=== PATIENT | female | born 1945 | race Caucasian/White ===

== ENCOUNTER → 2016-12-10 | Outpatient (CLI) | payer OTHER ==
[~2016-12-10] MED LIST: ALLO100T PO; ASPI-428 PO; ATOR-24 PO; CHOL1TAB76 PO; CHOLCAP10 PO; CLOP1TAB15 PO; FENO134C2 PO; FRRS300 PO; HYG25 PO; INSDGIPEN SC; INSU70IN2 SC; LEVO112T4 PO; LOSA50TA6 PO; LSN25 PO; MAGN1TAB19 PO; MAGN250T3 PO; MELO7.5T5 PO; METO-551 PO; METO1TAB31 PO; METO25TA3 PO; MULTCHW PO; MULTTAB58 PO; NVLGI/PEN SC; OMEP40CA41 PO; PLV75 PO; RRNITROTAB SL; ULT50X PO
[2016-12-10 17:29] LABS: HEMATOCRIT 36.3 % (37-47); MEAN CELL VOLUME 92.4 fL (80-100); MEAN CORPUSCULAR HGB CONC 32.5 g/dl (32-36); MEAN PLATELET VOLUME 12.8 fL (7.4-10.4); PLATELET COUNT 232 K/uL (130-400); RED BLOOD COUNT 3.93 M/uL (4.2-5.4); WHITE BLOOD COUNT 7.84 K/uL (4.8-10.8)
[2016-12-10 17:32] LABS: URINE APPEARANCE CLEAR (CLEAR); URINE BILIRUBIN NEG (NEG); URINE COLOR YELLOW; URINE EPITHELIAL CELL AUTO 20-30 /lpf (0-5); URINE NITRITE NEG (NEG); URINE SPECIFIC GRAVITY 1.011 (1.000-1.030); UROBILINOGEN NEG (NEG)
[2016-12-10 17:33] LABS: MANUAL MICROSCOPIC REQUIRED? NO; REVIEW REQ? NO
[2016-12-10 18:07] LABS: ALKALINE PHOSPHATASE 59 U/L (45-117); ALT/SGPT 42 U/L (12-78); AST/SGOT 47 U/L (15-37); BLOOD UREA NITROGEN 40 mg/dl (7-18); BUN/CREATININE RATIO 25.1 (10-20); CALCIUM 8.7 mg/dl (8.5-10.1); CARBON DIOXIDE 22 mmol/L (21-32); CHLORIDE 105 mmol/L (98-107); GLUCOSE 263 mg/dl (70-99); MAGNESIUM 1.8 mg/dl (1.8-2.4); PHOSPHORUS 3.8 mg/dl (2.5-4.9); POTASSIUM 4.7 mmol/L (3.5-5.1); SODIUM 138 mmol/L (136-145)
[2016-12-10 18:18] LABS: RATIO 25.6 mcg/mg (0-30.0)
[2016-12-10 18:20] LABS: CHOLESTEROL/HDL RATIO 4.8; THYROID STIMULATING HORMONE 1.52 uIu/ml (0.300-4.500)
[2016-12-11 06:17] LABS: ESTIMATED AVERAGE GLUCOSE 229 mg/dl; HA1C FLAG Normal (Normal)
== END | disposition home or self-care (01) ==
LOC: C.LABPBG 12:51
PROVIDERS: ATTEND Internal Medicine
DX: I12.9 Hypertensive chronic kidney disease with stage 1 through stage 4 chronic kidney disease, or unspecified chronic kidney disease (principal); N18.3 Chronic kidney disease, stage 3 (moderate); Z79.899 Other long term (current) drug therapy; E78.5 Hyperlipidemia, unspecified; E55.9 Vitamin D deficiency, unspecified

== ENCOUNTER 2017-04-07 10:12 | Inpatient (IN) | payer OTHER ==
[~2017-04-07] VITALS: Ht 149.9 cm; Wt 72.1 kg
[2017-04-07] MEDS ORDERED: SODIUM CHLORIDE 0.9% 1000ML 1,000 ML IV STA (10:18)
--- NOTE | 2017-04-07 10:23 | EMERGENCY ROOM VISIT NOTE ---
History Report prepared by Sindy: Daniel Sam Under the Supervision of: Dr. Heath White M.D. First contact with patient: 10:13 Chief Complaint: CHEST PAIN Stated Complaint: CHEST PAIN History of Present Illness The patient is a 71 year old female who presents to the Emergency Room with complaints of improved chest pain that started earlier this morning. The pain radiates to her back. She also complains of nausea. The patient was given 3 doses of Nitroglycerin, 4 mg Zofran, and 324 mg Aspirin in the ambulance. Her pain has improved but she still feels it in the center of her chest. The patient has otherwise been fine over the past couple of days. She denies shortness of breath, syncope, vomiting, groin or feet pain. She has a history of diabetes. Source of History: patient Onset: earlier this morning Position: chest Timing: other (improved) Modifying Factors (Relieving): other (Nitroglycerin, Aspirin, Zofran) Associated Symptoms: + nausea, No SOB Review of Systems See HPI for pertinent positives & negatives. A total of 10 systems reviewed and were otherwise negative. Past Medical & Surgical Medical Problems: (1) Diabetes (2) NSTEMI (non-ST elevated myocardial infarction) Family History Patient reports no known family medical history. Social History Marital Status: Allergies Coded Allergies: No Known Allergies (Unverified , 04/07/17) Physical Exam Vital Signs Date Time Temp Pulse Resp B/P Pulse Ox O2 Delivery O2 Flow Rate FiO2 04/07/17 12:59 72 20 145/76 94 Room Air 04/07/17 12:30 96 Room Air 04/07/17 11:56 73 20 153/81 96 Room Air 04/07/17 10:35 69 04/07/17 10:12 36.7 70 16 162/94 96 Room Air 04/07/17 10:12 96 Room Air 04/07/17 10:12 96 Room Air Physical Exam GENERAL: Patient is well appearing and in no acute distress. HEENT: No acute trauma, normocephalic atraumatic, mucous membranes moist, no nasal congestion, no scleral icterus. NECK: No stridor, no adenopathy, no meningismus, trachea is midline. LUNGS: No dyspnea. Clear to auscultation and equal bilaterally. No wheeze, no rhonchi. HEART: Regular rate and rhythm. No murmurs, rubs, gallops appreciated. ABDOMEN: Soft, nontender, bowel sounds positive, no masses appreciated, no peritonitis. BACK: No midline tenderness, no CVA tenderness EXTREMITIES: Normal motion all extremities, no cyanosis, no edema. NEUROLOGIC: Alert and oriented, no acute motor or sensory deficits, no focal weakness, cranial nerves grossly intact. SKIN: No rash, no jaundice, no diaphoresis. Medical Decision & Procedures ER Provider Diagnostic Interpretation: X ray results are stated below per my interpretation and the radiologist's interpretation. CHEST ONE VIEW PORTABLE CLINICAL HISTORY: Chest pain. COMPARISON STUDY: No previous studies for comparison. FINDINGS: There is no pneumothorax or pleural effusion. Pulmonary vascularity is normal. Cardiac size is at upper limits of normal. The patient is rotated. There is no consolidation to suggest pneumonia. Mild bibasilar opacities favor atelectasis. IMPRESSION: 1. No acute cardiopulmonary findings. 2. Mild bibasilar opacities which favor atelectasis. Electronically signed by: Murtaza Dubois M.D. 04/07/2017 11:00 AM Dictated Date/Time: 04/07/2017 10:58 AM Laboratory Results 04/07/17 10:15 Red Blood Count 4.02, Mean Corpuscular Volume 93.3, Mean Corpuscular Hemoglobin 29.9, Mean Corpuscular Hemoglobin Concent 32.0, Mean Platelet Volume 12.0, Neutrophils (%) (Auto) 56.0, Lymphocytes (%) (Auto) 30.4, Monocytes (%) (Auto) 6.8, Eosinophils (%) (Auto) 5.9, Basophils (%) (Auto) 0.5, Neutrophils # (Auto) 4.44, Lymphocytes # (Auto) 2.41, Monocytes # (Auto) 0.54, Eosinophils # (Auto) 0.47, Basophils # (Auto) 0.04 04/07/17 10:15 Test 04/07/17 10:15 White Blood Count 7.93 K/uL (4.8-10.8) Red Blood Count 4.02 M/uL (4.2-5.4) Hemoglobin 12.0 g/dL (12.0-16.0) Hematocrit 37.5 % (37-47) Mean Corpuscular Volume 93.3 fL (80-100) Mean Corpuscular Hemoglobin 29.9 pg (25-34) Mean Corpuscular Hemoglobin Concent 32.0 g/dl (32-36) Platelet Count 197 K/uL (130-400) Mean Platelet Volume 12.0 fL (7.4-10.4) Neutrophils (%) (Auto) 56.0 % Lymphocytes (%) (Auto) 30.4 % Monocytes (%) (Auto) 6.8 % Eosinophils (%) (Auto) 5.9 % Basophils (%) (Auto) 0.5 % Neutrophils # (Auto) 4.44 K/uL (1.4-6.5) Lymphocytes # (Auto) 2.41 K/uL (1.2-3.4) Monocytes # (Auto) 0.54 K/uL (0.11-0.59) Eosinophils # (Auto) 0.47 K/uL (0-0.5) Basophils # (Auto) 0.04 K/uL (0-0.2) RDW Standard Deviation 45.8 fL (36.4-46.3) RDW Coefficient of Variation 13.4 % (11.5-14.5) Immature Granulocyte % (Auto) 0.4 % Immature Granulocyte # (Auto) 0.03 K/uL (0.00-0.02) Prothrombin Time 10.0 SECONDS (9.0-12.0) Prothromb Time International Ratio 0.9 (0.9-1.1) Activated Partial Thromboplast Time 24.3 SECONDS (21.0-31.0) Partial Thromboplastin Ratio 0.9 D-Dimer 410 ug/L FEU (0-500) Anion Gap 11.0 mmol/L (3-11) Est Creatinine Clear Calc Drug Dose 33.8 ml/min Estimated GFR () 47.1 Estimated GFR (Non- 40.7 BUN/Creatinine Ratio 20.1 (10-20) Calcium Level 9.1 mg/dl (8.5-10.1) Total Creatine Kinase 153 U/L (26-192) Creatine Kinase MB 6.6 ng/ml (0.5-3.6) Creatine Kinase MB Ratio 4.3 (0-3.0) Troponin I 0.115 ng/ml (0-0.045) Laboratory results as reviewed by me. Medications Administered Medications (Trade) Dose Ordered Sig/Bay Route Start Time Stop Time Status Last Admin Dose Admin Sodium Chloride (Nss 1000ml) 1,000 ml @ 75 mls/hr [id number] STAT IV 04/07/17 10:18 04/07/17 23:37 04/07/17 10:36 75 MLS/HR Nitroglycerin (Nitroglycerin 2% Oint) 1 inch NOW ONCE EXT 04/07/17 11:30 04/07/17 11:31 DC 04/07/17 11:53 1 INCH Heparin Sodium/ Dextrose (Heparin 25,000 Unit/500ml D5W) 25,000 unit STK-MED ONCE .ROUTE 04/07/17 11:45 04/07/17 11:46 DC 04/07/17 11:56 25,000 UNIT Heparin Sodium (Porcine) (Heparin Sq 5000 Unit/0.5ml) 5,000 unit STK-MED ONCE .ROUTE 04/07/17 11:51 04/07/17 11:52 DC 04/07/17 11:54 3,000 UNIT ECG Indication: chest pain Rate (beats per minute): 70 Rhythm: normal sinus Findings: nonspecific-ST abn (throughout anterolateral leads), ST elevation ( mild, lead V1 only), other (no recipricol changes, no definite STEMI) Change: Repeat EKG one hour later: Normal sinus at 69, developing T wave inversions anterolaterally, improvement of ST abnormality in lead V1. ED Course 1014: The patient was evaluated in room B4b. A complete history and physical exam was performed. 1018: NSS 1000 ml @ 75 mls/hr. 1123: Heparin Sodium / Dextrose 1 ea IV. 1130: Discussed at length the risks and benefits of heparin use. I also listed all contraindications. She agrees to treatment with Heparin. Hospitalist Service being paged. 1130: Nitroglycerin 1 inch EXT. 1147: Discussed the case with Dr. Fernandes, [facility] Hospitalist. The patient will be evaluated. Medical Decision Differential: Cardiac Ischemia (STEMI, NSTEMI, Unstable Angina, etc), Aortic Dissection, Arrhythmia, Pulmonary Embolism, Pneumonia, Pneumothorax, MSK, Infectious, Pericarditis/Myocarditis, Esophageal Rupture, Gastrointestinal, amongst other pathologies entertained. Medication Reconciliation: I attest that I have personally reviewed the patient 's current medication list. 71 yr old diabetic, HTN female arrives with substernal chest pressure radiating to back. ASA/SLNTGx3 [employer] with resolution of symptoms and only mild discomfort on arrival which resolved while I was evaluating here. Feels well without further complaints. She has concerning initial EKG but without current symptoms I do not feel that heart alert reasonable. Repeat EKG does show developing changes. As this with Trop elevation feel that patient has NSTEMI and will need heparin. Without persistent pain will avoid nitro gtt at current but start with nitro paste as BP can handle it. She does not have CXR abnormality, she has excellent equal pulses all 4 extremities and does not have any further pain. I do not feel this is aortic dissection. I furthermore do not feel this is PE, pneumothorax nor infectious etiology. She is stable, feels well and in no distress. She has no contraindications to heparin use and understands the risks of bleeding, sometimes severe. Stable at time of evaluation by hospitalist. Consults Time Called: 1130 Consulting Physician: Dr. Fernandes [facility] Hospitalist Returned Call: [phone] The patient will be evaluated. Impression Primary Impression: NSTEMI (non-ST elevated myocardial infarction) Critical Care I have personally spent greater than 40 minutes of critical care time in the direct management of this patient. This was a life/limb threatening event. This includes time spent evaluating patient, direct bedside care, chart review, placing orders, interpretation of diagnostic studies, discussion with consultants, patient, and family members, as well as other required patient management activities. This 40 minutes is in excess of all separately billable procedures. Scribe Attestation The scribe's documentation has been prepared under my direction and personally reviewed by me in its entirety. I confirm that the note above accurately reflects all work, treatment, procedures, and medical decision making performed by me. Departure Information Dispostion Being Evaluated By Hospitalist Referrals Venkatesh Ludny M.D. (PCP) Patient Instructions My [facility]
[2017-04-07 10:30] LABS: BASO % 0.5 %; BASO ABS # 0.04 K/uL (0-0.2); COMPLETE YES; EOS % 5.9 %; HEMATOCRIT 37.5 % (37-47); IG% 0.4 %; LYMPH % 30.4 %; LYMPH ABS # 2.41 K/uL (1.2-3.4); MEAN CELL VOLUME 93.3 fL (80-100); MEAN CORPUSCULAR HEMOGLOBIN 29.9 pg (25-34); MONO % 6.8 %; PLATELET COUNT 197 K/uL (130-400); RED BLOOD COUNT 4.02 M/uL (4.2-5.4); WHITE BLOOD COUNT 7.93 K/uL (4.8-10.8)
[2017-04-07 10:42] LABS: BUN/CREATININE RATIO 20.1 (10-20); CALCIUM 9.1 mg/dl (8.5-10.1); CREATININE 1.3 mg/dl (0.60-1.20); POTASSIUM 4.2 mmol/L (3.5-5.1)
[2017-04-07 10:43] LABS: INR 0.9 (0.9-1.1); PARTIAL THROMBOPLASTIN RATIO 0.9
[2017-04-07 10:53] LABS: CKMB/CK RATIO 4.3 (0-3.0)
--- NOTE | 2017-04-07 11:01 | DIAGNOSTIC IMAGING REPORT ---
CHEST ONE VIEW PORTABLE CLINICAL HISTORY: Chest pain. COMPARISON STUDY: No previous studies for comparison. FINDINGS: There is no pneumothorax or pleural effusion. Pulmonary vascularity is normal. Cardiac size is at upper limits of normal. The patient is rotated. There is no consolidation to suggest pneumonia. Mild bibasilar opacities favor atelectasis. IMPRESSION: 1. No acute cardiopulmonary findings. 2. Mild bibasilar opacities which favor atelectasis. Electronically signed by: Murtaza Dubois M.D. 04/07/2017 11:00 AM Dictated Date/Time: 04/07/2017 10:58 AM
[2017-04-07] MEDS ORDERED: NITROGLYCERIN OINT 2% 1GM PACKET EXT ONE (11:30)
[2017-04-07] MEDS ORDERED: HEPARIN 25000 UNIT/500 ML D5W ONE (11:45)
[2017-04-07] MEDS ORDERED: HEPARIN SOD (PORCINE) 1000 UNIT/ML 10 ML VIAL ONE (11:48)
[2017-04-07] MEDS ORDERED: HEPARIN SOD 5000 UNIT/0.5 ML CARP ONE (11:51)
[2017-04-07] MEDS ORDERED: ALUMINUM/MAGNESIUM/SIMETH (MAALOX MAX) 30 ML UDC PO PRN (12:15)
[2017-04-07] MEDS ORDERED: ONDANSETRON INJ 2 MG/ML 2 ML VIAL IV PRN (12:15)
[2017-04-07] MEDS ORDERED: ACETAMINOPHEN 325 MG TAB PO PRN (12:15)
[2017-04-07] MEDS ORDERED: NITROGLYCERIN OINT 2% 1GM PACKET EXT SCH (12:15)
[2017-04-07] MEDS ORDERED: MAGNESIUM HYDROXIDE SUSP 30 ML UDC PO PRN (12:15)
[2017-04-07] MEDS ORDERED: NITROGLYCERIN 0.4 MG SL PER TAB CHARGE SL PRN (12:15)
[2017-04-07 12:30] VITALS: O2SAT 96; BMI 33.0
[2017-04-07] MEDS ORDERED: GLUCOSE 10 TABS/TUBE PO PRN (12:30)
[2017-04-07] MEDS ORDERED: GLUCAGON FOR INJ 1 MG VIAL SQ PRN (12:30)
[2017-04-07] MEDS ORDERED: GLUCOSE 40% GEL 15 GM TUBE PO PRN (12:30)
[2017-04-07] MEDS ORDERED: DEXTROSE 50% 50 ML SYR IV PRN (12:30)
[2017-04-07 13:50] VITALS: BP 148/81; PULSE 77; TEMP 36.6; O2SAT 95
[2017-04-07] MEDS ORDERED: METOPROLOL TARTRATE 25 MG TAB PO ONE (14:00)
--- NOTE | 2017-04-07 14:06 | HISTORY & PHYSICAL EXAMINATION ---
DATE OF ADMISSION: 04/07/2017 CHIEF COMPLAINT: Chest pain. HISTORY OF PRESENT ILLNESS: This is a 71-year-old female with past medical history significant for poorly controlled diabetes on insulin, hypertension, hyperlipidemia, gastroparesis, hypothyroidism, history of glaucoma, chronic kidney disease stage III, history of depression, osteoarthritis, who presents with chest pain. The patient says yesterday afternoon, she noticed chest pain, middle of the chest going to back, 10/10 in severity while she was at rest and not associated with any shortness of breath or sweating or nausea or dizziness. Patient says she took a nitro and the pain subsided a little bit and she took another nitro and the pain was almost gone and she went to sleep but today morning again she woke up with severe pain and she came to ER. aIn the ambulance, she got 3 nitros and the pain is almost resolved. Currently resting comfortably, hemodynamically stable. Chest pain is about 1/10 in severity at this time. Denies any recent fever or chills, no headaches. No blurred visions. Appetite is okay. Normal bowel and bladder movements. Otherwise the patient says she is active and she walks and she climbs steps without any problems. ALLERGIES: TO LISINOPRIL, SALICYLATES. PAST MEDICAL HISTORY: As mentioned above. PAST SURGICAL HISTORY: Left heart catheterization in 2003, colonoscopy, removal of nose polyps, removal of thyroid gland, cataract surgery. MEDICATIONS: The patient is on allopurinol 100 mg two tablets daily, chlorthalidone 12.5 mg p.o. daily, fenofibrate 134 mg p.o. daily, Novolin 70/30, 8 units with breakfast and 50 units with supper, triamcinolone apply topically b.i.d., omeprazole 40 mg p.o. daily, levothyroxine 112 mcg p.o. daily, atorvastatin 40 mg p.o. daily, metoprolol tartrate 25 mg p.o. b.i.d., vitamin D 2000 unit p.o. daily, meloxicam 75 mg p.o. daily p.r.n., magnesium 250 mg p.o. b.i.d., aspirin 81 mg p.o. daily, multivitamin one tablet p.o. daily. FAMILY HISTORY: Significant for, mother had breast cancer and diabetes. Father had heart disorder. Sister has breast cancer. Brother has diabetes. SOCIAL HISTORY: . Never smoked. No alcohol use. No drug use. REVIEW OF SYSTEMS: As per HPI. Rest of the review of symptoms negative. PHYSICAL EXAMINATION: GENERAL: The patient is of moderate build, not in distress. VITAL SIGNS: Temperature 36.7, pulse 70, respiratory rate 16, blood pressure 162/94, oxygen 96% on room air. HEENT: No pallor, no icterus. Pupils equal, round, and reactive to light. NECK: No JVD, no neck masses, no carotid bruits. CARDIOVASCULAR: S1, S2 heard, regular rate and rhythm, no murmur, no gallop. RESPIRATORY SYSTEM: Clear to auscultation bilaterally. No wheezing, no crackles. ABDOMEN: Soft, bowel sounds present. Nontender. No distention. CENTRAL NERVOUS SYSTEM: Cranial nerves II-XII grossly intact. Nonfocal. EXTREMITIES: No edema, no erythema. LABORATORIES: Sodium 140, potassium 4.2, chloride 105, bicarb 24, BUN 26, creatinine 1.3, serum glucose 245, calcium 9.1, total creatinine kinase 153, CK-MB 6.6, troponin 0.115. WBC 7.9, hemoglobin 12, hematocrit 37.5, platelets 197. PT 10, INR 0.9, PTT 24.3. Chest x-ray: No acute findings, mild bibasilar opacities favors atelectasis. Initial EKG showed normal sinus rhythm with rate of 70, nonspecific T-wave abnormality. A repeat EKG showed normal sinus rhythm with rate of 69, some T-wave inversions in leads V4, V5 and V6. ASSESSMENT AND PLAN: This is a 71-year-old female who presents with chest pain. 1. Chest pain, \ non-ST myocardial infarction with EKG changes with T-wave inversions in V4 through V6 leads and mild elevation in troponin 0.1. We will continue IV heparin and nitropaste. Continue home aspirin and Lopressor and Lipitor, serial cardiac enzymes, echocardiogram and consult cardiology. Further recommendations as per cardiology. Close monitor in tele floor. 2. History of diabetes, poorly controlled. HBA1C 8.9level. Will place o Lantus and insulin sliding scale. We will closely monitor blood sugars.Follow hba1c levels 3. History of hypertension. Continue Lopressor, chlorthalidone. The patient currently on nitropaste and will monitor the blood pressure. 4. History of hypothyroidism. Continue Synthroid. 5. History of hyperlipidemia. Continue statin. Follow the fasting lipid profile. 6. History of chronic kidney disease stage III, baseline creatinine around 1.3. We will follow the labs. 7. History of gout, continue allopurinol. 8. Deep venous thrombosis prophylaxis, on IV heparin. 9. Disposition: Close monitor in tele floor. Expect to discharge home and follow with the family doctor and cardiology. Level 1 full code. MTDD
[2017-04-07] MEDS: SODIUM CHLORIDE 0.9% 1000ML 1,000 ML IV SCH (14:21)
[2017-04-07] MEDS ORDERED: PERFLUTREN LIPID MICROSPHERE (DEFINITY) IV ONE (15:15)
[2017-04-07 15:51] VITALS: BP 123/61; PULSE 70; TEMP 36.7; O2SAT 95
[2017-04-07 17:07] LABS: CKMB/CK RATIO 7.5 (0-3.0)
[2017-04-07] MEDS: METOPROLOL TARTRATE 25 MG TAB PO SCH ×2 (17:58→23:40)
[2017-04-07] MEDS: INSULIN ASPART 100 UNITS/ML 3 ML PEN SC SCH ×2 (17:59→20:50)
[2017-04-07] MEDS: HEPARIN 25,000 UNIT/500ML D5W 500 ML IV PRN (19:28)
[2017-04-07] MEDS ORDERED: HEPARIN IV BOLUS 5,000 UNIT in SYRINGE 0 ML IV ONE (19:30)
[2017-04-07 19:43] VITALS: BP 131/69; PULSE 78; TEMP 36.7; O2SAT 96
--- NOTE | 2017-04-07 20:00 | CARDIOLOGY CONSULTATION ---
DATE OF CONSULTATION: 04/07/2017 REFERRING: Dr. Fernandes. PRIMARY CARE PHYSICIAN: Dr. Lundy. PRIMARY CAFETERIA CLERK: Dr. Rodrigues. SENIOR WRITER: Dr. Hernandez. INDICATIONS: Chest pain. HISTORY OF PRESENT ILLNESS: The patient is a 71-year-old female whose history is notable for longstanding hypertension with hypertensive heart disease, type 2 diabetes mellitus, chronic stage III renal insufficiency, dyslipidemia, gastroesophageal reflux with gastroparesis. She has undergone prior diagnostic cardiac catheterization in the remote past in 2003 for abnormal stress testing and chest discomfort with study at that time demonstrating narrow caliber coronaries, but no obstructive disease. The patient presents now noting an episode of chest pain radiating to her mid chest and back developing while sitting quietly at [facility]. She was treated with nitrates and aspirin in the ambulance en route with improvement of symptoms. Notes no prior history of myocardial infarction or recent episodes of chest pain or discomfort. Currently is comfortable in the Emergency Room. Notes no fevers, chills or productive cough. Notes no bleeding difficulties. Notes no melena, hematochezia, dysuria or hematuria. Notes no rash or arthritic complaint. Did receive a course of prednisone for tendonitis in early March. Notes no acute weight loss or gain. Notes no sleep disruptions. Has been taking medications as prescribed. Blood pressures has been per patient okay. Blood sugars have been variable. REVIEW OF SYSTEMS: Otherwise negative. ALLERGIES: NOTED TO BE COUGH WITH LISINOPRIL, GI UPSET WITH HIGH DOSE ASPIRIN, THOUGH SHE IS ABLE TO TAKE BABY ASPIRIN. MEDICATIONS PRIOR TO HOSPITALIZATION: Were, chlorthalidone 12.5 mg per day, allopurinol 200 mg p.o. q. day, fenofibrate 134 mg p.o. q. day, Novolin 70/30 insulin, Levoxyl 112 mcg per day, atorvastatin 40 mg p.o. q. day, metoprolol 25 mg twice per day, vitamin D3 2000 unit q. day, meloxicam p.r.n. pain, aspirin 81 mg per day, multivitamin per day, and magnesium 250 mg p.o. q. day. PAST SURGICAL HISTORY: Notable for prior thyroidectomy, in the remote past history of polypectomy, cataract extractions. FAMILY HISTORY: Positive for heart disease. SOCIAL HISTORY: The patient is a nonsmoker, nondrinker. She is lives in [place]. She is modestly active about her home. PHYSICAL EXAMINATION: GENERAL: This patient is a moderately obese, age-appropriate female, in no acute distress currently. VITAL SIGNS: Heart rate 73, blood pressure is 162/90, O2 saturation is 96% on room air. HEENT: Normocephalic, atraumatic. Nares without discharge. Throat was clear. NECK: Supple without thyromegaly, lymphadenopathy. There is a surgical incision in the neck. There are no carotid bruits audible. LUNGS: Clear to the bases. CARDIOVASCULAR: Regular with normal S1, S2. There is no audible murmur or rub. ABDOMEN: Soft, nontender. There is no palpable hepatosplenomegaly. ABDOMEN: Obese. There are no abdominal bruits. EXTREMITIES: Without cyanosis or clubbing. There is no peripheral edema. There are intact distal pulses. There is no audible abdominal or femoral bruits. Distal pulses are +1/4 dorsalis pedis and posterior tibialis. DATA: EKG on initial presentation revealed nonspecific ST segment changes, sinus rhythm with hyperacute ST segments in V2 and V3, poor R-wave progression V1, V2. Repeat study demonstrated nonspecific ST flattening, slightly more pronounced, though with less hyperacute segments in V1, V2. Troponin is 0.115, CK is 153 with MB fraction elevation, BUN is 26, creatinine is 1.3, hemoglobin is 12.0. Chest x-ray reveals no infiltrate or edema. Outpatient review of records reveals stress nuclear imaging study with a Lexiscan on 02/06/2017 with normal study. IMPRESSION: A 71-year-old female with cardiac risk factors of diabetes, hypertension, hyperlipidemia, hypertensive heart disease, who presents now with severe chest pain radiating from mid chest to back and shoulders with response to nitrates and elevated troponin on presentation. Findings are indicative of acute coronary syndrome though, hypertensive origin may be present. RECOMMENDATIONS : As already initiated, continue IV heparin. We will intensify beta porsche by increasing metoprolol 25 q. 6 hours with an additional dose today, topical nitrates administered 1 inch q. 6 hours. Echocardiogram has been ordered and will be reviewed. Her outpatient records, an ejection fraction in the past has been approximately 50% , but recent stress nuclear suggested an ejection fraction of 70%. Would have low threshold of adding losartan to regimen. Cardiology will continue to follow with clinical history if the patient report any worsening symptoms while in the hospital. LILA
[2017-04-07] MEDS ORDERED: METOPROLOL TARTRATE 25 MG TAB PO SCH (21:00)
[2017-04-07] MEDS ORDERED: INSULIN GLARGINE SOLOSTAR 100 UNITS/ML 3 ML PEN SC SCH (21:00)
[2017-04-07] MEDS: NITROGLYCERIN OINT 2% 1GM PACKET EXT SCH (22:22)
[2017-04-07 23:33] VITALS: BP 130/71; PULSE 74; TEMP 36.7; O2SAT 94
[2017-04-08] MEDS: NITROGLYCERIN OINT 2% 1GM PACKET EXT SCH ×4 (03:30→21:21)
[2017-04-08] MEDS: SODIUM CHLORIDE 0.9% 1000ML 1,000 ML IV SCH (03:34)
[2017-04-08 03:35] LABS: BASO % 0.3 %; BASO ABS # 0.02 K/uL (0-0.2); COMPLETE YES; EOS % 5.2 %; HEMATOCRIT 35.1 % (37-47); IG% 0.3 %; LYMPH % 29.9 %; LYMPH ABS # 2.23 K/uL (1.2-3.4); MEAN CELL VOLUME 94.6 fL (80-100); MEAN CORPUSCULAR HEMOGLOBIN 30.2 pg (25-34); MEAN CORPUSCULAR HGB CONC 31.9 g/dl (32-36); MEAN PLATELET VOLUME 11.8 fL (7.4-10.4); MONO % 7.9 %; NEUT % 56.4 %; PLATELET COUNT 172 K/uL (130-400); RED BLOOD COUNT 3.71 M/uL (4.2-5.4); WHITE BLOOD COUNT 7.45 K/uL (4.8-10.8)
[2017-04-08 03:43] LABS: PARTIAL THROMBOPLASTIN RATIO 1.3
[2017-04-08 04:05] LABS: BUN/CREATININE RATIO 15.6 (10-20); CALCIUM 8.5 mg/dl (8.5-10.1); CHOLESTEROL/HDL RATIO 4.9; CREATININE 1.2 mg/dl (0.60-1.20); MAGNESIUM 1.8 mg/dl (1.8-2.4); POTASSIUM 4.7 mmol/L (3.5-5.1)
[2017-04-08 04:10] VITALS: BP 122/62; PULSE 82; TEMP 36.6; O2SAT 97
[2017-04-08] MEDS: METOPROLOL TARTRATE 25 MG TAB PO SCH ×3 (05:39→17:13)
[2017-04-08] MEDS: LEVOTHYROXINE 112 MCG TAB PO SCH (05:39)
[2017-04-08] MEDS: HEPARIN 25,000 UNIT/500ML D5W 500 ML IV PRN (06:20)
[2017-04-08] MEDS ORDERED: HEPARIN IV BOLUS 5,000 UNIT in SYRINGE 0 ML IV ONE (06:30)
[2017-04-08] MEDS: INSULIN ASPART 100 UNITS/ML 3 ML PEN SC SCH ×4 (07:00→21:00)
--- NOTE | 2017-04-08 07:26 | ECHOCARDIOGRAM REPORT ---
*NOTICE TO RECEIVING LIBERTARIAN AGENCY This information is strictly Confidential and protected under [place] law. [place] law prohibits you from making any further disclosure of this information unless further disclosure is expressly permitted by the written consent of the person to whom it pertains or is authorized by law. A general authorization for the release of medical or other information is not sufficient for this purpose. Hospital accepts no responsibility if the information is made available to any other person, INCLUDING THE PATIENT. Interpretation Summary * Conclusions -- * The left ventricle is normal in size. * There is normal left ventricular wall thickness. * There is severe hypokinesis to akinesis of the septum and apex with mild apical expansion. * Ejection Fraction = 35-40%. * Aortic valve sclerosis moderate, without significant aortic valvular stenosis. * There is focal calcification of the posterior annulus. * There is trace mitral regurgitation. * Grade I diastolic dysfunction, (abnormal relaxation pattern). Procedure Details * A complete two-dimensional transthoracic echocardiogram was performed (2D, M-mode, Doppler and color flow Doppler). * A contrast injection of Definity was performed to improve assessment of LV function. * Contrast was injected into an intravenous site in the left arm. * One vial of Definity ultrasound contrast was diluted in normal saline to a total volume of 10 ml. A total of '2' ml of solution was administered during imaging. * Lot # [id number] of Definity utilized for procedure. * Expiration date 04/28. * The attending nurse who injected the contrast agent was SHASTA FINCH RN. Left Ventricle * The left ventricle is normal in size. * There is normal left ventricular wall thickness. * Ejection Fraction = 35-40%. * There is severe hypokinesis to akinesis of the septum and apex with mild apical expansion. Right Ventricle * The right ventricle is normal in size and function. Atria * The left atrial size is normal. * Right atrial size is normal. * No ASD detected; PFO is not assessed. Mitral Valve * There is focal calcification of the posterior annulus. * There is no mitral valve stenosis. * There is trace mitral regurgitation. Tricuspid Valve * The tricuspid valve anatomy is normal. * There is no tricuspid stenosis. * There is trace tricuspid regurgitation. Aortic Valve * The aortic valve is trileaflet. * Aortic valve sclerosis moderate, without significant aortic valvular stenosis. * No aortic regurgitation is present. Pulmonic Valve * The pulmonic valve is not well visualized. Great Vessels * The aortic root is normal size. Pericardium/Pleural * There is no pericardial effusion. Left Ventricular Diastolic Function * Grade I diastolic dysfunction, (abnormal relaxation pattern). MMode 2D Measurements and Calculations IVSd 0.87 cm IVSs 1.1 cm LVIDd 3.9 cm LVIDs 2.9 cm LVPWd 0.86 cm LVPWs 1.1 cm IVS/LVPW 1.0 FS 27.2 % EDV(Teich) 66.6 ml ESV(Teich) 30.9 ml EF(Teich) 53.6 % EDV(cubed) 60.1 ml ESV(cubed) 23.2 ml EF(cubed) 61.4 % % IVS thick 28.8 % % LVPW thick 25.8 % LV mass(C)d 100.0 grams LV mass(C)dI 59.2 grams/m\S\2 LV mass(C)s 88.3 grams LV mass(C)sI 52.2 grams/m\S\2 SV(Teich) 35.7 ml SI(Teich) 21.1 ml/m\S\2 SV(cubed) 36.9 ml SI(cubed) 21.8 ml/m\S\2 ACS 0.94 cm asc Aorta Diam 2.7 cm LVOT diam 1.6 cm LVOT area 2.0 cm\S\2 LVAd ap4 28.7 cm\S\2 LVLd ap4 7.1 cm EDV(MOD-sp4) 94.0 ml EDV(sp4-el) 98.0 ml LVAs ap4 19.3 cm\S\2 LVLs ap4 6.7 cm ESV(MOD-sp4) 44.2 ml ESV(sp4-el) 46.9 ml EF(MOD-sp4) 53.0 % EF(sp4-el) 52.1 % LVAd ap2 28.2 cm\S\2 LVLd ap2 7.2 cm EDV(MOD-sp2) 91.8 ml EDV(sp2-el) 93.7 ml LVAs ap2 18.9 cm\S\2 LVLs ap2 6.8 cm ESV(MOD-sp2) 44.4 ml ESV(sp2-el) 44.6 ml EF(MOD-sp2) 51.6 % EF(sp2-el) 52.4 % LVLd %diff 0.77 % EDV(MOD-bp) 93.0 ml LVLs %diff 1.1 % ESV(MOD-bp) 43.9 ml EF(MOD-bp) 52.8 % SV(MOD-sp4) 49.8 ml SI(MOD-sp4) 29.4 ml/m\S\2 SV(MOD-sp2) 47.4 ml SI(MOD-sp2) 28.0 ml/m\S\2 SV(MOD-bp) 49.1 ml SI(MOD-bp) 29.0 ml/m\S\2 SV(sp4-el) 51.1 ml SI(sp4-el) 30.2 ml/m\S\2 SV(sp2-el) 49.1 ml SI(sp2-el) 29.0 ml/m\S\2 Doppler Measurements and Calculations MV E max adriano 96.0 cm/sec MV A max adriano 124.4 cm/sec MV E/A 0.77 MV dec time 0.21 sec Ao V2 max 126.9 cm/sec Ao max PG 6.4 mmHg Ao max PG (full) 2.8 mmHg KELLY(V,A) 1.5 cm\S\2 KELLY(V,D) 1.5 cm\S\2 LV V1 max PG 3.6 mmHg LV V1 max 94.9 cm/sec PA V2 max 89.5 cm/sec PA max PG 3.2 mmHg
[2017-04-08 07:55] LABS: ESTIMATED AVERAGE GLUCOSE 243 mg/dl; HA1C FLAG Normal (Normal)
[2017-04-08 07:57] VITALS: BP 117/63; PULSE 74; TEMP 36.8; O2SAT 95
[2017-04-08 08:19] LABS: CKMB/CK RATIO 7.1 (0-3.0)
[2017-04-08] MEDS: FENOFIBRATE 145 MG TAB PO SCH (09:03)
[2017-04-08] MEDS: CHLORTHALIDONE 25 MG TAB PO SCH (09:03)
[2017-04-08] MEDS: ATORVASTATIN 40 MG TAB PO SCH (09:04)
[2017-04-08] MEDS: CEROVITE ADV FORMULA TAB PO SCH (09:04)
[2017-04-08] MEDS: ALLOPURINOL 100 MG TAB PO SCH (09:04)
[2017-04-08] MEDS: MAGNESIUM OXIDE 400 MG TAB PO SCH (09:04)
[2017-04-08] MEDS: ASPIRIN 81 MG ECTAB PO SCH (09:04)
[2017-04-08] MEDS: PANTOprazole SOD 40 MG TAB PO SCH (09:05)
--- NOTE | 2017-04-08 10:36 | PROGRESS NOTE ---
DATE: 04/08/2017 SUBJECTIVE: The patient is seen and examined at the bedside. She is chest pain free over the last 24 hours. Intravenous heparin is infusing. Family present at bedside. The patient has been n.p.o. this morning pending cardiology evaluation. Denies any shortness of breath. Her chest discomfort was relieved on presentation with topical nitrates. Her ECG demonstrates anterior T-wave inversions. Her troponin has trended up to 3.900. Resting 2D transthoracic echo demonstrates anterior apical wall motion abnormality with moderate systolic dysfunction. REVIEW OF SYSTEMS: Pertinent positives noted above. A 4-system review including cardiovascular, gastroenterologic, neurologic, and pulmonary systems otherwise negative. MEDICATIONS: Reviewed via EMR. Please see list for details. LABORATORY DATA: Sodium 147, potassium 4.7, chloride 111, CO2 is 27, BUN is 19, and creatinine is 1.20. Hemoglobin A1c is 10.1. White blood cell count is 7.45, hemoglobin is 11.2, and platelet count is 172. PHYSICAL EXAMINATION: VITAL SIGNS: Temperature is 36.8 degrees centigrade, pulse 74 beats per minute and regular, respiratory rate is 18 breaths per minute, blood pressure 117/63, and SaO2 is 95% on room air. TELEMETRY: Demonstrates sinus rhythm. GENERAL: NAD, awake, alert and oriented x3. HEENT: Mucous membranes are moist. There is no scleral icterus. Conjunctivae are pink. NECK: Supple. There is no JVD or HJR. No carotid bruit. HEART: Regular with a normal S1 and S2. There is no murmur, rub or gallop. LUNGS: Clear. There are no rales, rhonchi or wheeze. ABDOMEN: Soft and nontender. No rebound or guarding. Normal bowel sounds. EXTREMITIES: Warm and dry. There is no clubbing, cyanosis or edema. Normal right upper extremity Silvano's test is noted. Her right femoral pulse is normal with palpable posterior tibial pulses on the right side. NEUROLOGIC: Demonstrates no focal motor deficit. FINAL IMPRESSION: 1. Non-ST elevation myocardial infarction with septal and apical wall motion abnormality. 2. Diabetes type 2 -- controlled. 3. Dyslipidemia. 4. Moderate left ventricular systolic dysfunction with compensated heart failure. PLAN AND RECOMMENDATIONS: The risks, benefits and alternatives to cardiac catheterization were discussed. The patient and family are agreeable. Intravenous heparin will be continued overnight. Other cardiovascular medications including aspirin, atorvastatin, and topical nitrates will be continued. We will plan to add TROY inhibitor post-catheterization. Further recommendations pending review of coronary angiography. The patient will remain n.p.o. except medications after midnight in anticipation of procedure in the a.m.
[2017-04-08 12:14] VITALS: BP 113/66; PULSE 85; TEMP 36.5; O2SAT 96
[2017-04-08 12:45] LABS: PARTIAL THROMBOPLASTIN RATIO 1.8
[2017-04-08 15:02] VITALS: Ht 149.9 cm; Wt 72.1 kg
[2017-04-08 15:16] VITALS: BP 110/59; PULSE 76; TEMP 36.7; O2SAT 95
--- NOTE | 2017-04-08 17:09 | Progress Note ---
Internal Med Progress Note Date of Service: April 08, 2017. Provider Documentation: SUBJECTIVE: resting comfortably slept ok no chest pain since admission no sob no sweating hemodynamics stable OBJECTIVE: Vital Signs-as noted below Exam: General-alert and awake and oriented x 3. ENT-normal hearing Neck-no neck masses Lungs-cta b/l no wheezing or crackles Heart-s1 and s2 heard regular rate and rhythm no murmurs Abdomen-soft bowel sounds present non tender no distension Extremities- no present no erythema Neuro-alert and awake oriented moves extremities Lab data as noted below. ASSESSMENT & PLAN: This is a 71-year-old female who presents with chest pain and NSTEMI.Currently asymptomatic Plan for cardiac cath in am. 1. Chest pain, non-ST myocardial infarction with EKG changes with T-wave inversions in V4 through V6 leads and mild elevation in troponin 0.1. on nitropaste, po Lopressor, aspirin and iv heparin and statin plan to add lisinopril after cardiac cath morphine prn troponin 3.9 today echo shows severe hypokinesis to akinesis of the septum and apex with mild apical expansion and ef 35-40% currently asymptomatic cardiology on board and plan for cardiac cath in am. 2. Systolic chf new onset on meds as above monitor for volume overload. 2. History of diabetes, poorly controlled. HBA1C 8.9level. On Lantus and insulin sliding scale. hba1c levels 10.1. Pharmacy consulted for glycemic management. Diabetic teaching close monitor. 3. History of hypertension. Continue Lopressor, chlorthalidone. The patient currently on nitropaste and will monitor the blood pressure. 4. History of hypothyroidism. Continue Synthroid. 5. History of hyperlipidemia. Continue statin. LDL 58 hdl 31 TG 320 on TriCor. 6. History of chronic kidney disease stage III, baseline creatinine around 1.3. We will follow the labs. 7. History of gout, continue allopurinol. 8. Deep venous thrombosis prophylaxis, on IV heparin. 9. Disposition: Close monitor in tele floor. Expect to discharge home and follow with the family doctor and cardiology. Level 1 full code Vital Signs: Date Time Temp Pulse Resp B/P Pulse Ox O2 Delivery O2 Flow Rate FiO2 04/08/17 19:40 36.4 72 20 130/76 97 Room Air 04/08/17 16:00 Room Air 04/08/17 15:16 36.7 76 22 110/59 95 Room Air 04/08/17 12:14 36.5 85 17 113/66 96 Room Air 04/08/17 12:00 Room Air 04/08/17 08:00 Room Air 04/08/17 07:57 36.8 74 18 117/63 95 Room Air 04/08/17 04:10 36.6 82 20 122/62 97 Room Air 04/07/17 23:43 Room Air 04/07/17 23:33 36.7 74 21 130/71 94 Room Air Lab Results: Results Past 24 Hours Test 04/07/17 20:46 04/08/17 03:05 04/08/17 06:26 04/08/17 07:30 Range/Units Bedside Glucose 228 102 70-90 mg/dl White Blood Count 7.45 4.8-10.8 K/uL Red Blood Count 3.71 4.2-5.4 M/uL Hemoglobin 11.2 12.0-16.0 g/dL Hematocrit 35.1 37-47 % Mean Corpuscular Volume 94.6 80-100 fL Mean Corpuscular Hemoglobin 30.2 25-34 pg Mean Corpuscular Hemoglobin Concent 31.9 32-36 g/dl Platelet Count 172 130-400 K/uL Mean Platelet Volume 11.8 7.4-10.4 fL Neutrophils (%) (Auto) 56.4 % Lymphocytes (%) (Auto) 29.9 % Monocytes (%) (Auto) 7.9 % Eosinophils (%) (Auto) 5.2 % Basophils (%) (Auto) 0.3 % Neutrophils # (Auto) 4.20 1.4-6.5 K/uL Lymphocytes # (Auto) 2.23 1.2-3.4 K/uL Monocytes # (Auto) 0.59 0.11-0.59 K/uL Eosinophils # (Auto) 0.39 0-0.5 K/uL Basophils # (Auto) 0.02 0-0.2 K/uL RDW Standard Deviation 46.8 36.4-46.3 fL RDW Coefficient of Variation 13.5 11.5-14.5 % Immature Granulocyte % (Auto) 0.3 % Immature Granulocyte # (Auto) 0.02 0.00-0.02 K/uL Activated Partial Thromboplast Time 32.6 21.0-31.0 SECONDS Partial Thromboplastin Ratio 1.3 Sodium Level 147 136-145 mmol/L Potassium Level 4.7 3.5-5.1 mmol/L Chloride Level 111 98-107 mmol/L Carbon Dioxide Level 27 21-32 mmol/L Anion Gap 9.0 3-11 mmol/L Blood Urea Nitrogen 19 7-18 mg/dl Creatinine 1.20 0.60-1.20 mg/dl Est Creatinine Clear Calc Drug Dose 36.6 ml/min Estimated GFR () 51.9 Estimated GFR (Non- 44.8 BUN/Creatinine Ratio 15.6 10-20 Random Glucose 91 70-99 mg/dl Estimated Average Glucose 243 mg/dl Hemoglobin A1c 10.1 4.5-5.6 % Calcium Level 8.5 8.5-10.1 mg/dl Magnesium Level 1.8 1.8-2.4 mg/dl Triglycerides Level 320 0-150 mg/dl Cholesterol Level 153 0-200 mg/dl HDL Cholesterol 31 mg/dl LDL Cholesterol, Calculated 58 mg/dl VLDL Cholesterol, Calculated 64 mg/dl Cholesterol/HDL Ratio 4.9 Total Creatine Kinase 197 26-192 U/L Creatine Kinase MB 13.9 0.5-3.6 ng/ml Creatine Kinase MB Ratio 7.1 0-3.0 Troponin I 3.900 0-0.045 ng/ml Test 04/08/17 11:07 04/08/17 11:57 04/08/17 16:34 Range/Units Bedside Glucose 200 120 70-90 mg/dl Activated Partial Thromboplast Time 46.9 21.0-31.0 SECONDS Partial Thromboplastin Ratio 1.8
[2017-04-08] MEDS ORDERED: PHARMACY GLYCEMIC MGMT CONSULT SCH (17:49)
[2017-04-08 19:40] VITALS: BP 130/76; PULSE 72; TEMP 36.4; O2SAT 97
--- NOTE | 2017-04-08 19:41 | Pharmacy Progress Note ---
Glycemic Control Intl Consult Date of Service April 08, 2017. Scope Glycemic Pharmacist consulted by Dr Fernandes on 04/08/17 for glycemic control and to write orders per [facility] inpatient glycemic control protocol Objective Weight (Kilograms): 73.600 Accuchecks BSG (last 24hrs): Test 04/07/17 20:46 04/08/17 03:05 04/08/17 06:26 04/08/17 11:07 Bedside Glucose 228 mg/dl (70-90) 102 mg/dl (70-90) 200 mg/dl (70-90) Random Glucose 91 mg/dl (70-99) Test 04/08/17 16:34 Bedside Glucose 120 mg/dl (70-90) Laboratory Data (last 24hrs) Test 04/08/17 03:05 Anion Gap 9.0 mmol/L BUN/Creatinine Ratio 15.6 Blood Urea Nitrogen 19 mg/dl Creatinine 1.20 mg/dl Hemoglobin A1c 10.1 % Potassium Level 4.7 mmol/L Sodium Level 147 mmol/L White Blood Count 7.45 K/uL Red Blood Count 3.71 M/uL Hemoglobin 11.2 g/dL Hematocrit 35.1 % Mean Corpuscular Volume 94.6 fL Mean Corpuscular Hemoglobin 30.2 pg Mean Corpuscular Hemoglobin Concent 31.9 g/dl Platelet Count 172 K/uL Mean Platelet Volume 11.8 fL Neutrophils (%) (Auto) 56.4 % Lymphocytes (%) (Auto) 29.9 % Monocytes (%) (Auto) 7.9 % Eosinophils (%) (Auto) 5.2 % Basophils (%) (Auto) 0.3 % Neutrophils # (Auto) 4.20 K/uL Lymphocytes # (Auto) 2.23 K/uL Monocytes # (Auto) 0.59 K/uL Eosinophils # (Auto) 0.39 K/uL Basophils # (Auto) 0.02 K/uL HbA1c Test 04/08/17 03:05 Hemoglobin A1c 10.1 % (4.5-5.6) H Recent Pertinent Medications Outpatient Anti-diabetic Regimen: * Novolin 70%/30% 80 units w/breakfast, 50 units w/supper * A1c = 10.1 % 04/08/17 The patient is currently receiving: * Basal insulin: Lantus 15 units every hs * Correctional Insulin: Novolog Correction per scale ACHS Goal Range: Low 120 mg/dL - High 180 mg/dL Correction Factor: 20 mg/dL/unit * Prandial insulin: Per carb ratio of 1 unit per 10 grams CHO consumed * Oral Agents: none Risk Factors for Insulin Resistance: * Steroids: no * Infection: no * Pressors: no * IVF: NS@50 ml/hr, Heparin drip mixed in D5W * Recent Surgery: no * Diet: type 2 diabetes AHA, will be npo after midnight for cardiac cath in am * Mechanical Ventilation: no Assessment & Plan ASSESSMENT: * ADA & AACE recommend a goal blood sugar range 140-180 mg/dl for the majority of critically ill & non-critically ill patients. However, more stringent targets may be selected in individual cases. * 71 yo type 2 diabetic, poorly controlled on Novolin 70/30. However BSG's have been somewhat low on much lower insulin doses than as outpatient. (I question the reporting of actual doses given vs. prescribed, as well as lower po intake than as outpatient.) * Will tighten goal range, and give Lantus doses based on BSG. Will reassess in am after cardiac cath. PLAN FOR INPATIENT GLYCEMIC CONTROL: Basal insulin with LANTUS 8 units SQ hs for BSG less than 120, 15 units for BSG 120 or more * Correctional Insulin with NOVOLOG per scale ACHS or Q6hrs while NPO * Goal Range: Low 120 mg/dL - High 160 mg/dL * Correction Factor: 20 mg/dL/unit * Nutritional / Prandial insulin per carb ratio of 1 unit per 10 grams CHO consumed * Please note that the plan above was derived based on current level of insulin resistance and hospital stress. These recommendations are appropriate for inpatient admission only. Plan of care upon discharge will need to be reassessed to avoid potential outpatient hypo/hyperglycemia. Thank you.
[2017-04-08] MEDS: INSULIN GLARGINE SOLOSTAR 100 UNITS/ML 3 ML PEN SC SCH (21:22)
[2017-04-08 22:54] LABS: CKMB/CK RATIO 5.3 (0-3.0)
[2017-04-09] VITALS (25 sets, daily range): BP systolic 109–151; BP diastolic 59–86; PULSE 58–95; TEMP 36.5–36.7; O2SAT 93–98
[2017-04-09] MEDS: METOPROLOL TARTRATE 25 MG TAB PO SCH ×4 (00:20→17:47)
[2017-04-09] MEDS: NITROGLYCERIN OINT 2% 1GM PACKET EXT SCH ×4 (04:19→21:24)
[2017-04-09] MEDS: SODIUM CHLORIDE 0.9% 1000ML 1,000 ML IV SCH ×3 (04:20→13:34)
[2017-04-09] MEDS: LEVOTHYROXINE 112 MCG TAB PO SCH (05:41)
[2017-04-09 06:42] LABS: BASO % 0.5 %; BASO ABS # 0.03 K/uL (0-0.2); COMPLETE YES; EOS % 7.9 %; HEMATOCRIT 35.2 % (37-47); IG% 0.5 %; LYMPH % 32.9 %; LYMPH ABS # 1.99 K/uL (1.2-3.4); MEAN CELL VOLUME 94.1 fL (80-100); MEAN CORPUSCULAR HEMOGLOBIN 29.1 pg (25-34); MEAN PLATELET VOLUME 11.4 fL (7.4-10.4); MONO % 8.1 %; NEUT % 50.1 %; PLATELET COUNT 177 K/uL (130-400); RED BLOOD COUNT 3.74 M/uL (4.2-5.4); WHITE BLOOD COUNT 6.04 K/uL (4.8-10.8)
[2017-04-09 06:56] LABS: PARTIAL THROMBOPLASTIN RATIO 1.4
[2017-04-09] MEDS: INSULIN ASPART 100 UNITS/ML 3 ML PEN SC SCH ×4 (07:00→21:00)
[2017-04-09 07:21] LABS: BUN/CREATININE RATIO 16.2 (10-20); CALCIUM 8.6 mg/dl (8.5-10.1); CREATININE 1.3 mg/dl (0.60-1.20); MAGNESIUM 1.8 mg/dl (1.8-2.4); POTASSIUM 4.5 mmol/L (3.5-5.1)
[2017-04-09] MEDS: HEPARIN 25,000 UNIT/500ML D5W 500 ML IV PRN (07:40)
[2017-04-09] MEDS ORDERED: HEPARIN IV BOLUS 5,000 UNIT in SYRINGE 0 ML IV ONE (08:00)
[2017-04-09] MEDS: FENOFIBRATE 145 MG TAB PO SCH (08:34)
[2017-04-09] MEDS: ALLOPURINOL 100 MG TAB PO SCH (08:34)
[2017-04-09] MEDS: MAGNESIUM OXIDE 400 MG TAB PO SCH (08:34)
[2017-04-09] MEDS: ASPIRIN 81 MG ECTAB PO SCH (08:34)
[2017-04-09] MEDS: ATORVASTATIN 40 MG TAB PO SCH (08:34)
[2017-04-09] MEDS: PANTOprazole SOD 40 MG TAB PO SCH (08:35)
[2017-04-09] MEDS: CEROVITE ADV FORMULA TAB PO SCH (08:37)
[2017-04-09] MEDS: CHLORTHALIDONE 25 MG TAB PO SCH (08:37)
[2017-04-09] MEDS ORDERED: DC ALL ANTICOAGULANTS ONE (08:45)
--- NOTE | 2017-04-09 09:14 | CARDIOLOGY PROGRESS NOTE ---
DATE: 04/09/2017 DATE: 04/09/2017. FOLLOW-UP VISIT SUBJECTIVE: The patient is a 71-year-old female who presented with chest pain and cardiac markers elevated consistent with a non-STEMI. The patient has been chest pain free through the night. The plan is to proceed with a cardiac catheterization today. OBJECTIVE: GENERAL: She is alert and oriented in no acute distress. VITAL SIGNS: Blood pressure 130/70, pulse is regular at 70. She is afebrile. HEAD, EYES, EARS, NOSE, AND THROAT: She is normocephalic. Pupils are equal and reactive to light. Extraocular muscles are intact bilaterally. NECK: The neck veins are flat. Carotids have good upstrokes bilaterally without bruits. Thyroid is nonpalpable. RESPIRATORY: Breath sounds equal bilaterally and clear to auscultation. CARDIOVASCULAR: Heart has a regular rhythm. Normal S1, S2. No S3, S4. No cardiac rubs or murmurs. GASTROINTESTINAL: Abdomen is soft, nontender without organomegaly. EXTREMITIES: Free of edema, digit clubbing, or cyanosis. NEUROLOGIC: Grossly intact. SKIN: Warm to touch. LYMPH NODES: Negative to palpation. IMPRESSION: 1. Non-ST elevation myocardial infarction with wall motion abnormalities of the septum and apex on echocardiography. 2. Chronic stage III kidney disease. 3. Diabetes mellitus. 4. Dyslipidemia. RECOMMENDATIONS: The patient will receive IV hydration, both before and after heart catheterization due to her renal insufficiency to help prevent dye nephropathy. The risks, benefits and intent of the procedure has been discussed with the patient. She is a very small woman, I think it is best that we proceed from a transfemoral approach. Will have further recommendations following the above.
[2017-04-09] MEDS ORDERED: MIDAZOLAM HCL 1 MG/ML 2ML VIAL ONE ×2 (14:58→16:12)
[2017-04-09] MEDS ORDERED: FENTANYL CITRATE INJ 50 MCG/1 ML 2 ML VIAL ONE ×3 (14:58→17:16)
[2017-04-09] MEDS ORDERED: NiCARDipine HCL INJ 2.5 MG/ML 10 ML AMP ONE (15:47)
[2017-04-09] MEDS ORDERED: NITROGLYCERIN/D5W 100MCG/ML 20ML SYR ONE (15:48)
[2017-04-09] MEDS ORDERED: HEPARIN SOD (PORCINE) 1000 UNIT/ML 10 ML VIAL ONE (15:48)
--- NOTE | 2017-04-09 16:53 | Procedure Note ---
Pre-Mod Sedation Assessment General Date of Moderate Sedation: April 09, 2017. Vital Signs: Vital Signs Past 12 Hours Date Time Temp Pulse Resp B/P Pulse Ox O2 Delivery O2 Flow Rate FiO2 04/09/17 16:46 86 16 193/105 94 Mask 3 04/09/17 12:00 98 Room Air 04/09/17 11:08 36.6 95 18 126/74 98 Room Air 04/09/17 10:22 125/59 04/09/17 08:00 96 Room Air 04/09/17 07:40 36.5 60 18 133/70 96 Room Air Review Cardiovascular: regular rate, rhythm, no edema Abdomen: normal bowel sounds, non tender Lungs: chest non-tender, lungs clear Pre-Sedation Airway Assessment Oral Cavity: Dental Abnormalities Able to Visualize Vocal Cords: No Short Thick Neck: No Hx of Sleep Apnea: No Smoking Status: Never Smoker Mallampati Classification: Class II ASA Classification: Class III Procedure Planning Contraindications-for Mod Sed: None Yes Notes The planned sedation has been discussed with the patient and consent obtained. I have identified the patient, determined the appropriateness of sedation and have assessed the patient immediately prior to the procedure. All medicine(s) and interventions are by my order.
[2017-04-09] MEDS ORDERED: CLOPIDOGREL BISULFATE 300 MG TAB PO ONE (16:54)
--- NOTE | 2017-04-09 16:54 | Procedure Note ---
Post-Mod Sedation Assessment General Date of Moderate Sedation April 09, 2017. Vital Signs: Vital Signs Past 12 Hours Date Time Temp Pulse Resp B/P Pulse Ox O2 Delivery O2 Flow Rate FiO2 04/09/17 16:46 86 16 193/105 94 Mask 3 04/09/17 12:00 98 Room Air 04/09/17 11:08 36.6 95 18 126/74 98 Room Air 04/09/17 10:22 125/59 04/09/17 08:00 96 Room Air 04/09/17 07:40 36.5 60 18 133/70 96 Room Air Review - Discharge Criteria Vital Signs Stable: Yes Alert/Oriented/Conversant: Yes Returned to Baseline Mental St: Yes Nausea Absent/Minimal: Yes Pain/Discomfort/Absent/Minimal: Yes Normal/Baseline Respirations: Yes Active Bleeding?: No Pt Received D/C Instructions: N/A Prescriptions Given: None Specific Proced. D/C Criteria Distal Pulses Present (Cardiac: Yes Groin site assessed-Card Cath: N/A Voided Prior To Discharge: N/A Discharged Patients Adult Escort/Transportation: Yes
[2017-04-09] MEDS ORDERED: ACETAMINOPHEN 325 MG TAB PO PRN (17:00)
[2017-04-09] MEDS ORDERED: SODIUM CHLORIDE 0.9% 1000ML 1,000 ML IV SCH ×3 (17:00→19:30)
[2017-04-09] MEDS ORDERED: HydrALAZINE HCL 20 MG/ML VIAL ONE (17:04)
--- NOTE | 2017-04-09 17:06 | Cardiac Catheterization ---
Procedure Note Procedure Date April 09, 2017. Pre-Procedure Diagnosis Non STEMI AUC Score 8 Post-Procedure Diagnosis Severe CAD, Successful PCI Procedure(s) Performed Drug Eluting Stent, IVUS Formal Wear Rental Clerk Dr. Mccain Art Glass Designer(s) Glunt Estimated Blood Loss 15 Medication(s) Clopidogrel, Fentanyl, Heparin, Integrilin, Nicardipine, Nitroglycerin, Versed, Lidocaine 1% Summary of Findings Indication: NSTEMI Access: 6Fr Right Femoral Artery Catheters: EBU 3.5 guide Findings: For full details regarding patient's coronary anatomy please see cath report dictated by Dr. Sharpe from earlier today. Briefly patient found to have a 90+ % mid LAD stenosis with thrombus in the setting of NSTEMI. -- PCI -- Antithrombotic therapy: Heparin, Bolus Integrilin Procedure: LM cannulated with EBU 3.5 guide BMW wire passed across lesion into distal vessel Mid LAD lesion predilated with 2.5 compliant balloon Lesion assessed with IVUS - moderate calcification at site of lesion. plaque extended from lesion almost back to ostium of LAD Dilated lesion stented with 2.75 x 33 Xience LAVONNE IVUS showed underexpanded stent Stent post-dilated with 3.75 noncompliant balloon IC vasodilators administered for spasm Final IVUS showed well-expanded stent with no apparent complications. Final angiography revealed OFELIA 3 flow, minimal residual stenosis and no apparent cardiac complications. [employer] TEACHER adequate for device closure. Arterial Closure: AngioSeal Summary: 1. 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 Sharpe Consult cardiac Rehab Hemodynamics Rest Ao: 101/54/69 Final Ao: 188/88/130 LV: 168/10/16 Recommendations PCI without planned CABG Radiation Exposure (mGy) 3666 Contrast (mls) 215 Fluids (cc crystalloids) 155 Drains none Anesthesia moderate Procedural Complication(s) None Disposition PCU ACC Data Cardiac Status Clinical evaluation leading to the procedure CAD Presntation: Non STEMI Anginal Classification: CCS IV Heart Failure: No, NYHA Class: CCS I Cardiogenic Shock w/in 24Hrs: No Cardiac Arrest w/in 24Hrs: No Imaging studies past 6 months: Yes Stress studies past 6 months: No Standard Exercise Stress Test: No Stress Echocardiogram: No Stress Testing w/SPECT MPI: No Cardiac CTA: No Diagnostic Physician's Name: Juanis Michele D.O. Status: Elective Closure Device Percutaneous Entry Location: Radial Closure Device: Angio-Seal Recommendations: PCI without planned CABG PCI Indication: PCI for high risk Non-STEMI Lesion Segment Name: Mid LAD Culprit Artery: Yes Stenosis Prior to Rx (%): 95 Chronic Total Occlusion: No IVUS: Yes FFR: No Pre-Procedure OFELIA Flow: 3 Previously Treated Lesion: No Lesion Complexity: Non-High/Non-C Lesion Length (mm): 30 Thrombus Present: Yes Bifurcation Lesion: No Guidewire Across Lesion: Yes Guidewire: Stenosis Post-Procedure (%): 0 Post-Procedure OFELIA Flow: 3 Device(s) Deployed: Yes Intraprocedure Events Significant Dissection: No Perforation: No
[2017-04-09] MEDS ORDERED: NURSING VERBAL MED ORDER ONE (17:16)
--- NOTE | 2017-04-09 18:17 | Critical Care Consultation ---
Critical Care Consultation Date of Consultation: April 09, 2017. Attending Physician: Renaldo Rogers M.D. Reason for Consultation: monitoring in the ICU with the cardiac cath sheet in post cardiac cath History of Present Illness This is a 71-year-old female patient reported to have PMH of poorly controlled diabetes on insulin, hypertension, hyperlipidemia, gastroparesis, GERD, hypothyroidism, history of glaucoma, chronic kidney disease stage III, history of depression, and osteoarthritis who is admitted to the ICU for monitoring post cardiac catheterization. She initially presented to [facility] via ED with complaints of one day history of chest pain on 04/07/2017. The pain was in the mid chest radiating to the back, 10/10 in severity occuring at rest while she attended adventist. There has been no SOB or nausea/vomiting diaphoresis. The pain responded to nitro x2 but woke up again with pain and presented to ED via EMS. In the ambulance 3 nitros controlled her pain. She was admitted to the hospital and cardiology was controlled. Patient received aggressive medical therapy and progressed into NSTEMI with peak troponin of 3.9 yesterday. Today she underwent cardiac catheterization via right femoral approach. She underwent cardiac cath today with a 90% mid LAD lesion seen. PCI performed and a drug eluting stent was deployed successfully with OFELIA 3 flow. She was loaded with plavix and sent for monitoring in the MICU At the bedside the patient says she has pricking chest pain that lasts less than few seconds on and off, no nausea, no SOB no diaphoresis and no other complaints. Past Medical/Surgical History PMHx HTN DM on insulin gout on allopurinol hyperlipidemia on fenofibrate and lipitor CAD on ASA GERD PSH thyroidectomy, history of polypectomy, cataract extractions. cardiac cath in 2003 Family History Patient reports no known family medical history. Social History The patient is a nonsmoker, nondrinker. She is lives in [place]. Smoking Status: Never Smoker Marital Status: Allergies Coded Allergies: No Known Allergies (Unverified , 04/07/17) Current Inpatient Medications Current Inpatient Medications Medications (Trade) Dose Ordered Sig/Bay Route Start Time Stop Time Status Last Admin Dose Admin Al Hydrox/Mg Hydrox/Simethicone (Maalox Max Susp) 15 ml Q4H PRN PO 04/07/17 12:15 05/07/17 12:14 Magnesium Hydroxide (Milk Of Magnesia Susp) 30 ml Q12H PRN PO 04/07/17 12:15 05/07/17 12:14 Ondansetron HCl (Zofran Inj) 4 mg Q6H PRN IV 04/07/17 12:15 05/07/17 12:14 Nitroglycerin (Nitrostat Tab) 0.4 mg UD PRN SL 04/07/17 12:15 05/07/17 12:14 04/09/17 17:16 0.4 MG Morphine Sulfate (MoRPHine SULFATE INJ) 2 mg Q30M PRN IV 04/07/17 12:15 04/21/17 12:14 Insulin Aspart (novoLOG ASPART) SLIDING SCALE G... ACHS SC 04/07/17 16:00 05/07/17 15:59 04/08/17 17:16 5 UNITS Glucose (Glucose 40% Gel) 15-30 GRAMS 15 GRAMS... UD PRN PO 04/07/17 12:30 05/07/17 12:29 Glucose (Glucose Chew Tab) 4-8 Tablets 4 Tabl... UD PRN PO 04/07/17 12:30 05/07/17 12:29 Dextrose (Dextrose 50% 50ML Syringe) 25-50ML OF 50% DW IV FOR... UD PRN IV 04/07/17 12:30 05/07/17 12:29 Glucagon (Glucagon Inj) 1 mg UD PRN SQ 04/07/17 12:30 05/07/17 12:29 Aspirin (Ecotrin Tab) 81 mg QAM PO 04/08/17 09:00 05/08/17 08:59 04/09/17 08:34 81 MG Allopurinol (Zyloprim Tab) 200 mg DAILY PO 04/08/17 09:00 05/08/17 08:59 04/09/17 08:34 200 MG Chlorthalidone (Hygroton Tab) 12.5 mg QAM PO 04/08/17 09:00 05/08/17 08:59 04/09/17 08:37 12.5 MG Fenofibrate (Tricor Tab) 145 mg QAM PO 04/08/17 09:00 05/08/17 08:59 04/09/17 08:34 145 MG Pantoprazole Sodium (Protonix Tab) 40 mg QAM PO 04/08/17 09:00 05/08/17 08:59 04/09/17 08:35 40 MG Levothyroxine Sodium (Synthroid Tab) 112 mcg DAILYBB PO 04/08/17 06:00 05/08/17 06:59 04/09/17 05:41 112 MCG Atorvastatin Calcium (Lipitor Tab) 40 mg QAM PO 04/08/17 09:00 05/08/17 08:59 04/09/17 08:34 40 MG Magnesium Oxide (Mag-Ox Tab) 400 mg QAM PO 04/08/17 09:00 05/08/17 08:59 04/09/17 08:34 400 MG Multivitamins/ Minerals (Multivitamin W/ Minerals Tab) 1 tab QAM PO 04/08/17 09:00 05/08/17 08:59 04/09/17 08:37 1 TAB Metoprolol Tartrate (Lopressor Tab) 25 mg Q6 PO 04/07/17 18:00 05/07/17 17:59 04/09/17 13:34 25 MG Nitroglycerin (Nitroglycerin 2% Oint) 1 inch Q6H EXT 04/07/17 22:00 05/07/17 21:59 04/09/17 10:23 1 INCH Miscellaneous Information (Consult Glycemic Management Pharmacy) 1 ea UD N/A 04/08/17 17:49 05/08/17 17:48 Insulin Glargine PER PROTOCOL HS SC 04/08/17 21:00 05/08/17 20:59 04/08/17 21:22 15 UNIT Sodium Chloride (Nss 1000ml) 1,000 ml @ 100 mls/hr Q10H IV 04/09/17 17:00 04/10/17 00:29 Clopidogrel Bisulfate (plAVix TAB) 75 mg QAM PO 04/10/17 09:00 05/10/17 08:59 Acetaminophen (Tylenol Tab) 650 mg Q4H PRN PO 04/09/17 17:00 05/09/17 16:59 Review of Systems She denies GI urinary or respiratory symptoms at this point. She denies pain headache, or LE pain. Essentially 10 point ROS is negative ecept for the intermittent pricking pain that lasts seconds and resolved. Physical Exam Date Time Temp Pulse Resp B/P Pulse Ox O2 Delivery O2 Flow Rate FiO2 04/09/17 17:16 76 16 161/70 95 Nasal Cannula 2 04/09/17 17:01 82 16 188/90 94 Nasal Cannula 2 04/09/17 16:46 86 16 193/105 94 Mask 3 04/09/17 12:00 98 Room Air 04/09/17 11:08 36.6 95 18 126/74 98 Room Air 04/09/17 10:22 125/59 04/09/17 08:00 96 Room Air 04/09/17 07:40 36.5 60 18 133/70 96 Room Air 04/09/17 04:00 98 Room Air 04/09/17 03:38 36.7 74 20 133/74 98 Room Air 04/09/17 00:03 36.7 76 17 109/71 95 Room Air 04/09/17 00:01 97 Room Air 04/08/17 20:00 Room Air 04/08/17 19:40 36.4 72 20 130/76 97 Room Air General Appearance: well-appearing, other (sleepy) Head: normocephalic, atraumatic Eyes: PERRLA ENT: normal ear exam, other (No JVD no LN) Respiratory: breath sounds normal, clear to auscultation Cardiovasular: regular rate/rhythm, no M/G/R Abdomen: non tender, no rebound, no masses, other (diminished frequency of BS) Genitourinary - Female: external genitalia normal Upper Extremities: no edema Lower Extremities: no edema, other (pulses are + 3 in RLE and symmetrical with the left. Feet are warm. No hematoma oozing or bleeding noted at the right femoral area) Pulses: carotid (R) (2+), carotid (L) (2+), radial (R) (2+), radial (L) (2+), dorsalis pedis (R) (2+), dorsalis pedis (L) (2+) Neuro: alert, oriented x 3, other (moves all 4 extremities no focal deficits) Laboratory Results Last 24 Hours Test 04/08/17 20:47 04/08/17 22:20 04/09/17 05:46 04/09/17 06:46 Bedside Glucose 151 mg/dl 129 mg/dl Total Creatine Kinase 147 U/L Creatine Kinase MB 7.8 ng/ml Creatine Kinase MB Ratio 5.3 Troponin I 2.010 ng/ml White Blood Count 6.04 K/uL Red Blood Count 3.74 M/uL Hemoglobin 10.9 g/dL Hematocrit 35.2 % Mean Corpuscular Volume 94.1 fL Mean Corpuscular Hemoglobin 29.1 pg Mean Corpuscular Hemoglobin Concent 31.0 g/dl Platelet Count 177 K/uL Mean Platelet Volume 11.4 fL Neutrophils (%) (Auto) 50.1 % Lymphocytes (%) (Auto) 32.9 % Monocytes (%) (Auto) 8.1 % Eosinophils (%) (Auto) 7.9 % Basophils (%) (Auto) 0.5 % Neutrophils # (Auto) 3.02 K/uL Lymphocytes # (Auto) 1.99 K/uL Monocytes # (Auto) 0.49 K/uL Eosinophils # (Auto) 0.48 K/uL Basophils # (Auto) 0.03 K/uL RDW Standard Deviation 46.4 fL RDW Coefficient of Variation 13.5 % Immature Granulocyte % (Auto) 0.5 % Immature Granulocyte # (Auto) 0.03 K/uL Activated Partial Thromboplast Time 35.7 SECONDS Partial Thromboplastin Ratio 1.4 Sodium Level 145 mmol/L Potassium Level 4.5 mmol/L Chloride Level 111 mmol/L Carbon Dioxide Level 27 mmol/L Anion Gap 7.0 mmol/L Blood Urea Nitrogen 21 mg/dl Creatinine 1.30 mg/dl Est Creatinine Clear Calc Drug Dose 33.7 ml/min Estimated GFR () 47.1 Estimated GFR (Non- 40.7 BUN/Creatinine Ratio 16.2 Random Glucose 123 mg/dl Calcium Level 8.6 mg/dl Magnesium Level 1.8 mg/dl Test 04/09/17 11:11 04/09/17 17:36 Bedside Glucose 100 mg/dl 144 mg/dl Diagnostic Results CXR on admission shows no acute cardiopulmonary problems ECG shows T wave inversions V2 to V6 as well as poor R wave progression Assessment & Plan 71 yo female patient with CAD, HTN DM admitted with NSTEMi s/p cardiac catheterization with DE stent to mid LAD 90% stenosis. neurologic morphine 2 mg PRN Q6 for pain respiratory saturates well on RA 9-96% will provide PRN 2 lit/min O2 as needed cardiac aspirin 81 mg daily plavix 75 mg po daily as of tomorrow (she is loaded today) bioth to continue for 1 year at least lipitor 40 mg QD fenofibrate 145 daily GI diet as tolerated diabetic and heart healthy pantoprazole daily renal Cr 1.3 will hydrate with 100 ml hr NS lytes within nornal UO 1.7 ml/Kg Bw-hr the last 24 hours with -400 ml balance FU and replete lytes as needed ID no focus of infection will monitor in MICU endocrine insulin sliding scale pharmacy consult target BS 140-180 continue levothyroxine 112 mcg daily continue allopurinol 200 mg po daily lines peripheral lines and cath sheet in R femoral area patient is full code Will monitor in mICU overnight
[2017-04-09] MEDS: MoRPHine SULFATE 2 MG/ML CARP IV PRN (18:44)
[2017-04-09] MEDS ORDERED: NURSING DECISION MEDICATION ORDER SCH (19:00)
--- NOTE | 2017-04-09 20:10 | Progress Note ---
Medicine Progress Note Date & Time of Visit: April 09, 2017 at 19:30 . Subjective Cardiac catheterization this afternoon demonstrated mid LAD lesion with severe stenosis. PCI performed with drug-eluting stent. Patient transferred to ICU postoperatively. At the time of my assessment, she was experiencing some mild midsternal chest pain. The chest pain did not radiate. No associated dyspnea. No associated nausea or vomiting. . Objective Last 8 Hrs Date Time Temp Pulse Resp B/P Pulse Ox O2 Delivery O2 Flow Rate FiO2 04/09/17 19:31 60 24 143/70 94 04/09/17 19:16 62 12 126/74 04/09/17 19:01 62 15 130/73 94 04/09/17 18:46 65 17 143/75 94 04/09/17 18:31 72 21 124/84 95 04/09/17 18:30 65 18 124/84 97 Room Air 04/09/17 18:15 72 18 128/68 97 04/09/17 18:02 66 16 124/76 98 Room Air 04/09/17 17:45 67 16 126/71 96 Room Air 04/09/17 17:16 76 16 161/70 95 Nasal Cannula 2 04/09/17 17:01 82 16 188/90 94 Nasal Cannula 2 04/09/17 16:46 86 16 193/105 94 Mask 3 04/09/17 12:00 98 Room Air Physical Exam: General- no distress Neck- neck veins distended in supine position Lungs- clear to auscultation Heart- regular, no murmur, gallop or rub appreciated. Abdomen- normal bowel sounds, soft, nontender Extremities- no pretibial edema or calf tenderness; cath site right groin without hematoma Neuro- alert . Laboratory Results: Last 24 Hours Test 04/08/17 20:47 04/08/17 22:20 04/09/17 05:46 04/09/17 06:46 Bedside Glucose 151 mg/dl 129 mg/dl Total Creatine Kinase 147 U/L Creatine Kinase MB 7.8 ng/ml Creatine Kinase MB Ratio 5.3 Troponin I 2.010 ng/ml White Blood Count 6.04 K/uL Red Blood Count 3.74 M/uL Hemoglobin 10.9 g/dL Hematocrit 35.2 % Mean Corpuscular Volume 94.1 fL Mean Corpuscular Hemoglobin 29.1 pg Mean Corpuscular Hemoglobin Concent 31.0 g/dl Platelet Count 177 K/uL Mean Platelet Volume 11.4 fL Neutrophils (%) (Auto) 50.1 % Lymphocytes (%) (Auto) 32.9 % Monocytes (%) (Auto) 8.1 % Eosinophils (%) (Auto) 7.9 % Basophils (%) (Auto) 0.5 % Neutrophils # (Auto) 3.02 K/uL Lymphocytes # (Auto) 1.99 K/uL Monocytes # (Auto) 0.49 K/uL Eosinophils # (Auto) 0.48 K/uL Basophils # (Auto) 0.03 K/uL RDW Standard Deviation 46.4 fL RDW Coefficient of Variation 13.5 % Immature Granulocyte % (Auto) 0.5 % Immature Granulocyte # (Auto) 0.03 K/uL Activated Partial Thromboplast Time 35.7 SECONDS Partial Thromboplastin Ratio 1.4 Sodium Level 145 mmol/L Potassium Level 4.5 mmol/L Chloride Level 111 mmol/L Carbon Dioxide Level 27 mmol/L Anion Gap 7.0 mmol/L Blood Urea Nitrogen 21 mg/dl Creatinine 1.30 mg/dl Est Creatinine Clear Calc Drug Dose 33.7 ml/min Estimated GFR () 47.1 Estimated GFR (Non- 40.7 BUN/Creatinine Ratio 16.2 Random Glucose 123 mg/dl Calcium Level 8.6 mg/dl Magnesium Level 1.8 mg/dl Test 04/09/17 11:11 04/09/17 16:05 04/09/17 16:57 04/09/17 17:36 Bedside Glucose 100 mg/dl 144 mg/dl Kaolin Activated Coagulation Time 281 SECONDS 250 SECONDS Other Studies: EKG performed at 1827 reviewed and demonstrated normal sinus rhythm at 70/minute , ST elevation V2 through V5, biphasic T waves V2 through V6. . Assessment & Plan NON-STEMI Admission EKG demonstrated normal sinus rhythm at 70/minute, probable J-point elevation in V1 through V4, flattened T waves I, inverted T waves aVL. Peak CPK 197. Peak troponin 3.90. Echocardiogram performed on 04/08/17 demonstrated severe hypokinesis to akinesis of the septum and apex with mild apical expansion, overall LVEF 35-40%. Cardiac catheterization on 04/09/17 demonstrated mid LAD lesion with 90+ % stenosis. PCI with drug-eluting stent performed. Having some mild chest discomfort after the procedure- management per Cardiology. Receiving aspirin, clopidogrel, metoprolol, topical nitrates, atorvastatin. HYPERTENSION Continue chlorthalidone and metoprolol. CKD III Serum creatinine this morning 1.3. Follow. DYSLIPIDEMIA LDL-C = 58. Continue atorvastatin. DM TYPE 2 Not well-controlled. Hemoglobin A1c 10.1. Manage with Lantus/NovoLog per protocol. VTE PROPHYLAXIS Initially received IV heparin. Transition to subcutaneous heparin. Ambulate. DISPOSITION Expected discharge to home. Family Medicine follow-up with Dr. Lundy. Follow-up with [facility]. . Current Inpatient Medications: Current Inpatient Medications Medications (Trade) Dose Ordered Sig/Bay Route Start Time Stop Time Status Last Admin Dose Admin Al Hydrox/Mg Hydrox/Simethicone (Maalox Max Susp) 15 ml Q4H PRN PO 04/07/17 12:15 05/07/17 12:14 Magnesium Hydroxide (Milk Of Magnesia Susp) 30 ml Q12H PRN PO 04/07/17 12:15 05/07/17 12:14 Ondansetron HCl (Zofran Inj) 4 mg Q6H PRN IV 04/07/17 12:15 05/07/17 12:14 Nitroglycerin (Nitrostat Tab) 0.4 mg UD PRN SL 04/07/17 12:15 05/07/17 12:14 04/09/17 17:16 0.4 MG Morphine Sulfate (MoRPHine SULFATE INJ) 2 mg Q30M PRN IV 04/07/17 12:15 04/21/17 12:14 04/09/17 18:44 2 MG Insulin Aspart (novoLOG ASPART) SLIDING SCALE G... ACHS SC 04/07/17 16:00 05/07/17 15:59 04/08/17 17:16 5 UNITS Glucose (Glucose 40% Gel) 15-30 GRAMS 15 GRAMS... UD PRN PO 04/07/17 12:30 05/07/17 12:29 Glucose (Glucose Chew Tab) 4-8 Tablets 4 Tabl... UD PRN PO 04/07/17 12:30 05/07/17 12:29 Dextrose (Dextrose 50% 50ML Syringe) 25-50ML OF 50% DW IV FOR... UD PRN IV 04/07/17 12:30 05/07/17 12:29 Glucagon (Glucagon Inj) 1 mg UD PRN SQ 04/07/17 12:30 05/07/17 12:29 Aspirin (Ecotrin Tab) 81 mg QAM PO 04/08/17 09:00 05/08/17 08:59 04/09/17 08:34 81 MG Allopurinol (Zyloprim Tab) 200 mg DAILY PO 04/08/17 09:00 05/08/17 08:59 04/09/17 08:34 200 MG Chlorthalidone (Hygroton Tab) 12.5 mg QAM PO 04/08/17 09:00 05/08/17 08:59 04/09/17 08:37 12.5 MG Fenofibrate (Tricor Tab) 145 mg QAM PO 04/08/17 09:00 05/08/17 08:59 04/09/17 08:34 145 MG Pantoprazole Sodium (Protonix Tab) 40 mg QAM PO 04/08/17 09:00 05/08/17 08:59 04/09/17 08:35 40 MG Levothyroxine Sodium (Synthroid Tab) 112 mcg DAILYBB PO 04/08/17 06:00 05/08/17 06:59 04/09/17 05:41 112 MCG Atorvastatin Calcium (Lipitor Tab) 40 mg QAM PO 04/08/17 09:00 05/08/17 08:59 04/09/17 08:34 40 MG Magnesium Oxide (Mag-Ox Tab) 400 mg QAM PO 04/08/17 09:00 05/08/17 08:59 04/09/17 08:34 400 MG Multivitamins/ Minerals (Multivitamin W/ Minerals Tab) 1 tab QAM PO 04/08/17 09:00 05/08/17 08:59 04/09/17 08:37 1 TAB Metoprolol Tartrate (Lopressor Tab) 25 mg Q6 PO 04/07/17 18:00 05/07/17 17:59 04/09/17 17:47 25 MG Nitroglycerin (Nitroglycerin 2% Oint) 1 inch Q6H EXT 04/07/17 22:00 05/07/17 21:59 04/09/17 10:23 1 INCH Miscellaneous Information (Consult Glycemic Management Pharmacy) 1 ea UD N/A 04/08/17 17:49 05/08/17 17:48 Insulin Glargine (Lantus Solostar Pen) PER PROTOCOL HS SC 04/08/17 21:00 05/08/17 20:59 04/08/17 21:22 15 UNIT Clopidogrel Bisulfate (plAVix TAB) 75 mg QAM PO 04/10/17 09:00 05/10/17 08:59 Acetaminophen 650 mg 650 mg Q4H PRN PO 04/09/17 17:00 05/09/17 16:59 Sodium Chloride (Nss 1000ml) 1,000 ml @ 100 mls/hr Q10H IV 04/09/17 19:30 04/10/17 05:29 04/09/17 19:26 100 MLS/HR
--- NOTE | 2017-04-09 20:50 | PROGRESS NOTE ---
DATE: 04/09/2017 SUBJECTIVE: The patient is post-coronary stent placement. The results were very good. She still has an arterial sheath in due to high ACT. The patient had some mild chest discomfort post-procedure. She was restarted on nitropaste and her chest pain is completely gone. The EKGs are unchanged. She is comfortable without complaint. OBJECTIVE: VITAL SIGNS: Blood pressure is 130/70. Pulse is regular at 60 beats per minute. She is afebrile. Respirations are 18. HEENT: She is normocephalic. Pupils are equal and reactive to light. Mucous membranes are moist. NECK: The neck veins are flat. Carotids have good upstrokes bilaterally without bruits. Thyroid is nonpalpable. RESPIRATORY: Breath sounds equal bilaterally and clear to auscultation. CARDIOVASCULAR: Heart has a regular rhythm. Normal S1, S2. No S3, S4. No cardiac rubs or murmurs. GASTROINTESTINAL: Abdomen is soft, nontender without organomegaly. EXTREMITIES: The sheath remains in the femoral artery without evidence of hematoma or bleeding. NEUROLOGIC: Grossly intact. SKIN: Warm to touch. LYMPH NODES: Negative to palpation. LABORATORY DATA: EKG is compared to one earlier today and then one on April 08 show evolving anterior wall myocardial infarction, but they are essentially unchanged. IMPRESSION: 1. Post-stent pain. 2. Recent non- ST-elevation myocardial infarction. 3. Status post stent left anterior descending. RECOMMENDATIONS: At this point, the patient is pain free and comfortable. I would recommend that the arterial sheath be taken out. I think that would probably make her even more comfortable. I would continue the nitropaste and antiplatelet agents for now. [facility]
[2017-04-09] MEDS: INSULIN GLARGINE SOLOSTAR 100 UNITS/ML 3 ML PEN SC SCH (21:16)
[2017-04-10] VITALS (13 sets, daily range): BP systolic 122–159; BP diastolic 55–84; PULSE 67–98; TEMP 36.4–37; O2SAT 93–98
[2017-04-10] MEDS: NITROGLYCERIN OINT 2% 1GM PACKET EXT SCH ×4 (04:53→22:31)
[2017-04-10] MEDS: METOPROLOL TARTRATE 25 MG TAB PO SCH ×3 (04:54→07:31)
[2017-04-10] MEDS: MoRPHine SULFATE 2 MG/ML CARP IV PRN (05:21)
[2017-04-10] MEDS: LEVOTHYROXINE 112 MCG TAB PO SCH (05:46)
[2017-04-10 05:58] LABS: BASO % 0.2 %; BASO ABS # 0.02 K/uL (0-0.2); COMPLETE YES; EOS % 0.2 %; HEMATOCRIT 37.1 % (37-47); IG% 0.6 %; LYMPH % 13.2 %; MEAN CORPUSCULAR HEMOGLOBIN 29.3 pg (25-34); MEAN CORPUSCULAR HGB CONC 31.5 g/dl (32-36); MEAN PLATELET VOLUME 11.4 fL (7.4-10.4); NEUT % 78.8 %; PLATELET COUNT 116 K/uL (130-400); RED BLOOD COUNT 3.99 M/uL (4.2-5.4); WHITE BLOOD COUNT 10.61 K/uL (4.8-10.8)
[2017-04-10 06:21] LABS: PARTIAL THROMBOPLASTIN RATIO 0.9
[2017-04-10 06:29] LABS: CALCIUM 9.4 mg/dl (8.5-10.1)
[2017-04-10 06:32] LABS: BUN/CREATININE RATIO 16.1 (10-20); CREATININE 1.2 mg/dl (0.60-1.20); MAGNESIUM 1.4 mg/dl (1.8-2.4); PHOSPHORUS 4.6 mg/dl (2.5-4.9); POTASSIUM 4.8 mmol/L (3.5-5.1)
[2017-04-10] MEDS: INSULIN ASPART 100 UNITS/ML 3 ML PEN SC SCH ×4 (06:45→21:33)
[2017-04-10] MEDS: ALLOPURINOL 100 MG TAB PO SCH (07:31)
[2017-04-10] MEDS: ASPIRIN 81 MG ECTAB PO SCH (07:31)
[2017-04-10] MEDS: ATORVASTATIN 40 MG TAB PO SCH (07:31)
[2017-04-10] MEDS: MAGNESIUM OXIDE 400 MG TAB PO SCH (07:32)
[2017-04-10] MEDS: PANTOprazole SOD 40 MG TAB PO SCH (07:32)
[2017-04-10] MEDS: FENOFIBRATE 145 MG TAB PO SCH (07:32)
[2017-04-10] MEDS: CLOPIDOGREL BISULFATE 75 MG TAB PO SCH (07:33)
[2017-04-10] MEDS: CEROVITE ADV FORMULA TAB PO SCH (07:33)
[2017-04-10] MEDS: CHLORTHALIDONE 25 MG TAB PO SCH (07:33)
[2017-04-10] MEDS: HEPARIN SOD 5000 UNIT/0.5 ML CARP SQ SCH ×2 (07:34→21:35)
[2017-04-10] MEDS ORDERED: MAGNESIUM SULFATE 1GM / D5W 1 GM in PREMIXED IN D5W 100 ML IV STA (08:49)
--- NOTE | 2017-04-10 09:31 | Pharmacy Progress Note ---
Glycemic Control: Progress Nt Date of Service April 10, 2017. Scope Glycemic Pharmacist consulted by Dr Fernandes on 04/08/17 for glycemic control and to write orders per [facility] inpatient glycemic control protocol. Objective Accuchecks BSG (last 24hrs): Test 04/09/17 11:11 04/09/17 17:36 04/09/17 21:13 04/10/17 05:48 Bedside Glucose 100 mg/dl (70-90) 144 mg/dl (70-90) 161 mg/dl (70-90) 133 mg/dl (70-90) Test 04/10/17 05:50 Random Glucose 135 mg/dl (70-99) Laboratory Data (last 24hrs) Test 04/10/17 05:50 Anion Gap 10.0 mmol/L BUN/Creatinine Ratio 16.1 Blood Urea Nitrogen 19 mg/dl Creatinine 1.20 mg/dl Potassium Level 4.8 mmol/L Sodium Level 140 mmol/L White Blood Count 10.61 K/uL Red Blood Count 3.99 M/uL Hemoglobin 11.7 g/dL Hematocrit 37.1 % Mean Corpuscular Volume 93.0 fL Mean Corpuscular Hemoglobin 29.3 pg Mean Corpuscular Hemoglobin Concent 31.5 g/dl Platelet Count 116 K/uL Mean Platelet Volume 11.4 fL Neutrophils (%) (Auto) 78.8 % Lymphocytes (%) (Auto) 13.2 % Monocytes (%) (Auto) 7.0 % Eosinophils (%) (Auto) 0.2 % Basophils (%) (Auto) 0.2 % Neutrophils # (Auto) 8.37 K/uL Lymphocytes # (Auto) 1.40 K/uL Monocytes # (Auto) 0.74 K/uL Eosinophils # (Auto) 0.02 K/uL Basophils # (Auto) 0.02 K/uL HbA1c: Test 04/08/17 03:05 Hemoglobin A1c 10.1 % (4.5-5.6) H Recent Pertinent Medications Outpatient Anti-diabetic Regimen: * Novolin 70/30 mixed insulin * 80 units SQ in the AM * 50 units SQ in the evening information from [facility] * A1c = 10.1 % 04/08/17 The patient is currently receiving: * Basal insulin: * Lantus 15 units SQ in the PM * Bolus Insulin: * NovoLog SQ AC+HS - Goal Range: Low 140 mg/dL - High 180 mg/dL - Correction Factor: 20 mg/dL/unit - Carb ratio of 1 unit per 10 grams CHO consumed Risk Factors for Insulin Resistance: * Diet: Assessment & Plan ASSESSMENT: * ADA & AACE recommend a goal blood sugar range 140-180 mg/dl for the majority of critically ill & non-critically ill patients. However, more stringent targets may be selected in individual cases. 04/10/17 * Insulin requirements have been decreasing over the past two days, likely secondary to decreased PO intake. * Yesterday, the only insulin administered was basal. * Fasting BSG today is WNL at 135mg/dL * --> may consider reducing basal insulin unless PO intake improves * Large doses of insulin reported as an outpatient, however requiring minimal doses here (~130u per day outpatient vs 15-30u per day inpatient) * question compliance, dietary habits, etc PLAN FOR INPATIENT GLYCEMIC CONTROL: * Basal insulin: * Lantus 15 units SQ q PM - give 8 units if BSG is below 120mg/dL * Bolus insulin: * NovoLog SQ AC and HS - Correction factor: 20 mg/dL/unit - Carb ratio: 1 unit per 8 g of CHO consumed --> slightly more aggressive since allows for subtraction of units - Goal: 140-180mg/dL per ADA recommendations * A1c is current and demonstrates poor glycemic control * add to discharge instructions RECOMMENDATIONS FOR DISCHARGE: * awaited. * Please note that the plan above was derived based on current level of insulin resistance and hospital stress. These recommendations are appropriate for inpatient admission only. Plan of care upon discharge will need to be reassessed to avoid potential outpatient hypo/hyperglycemia. Thank you.
[2017-04-10] MEDS ORDERED: LISINOPRIL 10 MG TAB PO ONE (11:15)
--- NOTE | 2017-04-10 11:39 | PROGRESS NOTE ---
DATE: 04/10/2017 FOLLOWUP VISIT SUBJECTIVE: The patient is a 71-year-old female who had a stent placed in the LAD yesterday. She did have some postoperative chest discomfort, which relieved after 1 sublingual nitroglycerin. Her sheaths have been pulled out as of last evening. She is now comfortably sitting in a chair and has no complaints. She has not had a reoccurrence of chest pain. OBJECTIVE: GENERAL: She is alert and oriented. VITAL SIGNS: Blood pressure is 140/80 and pulse is regular at 67. She is afebrile. HEENT: She is normocephalic. Pupils are equal and reactive to light. Extraocular muscles are intact bilaterally. NECK: The neck veins are flat. Carotids have good upstrokes bilaterally without bruits. Thyroid is nonpalpable. RESPIRATORY: Breath sounds equal bilaterally and clear to auscultation. CARDIOVASCULAR: Heart has a regular rhythm. Normal S1 and S2. No S3 or S4. No cardiac rubs or murmurs. GASTROINTESTINAL: Abdomen is soft and nontender without organomegaly. EXTREMITIES: Free of edema, digit clubbing, or cyanosis. NEUROLOGIC: Grossly intact. SKIN: Warm to touch. LYMPH NODES: Negative to palpation. LABORATORY DATA: Hemoglobin is 11.7. Creatinine is 1.2 and potassium is 4.8. IMPRESSION: 1. Status post coronary stent, LAD. 2. Recent non-ST elevation myocardial infarction. 3. Ischemic cardiomyopathy RECOMMENDATIONS: The patient is doing well today. I think it is best, however, that we keep her an additional day due to her age and the chest pain she had last night. I will add an TROY inhibitor to her medical regimen due to her blood pressure and cardiomyopathy. She is already on metoprolol 25 q. 6 hours which should be switched to Toprol. Hopefully her LV is just stunned and she will recover some function. If she is doing well, then tomorrow, I think she can be discharged. LILA
[2017-04-10] MEDS: METOPROLOL SUCC 50MG EXT REL TAB PO SCH (21:30)
[2017-04-10] MEDS: INSULIN GLARGINE SOLOSTAR 100 UNITS/ML 3 ML PEN SC SCH (21:34)
--- NOTE | 2017-04-10 23:59 | Progress Note ---
Medicine Progress Note Date & Time of Visit: April 10, 2017 at 10:00 . Subjective No chest pain. No cough or shortness of breath. No nausea or vomiting. No urinary symptoms. No fever. . Objective Last 8 Hrs Date Time Temp Pulse Resp B/P Pulse Ox O2 Delivery O2 Flow Rate FiO2 04/10/17 23:28 37.0 82 20 122/55 97 Room Air 04/10/17 20:00 98 Room Air 04/10/17 20:00 Room Air 04/10/17 19:15 36.4 98 22 134/84 98 Room Air Physical Exam: General- no distress Neck- no JVD Lungs- clear to auscultation Heart- regular, no murmur, gallop or rub appreciated. Abdomen- normal bowel sounds, soft, nontender Extremities- no pretibial edema or calf tenderness; cath site right groin without hematoma Neuro- alert . Laboratory Results: Last 24 Hours Test 04/10/17 05:48 04/10/17 05:50 04/10/17 11:20 04/10/17 16:14 Bedside Glucose 133 mg/dl 194 mg/dl 155 mg/dl White Blood Count 10.61 K/uL Red Blood Count 3.99 M/uL Hemoglobin 11.7 g/dL Hematocrit 37.1 % Mean Corpuscular Volume 93.0 fL Mean Corpuscular Hemoglobin 29.3 pg Mean Corpuscular Hemoglobin Concent 31.5 g/dl Platelet Count 116 K/uL Mean Platelet Volume 11.4 fL Neutrophils (%) (Auto) 78.8 % Lymphocytes (%) (Auto) 13.2 % Monocytes (%) (Auto) 7.0 % Eosinophils (%) (Auto) 0.2 % Basophils (%) (Auto) 0.2 % Neutrophils # (Auto) 8.37 K/uL Lymphocytes # (Auto) 1.40 K/uL Monocytes # (Auto) 0.74 K/uL Eosinophils # (Auto) 0.02 K/uL Basophils # (Auto) 0.02 K/uL RDW Standard Deviation 45.5 fL RDW Coefficient of Variation 13.3 % Immature Granulocyte % (Auto) 0.6 % Immature Granulocyte # (Auto) 0.06 K/uL Activated Partial Thromboplast Time 23.8 SECONDS Partial Thromboplastin Ratio 0.9 Sodium Level 140 mmol/L Potassium Level 4.8 mmol/L Chloride Level 106 mmol/L Carbon Dioxide Level 24 mmol/L Anion Gap 10.0 mmol/L Blood Urea Nitrogen 19 mg/dl Creatinine 1.20 mg/dl Est Creatinine Clear Calc Drug Dose 36.5 ml/min Estimated GFR () 51.9 Estimated GFR (Non- 44.8 BUN/Creatinine Ratio 16.1 Random Glucose 135 mg/dl Calcium Level 9.4 mg/dl Phosphorus Level 4.6 mg/dl Magnesium Level 1.4 mg/dl Total Bilirubin 0.5 mg/dl Direct Bilirubin 0.2 mg/dl Aspartate Amino Transf (AST/SGOT) 157 U/L Alanine Aminotransferase (ALT/SGPT) 56 U/L Alkaline Phosphatase 51 U/L Troponin I 11.000 ng/ml Total Protein 7.0 gm/dl Albumin 3.2 gm/dl Test 04/10/17 20:04 Bedside Glucose 214 mg/dl Assessment & Plan NON-STEMI Admission EKG demonstrated normal sinus rhythm at 70/minute, probable J-point elevation in V1 through V4, flattened T waves I, inverted T waves aVL. Peak CPK 197. Peak troponin 3.90. Echocardiogram performed on 04/08/17 demonstrated severe hypokinesis to akinesis of the septum and apex with mild apical expansion, overall LVEF 35-40%. Cardiac catheterization on 04/09/17 demonstrated mid LAD lesion with 90+ % stenosis. PCI with drug-eluting stent performed. Lisinopril ordered for reduced LVEF. Continue aspirin, clopidogrel, metoprolol, topical nitrates, atorvastatin. HYPERTENSION Continue chlorthalidone and metoprolol. CKD III Serum creatinine this morning = 1.2. Follow. DYSLIPIDEMIA LDL-C = 58. Continue atorvastatin. DM TYPE 2 Not well-controlled. Hemoglobin A1c 10.1. Manage with Lantus/NovoLog per protocol. VTE PROPHYLAXIS Initially received IV heparin. Transitioned to subcutaneous heparin. Ambulate. DISPOSITION Expected discharge to home. Family Medicine follow-up with Dr. Lundy. Follow-up with [facility]. . Current Inpatient Medications: Current Inpatient Medications Medications (Trade) Dose Ordered Sig/Bay Route Start Time Stop Time Status Last Admin Dose Admin Al Hydrox/Mg Hydrox/Simethicone (Maalox Max Susp) 15 ml Q4H PRN PO 04/07/17 12:15 05/07/17 12:14 Magnesium Hydroxide (Milk Of Magnesia Susp) 30 ml Q12H PRN PO 04/07/17 12:15 05/07/17 12:14 Ondansetron HCl (Zofran Inj) 4 mg Q6H PRN IV 04/07/17 12:15 05/07/17 12:14 Nitroglycerin (Nitrostat Tab) 0.4 mg UD PRN SL 04/07/17 12:15 05/07/17 12:14 04/09/17 17:16 0.4 MG Morphine Sulfate (MoRPHine SULFATE INJ) 2 mg Q30M PRN IV 04/07/17 12:15 04/21/17 12:14 04/10/17 05:21 2 MG Insulin Aspart (novoLOG ASPART) SLIDING SCALE G... ACHS SC 04/07/17 16:00 05/07/17 15:59 04/10/17 21:33 4 UNITS Glucose (Glucose 40% Gel) 15-30 GRAMS 15 GRAMS... UD PRN PO 04/07/17 12:30 05/07/17 12:29 Glucose (Glucose Chew Tab) 4-8 Tablets 4 Tabl... UD PRN PO 04/07/17 12:30 05/07/17 12:29 Dextrose (Dextrose 50% 50ML Syringe) 25-50ML OF 50% DW IV FOR... UD PRN IV 04/07/17 12:30 05/07/17 12:29 Glucagon (Glucagon Inj) 1 mg UD PRN SQ 04/07/17 12:30 05/07/17 12:29 Aspirin (Ecotrin Tab) 81 mg QAM PO 04/08/17 09:00 05/08/17 08:59 04/10/17 07:31 81 MG Allopurinol (Zyloprim Tab) 200 mg DAILY PO 04/08/17 09:00 05/08/17 08:59 04/10/17 07:31 200 MG Chlorthalidone (Hygroton Tab) 12.5 mg QAM PO 04/08/17 09:00 05/08/17 08:59 04/10/17 07:33 12.5 MG Fenofibrate (Tricor Tab) 145 mg QAM PO 04/08/17 09:00 05/08/17 08:59 04/10/17 07:32 145 MG Pantoprazole Sodium (Protonix Tab) 40 mg QAM PO 04/08/17 09:00 05/08/17 08:59 04/10/17 07:32 40 MG Levothyroxine Sodium (Synthroid Tab) 112 mcg DAILYBB PO 04/08/17 06:00 05/08/17 06:59 04/10/17 05:46 112 MCG Atorvastatin Calcium (Lipitor Tab) 40 mg QAM PO 04/08/17 09:00 05/08/17 08:59 04/10/17 07:31 40 MG Magnesium Oxide (Mag-Ox Tab) 400 mg QAM PO 04/08/17 09:00 05/08/17 08:59 04/10/17 07:32 400 MG Multivitamins/ Minerals (Multivitamin W/ Minerals Tab) 1 tab QAM PO 04/08/17 09:00 05/08/17 08:59 04/10/17 07:33 1 TAB Nitroglycerin (Nitroglycerin 2% Oint) 1 inch Q6H EXT 04/07/17 22:00 05/07/17 21:59 04/10/17 22:31 1 INCH Miscellaneous Information (Consult Glycemic Management Pharmacy) 1 ea UD N/A 04/08/17 17:49 05/08/17 17:48 Insulin Glargine (Lantus Solostar Pen) PER PROTOCOL HS SC 04/08/17 21:00 05/08/17 20:59 04/10/17 21:34 15 UNIT Clopidogrel Bisulfate (plAVix TAB) 75 mg QAM PO 04/10/17 09:00 05/10/17 08:59 04/10/17 07:33 75 MG Acetaminophen (Tylenol Tab) 650 mg Q4H PRN PO 04/09/17 17:00 05/09/17 16:59 Heparin Sodium (Porcine) (Heparin Sq 5000 Unit/0.5ml) 5,000 unit Q12 SQ 04/10/17 09:00 05/10/17 08:59 04/10/17 21:35 5,000 UNIT Lisinopril (Zestril Tab) 10 mg QAM PO 04/11/17 09:00 05/11/17 08:59 Metoprolol Succinate (Toprol Xl Tab) 50 mg BID PO 04/10/17 21:00 05/10/17 20:59 04/10/17 21:30 50 MG
[2017-04-11] VITALS (9 sets, daily range): BP systolic 75–118; BP diastolic 49–76; PULSE 68–101; TEMP 36.3–37; O2SAT 96–98
[2017-04-11] MEDS: NITROGLYCERIN OINT 2% 1GM PACKET EXT SCH (04:07)
[2017-04-11] MEDS: LEVOTHYROXINE 112 MCG TAB PO SCH (05:37)
[2017-04-11] MEDS: METOPROLOL SUCC 50MG EXT REL TAB PO SCH ×2 (07:58→19:55)
[2017-04-11] MEDS: CEROVITE ADV FORMULA TAB PO SCH (07:59)
[2017-04-11] MEDS: ALLOPURINOL 100 MG TAB PO SCH (07:59)
[2017-04-11] MEDS: CHLORTHALIDONE 25 MG TAB PO SCH (07:59)
[2017-04-11] MEDS: MAGNESIUM OXIDE 400 MG TAB PO SCH (08:00)
[2017-04-11] MEDS: FENOFIBRATE 145 MG TAB PO SCH (08:00)
[2017-04-11] MEDS: ASPIRIN 81 MG ECTAB PO SCH (08:00)
[2017-04-11] MEDS: CLOPIDOGREL BISULFATE 75 MG TAB PO SCH (08:00)
[2017-04-11] MEDS: ATORVASTATIN 40 MG TAB PO SCH (08:00)
[2017-04-11] MEDS: PANTOprazole SOD 40 MG TAB PO SCH (08:00)
[2017-04-11] MEDS: INSULIN ASPART 100 UNITS/ML 3 ML PEN SC SCH ×4 (08:02→20:37)
[2017-04-11] MEDS: HEPARIN SOD 5000 UNIT/0.5 ML CARP SQ SCH ×2 (08:08→20:39)
[2017-04-11] MEDS ORDERED: LISINOPRIL 10 MG TAB PO SCH (09:00)
--- NOTE | 2017-04-11 10:32 | PROGRESS NOTE ---
DATE: 04/11/2017 SUBJECTIVE: The patient is a 71-year-old female, who presented with a non-STEMI and had a LAD stent placed. By echocardiography, the patient has cardiomyopathy with anterior wall motion abnormalities. Her EF on presentation was around 30%. She has been put on appropriate medications and hopefully some of this myocardium will come back and is preserved due to stunning. She has no complaints today. OBJECTIVE: GENERAL: She is alert and oriented. VITAL SIGNS: Blood pressure is 130/80, pulse is regular at 70 beats per minute and she is afebrile. HEENT: She is normocephalic. Pupils are equal and reactive to light. Extraocular muscles are intact bilaterally. NECK: The neck veins are flat. Carotids have good upstrokes bilaterally without bruits. Thyroid is nonpalpable. RESPIRATORY: Breath sounds are equal bilaterally and clear to auscultation. CARDIOVASCULAR: Heart has a regular rhythm. Normal S1, S2. No S3, S4. No cardiac rubs or murmurs. GASTROINTESTINAL: Abdomen is soft, nontender without organomegaly. EXTREMITIES: Free of edema, digit clubbing or cyanosis. NEUROLOGIC: Grossly intact. SKIN: Warm to touch. LYMPH NODES: Negative to palpation. LABORATORY DATA: Troponin peaked at 11.0. IMPRESSION: 1. Status post drug-eluting stent to left anterior descending. 2. Non ST segment elevation myocardial infarction 3. Ischemic cardiomyopathy. RECOMMENDATIONS: I believe the patient could be discharged to her personal detention in [place]. We will arrange followup through our [place] clinic. LILA
[2017-04-11] MEDS ORDERED: INSULIN GLARGINE SOLOSTAR 100 UNITS/ML 3 ML PEN SC SCH (12:00)
--- NOTE | 2017-04-11 12:05 | Pharmacy Progress Note ---
Glycemic Control: Progress Nt Date of Service Apr 11, 2017. Scope Glycemic Pharmacist consulted by Dr Fernandes on 04/08/17 for glycemic control and to write orders per [facility] inpatient glycemic control protocol. Objective Accuchecks BSG (last 24hrs): Test 04/10/17 16:14 04/10/17 20:04 04/11/17 06:31 04/11/17 10:59 Bedside Glucose 155 mg/dl (70-90) 214 mg/dl (70-90) 147 mg/dl (70-90) 171 mg/dl (70-90) HbA1c: Test 04/08/17 03:05 Hemoglobin A1c 10.1 % (4.5-5.6) H Recent Pertinent Medications Outpatient Anti-diabetic Regimen: * Novolin 70/30 mixed insulin * 80 units SQ in the AM * 50 units SQ in the evening [facility] * A1c = 10.1 % 04/08/17 The patient is currently receiving: * Basal insulin: * Lantus 15 units SQ in the PM * Bolus Insulin: * NovoLog SQ AC+HS - Goal Range: Low 140 mg/dL - High 180 mg/dL - Correction Factor: 20 mg/dL/unit - Carb ratio of 1 unit per 8 grams CHO consumed Risk Factors for Insulin Resistance: * Diet: Assessment & Plan ASSESSMENT: * ADA & AACE recommend a goal blood sugar range 140-180 mg/dl for the majority of critically ill & non-critically ill patients. However, more stringent targets may be selected in individual cases. 04/11/17 * Insulin requirements increasing secondary to increased PO intake. * 24 units over the past 24 hours with BSGs 133-214mg/dL * Large doses of insulin used at home * we may see an increase in BSGs since we have been quite conservative while NPO PLAN FOR INPATIENT GLYCEMIC CONTROL: * Basal insulin: * Lantus 10 units SQ x1 dose today with lunch * Lantus 15 units SQ --> increase to BID - give 8 units if BSG is below 120mg/dL * Bolus insulin: * NovoLog SQ AC and HS - Correction factor: 20 mg/dL/unit - Carb ratio: 1 unit per 7 g of CHO consumed - Goal: 140-180mg/dL per ADA recommendations * A1c is current and demonstrates poor glycemic control * add to discharge instructions RECOMMENDATIONS FOR DISCHARGE: * awaited. * Please note that the plan above was derived based on current level of insulin resistance and hospital stress. These recommendations are appropriate for inpatient admission only. Plan of care upon discharge will need to be reassessed to avoid potential outpatient hypo/hyperglycemia. Thank you.
[2017-04-11] MEDS: INSULIN GLARGINE SOLOSTAR 100 UNITS/ML 3 ML PEN SC SCH (20:38)
--- NOTE | 2017-04-11 21:42 | Progress Note ---
Medicine Progress Note Date & Time of Visit: Apr 11, 2017 at 18:30 . Subjective No fever. No chest pain. No cough or shortness of breath. No nausea or vomiting. Ambulating. . Objective Last 8 Hrs Date Time Temp Pulse Resp B/P (MAP) Pulse Ox O2 Delivery O2 Flow Rate FiO2 04/11/17 20:00 Room Air 04/11/17 19:54 85 78/52 (61) 04/11/17 19:53 75/49 (58) 04/11/17 19:53 36.4 68 20 90/58 (69) 96 Room Air 04/11/17 16:00 Room Air 04/11/17 15:17 36.9 80 20 106/55 (72) 98 Room Air Physical Exam: General- sitting on side of bed, no distress Neck- no JVD Lungs- clear Heart- regular, no murmur, gallop or rub Abdomen- normal bowel sounds, soft, nontender Extremities- no pretibial edema or calf tenderness Neuro- alert . Laboratory Results: Last 24 Hours Test 04/11/17 06:31 04/11/17 10:59 04/11/17 16:00 04/11/17 20:36 Bedside Glucose 147 mg/dl 171 mg/dl 127 mg/dl 147 mg/dl Assessment & Plan NON-STEMI Admission EKG demonstrated normal sinus rhythm at 70/minute, probable J-point elevation in V1 through V4, flattened T waves I, inverted T waves aVL. Peak CPK 197. Peak troponin 3.90. Echocardiogram performed on 04/08/17 demonstrated severe hypokinesis to akinesis of the septum and apex with mild apical expansion, overall LVEF 35-40%. Cardiac catheterization on 04/09/17 demonstrated mid LAD lesion with 90+ % stenosis. PCI with drug-eluting stent performed. Lisinopril started for reduced LVEF. Continue aspirin, clopidogrel, metoprolol, topical nitrates, atorvastatin. Increase activity. HYPERTENSION Continue chlorthalidone and metoprolol. CKD III Serum creatinine 04/10 was 1.2. Follow. DYSLIPIDEMIA LDL-C = 58. Continue atorvastatin. DM TYPE 2 Not well-controlled. Hemoglobin A1c 10.1. Fasting blood sugar 147. Manage with Lantus/NovoLog per protocol. VTE PROPHYLAXIS Initially received IV heparin. Transitioned to subcutaneous heparin. Ambulate. DISPOSITION Expected discharge to home. Family Medicine follow-up with Dr. Lundy. Follow-up with [facility]. . Current Inpatient Medications: Current Inpatient Medications Medications (Trade) Dose Ordered Sig/Bay Route Start Time Stop Time Status Last Admin Dose Admin Al Hydrox/Mg Hydrox/Simethicone (Maalox Max Susp) 15 ml Q4H PRN PO 04/07/17 12:15 05/07/17 12:14 Magnesium Hydroxide (Milk Of Magnesia Susp) 30 ml Q12H PRN PO 04/07/17 12:15 05/07/17 12:14 Ondansetron HCl (Zofran Inj) 4 mg Q6H PRN IV 04/07/17 12:15 05/07/17 12:14 Nitroglycerin (Nitrostat Tab) 0.4 mg UD PRN SL 04/07/17 12:15 05/07/17 12:14 04/09/17 17:16 0.4 MG Morphine Sulfate (MoRPHine SULFATE INJ) 2 mg Q30M PRN IV 04/07/17 12:15 04/21/17 12:14 04/10/17 05:21 2 MG Insulin Aspart (novoLOG ASPART) SLIDING SCALE G... ACHS SC 04/07/17 16:00 05/07/17 15:59 04/11/17 11:44 3 UNITS Glucose (Glucose 40% Gel) 15-30 GRAMS 15 GRAMS... UD PRN PO 04/07/17 12:30 05/07/17 12:29 Glucose (Glucose Chew Tab) 4-8 Tablets 4 Tabl... UD PRN PO 04/07/17 12:30 05/07/17 12:29 Dextrose (Dextrose 50% 50ML Syringe) 25-50ML OF 50% DW IV FOR... UD PRN IV 04/07/17 12:30 05/07/17 12:29 Glucagon (Glucagon Inj) 1 mg UD PRN SQ 04/07/17 12:30 05/07/17 12:29 Aspirin (Ecotrin Tab) 81 mg QAM PO 04/08/17 09:00 05/08/17 08:59 04/11/17 08:00 81 MG Allopurinol (Zyloprim Tab) 200 mg DAILY PO 04/08/17 09:00 05/08/17 08:59 04/11/17 07:59 200 MG Chlorthalidone (Hygroton Tab) 12.5 mg QAM PO 04/08/17 09:00 05/08/17 08:59 04/11/17 07:59 12.5 MG Fenofibrate (Tricor Tab) 145 mg QAM PO 04/08/17 09:00 05/08/17 08:59 04/11/17 08:00 145 MG Pantoprazole Sodium (Protonix Tab) 40 mg QAM PO 04/08/17 09:00 05/08/17 08:59 04/11/17 08:00 40 MG Levothyroxine Sodium (Synthroid Tab) 112 mcg DAILYBB PO 04/08/17 06:00 05/08/17 06:59 04/11/17 05:37 112 MCG Atorvastatin Calcium (Lipitor Tab) 40 mg QAM PO 04/08/17 09:00 05/08/17 08:59 04/11/17 08:00 40 MG Magnesium Oxide (Mag-Ox Tab) 400 mg QAM PO 04/08/17 09:00 05/08/17 08:59 04/11/17 08:00 400 MG Multivitamins/ Minerals (Multivitamin W/ Minerals Tab) 1 tab QAM PO 04/08/17 09:00 05/08/17 08:59 04/11/17 07:59 1 TAB Miscellaneous Information (Consult Glycemic Management Pharmacy) 1 ea UD N/A 04/08/17 17:49 05/08/17 17:48 Clopidogrel Bisulfate (plAVix TAB) 75 mg QAM PO 04/10/17 09:00 05/10/17 08:59 04/11/17 08:00 75 MG Acetaminophen (Tylenol Tab) 650 mg Q4H PRN PO 04/09/17 17:00 05/09/17 16:59 04/11/17 15:25 650 MG Heparin Sodium (Porcine) (Heparin Sq 5000 Unit/0.5ml) 5,000 unit Q12 SQ 04/10/17 09:00 05/10/17 08:59 04/11/17 20:39 5,000 UNIT Lisinopril (Zestril Tab) 10 mg QAM PO 04/11/17 09:00 05/11/17 08:59 04/11/17 07:59 10 MG Metoprolol Succinate (Toprol Xl Tab) 50 mg BID PO 04/10/17 21:00 05/10/17 20:59 04/11/17 07:58 50 MG Insulin Glargine (Lantus Solostar Pen) PER PROTOCOL BID SC 04/11/17 21:00 05/11/17 20:59 04/11/17 20:38 15 UNIT
[2017-04-12 00:04] VITALS: BP 95/45; PULSE 78; TEMP 37; O2SAT 98
[2017-04-12 03:43] VITALS: BP 85/50; PULSE 74; TEMP 37.1; O2SAT 95
[2017-04-12] MEDS: LEVOTHYROXINE 112 MCG TAB PO SCH (06:15)
[2017-04-12] MEDS: INSULIN ASPART 100 UNITS/ML 3 ML PEN SC SCH (07:00)
[2017-04-12] MEDS: PANTOprazole SOD 40 MG TAB PO SCH (07:55)
[2017-04-12] MEDS: CEROVITE ADV FORMULA TAB PO SCH (07:56)
[2017-04-12] MEDS: CLOPIDOGREL BISULFATE 75 MG TAB PO SCH (07:56)
[2017-04-12] MEDS: FENOFIBRATE 145 MG TAB PO SCH (07:56)
[2017-04-12] MEDS: ATORVASTATIN 40 MG TAB PO SCH (07:56)
[2017-04-12] MEDS: ASPIRIN 81 MG ECTAB PO SCH (07:56)
[2017-04-12] MEDS: ALLOPURINOL 100 MG TAB PO SCH (07:56)
[2017-04-12] MEDS: MAGNESIUM OXIDE 400 MG TAB PO SCH (07:57)
[2017-04-12] MEDS: CHLORTHALIDONE 25 MG TAB PO SCH (07:57)
[2017-04-12] MEDS: INSULIN GLARGINE SOLOSTAR 100 UNITS/ML 3 ML PEN SC SCH (08:02)
[2017-04-12] MEDS: HEPARIN SOD 5000 UNIT/0.5 ML CARP SQ SCH (08:06)
[2017-04-12] MEDS ORDERED: LISINOPRIL 2.5 MG TAB PO SCH (09:00)
[2017-04-12] MEDS ORDERED: METOPROLOL SUCC 25MG EXT REL TAB PO SCH (09:00)
[2017-04-12 09:44] VITALS: BP 80/45; PULSE 77; TEMP 36.7; O2SAT 97
[2017-04-12 12:00] VITALS: BP 80/45; PULSE 77; TEMP 36.7; O2SAT 97
[2017-04-12 12:05] VITALS: BP 122/69; PULSE 86; TEMP 36.5; O2SAT 95
--- NOTE | 2017-04-12 12:23 | PROGRESS NOTE ---
DATE: 04/12/2017 SUBJECTIVE: The patient had an uneventful night. She has no symptoms of dizziness or lightheadedness. Her blood pressures had been recorded are low and today they recorded as 80 systolic. Her medications have been adjusted; however, we have retaken her blood pressure now and her systolic is in the 120s. I am questioning the accuracy of her reported blood pressures at this point. She feels well and has no complaints. I still believe that she can be discharged with outpatient followup. OBJECTIVE: GENERAL: She is alert and oriented, sitting at bedside eating her lunch. VITAL SIGNS: Blood pressure is 125/70, pulse is regular at 70 beats per minute. GENERAL: She is afebrile. HEENT: She is normocephalic. Pupils are equal and reactive to light. Extraocular muscles are intact bilaterally. NECK: The neck veins are flat. Carotids have good upstrokes bilaterally without bruits. Thyroid is nonpalpable. RESPIRATORY: Breath sounds equal bilaterally and clear to auscultation. CARDIOVASCULAR: Heart has a regular rhythm. Normal S1, S2. No S3, S4. No cardiac rubs or murmurs. GASTROINTESTINAL: Abdomen is soft, nontender without organomegaly. EXTREMITIES: Free of edema, digit clubbing, or cyanosis. NEUROLOGIC: Grossly intact. SKIN: Warm to touch. LYMPH NODES: Negative to palpation. LABORATORY DATA: None available today. She is in a sinus mechanism on the telemetry. IMPRESSION: 1. Status post drug-eluting stent to left anterior descending artery. 2. Non-ST elevation myocardial infarction. 3. Ischemic cardiomyopathy. RECOMMENDATIONS: As outlined above, I believe the patient can still be discharged home to her personal care apartment. We will follow her in [place].
--- NOTE | 2017-04-12 12:37 | Progress Note ---
Medicine Progress Note Date & Time of Visit: Apr 12, 2017 at 12:37 . Subjective BP's low last evening and this morning, but asymptomatic. Repeat BP improved. Ambulating. No CP, SOB, lightheadedness. . Objective Last 8 Hrs Date Time Temp Pulse Resp B/P (MAP) Pulse Ox O2 Delivery O2 Flow Rate FiO2 04/12/17 12:05 36.5 86 18 122/69 (86) 95 04/12/17 12:03 Room Air 04/12/17 12:00 36.7 77 18 97 Room Air 04/12/17 09:44 36.7 77 18 80/45 (57) 97 Room Air 04/12/17 08:05 Room Air Physical Exam: General- no distress Neck- no JVD Lungs- clear Heart- regular, no murmur, gallop or rub Abdomen- normal bowel sounds, soft, nontender Extremities- no pretibial edema or calf tenderness Neuro- alert . Laboratory Results: Last 24 Hours Test 04/11/17 16:00 04/11/17 20:36 04/12/17 06:52 04/12/17 11:03 Bedside Glucose 127 mg/dl 147 mg/dl 86 mg/dl 150 mg/dl Assessment & Plan NON-STEMI Presented to ED with intermittent chest pain at rest. Admission EKG demonstrated normal sinus rhythm at 70/minute, probable J-point elevation in V1 through V4, flattened T waves I, inverted T waves aVL. Cardiology consulted. Peak CPK 197. Peak troponin 3.90. Echocardiogram performed on 04/08/17 demonstrated severe hypokinesis to akinesis of the septum and apex with mild apical expansion, overall LVEF 35-40%. Cardiac catheterization on 04/09/17 demonstrated mid LAD lesion with 90+ % stenosis. PCI with drug-eluting stent performed. BP's low on metoprolol + lisinopril; dosages adjusted. Discharge on aspirin, clopidogrel, metoprolol succinate 25 mg -[id number]-a-i-l-y- BID [ error corrected 04/13/17 13:33 ISIDRO], lisinopril 2.5 mg daily, atorvastatin. HYPERTENSION Discharge on chlorthalidone, metoprolol succinate, lisinopril. CKD III Serum creatinine 04/10 was 1.2. Follow. DYSLIPIDEMIA LDL-C = 58. Continue atorvastatin. DM TYPE 2 Not well-controlled. Hemoglobin A1c 10.1. Fasting blood sugar 186. Managed with Lantus/NovoLog per protocol during hospital stay. Discharge on usual regimen. VTE PROPHYLAXIS Initially received IV heparin. Transitioned to subcutaneous heparin. Ambulating. DISPOSITION Discharge to home. Family Medicine follow-up with Dr. Lundy. Follow-up with [facility]. . Consultants: Cardiology . Procedures: cardiac monitoring IV meds cardiac catheterization PCI LAD with drug-eluting stent . Current Inpatient Medications: Current Inpatient Medications Medications (Trade) Dose Ordered Sig/Bay Route Start Time Stop Time Status Last Admin Dose Admin Al Hydrox/Mg Hydrox/Simethicone (Maalox Max Susp) 15 ml Q4H PRN PO 04/07/17 12:15 05/07/17 12:14 Magnesium Hydroxide (Milk Of Magnesia Susp) 30 ml Q12H PRN PO 04/07/17 12:15 05/07/17 12:14 Ondansetron HCl (Zofran Inj) 4 mg Q6H PRN IV 04/07/17 12:15 05/07/17 12:14 Nitroglycerin (Nitrostat Tab) 0.4 mg UD PRN SL 04/07/17 12:15 05/07/17 12:14 04/09/17 17:16 0.4 MG Morphine Sulfate (MoRPHine SULFATE INJ) 2 mg Q30M PRN IV 04/07/17 12:15 04/21/17 12:14 04/10/17 05:21 2 MG Insulin Aspart (novoLOG ASPART) SLIDING SCALE G... ACHS SC 04/07/17 16:00 05/07/17 15:59 04/11/17 11:44 3 UNITS Glucose (Glucose 40% Gel) 15-30 GRAMS 15 GRAMS... UD PRN PO 04/07/17 12:30 05/07/17 12:29 Glucose (Glucose Chew Tab) 4-8 Tablets 4 Tabl... UD PRN PO 04/07/17 12:30 05/07/17 12:29 Dextrose (Dextrose 50% 50ML Syringe) 25-50ML OF 50% DW IV FOR... UD PRN IV 04/07/17 12:30 05/07/17 12:29 Glucagon (Glucagon Inj) 1 mg UD PRN SQ 04/07/17 12:30 05/07/17 12:29 Aspirin (Ecotrin Tab) 81 mg QAM PO 04/08/17 09:00 05/08/17 08:59 04/12/17 07:56 81 MG Allopurinol (Zyloprim Tab) 200 mg DAILY PO 04/08/17 09:00 05/08/17 08:59 04/12/17 07:56 200 MG Chlorthalidone (Hygroton Tab) 12.5 mg QAM PO 04/08/17 09:00 05/08/17 08:59 04/12/17 07:57 12.5 MG Fenofibrate (Tricor Tab) 145 mg QAM PO 04/08/17 09:00 05/08/17 08:59 04/12/17 07:56 145 MG Pantoprazole Sodium (Protonix Tab) 40 mg QAM PO 04/08/17 09:00 05/08/17 08:59 04/12/17 07:55 40 MG Levothyroxine Sodium (Synthroid Tab) 112 mcg DAILYBB PO 04/08/17 06:00 05/08/17 06:59 04/12/17 06:15 112 MCG Atorvastatin Calcium (Lipitor Tab) 40 mg QAM PO 04/08/17 09:00 05/08/17 08:59 04/12/17 07:56 40 MG Magnesium Oxide (Mag-Ox Tab) 400 mg QAM PO 04/08/17 09:00 05/08/17 08:59 04/12/17 07:57 400 MG Multivitamins/ Minerals (Multivitamin W/ Minerals Tab) 1 tab QAM PO 04/08/17 09:00 05/08/17 08:59 04/12/17 07:56 1 TAB Miscellaneous Information (Consult Glycemic Management Pharmacy) 1 ea UD N/A 04/08/17 17:49 05/08/17 17:48 Clopidogrel Bisulfate (plAVix TAB) 75 mg QAM PO 04/10/17 09:00 05/10/17 08:59 04/12/17 07:56 75 MG Acetaminophen (Tylenol Tab) 650 mg Q4H PRN PO 04/09/17 17:00 05/09/17 16:59 04/11/17 15:25 650 MG Heparin Sodium (Porcine) (Heparin Sq 5000 Unit/0.5ml) 5,000 unit Q12 SQ 04/10/17 09:00 05/10/17 08:59 04/12/17 08:06 5,000 UNIT Insulin Glargine (Lantus Solostar Pen) PER PROTOCOL BID SC 04/11/17 21:00 05/11/17 20:59 04/12/17 08:02 8 UNIT Lisinopril (Zestril Tab) 2.5 mg QAM PO 04/12/17 09:00 05/12/17 08:59 04/12/17 07:55 2.5 MG Metoprolol Succinate (Toprol Xl Tab) 25 mg BID PO 04/12/17 09:00 05/12/17 08:59 04/12/17 07:58 25 MG
[2017-04-12] MEDS ORDERED: METO-551 PO (12:52)
[2017-04-12] MEDS ORDERED: ATOR-24 PO (12:52)
[2017-04-12] MEDS ORDERED: MELO7.5T5 PO (12:52)
[2017-04-12] MEDS ORDERED: OMEP40CA41 PO (12:52)
[2017-04-12] MEDS ORDERED: LEVO112T4 PO (12:52)
[2017-04-12] MEDS ORDERED: CHOL1TAB76 PO (12:52)
[2017-04-12] MEDS ORDERED: INSU70IN2 SC (12:52)
[2017-04-12] MEDS ORDERED: MULTTAB58 PO (12:52)
[2017-04-12] MEDS ORDERED: FENO134C2 PO (12:52)
[2017-04-12] MEDS ORDERED: ASPI-428 PO (12:52)
[2017-04-12] MEDS ORDERED: ALLO100T PO (12:52)
[2017-04-12] MEDS ORDERED: RRNITROTAB SL (12:52)
[2017-04-12] MEDS ORDERED: MAGN250T3 PO (12:52)
[2017-04-12] MEDS ORDERED: HYG25 PO (12:52)
[2017-04-12] MEDS ORDERED: METO-478 PO ×2 (12:58→13:00)
[2017-04-12] MEDS ORDERED: LSN25 PO (13:00)
[2017-04-12] MEDS ORDERED: PLV75 PO (13:00)
--- NOTE | 2017-04-12 13:06 | Discharge Instructions ---
Discharge Instructions Date of Service Apr 12, 2017. Admission Reason for Admission: heart attack . Discharge Discharge Diagnosis / Problem: heart attack Discharge Goals Goal(s): Decrease discomfort, Improve function, Increase independence, Improve disease control Activity Recommendations Activity Limitations: as noted below Lifting Limitations: gradually increase as tolerated . Instructions / Follow-Up Instructions / Follow-Up APPOINTMENTS: FAMILY MEDICINE 04/15/2017 3:00 PM Venkatesh Lundy MD CARDIOLOGY Office will contact you with appointment. INSTRUCTIONS: New medications- aspirin (Ecotrin) 81 mg daily clopidogrel (Plavix) 75 mg daily metoprolol succinate (Toprol XL) 25 mg daily lisinopril (Prinivil) 2.5 mg daily Stop taking metoprolol tartrate (Lopressor). It is very important for you to take aspirin (Ecotrin) and clopidogrel ( Plavix) every day so that stent doesn't get blocked. Seek medical attention if you have: * temperature above 101 * chest pain or trouble breathing * abdominal pain, nausea, vomiting * diarrhea, dark stools or bloody stools * any unanswered questions or concerns Call 911 if symptoms are severe. Call if you have any questions or problems. My cell # is [phone]. You can also reach a [facility] hospitalist on duty at [facility] 24 hours a day by calling [phone]. Please take good care of yourself. [facility]: * Take your medications exactly as directed. Don't skip doses. * Remember that recovery after a heart attack takes time. Plan to rest for at lease 4-8 weeks while you recover. Then return to normal activity when your doctor says it's okay. * Ask your doctor about joining a heart rehabilitation program. * Tell your doctor if you are feeling depressed. Feelings of sadness are common after a heart attack, but it is important that you speak to someone if you are feeling overwhelmed by these feelings. * If you are having chest pain, call 911 for an ambulance. Do NOT drive yourself to the hospital. * Ask your family members to learn CPR. * Learn to take your own blood pressure and pulse. Keep a record of your results. Ask your doctor when you should seek emergency medical attention. He or she will tell you which blood pressure reading is dangerous. Lifestyle Changes: * Maintain a healthy weight. Get help to lose any extra pounds. * Cut back on salt. * Limit canned, dried, packaged, and fast foods. * Don't add salt to your food. * Season foods with herbs instead of salt when you cook. * Break the smoking habit. Enroll in a stop-smoking program to improve your chances of success. * Limit fatty foods. * Check your lipid levels regularly. (Your doctor can show you how to do this.) * Build up your activity according to your doctor's recommendation. * Ask your doctor when it's okay to resume sexual activity. * Tell your doctor about any erectile dysfunction (ED) medication you are taking. Some ED medications are not safe if you take certain heart medications. * Try to manage stress. Follow Up: It is important for you to keep your follow up appointments with your medical provider. Current Hospital Diet Patient's current hospital diet: Diabetes Type 2 Diet, AHA Diet (Heart Healthy) Discharge Diet Recommended Diet: AHA Diet (Heart Healthy), Diabetes Type 2 Diet Pending Studies Studies pending at discharge: no Laboratory Results Hemoglobin A1c Test 04/08/17 03:05 Range/Units Estimated Average Glucose 243 mg/dl Hemoglobin A1c 10.1 H 4.5-5.6 % Lipid Panel Test 04/08/17 03:05 Range/Units Triglycerides Level 320 H 0-150 mg/dl Cholesterol Level 153 0-200 mg/dl HDL Cholesterol 31 mg/dl Cholesterol/HDL Ratio 4.9 LDL Cholesterol, Calculated 58 mg/dl Medical Emergencies . Who to Call and When: Medical Emergencies: If at any time you feel your situation is an emergency, please call 911 immediately. Call 911 immediately or go to your nearest Emergency Room if you experience any of the following: Warning Signs and Symptoms of a Heart Attack * Chest pain that is not relieved by medication * Shortness of breath . Non-Emergent Contact Non-Emergency issues call your: Primary Care Provider, Last Turner, Hospital Doctor . . "Provider Documentation" section prepared by [facility]. . AMI Core Measures Reason no ASA as I/P: Treatment provided - N/A Reason no ASA at D/C: Treatment provided - N/A Reason no statin as I/P: Treatment provided - N/A Reason no statin at D/C: Treatment provided - N/A VTE Core Measure Inpt VTE Proph given/why not?: Unfractionated heparin SQ
--- NOTE | 2017-04-13 13:37 | Discharge Summary ---
Discharge Summary Date of Service Apr 13, 2017. Discharge Summary Admission Date: April 07, 2017 at 12:13 Discharge Date: Apr 12, 2017 Principal Diagnosis: non-STEMI mid-LAD stenosis . Secondary Diagnoses/Problems: Chronic and Resolved Medical Problems: (1) CKD (chronic kidney disease), stage III Status: Chronic (2) Coronary artery disease Status: Chronic (3) Diabetes mellitus, type 2 Status: Chronic (4) Dyslipidemia Status: Chronic (5) Glaucoma Status: Chronic (6) Hypertension Status: Chronic (7) Hypothyroidism Status: Chronic Surgical Problems: (1) Status post cardiac catheterization Status: Chronic (2) Status post cataract extraction Status: Chronic . Procedures: cardiac monitoring IV meds cardiac catheterization PCI LAD with drug-eluting stent . Consultations: Cardiology . Medication Reconciliation New Medications: Lisinopril (Lisinopril) 2.5 Mg Tab 2.5 MG PO DAILY, #30 TAB 5 Refills Metoprolol Succinate (Toprol Xl) 25 Mg Tab 25 MG PO BID, #60 TAB 5 Refills Clopidogrel Bisulfate (Clopidogrel) 75 Mg Tab 75 MG PO QAM, #30 TAB 11 Refills Continued Medications: Allopurinol (Zyloprim) 100 Mg Tab 200 MG PO DAILY, TAB Aspirin (Ecotrin Low Strength) 81 Mg Tab 81 MG PO DAILY, TAB Atorvastatin (Lipitor) 40 Mg Tab 40 MG PO DAILY, TAB Chlorthalidone (Chlorthalidone) 25 Mg Tab 12.5 MG PO DAILY take 1/2 pill daily Cholecalciferol (D 2000) 2,000 Unit Tab 2000 MG PO DAILY Fenofibrate (Tricor ) 134 Mg Cap 134 MG PO DAILY, CAP Insulin Human Isophan/Regular (Novolin 70/30) Inj 0 SC UD, BTL 80 units with breakfast 50 units with supper Levothyroxine Sodium (Levothyroxine Sodium) 112 Mcg Tab 112 MCG PO DAILY, TAB Magnesium (Magnesium 250 mg) 1 Tab Tab 250 MG PO BID Meloxicam (Mobic) 7.5 Mg Tab 7.5 MG PO DAILY PRN for Pain, TAB Nitroglycerin (Nitrostat) 0.4 Mg/1 Tab Subl 1 TAB SL UD PRN for Chest Pain Dissolve under tongue. May repeat dose in 10 minutes. Call 911 if no relief. Omeprazole (Prilosec) 40 Mg Cap 40 MG PO DAILY, CAP Discontinued Medications: Metoprolol Tartrate (Lopressor) 50 Mg Tab 25 MG PO BID, TAB 1/2 pill twice a day Admission Information HPI (per Admitting provider): HISTORY OF PRESENT ILLNESS: This is a 71-year-old female with past medical history significant for poorly controlled diabetes on insulin, hypertension, hyperlipidemia, gastroparesis, hypothyroidism, history of glaucoma, chronic kidney disease stage III, history of depression, osteoarthritis, who presents with chest pain. The patient says yesterday afternoon, she noticed chest pain, middle of the chest going to back, 10/10 in severity while she was at rest and not associated with any shortness of breath or sweating or nausea or dizziness. Patient says she took a nitro and the pain subsided a little bit and she took another nitro and the pain was almost gone and she went to sleep but today morning again she woke up with severe pain and she came to ER. aIn the ambulance, she got 3 nitros and the pain is almost resolved. Currently resting comfortably, hemodynamically stable. Chest pain is about 1/10 in severity at this time. Denies any recent fever or chills, no headaches. No blurred visions. Appetite is okay. Normal bowel and bladder movements. Otherwise the patient says she is active and she walks and she climbs steps without any problems. . Physical Exam (per Admitting): GENERAL: The patient is of moderate build, not in distress. VITAL SIGNS: Temperature 36.7, pulse 70, respiratory rate 16, blood pressure 162/94, oxygen 96% on room air. HEENT: No pallor, no icterus. Pupils equal, round, and reactive to light. NECK: No JVD, no neck masses, no carotid bruits. CARDIOVASCULAR: S1, S2 heard, regular rate and rhythm, no murmur, no gallop. RESPIRATORY SYSTEM: Clear to auscultation bilaterally. No wheezing, no crackles. ABDOMEN: Soft, bowel sounds present. Nontender. No distention. CENTRAL NERVOUS SYSTEM: Cranial nerves II-XII grossly intact. Nonfocal. EXTREMITIES: No edema, no erythema. . Hospital Course NON-STEMI Presented to ED with intermittent chest pain at rest. Admission EKG demonstrated normal sinus rhythm at 70/minute, probable J-point elevation in V1 through V4, flattened T waves I, inverted T waves aVL. Cardiology consulted. Peak CPK 197. Peak troponin 3.90. Echocardiogram performed on 04/08/17 demonstrated severe hypokinesis to akinesis of the septum and apex with mild apical expansion, overall LVEF 35-40%. Cardiac catheterization on 04/09/17 demonstrated mid LAD lesion with 90+ % stenosis. PCI with drug-eluting stent performed. BP's low on metoprolol + lisinopril; dosages adjusted. Discharge on aspirin, clopidogrel, metoprolol succinate 25 mg -[id number]-a-i-l-y- BID [ error corrected 04/13/17 13:33 ISIDRO], lisinopril 2.5 mg daily, atorvastatin. HYPERTENSION Discharge on chlorthalidone, metoprolol succinate, lisinopril. CKD III Serum creatinine 04/10 was 1.2. Follow. DYSLIPIDEMIA LDL-C = 58. Continue atorvastatin. DM TYPE 2 Not well-controlled. Hemoglobin A1c 10.1. Managed with Lantus/NovoLog per protocol during hospital stay. Fasting blood sugar day of discharge was 186. Discharge on usual regimen. Further titration of meds per PCP. VTE PROPHYLAXIS Initially received IV heparin. Transitioned to subcutaneous heparin. Ambulating. DISPOSITION Discharged to home. Family Medicine follow-up with Dr. Lundy. Follow-up with [facility]. . Total time spent on discharge = 40 min. This includes examination of the patient, discharge planning, medication reconciliation, and communication with other providers. . Discharge Instructions Date of Service Apr 12, 2017. Admission Reason for Admission: heart attack . Discharge Discharge Diagnosis / Problem: heart attack Discharge Goals Goal(s): Decrease discomfort, Improve function, Increase independence, Improve disease control Activity Recommendations Activity Limitations: as noted below Lifting Limitations: gradually increase as tolerated . Instructions / Follow-Up Instructions / Follow-Up APPOINTMENTS: FAMILY MEDICINE 04/15/2017 3:00 PM Venkatesh Lundy MD CARDIOLOGY Office will contact you with appointment. INSTRUCTIONS: New medications- aspirin (Ecotrin) 81 mg daily clopidogrel (Plavix) 75 mg daily metoprolol succinate (Toprol XL) 25 mg daily [error- should be 25 mg twice a day ISIDRO 04/13/17 13:32] lisinopril (Prinivil) 2.5 mg daily Stop taking metoprolol tartrate (Lopressor). It is very important for you to take aspirin (Ecotrin) and clopidogrel ( Plavix) every day so that stent doesn't get blocked. Seek medical attention if you have: * temperature above 101 * chest pain or trouble breathing * abdominal pain, nausea, vomiting * diarrhea, dark stools or bloody stools * any unanswered questions or concerns Call 911 if symptoms are severe. Call if you have any questions or problems. My cell # is [phone]. You can also reach a [facility] [address] [facility] hospitalist on duty at [facility] [address] [facility] 24 hours a day by calling [phone]. Please take good care of yourself. [facility]: * Take your medications exactly as directed. Don't skip doses. * Remember that recovery after a heart attack takes time. Plan to rest for at lease 4-8 weeks while you recover. Then return to normal activity when your doctor says it's okay. * Ask your doctor about joining a heart rehabilitation program. * Tell your doctor if you are feeling depressed. Feelings of sadness are common after a heart attack, but it is important that you speak to someone if you are feeling overwhelmed by these feelings. * If you are having chest pain, call 911 for an ambulance. Do NOT drive yourself to the hospital. * Ask your family members to learn CPR. * Learn to take your own blood pressure and pulse. Keep a record of your results. Ask your doctor when you should seek emergency medical attention. He or she will tell you which blood pressure reading is dangerous. Lifestyle Changes: * Maintain a healthy weight. Get help to lose any extra pounds. * Cut back on salt. * Limit canned, dried, packaged, and fast foods. * Don't add salt to your food. * Season foods with herbs instead of salt when you cook. * Break the smoking habit. Enroll in a stop-smoking program to improve your chances of success. * Limit fatty foods. * Check your lipid levels regularly. (Your doctor can show you how to do this.) * Build up your activity according to your doctor's recommendation. * Ask your doctor when it's okay to resume sexual activity. * Tell your doctor about any erectile dysfunction (ED) medication you are taking. Some ED medications are not safe if you take certain heart medications. * Try to manage stress. Follow Up: It is important for you to keep your follow up appointments with your medical provider. Current Hospital Diet Patient's current hospital diet: Diabetes Type 2 Diet, AHA Diet (Heart Healthy) Discharge Diet Recommended Diet: AHA Diet (Heart Healthy), Diabetes Type 2 Diet Pending Studies Studies pending at discharge: no Laboratory Results Hemoglobin A1c Test 04/08/17 03:05 Range/Units Estimated Average Glucose 243 mg/dl Hemoglobin A1c 10.1 H 4.5-5.6 % Lipid Panel Test 04/08/17 03:05 Range/Units Triglycerides Level 320 H 0-150 mg/dl Cholesterol Level 153 0-200 mg/dl HDL Cholesterol 31 mg/dl Cholesterol/HDL Ratio 4.9 LDL Cholesterol, Calculated 58 mg/dl Medical Emergencies . Who to Call and When: Medical Emergencies: If at any time you feel your situation is an emergency, please call 911 immediately. Call 911 immediately or go to your nearest Emergency Room if you experience any of the following: Warning Signs and Symptoms of a Heart Attack * Chest pain that is not relieved by medication * Shortness of breath . Non-Emergent Contact Non-Emergency issues call your: Primary Care Provider, Sales Service Executive, Hospital Doctor . . "Provider Documentation" section prepared by [facility]. . AMI Core Measures Reason no ASA as I/P: Treatment provided - N/A Reason no ASA at D/C: Treatment provided - N/A Reason no statin as I/P: Treatment provided - N/A Reason no statin at D/C: Treatment provided - N/A VTE Core Measure Inpt VTE Proph given/why not?: Unfractionated heparin SQ . Additional Copies To Sp Sharpe DO; Venkatesh Lundy M.D.
--- NOTE | 2017-04-13 13:43 | Progress Note ---
Progress Note Date of Service Apr 13, 2017. Progress Note There was an error in the patient's discharge instructions. Metoprolol succinate dose should be 25 mg BID, not daily. Rx has correct instructions. Patient notified by phone. .
[2017-07-29] MEDS ORDERED: FRRS300 PO (17:01)
[2017-07-29] MEDS ORDERED: ULT50X PO (17:01)
[2017-08-11] MEDS ORDERED: CLOP1TAB15 PO (12:29)
[2017-08-11] MEDS ORDERED: MAGN1TAB19 PO (16:36)
[2017-08-15] MEDS ORDERED: METH4PAK PO (17:44)
[2017-08-20] MEDS ORDERED: fleets enema PR (14:48)
[2017-08-20] MEDS ORDERED: BISA10SU38 PR (14:48)
[2017-08-26] MEDS ORDERED: NYST80OI TOP (10:12)
== END 2017-04-12 14:00 | disposition home health service (06) | DRG 247 ==
LOC: ENRESERVTM → ENRESERVDT → EDBD 10:12 → C.EDB 10:12 → C.2E 12:13 → C.MSICU 04-09 17:32 → C.2E 04-10 10:56
PROVIDERS: ADMIT Internal Medicine; ATTEND Hospitalist
PROC: 027034Z Dilation of Coronary Artery, One Artery with Drug-eluting Intraluminal Device, Percutaneous Approach (ICD-10-PCS; principal; 2017-04-09 15:07)
PROC: 4A023N7 Measurement of Cardiac Sampling and Pressure, Left Heart, Percutaneous Approach (ICD-10-PCS; principal; 2017-04-09 15:07)
PROC: B2111ZZ Fluoroscopy of Multiple Coronary Arteries using Low Osmolar Contrast (ICD-10-PCS; principal; 2017-04-09 15:07)
DX: I21.4 Non-ST elevation (NSTEMI) myocardial infarction (principal); I13.0 Hypertensive heart and chronic kidney disease with heart failure and stage 1 through stage 4 chronic kidney disease, or unspecified chronic kidney disease; I25.10 Atherosclerotic heart disease of native coronary artery without angina pectoris; K21.9 Gastro-esophageal reflux disease without esophagitis; E78.5 Hyperlipidemia, unspecified; E11.22 Type 2 diabetes mellitus with diabetic chronic kidney disease; E11.43 Type 2 diabetes mellitus with diabetic autonomic (poly)neuropathy; N18.3 Chronic kidney disease, stage 3 (moderate); M19.90 Unspecified osteoarthritis, unspecified site; I25.5 Ischemic cardiomyopathy; E89.0 Postprocedural hypothyroidism; E66.9 Obesity, unspecified; Z68.32 Body mass index [BMI] 32.0-32.9, adult; H40.9 Unspecified glaucoma; I50.9 Heart failure, unspecified; M10.9 Gout, unspecified; I95.9 Hypotension, unspecified; Z86.010 Personal history of colon polyps; Z98.49 Cataract extraction status, unspecified eye; Z88.8 Allergy status to other drugs, medicaments and biological substances; Z79.4 Long term (current) use of insulin; Z79.899 Other long term (current) drug therapy; Z79.82 Long term (current) use of aspirin; Z80.3 Family history of malignant neoplasm of breast; Z83.3 Family history of diabetes mellitus; Z82.49 Family history of ischemic heart disease and other diseases of the circulatory system

== ENCOUNTER 2017-04-30 11:09 | Inpatient (IN) | payer OTHER ==
[~2017-04-30] VITALS: Ht 149.9 cm; Wt 71.8 kg
[~2017-04-30 11:09] MED LIST changes: -CHOLCAP10 PO; -CLOP1TAB15 PO; -FRRS300 PO; -INSDGIPEN SC; -LOSA50TA6 PO; -MAGN1TAB19 PO; +METO-478 PO; -METO-551 PO; -METO1TAB31 PO; -METO25TA3 PO; -MULTCHW PO; -MULTTAB58 PO; -NVLGI/PEN SC; -ULT50X PO
[2017-04-30] MEDS ORDERED: SODIUM CHLORIDE 0.9% 1000ML 1,000 ML IV STA (11:44)
--- NOTE | 2017-04-30 11:50 | EMERGENCY ROOM VISIT NOTE ---
History First contact with patient: 11:35 Chief Complaint: FALL Stated Complaint: FALL/ R GROIN PAIN History of Present Illness The patient is a 71 year old female who presents to the Emergency Room with complaints of syncope and right knee pain. The patient lives at an assisted living facility. She states that she was getting up to check her sugar and had a syncopal episode. She laid on the ground until the staff knocked on her door. She is unsure how long she laid on the ground. She states that it was dark out when she fell and it was light out when she woke up. She states that she had not yet eaten breakfast. The patient states that she has not been able to get up and has not tried to bear weight on the right leg. She complains of right knee pain. She denies any earache, sore throat, cough. She denies any pain in her chest or trouble breathing. She denies any abdominal pain, nausea or vomiting. She denies diarrhea. She denies any headache, neck pain. She denies any numbness, tingling or weakness in the extremities. The patient does have a history of diabetes. She was brought to the emergency department via [facility] ambulance. She was found to have a glucose of 59. She was given a half amp of extra dose and her glucose was 91 upon arrival. Review of Systems A 10 system review of systems was completed with positives and pertinent negatives listed in the HPI. Past Medical/Surgical History Medical Problems: (1) CKD (chronic kidney disease), stage III (2) Coronary artery disease (3) Diverticulosis (4) DM type 2 (diabetes mellitus, type 2) (5) Dyslipidemia (6) Gastroparesis (7) Glaucoma (8) Gout (9) HTN (hypertension) (10) Hypertriglyceridemia (11) Ischemic cardiomyopathy Surgical Problems: (1) H/O thyroidectomy (2) Status post cataract extraction Family History Patient reports no known family medical history. Social History Smoking Status: Never Smoker Marital Status: Housing Status: assisted living Current/Historical Medications Scheduled Allopurinol (Zyloprim), 200 MG PO DAILY Aspirin (Ecotrin Low Strength), 81 MG PO DAILY Atorvastatin (Lipitor), 40 MG PO DAILY Chlorthalidone (Chlorthalidone), 12.5 MG PO Q2D Cholecalciferol (D 2000), 2,000 MG PO DAILY Clopidogrel Bisulfate (Clopidogrel), 75 MG PO QAM Fenofibrate (Tricor ), 134 MG PO DAILY Insulin Human Isophan/Regular (Novolin 70/30), 0 SC UD Levothyroxine Sodium (Levothyroxine Sodium), 112 MCG PO DAILY Magnesium (Magnesium 250 mg), 250 MG PO BID Metoprolol Succinate (Toprol Xl), 25 MG PO BID Multiple Vitamins W/ Minerals (Centrum Silver), 1 TAB PO DAILY Omeprazole (Prilosec), 40 MG PO DAILY Scheduled PRN Meloxicam (Mobic), 7.5 MG PO DAILY PRN for Pain Nitroglycerin (Nitrostat), 1 TAB SL UD PRN for Chest Pain Allergies Coded Allergies: Lisinopril (Unverified Allergy, Unknown, UNKNOWN, 04/30/17) Physical Exam Vital Signs Date Time Temp Pulse Resp B/P (MAP) Pulse Ox O2 Delivery O2 Flow Rate FiO2 04/30/17 15:14 70 16 131/72 04/30/17 13:19 70 15 156/86 100 Room Air 04/30/17 13:14 65 18 04/30/17 13:09 66 18 04/30/17 13:04 78 21 100 04/30/17 12:59 74 17 100 04/30/17 12:54 78 16 100 04/30/17 12:52 156/86 04/30/17 11:44 76 21 98 04/30/17 11:39 76 23 100 04/30/17 11:35 57 04/30/17 11:34 66 16 100 04/30/17 11:24 36.9 64 16 159/68 98 Room Air 04/30/17 11:15 159/68 Physical Exam VITALS: Vitals are noted on the nurse's note and reviewed by myself. Vital signs stable. GENERAL: This is a 71-year-old female, in no acute distress, nondiaphoretic, well-developed well-nourished. SKIN: The skin was without rashes, erythema, edema, or bruising. There is a superficial, nonbleeding, non-gaping abrasion to the right knee. There is no tenting of the skin. Capillary reflex less than 2 seconds. HEAD: Normocephalic atraumatic. EARS: External auditory canals clear, tympanic membranes pearly layton without erythema or effusion bilaterally. No hemotympanum. No carvajal sign. No mastoid tenderness. EYES: Pupils equal round and reactive to light and accommodation. Conjunctivae without injection, sclerae without icterus. Extraocular movements intact. Strength NOSE: Patent, turbinates without inflammation or discharge. No sinus tenderness. No septal hematoma or bleeding. FACE: No facial tenderness. Full range of motion of the jaw without tenderness. MOUTH: Mucous membranes moist. Pharynx without erythema or exudate. Uvula midline. Airway patent. Tongue does not deviate. NECK: Supple without nuchal rigidity. Cervical spine is nontender. Full range of motion of the neck without tenderness. No JVD. HEART: Regular rate and rhythm without murmurs gallops or rubs. LUNGS: Clear to auscultation bilaterally without wheezes, rales or rhonchi. No retractions or accessory muscle use. No chest tenderness. ABDOMEN: Positive bowel sounds x 4. Soft, nontender, without masses or organomegaly. MUSCULOSKELETAL: No muscle atrophy, erythema, or edema noted. Full range of motion in all extremities. There is no tenderness to palpation over the pelvis or hips. Negative pelvic rock. There is tenderness to palpation over the right knee in the area of the abrasion. There is no edema or deformity. The patient is able to move the right hip without any difficulty. She does have some pain with movement of the right knee. Strength 5/5 throughout. NEURO: Patient was alert and oriented to person place and time. No focal neurological deficits. Medical Decision & Procedures ER Provider Diagnostic Interpretation: [~ rep ct add3]] CERVICAL SPINE CT CT DOSE: HISTORY: Trauma fall TECHNIQUE: Multiaxial CT images of the cervical spine were performed and reformatted in the sagittal and coronal plane without the use of contrast. COMPARISON: None. FINDINGS: No fractures. No subluxation. Prevertebral soft tissues and the C1-C2 interval are intact. No pneumothorax. IMPRESSION: No fractures within the cervical spine. Mild degenerative change. CHEST ONE VIEW PORTABLE CLINICAL HISTORY: syncope TRAUMA COMPARISON STUDY: No previous studies for comparison. FINDINGS: The cardiac and mediastinal contours are normal. There is no evidence of focal pulmonary consolidation. There is no evidence of failure. No pleural effusions are visualized.[ There is an old mild left AC joint separation. No pneumothorax is visualized. IMPRESSION: No active disease in the chest. RIGHT FEMUR 2 VIEWS ROUTINE CLINICAL HISTORY: Right femur pain status post trauma COMPARISON: None. DISCUSSION: No fractures or dislocations are visualized. There are vascular calcifications present. There are osteoarthritic changes at the level of the knee. IMPRESSION: No fractures or dislocations identified. CT HEAD WITHOUT CONTRAST (CT) CLINICAL HISTORY: Head trauma with loss of consciousness. COMPARISON STUDY: No previous studies for comparison. TECHNIQUE: Axial CT of the brain is performed from the vertex to the skull base. IV contrast was not administered for this examination. CT DOSE: 1228.94 mGy.cm FINDINGS: No intra or extra-axial mass lesions are visualized. There is no CT evidence of acute cortical infarction. There is no evidence of midline shift. There is no acute hemorrhage. No calvarial fractures are visualized. There are patchy white matter hypodensities likely on a small vessel basis. There is no evidence of pathologic ventricular dilatation. There is no evidence of acute sinusitis. Postsurgical changes are present within the ethmoid sinuses. IMPRESSION: No acute intracranial findings PELVIS 1 OR 2 VIEW ROUTINE CLINICAL HISTORY: Pelvic pain status post trauma COMPARISON STUDY: No previous studies for comparison. FINDINGS: No fractures or dislocations are visualized. Pelvic basin calcifications are likely vascular. There is no SI joint diastases. There is no symphysis diastases. IMPRESSION: No fractures or dislocations identified. RIGHT KNEE 3 VIEWS CLINICAL HISTORY: Right knee pain. Trauma. COMPARISON: None. DISCUSSION: The bones are mildly osteopenic. No acute fractures are visualized. There are mild degenerative changes. There is a small dorsal patellar spur. IMPRESSION: Osteoarthritic changes. No acute fractures. Laboratory Results 04/30/17 13:10 Red Blood Count 2.99, Mean Corpuscular Volume 96.0, Mean Corpuscular Hemoglobin 30.4, Mean Corpuscular Hemoglobin Concent 31.7, Mean Platelet Volume 11.4, Neutrophils (%) (Auto) 84.3, Lymphocytes (%) (Auto) 9.8, Monocytes (%) (Auto) 4.7, Eosinophils (%) (Auto) 0.3, Basophils (%) (Auto) 0.2, Neutrophils # (Auto) 7.41, Lymphocytes # (Auto) 0.86, Monocytes # (Auto) 0.41, Eosinophils # (Auto) 0.03, Basophils # (Auto) 0.02 04/30/17 13:53 Test 04/30/17 13:10 04/30/17 13:53 04/30/17 14:00 04/30/17 15:07 White Blood Count 8.79 K/uL (4.8-10.8) Red Blood Count 2.99 M/uL (4.2-5.4) Hemoglobin 9.1 g/dL (12.0-16.0) Hematocrit 28.7 % (37-47) Mean Corpuscular Volume 96.0 fL (80-100) Mean Corpuscular Hemoglobin 30.4 pg (25-34) Mean Corpuscular Hemoglobin Concent 31.7 g/dl (32-36) Platelet Count 267 K/uL (130-400) Mean Platelet Volume 11.4 fL (7.4-10.4) Neutrophils (%) (Auto) 84.3 % Lymphocytes (%) (Auto) 9.8 % Monocytes (%) (Auto) 4.7 % Eosinophils (%) (Auto) 0.3 % Basophils (%) (Auto) 0.2 % Neutrophils # (Auto) 7.41 K/uL (1.4-6.5) Lymphocytes # (Auto) 0.86 K/uL (1.2-3.4) Monocytes # (Auto) 0.41 K/uL (0.11-0.59) Eosinophils # (Auto) 0.03 K/uL (0-0.5) Basophils # (Auto) 0.02 K/uL (0-0.2) RDW Standard Deviation 50.0 fL (36.4-46.3) RDW Coefficient of Variation 14.7 % (11.5-14.5) Immature Granulocyte % (Auto) 0.7 % Immature Granulocyte # (Auto) 0.06 K/uL (0.00-0.02) Absolute Reticulocyte Count 0.10 10^6/uL (0.02-0.10) Percent Reticulocyte Count 3.4 % (0.5-2.0) Prothrombin Time 11.3 SECONDS (9.0-12.0) Prothromb Time International Ratio 1.1 (0.9-1.1) Activated Partial Thromboplast Time 23.1 SECONDS (21.0-31.0) Partial Thromboplastin Ratio 0.9 Anion Gap 8.0 mmol/L (3-11) Est Creatinine Clear Calc Drug Dose 40.1 ml/min Estimated GFR () 57.7 Estimated GFR (Non- 49.8 BUN/Creatinine Ratio 28.3 (10-20) Calcium Level 9.2 mg/dl (8.5-10.1) Magnesium Level 2.0 mg/dl (1.8-2.4) Iron Level 37 mcg/dl (35-150) Total Iron Binding Capacity 497 mcg/dl (250-450) Transferrin 356 mg/dl (200-360) Ferritin 63.1 ng/ml (8.0-388.0) Total Bilirubin 0.2 mg/dl (0.2-1) Aspartate Amino Transf (AST/SGOT) 34 U/L (15-37) Alanine Aminotransferase (ALT/SGPT) 35 U/L (12-78) Alkaline Phosphatase 41 U/L (45-117) Total Creatine Kinase 161 U/L (26-192) C-Reactive Protein < 0.29 mg/dl (0-0.29) Total Protein 7.1 gm/dl (6.4-8.2) Albumin 3.4 gm/dl (3.4-5.0) Globulin 3.7 gm/dl (2.5-4.0) Albumin/Globulin Ratio 0.9 (0.9-2) Urine Color YELLOW Urine Appearance CLEAR (CLEAR) Urine pH 7.0 (4.5-7.5) Urine Specific [place] 1.011 (1.000-1.030) Urine Protein NEG (NEG) Urine Glucose (UA) NEG (NEG) Urine Ketones NEG (NEG) Urine Occult Blood NEG (NEG) Urine Nitrite NEG (NEG) Urine Bilirubin NEG (NEG) Urine Urobilinogen NEG (NEG) Urine Leukocyte Esterase NEG (NEG) Bedside Glucose 123 mg/dl (70-90) Medications Administered Medications (Trade) Dose Ordered Sig/Bay Route Start Time Stop Time Status Last Admin Dose Admin Sodium Chloride 1,000 ml @ 125 mls/hr Q8H STAT IV 04/30/17 11:44 04/30/17 19:09 DC 04/30/17 13:23 125 MLS/HR Acetaminophen (Tylenol Tab) 650 mg Q4H PRN PO 04/30/17 15:45 05/30/17 15:44 04/30/17 19:22 650 MG Procedure The patient was monitored on a compliance monitor. They maintained a normal sinus rhythm without ectopy. ECG Indication: syncope Rate (beats per minute): 63 Rhythm: normal sinus Findings: T-wave inversion (Anterolateral) Change: no significant change ED Course The patient was seen and examined. Previous visits were reviewed. The patient does not have a fever or leukocytosis. She is anemic with hemoglobin and hematocrit 9.1 and 28.7, respectively. This is decreased from 04/10/2017 which revealed hemoglobin and hematocrit 11.7 and 37.1. The patient's initial blood glucose was 91. After eating it was found to be 123. Her sodium is slightly elevated at 148. BUN is slightly elevated at 31. CPK is not elevated. Troponin is elevated at 0.206. INR was 1.1. Urinalysis is negative. Imaging was obtained as above and does not reveal any obvious abnormality. The patient presents to the emergency department after a syncopal episode. The patient underwent the above evaluation. She did not sustain any significant orthopedic injury with the syncope. The patient was hypoglycemic with a glucose of 59 and improved to 123 after eating. Additionally, the patient was found to be anemic with hemoglobin 9.1 which is decreased from 11.7 at the end of March. This could be related to her recent procedure or possibly could indicate blood loss anemia. The patient's troponin is elevated at 0.206. After the patient's recent non-ST elevation NC at the end of March her troponin was found to be 11. This could be a down trend from that visit or could potential be on the rise again. The patient will require further evaluation and management in the hospital. The case was discussed with the hospitalist service. They will evaluate the patient. The patient was also seen and examined by who agrees with the assessment and treatment plan. Medical Decision DIFFERENTIAL DIAGNOSIS: Aortic dissection, myocarditis, pericarditis, cervical disc disease, costochondritis, herpes zoster, rib fracture, pleuritis, pneumonia , pulmonary embolus, tension pneumothorax, anxiety disorder, somatoform disorder , choledocholithiasis, status, esophagitis, esophageal spasm, esophageal reflux , esophageal rupture, pancreatitis, peptic ulcer disease, cardiac ischemia, ST elevation NC, acute coronary syndrome, arrhythmia, coronary artery vasospasm. vavular heart disease, coronary artery disease, among others. Impression Primary Impression: Syncope Additional Impressions: Anemia Elevated troponin Hypoglycemia Departure Information Dispostion Admitted as an inpatient Condition FAIR Referrals Pilgram, Venkatesh A.,M.D. (PCP) Patient Instructions My [facility] Problem Qualifiers
--- NOTE | 2017-04-30 12:15 | DIAGNOSTIC IMAGING REPORT ---
RIGHT KNEE 3 VIEWS CLINICAL HISTORY: Right knee pain. Trauma. COMPARISON: None. DISCUSSION: The bones are mildly osteopenic. No acute fractures are visualized. There are mild degenerative changes. There is a small dorsal patellar spur. IMPRESSION: Osteoarthritic changes. No acute fractures. Electronically signed by: Eugenio Ledbetter M.D. 04/30/2017 12:14 PM Dictated Date/Time: 04/30/2017 12:13 PM
--- NOTE | 2017-04-30 12:29 | EMERGENCY ROOM VISIT NOTE ---
ED Visit Note First contact with patient: 11:35 This Patient was discussed with the physician emergency room physician assistant, Lien Reardon PA-C. The pertinent historical and physical exam findings were confirmed. I agree with the studies ordered and with the interpretations of these studies. I agree with the disposition and care plan.
--- NOTE | 2017-04-30 12:38 | DIAGNOSTIC IMAGING REPORT ---
CHEST ONE VIEW PORTABLE CLINICAL HISTORY: syncope TRAUMA COMPARISON STUDY: No previous studies for comparison. FINDINGS: The cardiac and mediastinal contours are normal. There is no evidence of focal pulmonary consolidation. There is no evidence of failure. No pleural effusions are visualized.[ There is an old mild left AC joint separation. No pneumothorax is visualized. IMPRESSION: No active disease in the chest. Electronically signed by: Eugenio Ledbetter M.D. 04/30/2017 12:37 PM Dictated Date/Time: 04/30/2017 12:37 PM
--- NOTE | 2017-04-30 12:39 | DIAGNOSTIC IMAGING REPORT ---
PELVIS 1 OR 2 VIEW ROUTINE CLINICAL HISTORY: Pelvic pain status post trauma COMPARISON STUDY: No previous studies for comparison. FINDINGS: No fractures or dislocations are visualized. Pelvic basin calcifications are likely vascular. There is no SI joint diastases. There is no symphysis diastases. IMPRESSION: No fractures or dislocations identified. Electronically signed by: Eugenio Ledbetter M.D. 04/30/2017 12:38 PM Dictated Date/Time: 04/30/2017 12:37 PM
--- NOTE | 2017-04-30 12:40 | DIAGNOSTIC IMAGING REPORT ---
RIGHT FEMUR 2 VIEWS ROUTINE CLINICAL HISTORY: Right femur pain status post trauma COMPARISON: None. DISCUSSION: No fractures or dislocations are visualized. There are vascular calcifications present. There are osteoarthritic changes at the level of the knee. IMPRESSION: No fractures or dislocations identified. Electronically signed by: Eugenio Ledbetter M.D. 04/30/2017 12:39 PM Dictated Date/Time: 04/30/2017 12:38 PM
--- NOTE | 2017-04-30 12:49 | DIAGNOSTIC IMAGING REPORT ---
CERVICAL SPINE CT CT DOSE: HISTORY: Trauma fall TECHNIQUE: Multiaxial CT images of the cervical spine were performed and reformatted in the sagittal and coronal plane without the use of contrast. COMPARISON: None. FINDINGS: No fractures. No subluxation. Prevertebral soft tissues and the C1-C2 interval are intact. No pneumothorax. IMPRESSION: No fractures within the cervical spine. Mild degenerative change. Electronically signed by: Isaiah Fair M.D. 04/30/2017 12:48 PM Dictated Date/Time: 04/30/2017 12:46 PM
--- NOTE | 2017-04-30 12:51 | DIAGNOSTIC IMAGING REPORT ---
CT HEAD WITHOUT CONTRAST (CT) CLINICAL HISTORY: Head trauma with loss of consciousness. COMPARISON STUDY: No previous studies for comparison. TECHNIQUE: Axial CT of the brain is performed from the vertex to the skull base. IV contrast was not administered for this examination. CT DOSE: 1228.94 mGy.cm FINDINGS: No intra or extra-axial mass lesions are visualized. There is no CT evidence of acute cortical infarction. There is no evidence of midline shift. There is no acute hemorrhage. No calvarial fractures are visualized. There are patchy white matter hypodensities likely on a small vessel basis. There is no evidence of pathologic ventricular dilatation. There is no evidence of acute sinusitis. Postsurgical changes are present within the ethmoid sinuses. IMPRESSION: No acute intracranial findings Electronically signed by: Eugenio Ledbetter M.D. 04/30/2017 12:49 PM Dictated Date/Time: 04/30/2017 12:47 PM
[2017-04-30 13:27] LABS: BASO % 0.2 %; BASO ABS # 0.02 K/uL (0-0.2); COMPLETE YES; EOS % 0.3 %; HEMATOCRIT 28.7 % (37-47); IG% 0.7 %; LYMPH % 9.8 %; LYMPH ABS # 0.86 K/uL (1.2-3.4); MEAN CORPUSCULAR HEMOGLOBIN 30.4 pg (25-34); MEAN CORPUSCULAR HGB CONC 31.7 g/dl (32-36); MEAN PLATELET VOLUME 11.4 fL (7.4-10.4); MONO % 4.7 %; NEUT % 84.3 %; PLATELET COUNT 267 K/uL (130-400); RED BLOOD COUNT 2.99 M/uL (4.2-5.4); WHITE BLOOD COUNT 8.79 K/uL (4.8-10.8)
[2017-04-30 14:13] LABS: INR 1.1 (0.9-1.1); PARTIAL THROMBOPLASTIN RATIO 0.9; PROTHROMBIN TIME (PATIENT) 11.3 SECONDS (9.0-12.0)
[2017-04-30 14:31] LABS: ALT/SGPT 35 U/L (12-78); AST/SGOT 34 U/L (15-37); BLOOD UREA NITROGEN 31 mg/dl (7-18); BUN/CREATININE RATIO 28.3 (10-20); CALCIUM 9.2 mg/dl (8.5-10.1); CARBON DIOXIDE 25 mmol/L (21-32); CHLORIDE 115 mmol/L (98-107); GLUCOSE 63 mg/dl (70-99); POTASSIUM 3.9 mmol/L (3.5-5.1); SODIUM 148 mmol/L (136-145)
[2017-04-30 14:40] LABS: ALB/GLOB RATIO 0.9 (0.9-2); ALKALINE PHOSPHATASE 41 U/L (45-117); C-REACTIVE PROTEIN < 0.29 mg/dl (0-0.29); CKMB/CK RATIO 3.1 (0-3.0)
[2017-04-30 15:03] LABS: URINE APPEARANCE CLEAR (CLEAR); URINE BILIRUBIN NEG (NEG); URINE COLOR YELLOW; URINE NITRITE NEG (NEG); URINE SPECIFIC GRAVITY 1.011 (1.000-1.030); UROBILINOGEN NEG (NEG); ZZUR CULT IF INDIC CLEAN CATCH NO
[2017-04-30 15:15] LABS: MANUAL MICROSCOPIC REQUIRED? NO; REVIEW REQ? NO
[2017-04-30] MEDS ORDERED: ONDANSETRON INJ 2 MG/ML 2 ML VIAL IV PRN (15:45)
[2017-04-30] MEDS ORDERED: ACETAMINOPHEN 325 MG TAB PO PRN (15:45)
[2017-04-30] MEDS ORDERED: IV FLUIDS COMPLETED PRN ×2 (16:00→20:15)
[2017-04-30] MEDS ORDERED: MULTCHW PO (16:14)
[2017-04-30] MEDS ORDERED: PHARMACY GLYCEMIC MGMT CONSULT STA (16:19)
[2017-04-30] MEDS ORDERED: GLUCOSE 40% GEL 15 GM TUBE PO PRN (16:30)
[2017-04-30] MEDS ORDERED: GLUCOSE 10 TABS/TUBE PO PRN (16:30)
[2017-04-30] MEDS ORDERED: GLUCAGON FOR INJ 1 MG VIAL SQ PRN (16:30)
[2017-04-30] MEDS ORDERED: PHARMACY GLYCEMIC MGMT CONSULT PRN (17:00)
[2017-04-30 17:15] LABS: FERRITIN 63.1 ng/ml (8.0-388.0); TOTAL IRON BINDING CAPACITY 497 mcg/dl (250-450)
[2017-04-30 17:20] VITALS: O2SAT 100; BMI 33.2
--- NOTE | 2017-04-30 17:23 | History and Physical ---
History & Physical Date & Time of Service: Apr 30, 2017 ~ 15:15 Chief Complaint: Passed Out Primary Care Physician: Venkatesh Lundy M.D. History of Present Illness 71 year old female who presents to the ER after passing out early this morning. Patient was recently admitted to [facility] 04/07 - 04/12 for NSTEMI. Patient was found to have a mid LAD lesion and underwent PCI and LAVONNE placement. She had already been taking aspirin. Plavix and lisinopril were added and metoprolol was increased. Patient developed a cough and a rash so Lisinopril was discontinued as an outpatient. At her cardiology follow up, she was to start Losartan however due to mildly elevated creatinine (1.6, baseline runs in the low 1's) it was not and her chlorthalidone was decreased. Early this morning patient reports she was stood up from her kitchen table and she suddenly passed out. She was awoke by someone knocking on her door. She is unsure how long she laid on the floor for. She reports it was dark when she fell and when she woke up it was light out. She denies any associated chest pain, shortness of breath, lightheadedness, or dizziness. When EMS arrived, patient's blood sugar was found to be 59. She was given D50. Patient denies any changes in her diet and her appetite has been good. She reports being compliant with all medications. She reports her blood sugars have been running around 120 which is normal for her. She notes her stools have been darker than normal at times. She also notes one episode of bright red bleeding a few days ago. She reports the toilet was filled with blood. She notes a history of hemorrhoids. She denies any further bleeding. She denies abdominal pain, nausea, and vomiting. She denies fever and chills. No urinary symptoms. In the ER, patient's blood sugar has improved to 123. Vitals are stable. Trop is 0.206. EKG does not show any acute ST changes. Past Medical/Surgical History Medical Problems: (1) CKD (chronic kidney disease), stage III Status: Chronic (2) Coronary artery disease Permanent Comment: 03/2017 - NSTEMI, PCI/LAVONNE to mid LAD Status: Chronic (3) Diverticulosis Status: Chronic (4) DM type 2 (diabetes mellitus, type 2) Status: Chronic (5) Dyslipidemia Status: Chronic (6) Gastroparesis Status: Chronic (7) Glaucoma Status: Chronic (8) Gout Status: Chronic (9) HTN (hypertension) Status: Chronic (10) Hypertriglyceridemia Status: Chronic (11) Ischemic cardiomyopathy Status: Chronic Surgical Problems: (1) H/O thyroidectomy Status: Chronic (2) Status post cataract extraction Status: Chronic Family History Diabetes mellitus MOTHER BROTHER FH: breast cancer MOTHER SISTER Social History Smoking Status: Never Smoker Alcohol Use: none Immunizations History of Influenza Vaccine: Yes Influenza Vaccine Date: Aug 20, 2016 History of Tetanus Vaccine?: Yes Tetanus Immunization Date: Sep 24, 2007 History of Pneumococcal: Yes Pneumococcal Date: May 25, 2015 Multi-Drug Resistant Organisms History of MDRO: No Allergies Coded Allergies: Lisinopril (Unverified Allergy, Unknown, UNKNOWN, 04/30/17) Home Medications Scheduled Allopurinol (Zyloprim), 200 MG PO DAILY Aspirin (Ecotrin Low Strength), 81 MG PO DAILY Atorvastatin (Lipitor), 40 MG PO DAILY Chlorthalidone (Chlorthalidone), 12.5 MG PO Q2D Cholecalciferol (D 1999), 2,000 MG PO DAILY Clopidogrel Bisulfate (Clopidogrel), 75 MG PO QAM Fenofibrate (Tricor ), 134 MG PO DAILY Insulin Human Isophan/Regular (Novolin 70/30), 0 SC UD Levothyroxine Sodium (Levothyroxine Sodium), 112 MCG PO DAILY Magnesium (Magnesium 250 mg), 250 MG PO BID Metoprolol Succinate (Toprol Xl), 25 MG PO BID Multiple Vitamins W/ Minerals (Centrum Silver), 1 TAB PO DAILY Omeprazole (Prilosec), 40 MG PO DAILY Scheduled PRN Meloxicam (Mobic), 7.5 MG PO DAILY PRN for Pain Nitroglycerin (Nitrostat), 1 TAB SL UD PRN for Chest Pain Review of Systems ROS per HPI, all other systems reviewed and negative Physical Exam Vital Signs Date Time Temp Pulse Resp B/P (MAP) Pulse Ox O2 Delivery O2 Flow Rate FiO2 04/30/17 15:14 70 16 131/72 04/30/17 13:19 70 15 156/86 100 Room Air 04/30/17 13:14 65 18 04/30/17 13:09 66 18 04/30/17 13:04 78 21 100 04/30/17 12:59 74 17 100 04/30/17 12:54 78 16 100 04/30/17 12:52 156/86 04/30/17 11:44 76 21 98 04/30/17 11:39 76 23 100 04/30/17 11:35 57 04/30/17 11:34 66 16 100 04/30/17 11:24 36.9 64 16 159/68 98 Room Air 04/30/17 11:15 159/68 General Appearance: no apparent distress Head: normocephalic Eyes: normal inspection ENT: hearing grossly normal Neck: supple, no JVD Respiratory/Chest: lungs clear, normal breath sounds, no respiratory distress Cardiovascular: regular rate, rhythm, no edema, normal peripheral pulses Abdomen/GI: normal bowel sounds, non tender, soft Extremities/Musculoskelatal: normal inspection, no calf tenderness Neurologic/Psych: no motor/sensory deficits, alert, normal mood/affect, oriented x 3 Skin: normal color, warm/dry Diagnostics Laboratory Results Results Past 24 Hours Test 04/30/17 11:21 04/30/17 13:10 04/30/17 13:53 04/30/17 14:00 Range/Units Bedside Glucose 91 70-90 mg/dl White Blood Count 8.79 4.8-10.8 K/uL Red Blood Count 2.99 4.2-5.4 M/uL Hemoglobin 9.1 12.0-16.0 g/dL Hematocrit 28.7 37-47 % Mean Corpuscular Volume 96.0 80-100 fL Mean Corpuscular Hemoglobin 30.4 25-34 pg Mean Corpuscular Hemoglobin Concent 31.7 32-36 g/dl Platelet Count 267 130-400 K/uL Mean Platelet Volume 11.4 7.4-10.4 fL Neutrophils (%) (Auto) 84.3 % Lymphocytes (%) (Auto) 9.8 % Monocytes (%) (Auto) 4.7 % Eosinophils (%) (Auto) 0.3 % Basophils (%) (Auto) 0.2 % Neutrophils # (Auto) 7.41 1.4-6.5 K/uL Lymphocytes # (Auto) 0.86 1.2-3.4 K/uL Monocytes # (Auto) 0.41 0.11-0.59 K/uL Eosinophils # (Auto) 0.03 0-0.5 K/uL Basophils # (Auto) 0.02 0-0.2 K/uL RDW Standard Deviation 50.0 36.4-46.3 fL RDW Coefficient of Variation 14.7 11.5-14.5 % Immature Granulocyte % (Auto) 0.7 % Immature Granulocyte # (Auto) 0.06 0.00-0.02 K/uL Prothrombin Time 11.3 9.0-12.0 SECONDS Prothromb Time International Ratio 1.1 0.9-1.1 Activated Partial Thromboplast Time 23.1 21.0-31.0 SECONDS Partial Thromboplastin Ratio 0.9 Sodium Level 148 136-145 mmol/L Potassium Level 3.9 3.5-5.1 mmol/L Chloride Level 115 98-107 mmol/L Carbon Dioxide Level 25 21-32 mmol/L Anion Gap 8.0 3-11 mmol/L Blood Urea Nitrogen 31 7-18 mg/dl Creatinine 1.10 0.60-1.20 mg/dl Est Creatinine Clear Calc Drug Dose 40.1 ml/min Estimated GFR () 57.7 Estimated GFR (Non- 49.8 BUN/Creatinine Ratio 28.3 10-20 Random Glucose 63 70-99 mg/dl Calcium Level 9.2 8.5-10.1 mg/dl Magnesium Level 2.0 1.8-2.4 mg/dl Total Bilirubin 0.2 0.2-1 mg/dl Aspartate Amino Transf (AST/SGOT) 34 15-37 U/L Alanine Aminotransferase (ALT/SGPT) 35 12-78 U/L Alkaline Phosphatase 41 45-117 U/L Total Creatine Kinase 161 26-192 U/L Creatine Kinase MB 5.0 0.5-3.6 ng/ml Creatine Kinase MB Ratio 3.1 0-3.0 Troponin I 0.206 0-0.045 ng/ml C-Reactive Protein < 0.29 0-0.29 mg/dl Total Protein 7.1 6.4-8.2 gm/dl Albumin 3.4 3.4-5.0 gm/dl Globulin 3.7 2.5-4.0 gm/dl Albumin/Globulin Ratio 0.9 0.9-2 Urine Color YELLOW Urine Appearance CLEAR CLEAR Urine pH 7.0 4.5-7.5 Urine Specific [place] 1.011 1.000-1.030 Urine Protein NEG NEG Urine Glucose (UA) NEG NEG Urine Ketones NEG NEG Urine Occult Blood NEG NEG Urine Nitrite NEG NEG Urine Bilirubin NEG NEG Urine Urobilinogen NEG NEG Urine Leukocyte Esterase NEG NEG Test 04/30/17 15:07 04/30/17 16:17 Range/Units Bedside Glucose 123 70-90 mg/dl Transferrin % Saturation 15-50 % Diagnostic Radiology KNEE XR IMPRESSION: Osteoarthritic changes. No acute fractures. PELVIS XR IMPRESSION: No fractures or dislocations identified. HEAD CT IMPRESSION: No acute intracranial findings FEMUR XR IMPRESSION: No fractures or dislocations identified. CHEST XR IMPRESSION: No active disease in the chest. C SPINE CT IMPRESSION: No fractures within the cervical spine. Mild degenerative change. Impression Assessment and Plan SYNCOPE ANEMIA, POSSIBLE GI BLEED HYPOGLYCEMIA, DM - admit to tele - patient presenting with a syncopal event early this AM without any prodromal symptoms; when EMS arrived, patient was found to have a blood sugar of 58 and received D50 with improvement - in the ER, hgb found to be 9.1 (11.7 on 04/10) - patient reports darker colored stools and one episode of BRBPR - cscope 2008 - diverticulosis in the entire colon, medium-sized, internal hemorrhoids - suspect syncope is multifactorial due to hypoglycemia and hypovolemia from anemia, possible GI bleed - case discussed with BRYANT Morris (GI) - ok to allow patient to eat tonight, will start IV PPI BID and NPO after midnight for possible EGD tomorrow - anemia panel ordered - BP stable, check orthostatic BPs - due to recent placement of LAVONNE, will continue ASA and Plavix as benefit outweighs risk - regarding hypoglycemia - patient reports insulin compliance and denies any dietary changes - hgb a1c 10.1 - on 70/30 insulin at home - will utilize Lantus / NovoLog while hospitalized, pharmacy consulted RECENT HX OF NSTEMI, ISCHEMIC CARDIOMYOPATHY - no reports of chest pain - s/p PCI/LAVONNE to mid LAD 04/08/17 - EKG shows deeper T-wave inversions anteriorly - trop 0.206 - noted to be 11.0 on 04/10; likely continued downtrend from recent NSTEMI - case discussed with Dr. Albarado - continue ASA, Plavix, beta porsche, and statin - was discharged on Lisinopril however patient developed cough and rash - was to start Losartan however creat was 1.6 (baseline runs in the low 1's) as an outpatient so Losartan was held - EF 35-40%, not on diuretics; no signs of volume overload, rather hypovolemia from anemia DVT PROPHYLAXIS - SCDs due to possible GI bleed CODE STATUS - Patient is a full code as per my discussion with her. DISPO - In my clinical judgment this beneficiary meets acute admission criteria, established by [facility], that includes being hospitalized through two midnights. Attending Addendum: The patient was seen and examined Fell on the floor early this morning during insulin shot Could not manage to get up -Blood sugar was noted to be ~60 No warning and no significant injury O/E Hemodynamically stable Chest -clear to auscultate bilaterally Heart-regular,no murmur appreciated Abdomen-benign,no masses,bowel sound present Extremities -negative Labs and Imaging studies were noted Agree with assessment and plan. Dr Linda Balderas VTE Prophylaxis VTE Risk Assessment Done? Y/N: Yes Risk Level: Moderate
[2017-04-30 17:54] VITALS: O2SAT 100
[2017-04-30] MEDS: MAGNESIUM OXIDE 400 MG TAB PO SCH (20:10)
[2017-04-30] MEDS: PANTOprazole INJ 40 MG in SYRINGE 0 ML IV SCH (20:11)
[2017-04-30] MEDS: METOPROLOL SUCC 25MG EXT REL TAB PO SCH (20:11)
[2017-04-30 20:14] VITALS: BP 132/64; PULSE 93; TEMP 36.8; O2SAT 98
[2017-04-30] MEDS: INSULIN ASPART 100 UNITS/ML 3 ML PEN SC SCH (20:20)
--- NOTE | 2017-04-30 20:44 | Pharmacy Progress Note ---
Glycemic Control Intl Consult Date of Service Apr 30, 2017. Scope Glycemic Pharmacist consulted by Susan HURTADO on 04/30/17 for glycemic control and to write orders per [facility] inpatient glycemic control protocol Objective Weight (Kilograms): 74.600 Accuchecks BSG (last 24hrs): Test 04/30/17 11:21 04/30/17 13:53 04/30/17 15:07 04/30/17 20:17 Bedside Glucose 91 mg/dl (70-90) 123 mg/dl (70-90) 102 mg/dl (70-90) Random Glucose 63 mg/dl (70-99) Laboratory Data (last 24hrs) HbA1c 10.1% on 04/08/17 Recent Pertinent Medications Outpatient Anti-diabetic Regimen: * Novolin 70/30 premixed insulin * 80 units with breakfast * 50 units with dinner * total daily dose is ~ 130 units/day Assessment & Plan ASSESSMENT: * 71yo T2DM female with poor outpatient glycemic control per recent A1c - significantly elevated from goal of ~ 7-8% * Outpatient regimen is premixed basal/prandial insulin of Novolin 70/30 mix insulin. * Pre-mixed insulin is difficult to titrate since it is already in a fixed distribution of basal:prandial insulin. Continuing pre-mixed insulin for admission typically lead to hypoglycemia d/t changing PO status but rapid acting insulin is unable to be held. * Home regimen will be held for admission per pharmacy consult. Will utilize recommended regimen of SQ basal bolus insulin regimen with Lantus + NovoLog (CF+ CR) * Pt with syncope and hypo on admission * Patient uses large doses of premixed insulin however has been requiring little/no insulin since admission. * Pt will be NPO after midnight --> insulin dosing will need adjusted downwards to prevent hypo * Will utilize weight based dosing instead of outpatient dosing since likely outpatient dosing is covering uncontrolled diet/CHO intake & titrate to maintain BSGs in 140-180mg/dl range. Will use BSG range based dosing as true insulin needs are uncertain with elevated A1c but no insulin needed to maintain euglycemia. PLAN FOR INPATIENT GLYCEMIC CONTROL: * Holding outpatient premixed insulin * Basal insulin * Lantus SQ BID - dose based on BSG * If BSG below 140mg/dl --> 0 units of Lantus * If BSG 140-180mg/dl --> 7 units of Lantus * If BSG 181mg/dl or above -> 13 units of Lantus * Since these are low stress and BSG adjusted dosing these doses will be OK to give while NPO when BSG criteria is met * of note, HS BSG is 102mg/dl, will hold Lantus this evening as pt will be NPO after midnight * Bolus insulin * NovoLog per scale ACHS or Q6hrs while NPO. Extra check tonight at 0200 since basal insulin is being held this evening. * Goal Range: Low 120 mg/dL - High 140 mg/dL * Correction Factor: 25 mg/dL/unit * Nutritional / Prandial insulin per carb ratio of 1 unit per 9 grams CHO consumed * Please note that the plan above was derived based on current level of insulin resistance and hospital stress. These recommendations are appropriate for inpatient admission only. Plan of care upon discharge will need to be reassessed to avoid potential outpatient hypo/hyperglycemia. Thank you.
[2017-04-30] MEDS ORDERED: INSULIN ASPART 100 UNITS/ML 3 ML PEN SC SCH (21:00)
[2017-04-30] MEDS ORDERED: INSULIN GLARGINE SOLOSTAR 100 UNITS/ML 3 ML PEN SC SCH (21:00)
[2017-04-30 23:10] VITALS: BP 129/71; PULSE 77; TEMP 36.8; O2SAT 96
[2017-05-01] VITALS (7 sets, daily range): BP systolic 110–149; BP diastolic 70–81; PULSE 66–112; TEMP 36.5–37; O2SAT 93–97; BMI 33.2
[2017-05-01] MEDS ORDERED: INSULIN ASPART 100 UNITS/ML 3 ML PEN SC SCH (02:00)
[2017-05-01] MEDS: DEXTROSE 50% 50 ML SYR IV PRN ×3 (02:13→10:43)
[2017-05-01] MEDS: LEVOTHYROXINE 112 MCG TAB PO SCH (05:27)
[2017-05-01] MEDS: INSULIN ASPART 100 UNITS/ML 3 ML PEN SC SCH ×3 (07:00→17:09)
[2017-05-01 07:33] LABS: HEMATOCRIT 29.7 % (37-47); MEAN CELL VOLUME 96.1 fL (80-100); MEAN CORPUSCULAR HEMOGLOBIN 29.8 pg (25-34); MEAN PLATELET VOLUME 11.2 fL (7.4-10.4); PLATELET COUNT 234 K/uL (130-400); RED BLOOD COUNT 3.09 M/uL (4.2-5.4); WHITE BLOOD COUNT 7.14 K/uL (4.8-10.8)
[2017-05-01] MEDS: PANTOprazole INJ 40 MG in SYRINGE 0 ML IV SCH ×2 (07:51→20:42)
[2017-05-01] MEDS: ATORVASTATIN 40 MG TAB PO SCH (07:52)
[2017-05-01] MEDS: MAGNESIUM OXIDE 400 MG TAB PO SCH ×2 (07:52→20:42)
[2017-05-01] MEDS: ASPIRIN 81 MG ECTAB PO SCH (07:52)
[2017-05-01] MEDS: CHOLECALCIFEROL 1000 INTER.UNIT TAB PO SCH (07:52)
[2017-05-01] MEDS: METOPROLOL SUCC 25MG EXT REL TAB PO SCH ×2 (07:52→20:43)
[2017-05-01] MEDS: CLOPIDOGREL BISULFATE 75 MG TAB PO SCH (07:52)
[2017-05-01] MEDS: ALLOPURINOL 100 MG TAB PO SCH (07:53)
[2017-05-01] MEDS: CEROVITE ADV FORMULA TAB PO SCH (07:53)
[2017-05-01 08:26] LABS: BUN/CREATININE RATIO 22.7 (10-20); CALCIUM 8.9 mg/dl (8.5-10.1); CREATININE 1.3 mg/dl (0.60-1.20); POTASSIUM 4.1 mmol/L (3.5-5.1)
[2017-05-01] MEDS ORDERED: INSULIN GLARGINE SOLOSTAR 100 UNITS/ML 3 ML PEN SC SCH (09:00)
--- NOTE | 2017-05-01 09:00 | Gastrointestinal Consultation ---
Gastrointestinal Consultation Date of Consultation: May 01, 2017 Attending Physician: Dom Consulting Physician: Gumaro Reason for Consultation: melena, BRBPR History of Present Illness Patient is a 71 year old female w/ PMH significant for NSTEMI (ASA, plavix - PCI and LAVONNE placement) who presented to the ED after a syncopal episode. GI was consulted for anemia and history of dark stools and BRBPR. Patient was seen and evaluated this AM. She tells me today she feels well. She denies fever, chills, chest pain, SOB, abdominal pain, black/bloody stools, lightheadedness and dizziness. She tells me her stools have been darker of recent, but denies any true black, sticky stools. She does recall an episode of BRBPR with blood in the toilet bowel. There was no abdominal pain associated with the episode of rectal bleeding. This last occurred two days ago. No bleeding since she has been admitted. Troponin 0.2 HGB 9.1 Colonoscopy 2008: diverticulosis in the entire colon, medium-sized, internal hemorrhoids Past Medical/Surgical History Medical Problems: (1) Anemia Status: Acute (2) Elevated troponin Status: Acute (3) Hypoglycemia Status: Acute (4) Syncope Status: Acute Past Medical History: CKD, CAD, diverticuloss, T2DM, dyslipidemia, gastroparesis, glaucoma, NSTEMI, gout, HTN, ischemic cardiomyopathy Past Surgical History: H/O thyroidectomy, colonoscopy Family History Diabetes mellitus MOTHER BROTHER FH: breast cancer MOTHER SISTER Social History Smoking Status: Never Smoker Housing Status: assisted living Allergies Coded Allergies: Lisinopril (Unverified Allergy, Unknown, UNKNOWN, 04/30/17) Current Medications Home Meds and Scripts Medications Dose Route/Sig Max Daily Dose Days Date Category Dose Instructions Centrum Silver (Multiple Vitamins W/ Minerals) 1 Chw Chw 1 Tab PO DAILY 04/30/17 Reported Toprol Xl (Metoprolol Succinate) 25 Mg Tab 25 Mg PO BID 04/12/17 Rx Clopidogrel (Clopidogrel Bisulfate) 75 Mg Tab 75 Mg PO QAM 04/12/17 Rx Magnesium 250 mg (Magnesium) 1 Tab Tab 250 Mg PO BID 04/12/17 Reported Ecotrin Low Strength (Aspirin) 81 Mg Tab 81 Mg PO DAILY 04/12/17 Reported Nitrostat (Nitroglycerin) 0.4 Mg/1 Tab Subl 1 Tab SL UD PRN 04/12/17 Reported Dissolve under tongue. May repeat dose in 10 minutes. Call 911 if no relief. Mobic (Meloxicam) 7.5 Mg Tab 7.5 Mg PO DAILY PRN 04/12/17 Reported D 2000 (Cholecalciferol) 2,000 Unit Tab 2,000 Mg PO DAILY 04/12/17 Reported Lipitor (Atorvastatin Calcium) 40 Mg Tab 40 Mg PO DAILY 04/12/17 Reported Levothyroxine Sodium 112 Mcg Tab 112 Mcg PO DAILY 04/12/17 Reported Prilosec (Omeprazole) 40 Mg Cap 40 Mg PO DAILY 04/12/17 Reported Novolin 70/30 (Insulin Human Isoph/Insulin Regular) Inj 0 SC UD 04/12/17 Reported 80 units with breakfast 50 units with supper Tricor (Fenofibrate) 134 Mg Cap 134 Mg PO DAILY 04/12/17 Reported Chlorthalidone 25 Mg Tab 12.5 Mg PO Q2D 04/12/17 Reported take 1/2 pill daily Zyloprim (Allopurinol) 100 Mg Tab 200 Mg PO DAILY 04/12/17 Reported Review of Systems Constitutional: No fever, No chills Respiratory: No cough, No shortness of breath Cardiac: No chest pain, No edema Abdomen: + GI bleeding (none since admission, history of dark stools or BRBPR) , No pain, No nausea, No vomiting, No diarrhea, No constipation Physical Exam Date Time Temp Pulse Resp B/P (MAP) Pulse Ox O2 Delivery O2 Flow Rate FiO2 05/01/17 07:39 36.7 74 16 121/81 (94) 94 Room Air 05/01/17 05:02 36.9 77 18 149/74 (99) 93 95.0 132/81 (98) 110/81 (91) 05/01/17 04:00 Room Air 05/01/17 00:01 Room Air 04/30/17 23:10 36.8 77 18 129/71 (90) 96 Room Air 04/30/17 20:14 36.8 93 18 132/64 (86) 98 Room Air 04/30/17 20:00 Room Air 04/30/17 17:54 36.9 65 16 146/95 100 04/30/17 17:50 65 146/95 100 Room Air 04/30/17 17:20 100 Room Air 04/30/17 15:14 70 16 131/72 04/30/17 13:19 70 15 156/86 100 Room Air 04/30/17 13:14 65 18 04/30/17 13:09 66 18 04/30/17 13:04 78 21 100 04/30/17 12:59 74 17 100 04/30/17 12:54 78 16 100 04/30/17 12:52 156/86 04/30/17 11:44 76 21 98 04/30/17 11:39 76 23 100 04/30/17 11:35 57 04/30/17 11:34 66 16 100 04/30/17 11:24 36.9 64 16 159/68 98 Room Air 04/30/17 11:15 159/68 General Appearance: no apparent distress Eyes: PERRL ENT: hearing grossly normal Neck: supple Respiratory/Chest: lungs clear, no respiratory distress Cardiovascular: regular rate, rhythm, no gallop Abdomen: normal bowel sounds, non tender, soft, no organomegaly, no pulsatile mass, + pertinent finding (JORGE L w/ hemorrhoids, no BRBPR, stool brown on JORGE L) Neurologic/Psych: alert, normal mood/affect, oriented x 3 Skin: normal color, warm/dry Laboratory Results Last 24 Hours Test 04/30/17 11:21 04/30/17 13:10 04/30/17 13:53 04/30/17 14:00 Bedside Glucose 91 mg/dl White Blood Count 8.79 K/uL Red Blood Count 2.99 M/uL Hemoglobin 9.1 g/dL Hematocrit 28.7 % Mean Corpuscular Volume 96.0 fL Mean Corpuscular Hemoglobin 30.4 pg Mean Corpuscular Hemoglobin Concent 31.7 g/dl Platelet Count 267 K/uL Mean Platelet Volume 11.4 fL Neutrophils (%) (Auto) 84.3 % Lymphocytes (%) (Auto) 9.8 % Monocytes (%) (Auto) 4.7 % Eosinophils (%) (Auto) 0.3 % Basophils (%) (Auto) 0.2 % Neutrophils # (Auto) 7.41 K/uL Lymphocytes # (Auto) 0.86 K/uL Monocytes # (Auto) 0.41 K/uL Eosinophils # (Auto) 0.03 K/uL Basophils # (Auto) 0.02 K/uL RDW Standard Deviation 50.0 fL RDW Coefficient of Variation 14.7 % Immature Granulocyte % (Auto) 0.7 % Immature Granulocyte # (Auto) 0.06 K/uL Absolute Reticulocyte Count 0.10 10^6/uL Percent Reticulocyte Count 3.4 % Prothrombin Time 11.3 SECONDS Prothromb Time International Ratio 1.1 Activated Partial Thromboplast Time 23.1 SECONDS Partial Thromboplastin Ratio 0.9 Sodium Level 148 mmol/L Potassium Level 3.9 mmol/L Chloride Level 115 mmol/L Carbon Dioxide Level 25 mmol/L Anion Gap 8.0 mmol/L Blood Urea Nitrogen 31 mg/dl Creatinine 1.10 mg/dl Est Creatinine Clear Calc Drug Dose 40.1 ml/min Estimated GFR () 57.7 Estimated GFR (Non- 49.8 BUN/Creatinine Ratio 28.3 Random Glucose 63 mg/dl Calcium Level 9.2 mg/dl Magnesium Level 2.0 mg/dl Iron Level 37 mcg/dl Total Iron Binding Capacity 497 mcg/dl Transferrin 356 mg/dl Transferrin % Saturation 7 % Ferritin 63.1 ng/ml Total Bilirubin 0.2 mg/dl Aspartate Amino Transf (AST/SGOT) 34 U/L Alanine Aminotransferase (ALT/SGPT) 35 U/L Alkaline Phosphatase 41 U/L Total Creatine Kinase 161 U/L Creatine Kinase MB 5.0 ng/ml Creatine Kinase MB Ratio 3.1 Troponin I 0.206 ng/ml C-Reactive Protein < 0.29 mg/dl Total Protein 7.1 gm/dl Albumin 3.4 gm/dl Globulin 3.7 gm/dl Albumin/Globulin Ratio 0.9 Urine Color YELLOW Urine Appearance CLEAR Urine pH 7.0 Urine Specific [place] 1.011 Urine Protein NEG Urine Glucose (UA) NEG Urine Ketones NEG Urine Occult Blood NEG Urine Nitrite NEG Urine Bilirubin NEG Urine Urobilinogen NEG Urine Leukocyte Esterase NEG Test 04/30/17 15:07 04/30/17 16:17 04/30/17 17:55 04/30/17 19:00 Bedside Glucose 123 mg/dl Transferrin % Saturation % Vitamin B12 Level 460 pg/mL Folate > 24.00 ng/mL Creatine Kinase MB Ratio Test 04/30/17 19:25 04/30/17 20:17 05/01/17 00:30 05/01/17 02:08 Creatine Kinase MB 4.1 ng/ml 3.7 ng/ml Troponin I 0.223 ng/ml 0.210 ng/ml Bedside Glucose 102 mg/dl 41 mg/dl Creatine Kinase MB Ratio Test 05/01/17 02:10 05/01/17 02:30 05/01/17 06:54 05/01/17 06:56 Bedside Glucose 40 mg/dl 190 mg/dl 44 mg/dl White Blood Count 7.14 K/uL Red Blood Count 3.09 M/uL Hemoglobin 9.2 g/dL Hematocrit 29.7 % Mean Corpuscular Volume 96.1 fL Mean Corpuscular Hemoglobin 29.8 pg Mean Corpuscular Hemoglobin Concent 31.0 g/dl RDW Standard Deviation 51.3 fL RDW Coefficient of Variation 14.9 % Platelet Count 234 K/uL Mean Platelet Volume 11.2 fL Sodium Level 148 mmol/L Potassium Level 4.1 mmol/L Chloride Level 113 mmol/L Carbon Dioxide Level 25 mmol/L Anion Gap 10.0 mmol/L Blood Urea Nitrogen 30 mg/dl Creatinine 1.30 mg/dl Est Creatinine Clear Calc Drug Dose 33.9 ml/min Estimated GFR () 47.1 Estimated GFR (Non- 40.7 BUN/Creatinine Ratio 22.7 Random Glucose 41 mg/dl Calcium Level 8.9 mg/dl Test 05/01/17 06:58 05/01/17 07:11 Bedside Glucose 40 mg/dl 274 mg/dl Impression Patient is a 71 year old female on ASA and plavix for recent NSTEMI who presented through the ED following an episode of syncope. Was having darker stools and BRBPR as an outpatient. HGB on admission was 9.1, previously in March HGB was 11. Denies chest pain, SOB, lightheadedness and dizziness. Syncope likely secondary to anemia from acute GI blood loss - upper vs lower GI bleed. Colonoscopy in 2008 with hemorrhoids and diverticulosis. Plan NPO EGD with Dr. Naik Hold ASA Hold Plavix IV PPI BID Trend H&H Transfuse as needed Will discuss timing of colonoscopy after EGD today. GI to follow. Please call with questions or concerns. I saw and evaluated the patient with Ms. Springerevangelinairvin. GI is consulted for a question of melena assoicated with a drop in Hb/Hct. PE: nad, no icterus, no abdominal tenderness. Impression: suspected UGI bleeding, will plan for EGD today.
--- NOTE | 2017-05-01 10:12 | Pharmacy Progress Note ---
Glycemic Control: Progress Nt Date of Service May 01, 2017. Scope Glycemic Pharmacist consulted by Sadie Cardona on 04/30/17 for glycemic control and to write orders per [facility] inpatient glycemic control protocol. Objective Accuchecks BSG (last 24hrs): Test 04/30/17 11:21 04/30/17 13:53 04/30/17 15:07 04/30/17 20:17 Bedside Glucose 91 mg/dl (70-90) 123 mg/dl (70-90) 102 mg/dl (70-90) Random Glucose 63 mg/dl (70-99) Test 05/01/17 02:08 05/01/17 02:10 05/01/17 02:30 05/01/17 06:54 Bedside Glucose 41 mg/dl (70-90) 40 mg/dl (70-90) 190 mg/dl (70-90) Random Glucose 41 mg/dl (70-99) Test 05/01/17 06:56 05/01/17 06:58 05/01/17 07:11 Bedside Glucose 44 mg/dl (70-90) 40 mg/dl (70-90) 274 mg/dl (70-90) Laboratory Data (last 24hrs) Test 04/30/17 13:10 04/30/17 13:53 05/01/17 06:54 White Blood Count 8.79 K/uL 7.14 K/uL Red Blood Count 2.99 M/uL Hemoglobin 9.1 g/dL Hematocrit 28.7 % Mean Corpuscular Volume 96.0 fL Mean Corpuscular Hemoglobin 30.4 pg Mean Corpuscular Hemoglobin Concent 31.7 g/dl Platelet Count 267 K/uL Mean Platelet Volume 11.4 fL Neutrophils (%) (Auto) 84.3 % Lymphocytes (%) (Auto) 9.8 % Monocytes (%) (Auto) 4.7 % Eosinophils (%) (Auto) 0.3 % Basophils (%) (Auto) 0.2 % Neutrophils # (Auto) 7.41 K/uL Lymphocytes # (Auto) 0.86 K/uL Monocytes # (Auto) 0.41 K/uL Eosinophils # (Auto) 0.03 K/uL Basophils # (Auto) 0.02 K/uL Anion Gap 8.0 mmol/L 10.0 mmol/L BUN/Creatinine Ratio 28.3 22.7 Blood Urea Nitrogen 31 mg/dl 30 mg/dl Creatinine 1.10 mg/dl 1.30 mg/dl Potassium Level 3.9 mmol/L 4.1 mmol/L Sodium Level 148 mmol/L 148 mmol/L Recent Pertinent Medications Outpatient Anti-diabetic Regimen: * Novolin 70/30 premixed insulin * 80 units with breakfast * 50 units with dinner * total daily dose is ~ 130 units/day * A1c = 10.1 % 04/08/17 The patient is currently receiving: * Basal insulin: Lantus scale 0/7/13 units SQ HS based on BSG value * Correctional Insulin: Novolog Correction per scale ACHS Goal Range: Low 120 mg/dL - High 140 mg/dL Correction Factor: 25 mg/dL/unit * Prandial insulin: Per carb ratio of 1 unit per 9 grams CHO consumed Assessment & Plan ASSESSMENT: * 71yo T2DM female with poor outpatient glycemic control per recent A1c - significantly elevated from goal of ~ 7-8% * Outpatient regimen is premixed basal/prandial insulin of Novolin 70/30 mix insulin. * Pre-mixed insulin is difficult to titrate since it is already in a fixed distribution of basal:prandial insulin. Continuing pre-mixed insulin for admission typically lead to hypoglycemia d/t changing PO status but rapid acting insulin is unable to be held. 05/01 * Patient had two episodes of hypoglycemia despite only receiving 13 units of insulin this admission * BSG of 41 mg/dL @0208 - administered amp of D50 - repeat BSG of 190 mg/dL * BSG of 44 mg/dL @0654 - administered amp of D50 - repeat BSG of 274 mg/dL * Patient remains NPO for EGD with Dr. Naik today * Basal insulin will remain on hold until further BSGs are available for evaluation. * Will loosen CF/CR and increase goal range to 140-180 to avoid further hypoglycemic events. PLAN FOR INPATIENT GLYCEMIC CONTROL: * Holding outpatient premixed insulin * Basal insulin * Lantus SQ BID - dose based on BSG -> hold basal insulin due to hypoglycemic events * Bolus insulin * NovoLog per scale ACHS or Q6hrs while NPO. * Goal Range: Low 140 mg/dL - High 180 mg/dL * Correction Factor: 30 mg/dL/unit * Nutritional / Prandial insulin per carb ratio of 1 unit per 10 grams CHO consumed RECOMMENDATIONS FOR DISCHARGE: * Poor outpatient glycemic control evidenced by A1c of 10.1% (04/08/17) * Patient should have prompt follow up with out patient provider to adjust home regimen - large doses of premixed 70/30 insulin are likely causing patient to have episodes of hypoglycemia. * Please note that the plan above was derived based on current level of insulin resistance and hospital stress. These recommendations are appropriate for inpatient admission only. Plan of care upon discharge will need to be reassessed to avoid potential outpatient hypo/hyperglycemia. Thank you.
[2017-05-01] MEDS ORDERED: FENTANYL CITRATE INJ 50 MCG/1 ML 2 ML VIAL ONE (11:00)
[2017-05-01] MEDS ORDERED: PROPOFOL IV EMULSION 10 MG/ML 20 ML VIAL IV ONE (11:00)
[2017-05-01] MEDS ORDERED: LIDOCAINE HCL 2% 2 ML VIAL (20MG/ML) ONE (11:00)
--- NOTE | 2017-05-01 11:41 | CARDIOLOGY CONSULTATION ---
DATE OF CONSULTATION: 05/01/2017 INDICATIONS: Syncopal event. HISTORY OF PRESENT ILLNESS: The patient is a 71-year-old female whose history is notable for longstanding hypertension with hypertensive heart disease, type 2 diabetes mellitus, chronic stage III renal insufficiency, who presented with signs and symptoms of crescendo angina on 04/07/2017. The patient ultimately went to diagnostic cardiac catheterization study demonstrating high-grade mid LAD stenosis with the patient receiving drug-eluting stent with good clinical result. Echocardiogram at that time showed an ejection fraction of 35-40%. The patient presents now, having been arose early in the morning of admission with plans to check blood sugar and suddenly collapsed to the floor. She is uncertain of the total duration of time but noted at least an hour or more had passed. She noted no chest pains. Noted no dizziness or lightheadedness prior to this. Had been aware of dark stools as well as 1 bright red stool 3 days prior. Initial sugars were significantly low. She notes no sense of tachypalpitations. Notes no headache or visual changes. Notes no orthopnea. Has been taking medications as prescribed. Medications notable for the addition of dual antiplatelet therapy during recent hospitalization plus per review of medications addition of metoprolol and lisinopril to her regimen. She this morning notes no complaints. Notes no chest pains or discomfort. Had had no chest pains upon returning home. Does note some breathlessness when climbing stairs. Notes no dizziness or lightheadedness. Notes no syncope or near syncope. Med reconciliation does not list lisinopril. The patient is uncertain whether she has been taking this medication or not. ALLERGIES: NOTED TO BE LISINOPRIL. MEDICATIONS: Prior to hospitalization were metoprolol succinate 25 mg twice per day, multivitamin per day, omeprazole 40 mg p.o. daily, magnesium 250 b.i.d., levothyroxine 112 mcg per day, Novolin 70/30, Tricor 134 mg p.o. daily, clopidogrel 75 mg p.o. daily, chlorthalidone 12.5 mg p.o. daily, atorvastatin 40 mg p.o. daily, aspirin 81 mg per day, and allopurinol 200 mg p.o. daily. PAST SURGICAL HISTORY: Notable for prior thyroidectomy. FAMILY HISTORY: Positive for heart disease. SOCIAL HISTORY: The patient is a nonsmoker, nondrinker. She lives in [place]. She is moderately active about her home. PHYSICAL EXAMINATION: VITAL SIGNS: Heart rate is 52, blood pressure is 129/83. Telemetry reveals no arrhythmias. HEENT: Normocephalic, atraumatic. Nares without discharge. Throat is clear. NECK: Supple without thyromegaly, lymphadenopathy, JVD or bruit. LUNGS: Clear to auscultation. CARDIOVASCULAR: Regular. There is no S3 gallop. ABDOMEN: Soft, nontender. There is no palpable hepatosplenomegaly. There is no hepatojugular reflux. EXTREMITIES: Without cyanosis or clubbing. There is no peripheral edema. Femoral and distal pulses are 2+/4. There are no abdominal bruits audible. LABORATORY DATA: EKG on admission demonstrates sinus rhythm with evolving anterior ST-segment changes with deep T-wave inversion across the anterolateral leads. Chest x-ray reveals no infiltrate or edema. Laboratory studies are notable for sodium of 148, potassium 4.1, chloride of 113, BUN of 30, creatinine of 1.3. Glucoses this morning were significantly notable at 41 and 40. Troponins have been elevated but flat at 0.2. White cell count 7.1, hemoglobin is 9.2 with hemoglobin at the time of discharge on prior admission 11.7. IMPRESSION: A 71-year-old female with recent acute coronary syndrome, undergoing drug-eluting stent to the mid left anterior descending on 04/09/2017. She presents now after a syncopal event. Possible etiologies multiple including hypoglycemia, recent gastrointestinal bleeding. In addition, the patient has moderately impaired left ventricle in the setting of known coronary disease. Acute coronary syndrome is not suspected, though echocardiogram will be reassessed to assess LV function. The patient to be maintained on telemetry at all times following for evidence of arrhythmias. We will make no adjustments in medical therapy, though we will follow the patient in the hospital. Ultimate goal will be maintenance of aspirin and antiplatelet therapy with clopidogrel given recent drug-eluting stent insertion if GI issues allow. MTDD
--- NOTE | 2017-05-01 11:49 | GI REPORT ---
Procedure Date: 05/01/2017 11:34 AM Procedure: Upper GI endoscopy Indications: Melena Medicines: Monitored Anesthesia Care Complications: No immediate complications. Estimated blood loss: Minimal. Estimated Blood Loss: Estimated blood loss was minimal. Procedure: Pre-Anesthesia Assessment: - Prior to the procedure, a History and Physical was performed, and patient medications, allergies and sensitivities were reviewed. The patient's tolerance of previous anesthesia was reviewed. - The risks and benefits of the procedure and the sedation options and risks were discussed with the patient. All questions were answered and informed consent was obtained. - Patient identification and proposed procedure were verified prior to the procedure by the physician, the nurse and the vat overhauler. The procedure was verified in the procedure room. - Pre-procedure physical examination revealed no contraindications to sedation. - ASA Grade Assessment: III - A patient with severe systemic disease. - After reviewing the risks and benefits, the patient was deemed in satisfactory condition to undergo the procedure. - The anesthesia plan was to use monitored anesthesia care (MAC). - Immediately prior to administration of medications, the patient was re-assessed for adequacy to receive sedatives. - The heart rate, respiratory rate, oxygen saturations, blood pressure, adequacy of pulmonary ventilation, and response to care were monitored throughout the procedure. - The physical status of the patient was re-assessed after the procedure. After obtaining informed consent, the endoscope was passed under direct vision. Throughout the procedure, the patient's blood pressure, pulse, and oxygen saturations were monitored continuously. The Scope was introduced through the mouth, and advanced to the third part of duodenum. The upper GI endoscopy was accomplished without difficulty. The patient tolerated the procedure well. Findings: The examined esophagus was normal. The Z-line was regular and was found 38 cm from the incisors. Localized mild inflammation characterized by congestion (edema) and erythema was found in the cardia. Biopsies were taken with a cold forceps for histology. Estimated blood loss was minimal. The gastric fundus, gastric body, incisura and gastric antrum were normal. The examined duodenum was normal. Impression: - Normal esophagus. - Z-line regular, 38 cm from the incisors. - Gastritis. Biopsied. - Normal gastric fundus, gastric body, incisura and antrum. - Normal examined duodenum. Recommendation: - Return patient to hospital [facility] for ongoing care. - Advance diet as tolerated today. - Await pathology results. - No evidence of upper GI bleeding, if melena recurrs could consider further evalation of colonoscopy. Camron Naik D.O. Camron Naik, DO 05/01/2017 11:49:08 AM This report has been signed electronically. Note Initiated On: 05/01/2017 11:34 AM I attest to the content of the Intraoperative Record and orders documented therein, exceptions below
--- NOTE | 2017-05-01 12:16 | Anesthesiology Progress Note ---
Anesthesia Post Op Note Date & Time May 01, 2017 at 12:16 Vital Signs Pain Intensity: 0.0 Vital Signs Past 12 Hours Date Time Temp Pulse Resp B/P (MAP) Pulse Ox O2 Delivery O2 Flow Rate FiO2 05/01/17 11:50 72 20 104/50 (68) 96 Room Air 05/01/17 11:07 36.7 52 20 129/83 (98) 96 Room Air 05/01/17 10:34 36.7 74 16 121/81 94 Room Air 95.0 05/01/17 08:00 Room Air 05/01/17 07:39 36.7 74 16 121/81 (94) 94 Room Air 05/01/17 05:02 36.9 77 18 149/74 (99) 93 95.0 132/81 (98) 110/81 (91) 05/01/17 04:00 Room Air Notes Mental Status: alert / awake / arousable, participated in evaluation Pt Amnestic to Procedure: Yes Nausea / Vomiting: adequately controlled Pain: adequately controlled Airway Patency, RR, SpO2: stable & adequate BP & HR: stable & adequate Hydration State: stable & adequate Anesthetic Complications: no major complications apparent
[2017-05-01] MEDS ORDERED: DEXTROSE 50% 50 ML SYR ONE (12:39)
--- NOTE | 2017-05-01 12:47 | Progress Note ---
Progress Note Date of Service May 01, 2017. Progress Note EGD performed today for evaluation of melena. There is no evidence of upper GI bleeding on today's exam. I did discuss the case with Dr. Fernandes discussed the potential for colonoscopy with the patient's rail signal mechanic. The patient's rail signal mechanic feel she can tolerate an examination. Plan Patient may have a clear liquid diet today Bowel preparation to be written Please call with any questions or concerns
[2017-05-01] MEDS ORDERED: LAVAGE SOLUTION 4000ML PO SCH ×2 (15:00→17:00)
[2017-05-01] MEDS: D5W AND NSS 1,000 ML IV SCH (15:04)
[2017-05-01] MEDS ORDERED: PERFLUTREN LIPID MICROSPHERE (DEFINITY) IV ONE (16:02)
--- NOTE | 2017-05-01 16:10 | Progress Note ---
Internal Med Progress Note Date of Service: May 01, 2017. Provider Documentation: SUBJECTIVE: resting comfortably denies any chest pain or sob no more episodes of passing out s/p egd today OBJECTIVE: Vital Signs-as noted below Exam: General-alert and oriented. Not in distress ENT-normal hearing Neck-no neck masses Lungs-cta b/l no wheezing or crackles Heart-s1 and s2 heard regular no murmurs Abdomen-soft bowel sounds present nontender no distension Extremities-no edema no erythema Neuro-alert and oriented moves extremities Lab data as noted below. ASSESSMENT & PLAN: SYNCOPE ANEMIA, POSSIBLE GI BLEED HYPOGLYCEMIA, DM Hb stable at 9.1 having hypoglycemic episodes s/p egd and was unremarkable plan for colonoscopy in am syncope most likely from hypoglycemia- needs med adjustments cardiology consulted await echo currently stable RECENT HX OF NSTEMI, ISCHEMIC CARDIOMYOPATHY asymptomatic s/p PCI/LAVONNE to mid LAD 04/08/17 on ASA, Plavix, beta porsche, and statin was discharged on Lisinopril however patient developed cough and rash - was to start Losartan however creat was 1.6 (baseline runs in the low 1's) as an outpatient so Losartan was held EF 35-40%, not on diuretics; no signs of volume overload, rather hypovolemia from anemia stable Chronic systolic chf ef 35-40% not on diuretics will monitor DVT PROPHYLAXIS SCDs due to possible GI bleed CODE STATUS Full as per H and P DISPO Monitor in tele to be determined Vital Signs: Date Time Temp Pulse Resp B/P (MAP) Pulse Ox O2 Delivery O2 Flow Rate FiO2 05/01/17 15:10 Room Air 05/01/17 13:46 Room Air 05/01/17 13:43 37.0 75 18 118/73 (88) 97 Room Air 05/01/17 13:02 67 20 122/67 (85) 68 Room Air 05/01/17 12:45 69 20 120/64 (82) 96 Room Air 05/01/17 12:25 72 20 128/72 (90) 96 Room Air 05/01/17 12:05 74 20 124/56 (78) 96 Room Air 05/01/17 11:50 72 20 104/50 (68) 96 Room Air 05/01/17 11:07 36.7 52 20 129/83 (98) 96 Room Air 05/01/17 10:34 36.7 74 16 121/81 94 Room Air 95.0 05/01/17 08:00 Room Air 05/01/17 07:39 36.7 74 16 121/81 (94) 94 Room Air 05/01/17 05:02 36.9 77 18 149/74 (99) 93 95.0 132/81 (98) 110/81 (91) 05/01/17 04:00 Room Air 05/01/17 00:01 Room Air 04/30/17 23:10 36.8 77 18 129/71 (90) 96 Room Air 04/30/17 20:14 36.8 93 18 132/64 (86) 98 Room Air 04/30/17 20:00 Room Air 04/30/17 17:54 36.9 65 16 146/95 100 04/30/17 17:50 65 146/95 100 Room Air 04/30/17 17:20 100 Room Air Lab Results: Results Past 24 Hours Test 04/30/17 16:17 04/30/17 17:55 04/30/17 19:00 04/30/17 19:25 Range/Units Transferrin % Saturation 15-50 % Vitamin B12 Level 460 211-911 pg/mL Folate > 24.00 >5.38 ng/mL Creatine Kinase MB Ratio 0-3.0 Creatine Kinase MB 4.1 0.5-3.6 ng/ml Troponin I 0.223 0-0.045 ng/ml Test 04/30/17 20:17 05/01/17 00:30 05/01/17 02:08 05/01/17 02:30 Range/Units Bedside Glucose 102 41 190 70-90 mg/dl Creatine Kinase MB 3.7 0.5-3.6 ng/ml Creatine Kinase MB Ratio 0-3.0 Troponin I 0.210 0-0.045 ng/ml Test 05/01/17 06:54 05/01/17 06:58 05/01/17 07:11 05/01/17 10:40 Range/Units White Blood Count 7.14 4.8-10.8 K/uL Red Blood Count 3.09 4.2-5.4 M/uL Hemoglobin 9.2 12.0-16.0 g/dL Hematocrit 29.7 37-47 % Mean Corpuscular Volume 96.1 80-100 fL Mean Corpuscular Hemoglobin 29.8 25-34 pg Mean Corpuscular Hemoglobin Concent 31.0 32-36 g/dl RDW Standard Deviation 51.3 36.4-46.3 fL RDW Coefficient of Variation 14.9 11.5-14.5 % Platelet Count 234 130-400 K/uL Mean Platelet Volume 11.2 7.4-10.4 fL Sodium Level 148 136-145 mmol/L Potassium Level 4.1 3.5-5.1 mmol/L Chloride Level 113 98-107 mmol/L Carbon Dioxide Level 25 21-32 mmol/L Anion Gap 10.0 3-11 mmol/L Blood Urea Nitrogen 30 7-18 mg/dl Creatinine 1.30 0.60-1.20 mg/dl Est Creatinine Clear Calc Drug Dose 33.9 ml/min Estimated GFR () 47.1 Estimated GFR (Non- 40.7 BUN/Creatinine Ratio 22.7 10-20 Random Glucose 41 70-99 mg/dl Calcium Level 8.9 8.5-10.1 mg/dl Bedside Glucose 40 274 54 70-90 mg/dl Test 05/01/17 10:51 Range/Units Bedside Glucose 144 70-90 mg/dl
[2017-05-02] MEDS ORDERED: INSULIN ASPART 100 UNITS/ML 3 ML PEN SC SCH (02:00)
[2017-05-02 03:38] VITALS: BP 151/73; PULSE 89; TEMP 37; O2SAT 97
[2017-05-02] MEDS: LEVOTHYROXINE 112 MCG TAB PO SCH (05:41)
[2017-05-02] MEDS: INSULIN ASPART 100 UNITS/ML 3 ML PEN SC SCH ×5 (05:51→20:55)
[2017-05-02 06:53] VITALS: BP 151/73; PULSE 89; TEMP 37; O2SAT 97
--- NOTE | 2017-05-02 07:45 | Pharmacy Progress Note ---
Glycemic Control: Progress Nt Date of Service May 02, 2017. Scope Glycemic Pharmacist consulted by Karl on 04/30/17 for glycemic control and to write orders per [facility] inpatient glycemic control protocol. Objective Accuchecks BSG (last 24hrs): Test 05/01/17 10:40 05/01/17 10:51 05/01/17 16:30 05/01/17 20:39 Bedside Glucose 54 mg/dl (70-90) 144 mg/dl (70-90) 70 mg/dl (70-90) 131 mg/dl (70-90) Test 05/01/17 23:52 05/02/17 02:00 05/02/17 05:48 Bedside Glucose 96 mg/dl (70-90) 97 mg/dl (70-90) 93 mg/dl (70-90) Recent Pertinent Medications Outpatient Anti-diabetic Regimen: * Novolin 70/30 premixed insulin * 80 units with breakfast * 50 units with dinner * total daily dose is ~ 130 units/day * A1c = 10.1 % 04/08/17 The patient is currently receiving: * Basal insulin: on hold * Correctional Insulin: Novolog Correction per scale ACHS Goal Range: Low 140 mg/dL - High 180 mg/dL Correction Factor: 30 mg/dL/unit * Prandial insulin: Per carb ratio of 1 unit per 10 grams CHO consumed Assessment & Plan ASSESSMENT: * 71yo T2DM female with poor outpatient glycemic control per recent A1c - significantly elevated from goal of ~ 7-8% * Outpatient regimen is premixed basal/prandial insulin of Novolin 70/30 mix insulin. * Pre-mixed insulin is difficult to titrate since it is already in a fixed distribution of basal:prandial insulin. Continuing pre-mixed insulin for admission typically lead to hypoglycemia d/t changing PO status but rapid acting insulin is unable to be held. 05/01 * Patient had two episodes of hypoglycemia despite only receiving 13 units of insulin this admission * BSG of 41 mg/dL @0208 - administered amp of D50 - repeat BSG of 190 mg/dL * BSG of 44 mg/dL @0654 - administered amp of D50 - repeat BSG of 274 mg/dL * Patient remains NPO for EGD with Dr. Naik today * Basal insulin will remain on hold until further BSGs are available for evaluation. * Will loosen CF/CR and increase goal range to 140-180 to avoid further hypoglycemic events. 05/02 * Patient was hypoglycemic on admission and had multiple hypoglycemic episodes yesterday requiring administration of D50. * She did not receive any insulin on 05/01. * BSGs improving (96 ->97 -> 93). * continue to hold basal insulin * will consider restarting at reduced dosage once BSG is > 180 mg/dL * Discussed patient with CDE-> Patient reports fluctuating blood sugars at home and admits to occasional lows. She denies being on 70/30 as an outpatient due to financial reasons. Patient reports being compliant with insulin regimen and displays appropriate technique. Both the CDE and myself feel that transition to Lantus + Novolog based regimen would benefit the patient due to elevated A1c in the setting of occasional hypoglycemia. Francie Mejia discussed change with patient. Patient is agreeable to check BSG and administer insulin four times daily (see Francie's note for details). I have also discussed this with patient's provider, Dr. Fernandes, who is on board with changing patient to Lantus + Novolog at discharge to allow for more appropriate titration of doses. Exact doses for discharge are not decided on at this time since today is the first day that patient has not experienced hypoglycemia since admission. PLAN FOR INPATIENT GLYCEMIC CONTROL: * Holding outpatient premixed insulin * Basal insulin * Lantus SQ BID -> hold basal insulin due to recent hypoglycemic events and acceptable fasting BSG * Bolus insulin * NovoLog per scale ACHS or Q6hrs while NPO. * Goal Range: Low 140 mg/dL - High 180 mg/dL * Correction Factor: 30 mg/dL/unit * Nutritional / Prandial insulin per carb ratio of 1 unit per 10 grams CHO consumed RECOMMENDATIONS FOR DISCHARGE: * Poor outpatient glycemic control evidenced by A1c of 10.1% (04/08/17) * Large doses of premixed 70/30 insulin are likely causing patient to have episodes of hypoglycemia. * Recommend changing the patient to once daily Lantus + scheduled doses of Novolog with meals on discharge. * Exact dosing to be determined over the next 24 hours * Prompt follow up with PCP/General Sales Manager is necessary * Left message with Case Management to discuss arranging out patient follow up with General Sales Manager and possibly home nursing visits. * Please note that the plan above was derived based on current level of insulin resistance and hospital stress. These recommendations are appropriate for inpatient admission only. Plan of care upon discharge will need to be reassessed to avoid potential outpatient hypo/hyperglycemia. Thank you.
--- NOTE | 2017-05-02 09:37 | Progress Note ---
Progress Note Date of Service May 02, 2017. Progress Note Pt seen this AM. Tolerated colonoscopy prep. Is having clear, liquid BMs. No abdominal pain. No black/bloody stools. No acute events overnight. Has been NPO --> Colonoscopy today with Dr. Naik
[2017-05-02] MEDS: D5W AND NSS 1,000 ML IV SCH (10:00)
[2017-05-02] MEDS ORDERED: PROPOFOL IV EMULSION 10 MG/ML 20 ML VIAL IV ONE (10:15)
--- NOTE | 2017-05-02 10:54 | GI REPORT ---
Procedure Date: 05/02/2017 10:30 AM Procedure: Colonoscopy Indications: Melena Medicines: Monitored Anesthesia Care Complications: No immediate complications. Estimated blood loss: Minimal. Estimated Blood Loss: Estimated blood loss was minimal. Procedure: Pre-Anesthesia Assessment: - Prior to the procedure, a History and Physical was performed, and patient medications, allergies and sensitivities were reviewed. The patient's tolerance of previous anesthesia was reviewed. - The risks and benefits of the procedure and the sedation options and risks were discussed with the patient. All questions were answered and informed consent was obtained. - Patient identification and proposed procedure were verified prior to the procedure by the physician, the nurse and the civil designer. The procedure was verified in the procedure room. - Pre-procedure physical examination revealed no contraindications to sedation. - ASA Grade Assessment: III - A patient with severe systemic disease. - After reviewing the risks and benefits, the patient was deemed in satisfactory condition to undergo the procedure. - The anesthesia plan was to use monitored anesthesia care (MAC). - Immediately prior to administration of medications, the patient was re-assessed for adequacy to receive sedatives. - The heart rate, respiratory rate, oxygen saturations, blood pressure, adequacy of pulmonary ventilation, and response to care were monitored throughout the procedure. - The physical status of the patient was re-assessed after the procedure. After I obtained informed consent, the scope was passed under direct vision. Throughout the procedure, the patient's blood pressure, pulse, and oxygen saturations were monitored continuously. The scope was introduced through the anus and advanced to the terminal ileum. The colonoscopy was performed without difficulty. The patient tolerated the procedure well. The quality of the bowel preparation was good. Findings: The perianal and digital rectal examinations were normal. Pertinent negatives include normal sphincter tone. The terminal ileum appeared normal. A 5 mm polyp was found in the ascending colon. The polyp was sessile. The polyp was removed with a cold snare. Resection and retrieval were complete. Estimated blood loss was minimal. A few small-mouthed diverticula were found in the sigmoid colon, in the descending colon and in the ascending colon. Internal hemorrhoids were found during retroflexion. The hemorrhoids were mild. The exam was otherwise without abnormality. Impression: - The examined portion of the ileum was normal. - One 5 mm polyp in the ascending colon, removed with a cold snare. Resected and retrieved. - Mild diverticulosis in the sigmoid colon, in the descending colon and in the ascending colon. - Internal hemorrhoids. - The examination was otherwise normal. Recommendation: - Return patient to hospital [facility] for ongoing care. - Advance diet as tolerated today. - Repeat colonoscopy in 3 - 5 years for surveillance based on pathology results. - Return to GI office PRN. - If melena recurrs could consider a wireless capsule endoscopy - Begin a daily fiber supplement. Camron Naik D.O. Camron Naik, 05/02/2017 10:53:36 AM This report has been signed electronically. Note Initiated On: 05/02/2017 10:30 AM I attest to the content of the Intraoperative Record and orders documented therein, exceptions below
--- NOTE | 2017-05-02 11:30 | Anesthesiology Progress Note ---
Anesthesia Post Op Note Date & Time May 02, 2017 at 11:29 Vital Signs Pain Intensity: 0.0 Vital Signs Past 12 Hours Date Time Temp Pulse Resp B/P (MAP) Pulse Ox O2 Delivery O2 Flow Rate FiO2 05/02/17 11:22 82 18 106/62 (77) 96 Room Air 05/02/17 11:07 91 18 117/49 (71) 98 Room Air 05/02/17 10:54 70 18 102/51 (68) 96 Room Air 05/02/17 10:52 71 18 76/36 (49) 95 Room Air 05/02/17 09:58 36.6 70 18 136/68 (90) 96 Room Air 05/02/17 08:00 Room Air 05/02/17 06:53 37.0 89 20 151/73 97 Room Air 95.0 05/02/17 04:00 Room Air 05/02/17 03:38 37.0 89 20 151/73 (99) 97 Room Air 05/02/17 00:00 Room Air Notes Mental Status: alert / awake / arousable, participated in evaluation Pt Amnestic to Procedure: Yes Nausea / Vomiting: adequately controlled Pain: adequately controlled Airway Patency, RR, SpO2: stable & adequate BP & HR: stable & adequate Hydration State: stable & adequate Anesthetic Complications: no major complications apparent
[2017-05-02] MEDS: ASPIRIN 81 MG ECTAB PO SCH (11:46)
[2017-05-02] MEDS: MAGNESIUM OXIDE 400 MG TAB PO SCH ×2 (11:46→20:54)
[2017-05-02] MEDS: ATORVASTATIN 40 MG TAB PO SCH (11:46)
[2017-05-02] MEDS: ALLOPURINOL 100 MG TAB PO SCH (11:46)
[2017-05-02] MEDS: CLOPIDOGREL BISULFATE 75 MG TAB PO SCH (11:46)
[2017-05-02] MEDS: CEROVITE ADV FORMULA TAB PO SCH (11:46)
[2017-05-02] MEDS: PANTOprazole INJ 40 MG in SYRINGE 0 ML IV SCH ×2 (11:46→20:54)
[2017-05-02] MEDS: CHOLECALCIFEROL 1000 INTER.UNIT TAB PO SCH (11:47)
[2017-05-02] MEDS: METOPROLOL SUCC 25MG EXT REL TAB PO SCH ×2 (11:47→20:54)
--- NOTE | 2017-05-02 11:52 | Progress Note ---
Progress Note Date of Service May 02, 2017. Progress Note Colonoscopy performed this am. Results No evidence of melena or bleeding diverticulosis of the left colon and ascending colon Internal hemorrhoids 1 small polyp (removed) Recomendations: Repeat colonoscopy in 3 to 5 years depending on pathology advance diet as tolerated Fiber supplement please call with questions
[2017-05-02 11:54] VITALS: BP 131/76; PULSE 74; TEMP 36.7; O2SAT 98
[2017-05-02] MEDS ORDERED: NURSING VERBAL MED ORDER ONE (13:00)
[2017-05-02 13:12] VITALS: BMI 32.0
[2017-05-02 13:25] LABS: BASO % 0.4 %; BASO ABS # 0.03 K/uL (0-0.2); COMPLETE YES; HEMATOCRIT 30.3 % (37-47); IG% 0.4 %; LYMPH % 17.2 %; MEAN CELL VOLUME 97.1 fL (80-100); MEAN CORPUSCULAR HEMOGLOBIN 30.4 pg (25-34); MEAN CORPUSCULAR HGB CONC 31.4 g/dl (32-36); MEAN PLATELET VOLUME 11.6 fL (7.4-10.4); MONO % 8.2 %; NEUT % 68.8 %; PLATELET COUNT 235 K/uL (130-400); RED BLOOD COUNT 3.12 M/uL (4.2-5.4); WHITE BLOOD COUNT 6.99 K/uL (4.8-10.8)
[2017-05-02 13:42] LABS: BUN/CREATININE RATIO 14.8 (10-20); CALCIUM 8.9 mg/dl (8.5-10.1); CREATININE 1.3 mg/dl (0.60-1.20); MAGNESIUM 1.8 mg/dl (1.8-2.4); POTASSIUM 4.2 mmol/L (3.5-5.1)
[2017-05-02 15:08] VITALS: BP 133/68; PULSE 78; TEMP 36.6; O2SAT 97
--- NOTE | 2017-05-02 16:16 | ECHOCARDIOGRAM REPORT ---
*NOTICE TO RECEIVING [employer] This information is strictly Confidential and protected under [place] law. [place] law prohibits you from making any further disclosure of this information unless further disclosure is expressly permitted by the written consent of the person to whom it pertains or is authorized by law. A general authorization for the release of medical or other information is not sufficient for this purpose. Hospital accepts no responsibility if the information is made available to any other person, INCLUDING THE PATIENT. Interpretation Summary * Name: SHAHANA GREEN Study Date: 05/01/2017 03:43 PM BP: 118/73 mmHg * Patient Location: C.2T\S\S240\S\2 HR: 75 * : 1945 (M/d/yyy) Gender: Female Height: 59 in * Age: 71 yrs Ethnicity: [place] Weight: 164 lb * Ordering Physician: Palomo Albarado * Referring Physician: Self, Referred * Performed By: Babs Kessler RDCS * * Reason For Study: ASSESS LV FUNCTION, SYNCOPE * BSA: 1.7 m2 * -- Conclusions -- * There is mild concentric left ventricular hypertrophy. * There is moderate hypokinesis s of the septum and apex, Apical expansion is no longer present * Ejection Fraction = 40-45%. Procedure Details * A contrast injection of Definity was performed to improve assessment of LV function. * Contrast was injected into an intravenous site in the right arm. * One vial of Definity ultrasound contrast was diluted in normal saline to a total volume of 10 ml. A total of '2' ml of solution was administered during imaging. * Lot # [id number] of Definity utilized for procedure. * Expiration date 1 MAY 28. * The attending nurse who injected the contrast agent was SANG MARTINEZ. Left Ventricle * There is mild concentric left ventricular hypertrophy. * Ejection Fraction = 40-45%. * There is moderate hypokinesis s of the septum and apex, Apical expansion is no longer present MMode 2D Measurements and Calculations LVAd ap4 25.8 cm\S\2 LVLd ap4 7.6 cm EDV(MOD-sp4) 74.3 ml EDV(sp4-el) 74.9 ml LVAs ap4 15.5 cm\S\2 LVLs ap4 5.7 cm ESV(MOD-sp4) 33.9 ml ESV(sp4-el) 35.5 ml EF(MOD-sp4) 54.4 % EF(sp4-el) 52.6 % LVAd ap2 24.1 cm\S\2 LVLd ap2 7.4 cm EDV(MOD-sp2) 66.7 ml EDV(sp2-el) 67.0 ml LVAs ap2 14.5 cm\S\2 LVLs ap2 5.8 cm ESV(MOD-sp2) 31.2 ml ESV(sp2-el) 30.5 ml EF(MOD-sp2) 53.3 % EF(sp2-el) 54.4 % LVLd %diff -2.44 % EDV(MOD-bp) 70.2 ml LVLs %diff 1.2 % ESV(MOD-bp) 31.9 ml EF(MOD-bp) 54.6 % SV(MOD-sp4) 40.4 ml SI(MOD-sp4) 23.9 ml/m\S\2 SV(MOD-sp2) 35.6 ml SI(MOD-sp2) 21.0 ml/m\S\2 SV(MOD-bp) 38.3 ml SI(MOD-bp) 22.6 ml/m\S\2 SV(sp4-el) 39.4 ml SI(sp4-el) 23.2 ml/m\S\2 SV(sp2-el) 36.5 ml SI(sp2-el) 21.5 ml/m\S\2
[2017-05-02 16:34] VITALS: BP 147/73; PULSE 79; TEMP 36.5; O2SAT 97
--- NOTE | 2017-05-02 17:13 | Progress Note ---
Internal Med Progress Note Date of Service: May 02, 2017. Provider Documentation: SUBJECTIVE: resting comfortably s/p colonoscopy today afebrile no chest pain or sob OBJECTIVE: Vital Signs-as noted below Exam: General-alert and oriented. Not in distress ENT-normal hearing Neck-no neck masses Lungs-cta b/l no wheezing or crackles Heart-s1 and s2 heard regular no murmurs Abdomen-soft bowel sounds present nontender no distension Extremities-no edema no erythema Neuro-alert and oriented moves extremities Lab data as noted below. ASSESSMENT & PLAN: SYNCOPE ANEMIA, POSSIBLE GI BLEED HYPOGLYCEMIA, DM Hb stable at 9.1 having hypoglycemic episodes s/p egd and was unremarkable s/p colonoscopy today and was unremarkable syncope most likely from hypoglycemia- needs med adjustments cardiology consulted echo improvement from previous currently stable Hypoglycemic episodes appreciate pharmacy inputs plan to d/c on Lantus and iss close monitor with pcp and endocrinology followup. RECENT HX OF NSTEMI, ISCHEMIC CARDIOMYOPATHY asymptomatic s/p PCI/LAVONNE to mid LAD 04/08/17 on ASA, Plavix, beta porsche, and statin was discharged on Lisinopril however patient developed cough and rash - was to start Losartan however creat was 1.6 (baseline runs in the low 1's) as an outpatient so Losartan was held EF 35-40%, not on diuretics; no signs of volume overload, rather hypovolemia from anemia echo today shows ef 40-45% Chronic systolic chf ef 40-45%% not on diuretics will monitor DVT PROPHYLAXIS SCDs due to possible GI bleed CODE STATUS Full as per H and P DISPO Transfer to medical floor possible d/c in am Vital Signs: Date Time Temp Pulse Resp B/P (MAP) Pulse Ox O2 Delivery O2 Flow Rate FiO2 05/02/17 16:48 Room Air 05/02/17 16:34 36.5 79 20 147/73 (97) 97 Room Air 05/02/17 15:08 36.6 78 17 133/68 (89) 97 Room Air 05/02/17 11:56 Room Air 05/02/17 11:54 36.7 74 20 131/76 (94) 98 Room Air 05/02/17 11:22 82 18 106/62 (77) 96 Room Air 05/02/17 11:07 91 18 117/49 (71) 98 Room Air 05/02/17 10:54 70 18 102/51 (68) 96 Room Air 05/02/17 10:52 71 18 76/36 (49) 95 Room Air 05/02/17 09:58 36.6 70 18 136/68 (90) 96 Room Air 05/02/17 08:00 Room Air 05/02/17 06:53 37.0 89 20 151/73 97 Room Air 95.0 05/02/17 04:00 Room Air 05/02/17 03:38 37.0 89 20 151/73 (99) 97 Room Air 05/02/17 00:00 Room Air 05/01/17 23:23 36.8 82 22 137/73 (94) 97 Room Air 05/01/17 20:06 36.5 112 18 127/70 (89) 95 Room Air 05/01/17 20:00 Room Air Lab Results: Results Past 24 Hours Test 05/01/17 20:39 05/01/17 23:52 05/02/17 02:00 05/02/17 05:48 Range/Units Bedside Glucose 131 96 97 93 70-90 mg/dl Test 05/02/17 08:25 05/02/17 11:42 05/02/17 12:22 05/02/17 16:06 Range/Units Bedside Glucose 117 111 127 70-90 mg/dl White Blood Count 6.99 4.8-10.8 K/uL Red Blood Count 3.12 4.2-5.4 M/uL Hemoglobin 9.5 12.0-16.0 g/dL Hematocrit 30.3 37-47 % Mean Corpuscular Volume 97.1 80-100 fL Mean Corpuscular Hemoglobin 30.4 25-34 pg Mean Corpuscular Hemoglobin Concent 31.4 32-36 g/dl Platelet Count 235 130-400 K/uL Mean Platelet Volume 11.6 7.4-10.4 fL Neutrophils (%) (Auto) 68.8 % Lymphocytes (%) (Auto) 17.2 % Monocytes (%) (Auto) 8.2 % Eosinophils (%) (Auto) 5.0 % Basophils (%) (Auto) 0.4 % Neutrophils # (Auto) 4.81 1.4-6.5 K/uL Lymphocytes # (Auto) 1.20 1.2-3.4 K/uL Monocytes # (Auto) 0.57 0.11-0.59 K/uL Eosinophils # (Auto) 0.35 0-0.5 K/uL Basophils # (Auto) 0.03 0-0.2 K/uL RDW Standard Deviation 51.5 36.4-46.3 fL RDW Coefficient of Variation 14.8 11.5-14.5 % Immature Granulocyte % (Auto) 0.4 % Immature Granulocyte # (Auto) 0.03 0.00-0.02 K/uL Sodium Level 144 136-145 mmol/L Potassium Level 4.2 3.5-5.1 mmol/L Chloride Level 113 98-107 mmol/L Carbon Dioxide Level 22 21-32 mmol/L Anion Gap 9.0 3-11 mmol/L Blood Urea Nitrogen 19 7-18 mg/dl Creatinine 1.30 0.60-1.20 mg/dl Est Creatinine Clear Calc Drug Dose 33.3 ml/min Estimated GFR () 47.1 Estimated GFR (Non- 40.7 BUN/Creatinine Ratio 14.8 10-20 Random Glucose 141 70-99 mg/dl Calcium Level 8.9 8.5-10.1 mg/dl Magnesium Level 1.8 1.8-2.4 mg/dl
--- NOTE | 2017-05-02 19:25 | CARDIOLOGY PROGRESS NOTE ---
DATE: 05/02/2017 The patient was seen and examined. Chart, medications, and telemetry were reviewed. SUBJECTIVE: The patient tolerated colonoscopy well today. Only a polyp found. No overt bleeding source. Denies any cardiac complaints. Notes no dizziness, lightheadedness, syncope or near syncope. Notes no chest pain or discomfort. Glucoses are improved this morning. OBJECTIVE: VITAL SIGNS: Heart rate is 78, blood pressure is 133/68. NECK: Thick, but no distant jugular venous distention discerned at 30 degrees. LUNGS: Clear to auscultation. CARDIOVASCULAR: Regular with normal S1, S2. There is no murmur, gallop or rub. ABDOMEN: Soft, nontender. EXTREMITIES: Without cyanosis or clubbing. There is no peripheral edema. LABORATORY DATA: Sodium is 144, potassium is 4.2, chloride is 113, bicarb is 22, BUN is 19, creatinine is 1.3. PT and PTT are normal. Cardiac status stable MTDD
[2017-05-02 23:56] VITALS: BP 116/69; PULSE 82; TEMP 36.6; O2SAT 95
[2017-05-03] MEDS: LEVOTHYROXINE 112 MCG TAB PO SCH (06:00)
[2017-05-03] MEDS: ALLOPURINOL 100 MG TAB PO SCH (07:08)
[2017-05-03] MEDS: ASPIRIN 81 MG ECTAB PO SCH (07:08)
[2017-05-03] MEDS: ATORVASTATIN 40 MG TAB PO SCH (07:08)
[2017-05-03] MEDS: CLOPIDOGREL BISULFATE 75 MG TAB PO SCH (07:09)
[2017-05-03] MEDS: CHOLECALCIFEROL 1000 INTER.UNIT TAB PO SCH (07:09)
[2017-05-03] MEDS: CEROVITE ADV FORMULA TAB PO SCH (07:09)
[2017-05-03] MEDS: MAGNESIUM OXIDE 400 MG TAB PO SCH (07:09)
[2017-05-03] MEDS: METOPROLOL SUCC 25MG EXT REL TAB PO SCH (07:15)
[2017-05-03 07:44] VITALS: BP 145/72; PULSE 63; TEMP 36.1; O2SAT 98
[2017-05-03] MEDS: INSULIN ASPART 100 UNITS/ML 3 ML PEN SC SCH ×2 (08:27→13:52)
[2017-05-03] MEDS ORDERED: INSULIN GLARGINE SOLOSTAR 100 UNITS/ML 3 ML PEN SC SCH (09:00)
[2017-05-03] MEDS ORDERED: PANTOprazole SOD 40 MG TAB PO SCH (09:00)
--- NOTE | 2017-05-03 10:39 | Pharmacy Progress Note ---
Glycemic Control Progress Note Date of Service May 03, 2017. Scope Glycemic Pharmacist consulted for glycemic control to write orders per [facility] inpatient glycemic control protocol. Objective Accuchecks BSG (last 24hrs): Test 05/02/17 11:42 05/02/17 12:22 05/02/17 16:06 05/02/17 20:22 Bedside Glucose 111 mg/dl (70-90) 127 mg/dl (70-90) 135 mg/dl (70-90) Random Glucose 141 mg/dl (70-99) Test 05/03/17 07:16 Bedside Glucose 144 mg/dl (70-90) HbA1c: Item Value Date Time Hemoglobin A1c 10.1 % H 04/08/17 0305 Recent Pertinent Medications Outpatient Anti-Diabetic Meds * Novolin 70/30 premixed insulin * 80 units with breakfast * 50 units with dinner * total daily dose is ~ 130 units/day Assessment & Plan ASSESSMENT: * 71yo T2DM female with poor outpatient glycemic control per recent A1c - significantly elevated from goal of ~ 7-8% * Outpatient regimen is premixed basal/prandial insulin of Novolin 70/30 mix insulin. * Pre-mixed insulin is difficult to titrate since it is already in a fixed distribution of basal:prandial insulin. Continuing pre-mixed insulin for admission typically lead to hypoglycemia d/t changing PO status but rapid acting insulin is unable to be held. * Uncertain if patient is using the large ordered outpatient dosing as she is requiring very minimal insulin in house. * Outpatient regimen will need adjusted for discharge. * Patient is currently receiving an average of ~7 units of insulin per day * 0 units of basal insulin * 7 units of prandial/correctional insulin * BSGs ranging 93 - 144 mg/dl over the past 24hrs * Changes needed to insulin regimen: * AM Fasting BSG = 144 mg/dl. This is slightly above goal range for patient based on inpatient targets and co-morbidities. Therefore will restart basal insulin needs at low dose * Post-prandial BSGs are in range therefore no changes needed to CF/CR * Total daily dose = 7 units. May need to evenly re-distribute regimen 50%:50 % basal:prandial to prevent hypo/hyperglycemia PLAN FOR INPATIENT GLYCEMIC CONTROL: * Continue to hold outpatient premixed insulin * Basal insulin * Lantus 7 SQ daily in the morning * Bolus insulin * NovoLog per scale ACHS or Q6hrs while NPO. * Goal Range: Low 140 mg/dL - High 180 mg/dL * Correction Factor: 30 mg/dL/unit * Nutritional / Prandial insulin per carb ratio of 1 unit per 10 grams CHO consumed * Please note that the plan above was derived based on current level of insulin resistance and hospital stress. These recommendations are appropriate for inpatient admission only. Plan of care upon discharge will need to be reassessed to avoid potential outpatient hypo/hyperglycemia. Thank you. Looking ahead to discharge: * Recommend change to basal + bolus insulin rather than premixed insulin for better control. * Pt states that she was not initiated on premixed insulin d/t cost issues. * Ideally, if cost is not an issue, recommend changing to basal insulin + GLP-1 RA combination. * Recommend Soliqua (glargine + lixisenatide) initiate with 15 units {15 units of glargine and 5 mcg lixisenatide} SQ once daily within the hour prior to the first meal of the day. May work with PCP to titrate the dosing upwards weekly as needed. * Pharmacy has a co-pay card for $0 copay on this Rx for the next 12 months. * This once a day combination injectable contains both basal and prandial insulin coverage.
[2017-05-03] MEDS ORDERED: INSDGIPEN SC (13:30)
[2017-05-03] MEDS ORDERED: NVLGI/PEN SC (13:30)
--- NOTE | 2017-05-03 13:38 | Discharge Instructions ---
Discharge Instructions Date of Service May 03, 2017. Admission Reason for Admission: Syncope Discharge Discharge Diagnosis / Problem: SYNCOPE, HYPOGLCEMIA, GI BLEED Discharge Goals Goal(s): Improve function Activity Recommendations Activity Limitations: resume your previous activity . Instructions / Follow-Up Instructions / Follow-Up FOLLOWUP WITH FAMILY DOCTOR ON April AT 11AM FOLLOWUP WITH ENDOCRINOLOGY (BLOCK BREAKER OPERATOR) DR.NINI CALVIN ON May AT 10AM. NEW INSULIN REGIMEN: LANTUS (LONG ACTING INSULIN) 15 (FIFTEEN) UNITS SUBCUTANEOUSLY ONCE DAILY ABOUT ONE HOUR BEFORE BREAKFAST. NOVOLOG ( SHORT ACTING INSULIN) 5 (FIVE) UNITS THREE TIMES DAILY WITH EACH MEAL. SKIP NOVOLOG(SHORT ACTING INSULIN) IF SKIPPING MEALS. PLEASE CHECK BLOOD SUGARS FOUR TIMES DAILY BEFORE BREAKFAST, LUNCH AND DINNER AND BEFORE GOING TO SLEEP AND NOTE THE READINGS ON THE LOG BOOK AND TO SHOW THE READINGS TO FAMILY DOCTOR FOR FURTHER ADJUSTMENTS OF INSULIN REGIMEN. PLEASE CALL FAMILY DOCTOR IF BLOOD SUGARS GREATER THAN 350 OR LESS THAN 80. TO TAKE SUGAR OR ORANGE JUICE IF BLOOD SUGARS LESS THAN 80. Current Hospital Diet Patient's current hospital diet: AHA Diet (Heart Healthy), Diabetes Type 2 Diet Discharge Diet Recommended Diet: AHA Diet (Heart Healthy), Diabetes Type 2 Diet Procedures Procedures Performed: EGD with bx Pending Studies Studies pending at discharge: no Laboratory Results Hemoglobin A1c Test 04/08/17 03:05 Range/Units Estimated Average Glucose 243 mg/dl Hemoglobin A1c 10.1 H 4.5-5.6 % Lipid Panel Test 04/08/17 03:05 Range/Units Triglycerides Level 320 H 0-150 mg/dl Cholesterol Level 153 0-200 mg/dl HDL Cholesterol 31 mg/dl Cholesterol/HDL Ratio 4.9 LDL Cholesterol, Calculated 58 mg/dl Medical Emergencies . Who to Call and When: Medical Emergencies: If at any time you feel your situation is an emergency, please call 911 immediately. . Non-Emergent Contact Non-Emergency issues call your: Primary Care Provider . . "Provider Documentation" section prepared by Abhishek Fernandes. . VTE Core Measure Inpt VTE Proph given/why not?: SCD's
[2017-05-03 13:53] VITALS: BP 145/72; PULSE 63; TEMP 36.1; O2SAT 98; Ht 149.9 cm; Wt 71.8 kg
--- NOTE | 2017-05-03 19:41 | Progress Note ---
Internal Med Progress Note Date of Service: May 03, 2017. Provider Documentation: SUBJECTIVE: resting comfortably no sob afebrile ok to go home OBJECTIVE: Vital Signs-as noted below Exam: General-alert and oriented. Not in distress ENT-normal hearing Neck-no neck masses Lungs-cta b/l no wheezing or crackles Heart-s1 and s2 heard regular no murmurs Abdomen-soft bowel sounds present nontender no distension Extremities-no edema no erythema Neuro-alert and oriented moves extremities Lab data as noted below. ASSESSMENT & PLAN: SYNCOPE ANEMIA, POSSIBLE GI BLEED HYPOGLYCEMIA, DM Hb stable at 9.1 having hypoglycemic episodes s/p egd and was unremarkable s/p colonoscopy today and was unremarkable syncope most likely from hypoglycemia- needs med adjustments cardiology consulted echo improvement from previous currently stable Hypoglycemic episodes appreciate pharmacy inputs plan to d/c on Lantus and iss close monitor with pcp and endocrinology followup. dischsarged on lantus 15units in am and NovoLog 5 units tid with each meal RECENT HX OF NSTEMI, ISCHEMIC CARDIOMYOPATHY asymptomatic s/p PCI/LAVONNE to mid LAD 04/08/17 on ASA, Plavix, beta porsche, and statin was discharged on Lisinopril however patient developed cough and rash - was to start Losartan however creat was 1.6 (baseline runs in the low 1's) as an outpatient so Losartan was held EF 35-40%, not on diuretics; no signs of volume overload, rather hypovolemia from anemia echo today shows ef 40-45% stable Chronic systolic chf ef 40-45%% not on diuretics stable Discharged home Vital Signs: Date Time Temp Pulse Resp B/P (MAP) Pulse Ox O2 Delivery O2 Flow Rate FiO2 05/03/17 13:53 36.1 63 18 98 Room Air 05/03/17 08:00 Room Air 05/03/17 07:44 36.1 63 18 145/72 (96) 98 Room Air 05/03/17 00:00 Room Air 05/02/17 23:56 36.6 82 16 116/69 (85) 95 Room Air Lab Results: Results Past 24 Hours Test 05/02/17 20:22 05/03/17 07:16 05/03/17 11:20 Range/Units Bedside Glucose 135 144 144 70-90 mg/dl
--- NOTE | 2017-05-03 19:48 | Discharge Summary ---
Discharge Summary Date of Service May 03, 2017. Discharge Summary Admission Date: Apr 30, 2017 at 16:10 Discharge Date: May 03, 2017 Discharge Disposition: Home with services Principal Diagnosis: SYNCOPE HYPOGLYCEMIA GI BLEED Secondary Diagnoses/Problems: (1) CKD (chronic kidney disease), stage III Status: Chronic (2) Coronary artery disease Permanent Comment: 03/2017 - NSTEMI, PCI/LAVONNE to mid LAD Status: Chronic (3) Diverticulosis Status: Chronic (4) DM type 2 (diabetes mellitus, type 2) Status: Chronic (5) Dyslipidemia Status: Chronic (6) Gastroparesis Status: Chronic (7) Glaucoma Status: Chronic (8) Gout Status: Chronic (9) HTN (hypertension) Status: Chronic (10) Hypertriglyceridemia Status: Chronic (11) Ischemic cardiomyopathy Status: Chronic Procedures: CT HEAD: No acute intracranial findings CT CERVICAL SPINE: No fractures within the cervical spine. Mild degenerative change. ECHO: There is mild concentric left ventricular hypertrophy. * There is moderate hypokinesis s of the septum and apex, Apical expansion is no longer present * Ejection Fraction = 40-45%. S/P EGD S/P COLONOSCOPY Consultations: CARDIOLOGY GI Medication Reconciliation New Medications: Insulin Aspart (Novolog Flexpen) 100 Units/Ml Inj 5 UNITS SC AC, #1 3 Refills Insulin Glargine (Lantus Solostar) 100 Unit/Ml Inj 15 UNITS SC DAILYBB, #1 3 Refills Continued Medications: Allopurinol (Zyloprim) 100 Mg Tab 200 MG PO DAILY, TAB Aspirin (Ecotrin Low Strength) 81 Mg Tab 81 MG PO DAILY, TAB Atorvastatin (Lipitor) 40 Mg Tab 40 MG PO DAILY, TAB Chlorthalidone (Chlorthalidone) 25 Mg Tab 12.5 MG PO Q2D take 1/2 pill daily Cholecalciferol (D 2000) 2,000 Unit Tab 2000 MG PO DAILY Clopidogrel Bisulfate (Clopidogrel) 75 Mg Tab 75 MG PO QAM, #30 TAB 11 Refills Fenofibrate (Tricor ) 134 Mg Cap 134 MG PO DAILY, CAP Levothyroxine Sodium (Levothyroxine Sodium) 112 Mcg Tab 112 MCG PO DAILY, TAB Magnesium (Magnesium 250 mg) 1 Tab Tab 250 MG PO BID Meloxicam (Mobic) 7.5 Mg Tab 7.5 MG PO DAILY PRN for Pain, TAB Metoprolol Succinate (Toprol Xl) 25 Mg Tab 25 MG PO BID, #60 TAB 5 Refills Multiple Vitamins W/ Minerals (Centrum Silver) 1 Chw Chw 1 TAB PO DAILY Nitroglycerin (Nitrostat) 0.4 Mg/1 Tab Subl 1 TAB SL UD PRN for Chest Pain Dissolve under tongue. May repeat dose in 10 minutes. Call 911 if no relief. Omeprazole (Prilosec) 40 Mg Cap 40 MG PO DAILY, CAP Discontinued Medications: Insulin Human Isophan/Regular (Novolin 70/30) Inj 0 SC UD, BTL 80 units with breakfast 50 units with supper Admission Information HPI (per Admitting provider): 71 year old female who presents to the ER after passing out early this morning. Patient was recently admitted to [facility] 04/07 - 04/12 for NSTEMI. Patient was found to have a mid LAD lesion and underwent PCI and LAVONNE placement. She had already been taking aspirin. Plavix and lisinopril were added and metoprolol was increased. Patient developed a cough and a rash so Lisinopril was discontinued as an outpatient. At her cardiology follow up, she was to start Losartan however due to mildly elevated creatinine (1.6, baseline runs in the low 1's) it was not and her chlorthalidone was decreased. Early this morning patient reports she was stood up from her kitchen table and she suddenly passed out. She was awoke by someone knocking on her door. She is unsure how long she laid on the floor for. She reports it was dark when she fell and when she woke up it was light out. She denies any associated chest pain, shortness of breath, lightheadedness, or dizziness. When EMS arrived, patient's blood sugar was found to be 59. She was given D50. Patient denies any changes in her diet and her appetite has been good. She reports being compliant with all medications. She reports her blood sugars have been running around 120 which is normal for her. She notes her stools have been darker than normal at times. She also notes one episode of bright red bleeding a few days ago. She reports the toilet was filled with blood. She notes a history of hemorrhoids. She denies any further bleeding. She denies abdominal pain, nausea, and vomiting. She denies fever and chills. No urinary symptoms. In the ER, patient's blood sugar has improved to 123. Vitals are stable. Trop is 0.206. EKG does not show any acute ST changes. Physical Exam (per Admitting): General Appearance: no apparent distress Head: normocephalic Eyes: normal inspection ENT: hearing grossly normal Neck: supple, no JVD Respiratory/Chest: lungs clear, normal breath sounds, no respiratory distress Cardiovascular: regular rate, rhythm, no edema, normal peripheral pulses Abdomen/GI: normal bowel sounds, non tender, soft Extremities/Musculoskelatal: normal inspection, no calf tenderness Neurologic/Psych: no motor/sensory deficits, alert, normal mood/affect, oriented x 3 Skin: normal color, warm/dry Hospital Course SYNCOPE ANEMIA, POSSIBLE GI BLEED HYPOGLYCEMIA, DM Hb stable at 9.1 having hypoglycemic episodes s/p egd and was unremarkable s/p colonoscopy today and was unremarkable syncope most likely from hypoglycemia- needs med adjustments cardiology consulted echo improvement from previous currently stable Hypoglycemic episodes appreciate pharmacy inputs plan to d/c on Lantus and iss close monitor with pcp and endocrinology followup. dischsarged on lantus 15units in am and NovoLog 5 units tid with each meal RECENT HX OF NSTEMI, ISCHEMIC CARDIOMYOPATHY asymptomatic s/p PCI/LAVONNE to mid LAD 04/08/17 on ASA, Plavix, beta porsche, and statin was discharged on Lisinopril however patient developed cough and rash - was to start Losartan however creat was 1.6 (baseline runs in the low 1's) as an outpatient so Losartan was held EF 35-40%, not on diuretics; no signs of volume overload, rather hypovolemia from anemia echo today shows ef 40-45% stable Chronic systolic chf ef 40-45%% not on diuretics stable Discharged home Total time spent on discharge = 40MINUTES This includes examination of the patient, discharge planning, medication reconciliation, and communication with other providers. Discharge Instructions Discharge Instructions Date of Service May 03, 2017. Admission Reason for Admission: Syncope Discharge Discharge Diagnosis / Problem: SYNCOPE, HYPOGLCEMIA, GI BLEED Discharge Goals Goal(s): Improve function Activity Recommendations Activity Limitations: resume your previous activity . Instructions / Follow-Up Instructions / Follow-Up FOLLOWUP WITH FAMILY DOCTOR ON April AT 11AM FOLLOWUP WITH ENDOCRINOLOGY (SENIOR JAVA PROGRAMMER) DR.NINI CALVIN ON May AT 10AM. NEW INSULIN REGIMEN: LANTUS (LONG ACTING INSULIN) 15 (FIFTEEN) UNITS SUBCUTANEOUSLY ONCE DAILY ABOUT ONE HOUR BEFORE BREAKFAST. NOVOLOG ( SHORT ACTING INSULIN) 5 (FIVE) UNITS THREE TIMES DAILY WITH EACH MEAL. SKIP NOVOLOG(SHORT ACTING INSULIN) IF SKIPPING MEALS. PLEASE CHECK BLOOD SUGARS FOUR TIMES DAILY BEFORE BREAKFAST, LUNCH AND DINNER AND BEFORE GOING TO SLEEP AND NOTE THE READINGS ON THE LOG BOOK AND TO SHOW THE READINGS TO FAMILY DOCTOR FOR FURTHER ADJUSTMENTS OF INSULIN REGIMEN. PLEASE CALL FAMILY DOCTOR IF BLOOD SUGARS GREATER THAN 350 OR LESS THAN 80. TO TAKE SUGAR OR ORANGE JUICE IF BLOOD SUGARS LESS THAN 80. Current Hospital Diet Patient's current hospital diet: AHA Diet (Heart Healthy), Diabetes Type 2 Diet Discharge Diet Recommended Diet: AHA Diet (Heart Healthy), Diabetes Type 2 Diet Procedures Procedures Performed: EGD with bx Pending Studies Studies pending at discharge: no Laboratory Results Hemoglobin A1c Test 04/08/17 03:05 Range/Units Estimated Average Glucose 243 mg/dl Hemoglobin A1c 10.1 H 4.5-5.6 % Lipid Panel Test 04/08/17 03:05 Range/Units Triglycerides Level 320 H 0-150 mg/dl Cholesterol Level 153 0-200 mg/dl HDL Cholesterol 31 mg/dl Cholesterol/HDL Ratio 4.9 LDL Cholesterol, Calculated 58 mg/dl Medical Emergencies . Who to Call and When: Medical Emergencies: If at any time you feel your situation is an emergency, please call 911 immediately. . Non-Emergent Contact Non-Emergency issues call your: Primary Care Provider . . "Provider Documentation" section prepared by Abhishek Fernandes. . VTE Core Measure Inpt VTE Proph given/why not?: SCD's
[2017-07-29] MEDS ORDERED: ULT50X PO (17:01)
[2017-07-29] MEDS ORDERED: FRRS300 PO (17:01)
[2017-08-11] MEDS ORDERED: CLOP1TAB15 PO (12:29)
[2017-08-11] MEDS ORDERED: MAGN1TAB19 PO (16:36)
[2017-08-15] MEDS ORDERED: METH4PAK PO (17:44)
[2017-08-20] MEDS ORDERED: fleets enema PR (14:48)
[2017-08-20] MEDS ORDERED: BISA10SU38 PR (14:48)
[2017-08-26] MEDS ORDERED: NYST80OI TOP (10:12)
== END 2017-05-03 14:36 | disposition home health service (06) | DRG 378 ==
LOC: EDBD 11:09 → C.EDC 11:10 → C.2T 16:10 → EDBEDREQ 16:31 → ENRESERV 17:29 → C.MS2W 05-02 16:31
PROVIDERS: ADMIT Internal Medicine; ATTEND Internal Medicine
PROC: 0DB38ZX Excision of Lower Esophagus, Via Natural or Artificial Opening Endoscopic, Diagnostic (ICD-10-PCS; principal; 2017-05-01 11:01)
PROC: 0DBK8ZZ Excision of Ascending Colon, Via Natural or Artificial Opening Endoscopic (ICD-10-PCS; 2017-05-02)
DX: K92.2 Gastrointestinal hemorrhage, unspecified (principal); I13.0 Hypertensive heart and chronic kidney disease with heart failure and stage 1 through stage 4 chronic kidney disease, or unspecified chronic kidney disease; I50.22 Chronic systolic (congestive) heart failure; D62 Acute posthemorrhagic anemia; E11.649 Type 2 diabetes mellitus with hypoglycemia without coma; I25.10 Atherosclerotic heart disease of native coronary artery without angina pectoris; I25.2 Old myocardial infarction; Z95.5 Presence of coronary angioplasty implant and graft; N18.3 Chronic kidney disease, stage 3 (moderate); E11.22 Type 2 diabetes mellitus with diabetic chronic kidney disease; E11.43 Type 2 diabetes mellitus with diabetic autonomic (poly)neuropathy; K29.70 Gastritis, unspecified, without bleeding; M10.9 Gout, unspecified; H40.9 Unspecified glaucoma; I25.5 Ischemic cardiomyopathy; E89.0 Postprocedural hypothyroidism; E78.1 Pure hyperglyceridemia; K57.30 Diverticulosis of large intestine without perforation or abscess without bleeding; D12.2 Benign neoplasm of ascending colon; K64.8 Other hemorrhoids; Z79.82 Long term (current) use of aspirin; Z79.899 Other long term (current) drug therapy; Z88.8 Allergy status to other drugs, medicaments and biological substances; Z98.49 Cataract extraction status, unspecified eye; Z83.3 Family history of diabetes mellitus; Z80.3 Family history of malignant neoplasm of breast; Z82.49 Family history of ischemic heart disease and other diseases of the circulatory system

== ENCOUNTER → 2017-05-09 | Outpatient (CLI) | payer OTHER ==
[~2017-05-09] MED LIST changes: +BISA10SU38 PR; +CHOLCAP10 PO; +CLOP1TAB15 PO; +FERR1TAB13 PO; +FRRS300 PO; +INSDGIPEN SC; -INSU70IN2 SC; +LOSA50TA6 PO; -LSN25 PO; +MAGN1TAB19 PO; +MAGN400T6 PO; +METH4PAK PO; -METO-478 PO; +METO1TAB31 PO; +METO25TA3 PO; +MULTCHW PO; +NVLGI/PEN SC; +TRAM-10 PO; +ULT50X PO; +fleets enema PR
[2017-05-09 17:58] LABS: BLOOD UREA NITROGEN 32 mg/dl (7-18); CALCIUM 9.4 mg/dl (8.5-10.1); CARBON DIOXIDE 26 mmol/L (21-32); CHLORIDE 105 mmol/L (98-107); GLUCOSE 272 mg/dl (70-99); POTASSIUM 4.5 mmol/L (3.5-5.1); SODIUM 138 mmol/L (136-145)
== END | disposition home or self-care (01) ==
LOC: C.LABPBG 12:49
PROVIDERS: ATTEND Physician Assistant
DX: I25.10 Atherosclerotic heart disease of native coronary artery without angina pectoris (principal); I10 Essential (primary) hypertension

== ENCOUNTER → 2017-06-04 | Outpatient (CLI) | payer OTHER ==
[2017-06-04 17:26] LABS: HEMATOCRIT 33.9 % (37-47); MEAN CELL VOLUME 92.6 fL (80-100); MEAN CORPUSCULAR HGB CONC 31.3 g/dl (32-36); MEAN PLATELET VOLUME 12.3 fL (7.4-10.4); PLATELET COUNT 272 K/uL (130-400); RED BLOOD COUNT 3.66 M/uL (4.2-5.4); WHITE BLOOD COUNT 6.33 K/uL (4.8-10.8)
[2017-06-04 17:50] LABS: THYROID STIMULATING HORMONE 1.22 uIu/ml (0.300-4.500)
[2017-06-04 18:23] LABS: ALT/SGPT 27 U/L (12-78); AST/SGOT 25 U/L (15-37); BLOOD UREA NITROGEN 40 mg/dl (7-18); BUN/CREATININE RATIO 26.8 (10-20); CALCIUM 9.8 mg/dl (8.5-10.1); CARBON DIOXIDE 24 mmol/L (21-32); CHLORIDE 106 mmol/L (98-107); CHOLESTEROL 147 mg/dl (0-200); GLUCOSE 281 mg/dl (70-99); MAGNESIUM 2.1 mg/dl (1.8-2.4); POTASSIUM 4.7 mmol/L (3.5-5.1); SODIUM 139 mmol/L (136-145); TRIGLYCERIDES 377 mg/dl (0-150); VERY LOW DENSITY LIPOPROT CALC 75 mg/dl
[2017-06-04 18:26] LABS: ALB/GLOB RATIO 0.9 (0.9-2); ALKALINE PHOSPHATASE 65 U/L (45-117); CHOLESTEROL/HDL RATIO 4.9; HDL CHOLESTEROL 30 mg/dl
[2017-06-05 08:07] LABS: ESTIMATED AVERAGE GLUCOSE 197 mg/dl; HA1C FLAG Normal (Normal)
== END | disposition home or self-care (01) ==
LOC: C.LABPBG 14:02
PROVIDERS: ATTEND Internal Medicine Cardiovascular Disease
DX: I25.119 Atherosclerotic heart disease of native coronary artery with unspecified angina pectoris (principal); R07.9 Chest pain, unspecified; Z82.49 Family history of ischemic heart disease and other diseases of the circulatory system; I10 Essential (primary) hypertension; I95.1 Orthostatic hypotension; Z79.899 Other long term (current) drug therapy

== ENCOUNTER 2017-07-27 15:08 | Inpatient (IN) | payer OTHER ==
[~2017-07-27] VITALS: Ht 149.9 cm; Wt 63.0 kg
[~2017-07-27 15:08] MED LIST changes: -BISA10SU38 PR; -CHOLCAP10 PO; -CLOP1TAB15 PO; -FERR1TAB13 PO; -FRRS300 PO; -LOSA50TA6 PO; -MAGN1TAB19 PO; -MAGN400T6 PO; -METH4PAK PO; -METO25TA3 PO; -TRAM-10 PO; -ULT50X PO; -fleets enema PR
[2017-07-27 15:30] LABS: MEAN CELL VOLUME 87.4 fL (80-100); MEAN CORPUSCULAR HEMOGLOBIN 26.6 pg (25-34); MEAN CORPUSCULAR HGB CONC 30.4 g/dl (32-36); MEAN PLATELET VOLUME 11.2 fL (7.4-10.4); PLATELET COUNT 313 K/uL (130-400); RED BLOOD COUNT 2.86 M/uL (4.2-5.4); WHITE BLOOD COUNT 5.02 K/uL (4.8-10.8)
[2017-07-27] MEDS ORDERED: NVLGI/PEN SC (15:43)
[2017-07-27] MEDS ORDERED: METO25TA3 PO (15:43)
[2017-07-27] MEDS ORDERED: INSDGIPEN SC (15:43)
[2017-07-27] MEDS ORDERED: CLOP1TAB15 PO (15:43)
[2017-07-27] MEDS ORDERED: CHOLCAP10 PO (15:45)
[2017-07-27 15:46] LABS: ALT/SGPT 31 U/L (12-78); AST/SGOT 55 U/L (15-37); BLOOD UREA NITROGEN 28 mg/dl (7-18); BUN/CREATININE RATIO 18.6 (10-20); CALCIUM 9.6 mg/dl (8.5-10.1); CARBON DIOXIDE 22 mmol/L (21-32); CHLORIDE 109 mmol/L (98-107); GLUCOSE 161 mg/dl (70-99); POTASSIUM 4.9 mmol/L (3.5-5.1); SODIUM 138 mmol/L (136-145)
[2017-07-27 15:48] LABS: ALKALINE PHOSPHATASE 86 U/L (45-117)
[2017-07-27] MEDS ORDERED: LOSA50TA6 PO (15:52)
[2017-07-27 15:56] LABS: URINE APPEARANCE CLEAR (CLEAR); URINE BILIRUBIN NEG (NEG); URINE COLOR YELLOW; URINE NITRITE NEG (NEG); URINE SPECIFIC GRAVITY 1.016 (1.000-1.030); UROBILINOGEN NEG (NEG)
[2017-07-27 16:05] LABS: MANUAL MICROSCOPIC REQUIRED? NO; REVIEW REQ? NO
[2017-07-27 16:06] LABS: BASO % 0.2 %; BASO ABS # 0.01 K/uL (0-0.2); COMPLETE YES; IG% 0.4 %; LYMPH % 17.5 %; LYMPH ABS # 0.88 K/uL (1.2-3.4); NEUT % 65.9 %; POLYCHROMASIA 1+
--- NOTE | 2017-07-27 16:47 | DIAGNOSTIC IMAGING REPORT ---
CT SCAN OF THE ABDOMEN AND PELVIS WITHOUT CONTRAST CLINICAL HISTORY: Right flank pain COMPARISON STUDY: No previous studies for comparison. TECHNIQUE: CT scan of the abdomen and pelvis was performed from the lung bases to the proximal femurs. Images are reviewed in the axial, sagittal, and coronal planes. IV contrast was not administered for this examination. A dose lowering technique was utilized adhering to the principles of ALARA. CT DOSE: FINDINGS: Lower chest: There is soft tissue prominence within the right lower chest wall. Correlation with physical [id number] is recommended to evaluate for possible breast/chest wall mass. The lung bases are unremarkable. Liver: There are too numerous to count hepatic masses suspicious for metastatic disease. Gallbladder: Unremarkable. Spleen: Normal in size and attenuation. Pancreas: Unremarkable. Adrenal glands: Unremarkable. Kidneys: No renal, ureteral, or bladder calculi are visualized. Bowel: There are no transition zones indicate bowel obstruction. The appendix appears normal. There is no acute diverticulitis. Peritoneum: There is no intraperitoneal free air or abdominal ascites. Vasculature: The abdominal aorta is normal in course and caliber. Adenopathy: There is aortocaval lymphadenopathy with the largest node measuring 18 mm. Pelvic viscera: The bladder, and pelvic viscera are unremarkable. Skeletal structures: No destructive osseous lesions are seen. IMPRESSION: 1. Multiple hepatic masses. The findings should be presumed to represent metastatic disease until proven otherwise 2. No evidence of bowel obstruction. No evidence of free air. 3. Normal appendix 4. No renal, ureteral, or bladder calculi identified 5. Aortocaval lymphadenopathy 6. Right chest wall asymmetry. Correlation with physical examination is recommended to exclude a chest wall/breast mass. Electronically signed by: Eugenio Ledbetter M.D. 07/27/2017 4:46 PM Dictated Date/Time: 07/27/2017 4:39 PM
--- NOTE | 2017-07-27 16:49 | DIAGNOSTIC IMAGING REPORT ---
CT LUMBAR SPINE WITHOUT CT DOSE: 2527.97 mGy.cm CLINICAL HISTORY: Back and flank pain. TECHNIQUE: Helical images were acquired in transverse plane. Reformatted sagittal and coronal images were reviewed. A dose lowering technique was utilized adhering to the principles of ALARA. CONTRAST: No contrast was administered COMPARISON STUDY: None. FINDINGS: L1-2 level: There is no evidence of significant disc bulge or focal herniation. There is no evidence of spinal or foraminal stenosis. L2-3 level: There is no evidence of significant disc bulge or focal herniation. There is no evidence of spinal or foraminal stenosis. L3-4 level: There is a circumferential disc bulge with mild spinal stenosis. L4-5 level: There is a grade 1 spondylolisthesis of L4 on L5. There is a circumferential disc bulge. There is moderate to severe spinal stenosis. There is facet joint arthropathy. L5-S1 level: There is no evidence of significant disc bulge or focal herniation. There is no evidence of spinal or foraminal stenosis. There is moderate facet joint arthropathy. IMPRESSION: 1. No acute fractures or traumatic subluxations 2. Disc bulge with mild spinal stenosis at the L3-4 level 3. Grade 1 spondylolisthesis of L4 on L5. Circumferential disc bulge. Moderate to severe spinal stenosis. Electronically signed by: Eugenio Ledbetter M.D. 07/27/2017 4:48 PM Dictated Date/Time: 07/27/2017 4:46 PM
--- NOTE | 2017-07-27 17:25 | DIAGNOSTIC IMAGING REPORT ---
CHEST ONE VIEW PORTABLE CLINICAL HISTORY: Hepatic masses. RIGHT FLANK PAIN COMPARISON STUDY: 04/30/2017 FINDINGS: The cardiac and mediastinal contours are normal. There is no evidence of focal pulmonary consolidation. There is no evidence of failure. No pleural effusions are visualized.[ IMPRESSION: No active disease in the chest. Electronically signed by: Eugenio Ledbetter M.D. 07/27/2017 5:23 PM Dictated Date/Time: 07/27/2017 5:23 PM
[2017-07-27] MEDS ORDERED: SODIUM CHLORIDE 0.9% 1000ML 1,000 ML IV SCH (17:44)
[2017-07-27] MEDS ORDERED: GLUCOSE 10 TABS/TUBE PO PRN (17:45)
[2017-07-27] MEDS ORDERED: MoRPHine SULFATE 2 MG/ML CARP IV PRN (17:45)
[2017-07-27] MEDS ORDERED: DEXTROSE 50% 50 ML SYR IV PRN (17:45)
[2017-07-27] MEDS ORDERED: MELOXICAM 7.5 MG TAB PO PRN (17:45)
[2017-07-27] MEDS ORDERED: ALUMINUM/MAGNESIUM/SIMETH (MAALOX MAX) 30 ML UDC PO PRN (17:45)
[2017-07-27] MEDS ORDERED: GLUCAGON FOR INJ 1 MG VIAL SQ PRN (17:45)
[2017-07-27] MEDS ORDERED: POLYETHYLENE (MIRALAX) 17 GM PACK PO PRN (17:45)
[2017-07-27] MEDS ORDERED: GLUCOSE 40% GEL 15 GM TUBE PO PRN (17:45)
[2017-07-27] MEDS ORDERED: MAGNESIUM HYDROXIDE SUSP 30 ML UDC PO PRN (17:45)
[2017-07-27] MEDS ORDERED: ONDANSETRON INJ 2 MG/ML 2 ML VIAL IV PRN (17:45)
[2017-07-27] MEDS ORDERED: ACETAMINOPHEN 325 MG TAB PO PRN (17:45)
[2017-07-27] MEDS ORDERED: NITROGLYCERIN 0.4 MG SL PER TAB CHARGE SL PRN (17:45)
[2017-07-27] MEDS ORDERED: TRAMADOL HCL 50 MG TAB PO PRN (17:45)
--- NOTE | 2017-07-27 18:36 | History and Physical ---
History & Physical Date & Time of Service: Jul 27, 2017 at 18:05 Chief Complaint: Back Pain / Nontrauma Primary Care Physician: Venkatesh Lundy M.D. History of Present Illness Source: patient, clinic records, hospital records This is a 71 year old female with a PMH of NSTEMI in March 2017, s/p stent, insulin dependent DM2, ischemic cardiomyopathy, systolic CHF with EF around 40- 45%, CKD stage 3, HTN, HLD, hypothyroidism presents with RUQ abdominal pain; she states that the pain has been ongoing, but earlier in the day prior to arrival, the pain became worse. She presented to the ER, and had imagining performed showing multiple hepatic masses, suspicious for malignancy. Patient was here in April of 2017 with a possible GI bleed; had colonoscopy done at that time, showing tubular adenoma. She had a mammogram on 07/19, with no malignancy seen. She has no chest pain/shortness of breath. She also has low Hgb, but negative for stool occult blood. She hasn't noticed any blood in the stool or urine. Past Medical/Surgical History Medical Problems: (1) CKD (chronic kidney disease), stage III Status: Chronic (2) Coronary artery disease Permanent Comment: 03/2017 - NSTEMI, PCI/LAVONNE to mid LAD Status: Chronic (3) Diverticulosis Status: Chronic (4) DM type 2 (diabetes mellitus, type 2) Status: Chronic (5) Dyslipidemia Status: Chronic (6) Gastroparesis Status: Chronic (7) Glaucoma Status: Chronic (8) Gout Status: Chronic (9) HTN (hypertension) Status: Chronic (10) Hypertriglyceridemia Status: Chronic (11) Ischemic cardiomyopathy Status: Chronic Surgical Problems: (1) H/O thyroidectomy Status: Chronic (2) Status post cataract extraction Status: Chronic Family History Diabetes mellitus MOTHER BROTHER FH: breast cancer MOTHER SISTER Social History Smoking Status: Never Smoker Immunizations History of Influenza Vaccine: Yes Influenza Vaccine Date: Aug 20, 2016 History of Tetanus Vaccine?: Yes Tetanus Immunization Date: Sep 24, 2007 History of Pneumococcal: Yes Pneumococcal Date: May 25, 2015 Multi-Drug Resistant Organisms History of MDRO: No Allergies Coded Allergies: Lisinopril (Verified Allergy, Unknown, UNKNOWN, 07/27/17) Home Medications Scheduled Allopurinol (Zyloprim), 200 MG PO DAILY Aspirin (Ecotrin Low Strength), 81 MG PO DAILY Atorvastatin (Lipitor), 40 MG PO HS Chlorthalidone (Chlorthalidone), 12.5 MG PO Q2D Cholecalciferol (D 5000), 5,000 UNITS PO QAM Clopidogrel (Plavix), 75 MG PO QAM Fenofibrate (Tricor ), 134 MG PO DAILY Insulin Aspart (Novolog Flexpen), 6 UNITS SC AC Insulin Glargine (Lantus Solostar), 15 UNITS SC DAILYBB Levothyroxine Sodium (Levothyroxine Sodium), 112 MCG PO DAILY Losartan Potassium (Cozaar), 50 MG PO DAILY Magnesium (Magnesium 250 mg), 250 MG PO BID Metoprolol Succ (Toprol Xl) (Toprol-Xl), 25 MG PO BID Multiple Vitamins W/ Minerals (Centrum Silver), 1 TAB PO DAILY Omeprazole (Prilosec), 40 MG PO DAILY Scheduled PRN Meloxicam (Mobic), 7.5 MG PO DAILY PRN for Pain Nitroglycerin (Nitrostat), 1 TAB SL UD PRN for Chest Pain Review of Systems Constitutional: No fever, No chills Eyes: No worsening of vision ENT: No hearing loss Respiratory: No cough, No sputum, No wheezing, No shortness of breath, No dyspnea on exertion Cardiovascular: No chest pain Abdomen: + pain, No nausea, No vomiting, No diarrhea, No constipation, No GI bleeding Musculoskeletal: + problem reported (restless leg), No joint pain Genitourinary - Female: No dysuria, No urinary frequency, No urinary urgency, No urinary incontinence, No urinary retention, No hematuria Neurologic: No memory loss, No numbness/tingling Psychiatric: No depression symptoms Endocrine: No fatigue Hematologic / Lymphatic: No abnormal bleeding/bruising Integumentary: No rash Allergic / Immunologic: No environmental allergies, No seasonal allergies Physical Exam Vital Signs Date Time Temp Pulse Resp B/P (MAP) Pulse Ox O2 Delivery O2 Flow Rate FiO2 07/27/17 16:13 74 16 140/67 98 Room Air 07/27/17 15:18 36.9 89 20 143/72 98 Room Air General Appearance: no apparent distress Head: normocephalic, atraumatic Eyes: normal inspection ENT: hearing grossly normal Respiratory/Chest: lungs clear, normal breath sounds, no respiratory distress, no accessory muscle use Cardiovascular: regular rate, rhythm, no edema, no gallop, no JVD, no murmur, normal peripheral pulses Abdomen/GI: normal bowel sounds, soft, + tenderness (RUQ, midly to deep palpation) Extremities/Musculoskelatal: normal inspection, no calf tenderness, normal capillary refill, no pedal edema, normal range of motion, + pertinent finding (+ chronic deformity of R foot) Neurologic/Psych: no motor/sensory deficits, alert, normal mood/affect Skin: normal color Diagnostics Laboratory Results Results Past 24 Hours Test 07/27/17 14:54 07/27/17 15:04 07/27/17 17:35 Range/Units White Blood Count 5.02 4.8-10.8 K/uL Red Blood Count 2.86 4.2-5.4 M/uL Hemoglobin 7.6 12.0-16.0 g/dL Hematocrit 25.0 37-47 % Mean Corpuscular Volume 87.4 80-100 fL Mean Corpuscular Hemoglobin 26.6 25-34 pg Mean Corpuscular Hemoglobin Concent 30.4 32-36 g/dl Platelet Count 313 130-400 K/uL Mean Platelet Volume 11.2 7.4-10.4 fL Neutrophils (%) (Auto) 65.9 % Lymphocytes (%) (Auto) 17.5 % Monocytes (%) (Auto) 10.0 % Eosinophils (%) (Auto) 6.0 % Basophils (%) (Auto) 0.2 % Neutrophils # (Auto) 3.31 1.4-6.5 K/uL Lymphocytes # (Auto) 0.88 1.2-3.4 K/uL Monocytes # (Auto) 0.50 0.11-0.59 K/uL Eosinophils # (Auto) 0.30 0-0.5 K/uL Basophils # (Auto) 0.01 0-0.2 K/uL RDW Standard Deviation 49.3 36.4-46.3 fL RDW Coefficient of Variation 15.3 11.5-14.5 % Immature Granulocyte % (Auto) 0.4 % Immature Granulocyte # (Auto) 0.02 0.00-0.02 K/uL Polychromasia 1+ Sodium Level 138 136-145 mmol/L Potassium Level 4.9 3.5-5.1 mmol/L Chloride Level 109 98-107 mmol/L Carbon Dioxide Level 22 21-32 mmol/L Anion Gap 7.0 3-11 mmol/L Blood Urea Nitrogen 28 7-18 mg/dl Creatinine 1.50 0.60-1.20 mg/dl Estimated GFR () 39.6 Estimated GFR (Non- 34.2 BUN/Creatinine Ratio 18.6 10-20 Random Glucose 161 70-99 mg/dl Calcium Level 9.6 8.5-10.1 mg/dl Total Bilirubin 0.4 0.2-1 mg/dl Direct Bilirubin 0.2 0-0.2 mg/dl Aspartate Amino Transf (AST/SGOT) 55 15-37 U/L Alanine Aminotransferase (ALT/SGPT) 31 12-78 U/L Alkaline Phosphatase 86 45-117 U/L Total Protein 7.0 6.4-8.2 gm/dl Albumin 2.9 3.4-5.0 gm/dl Lipase 220 73-393 U/L Urine Color YELLOW Urine Appearance CLEAR CLEAR Urine pH 5.0 4.5-7.5 Urine Specific [place] 1.016 1.000-1.030 Urine Protein NEG NEG Urine Glucose (UA) NEG NEG Urine Ketones NEG NEG Urine Occult Blood NEG NEG Urine Nitrite NEG NEG Urine Bilirubin NEG NEG Urine Urobilinogen NEG NEG Urine Leukocyte Esterase TRACE NEG Urine WBC (Auto) 1-5 0-5 /hpf Urine RBC (Auto) 0-4 0-4 /hpf Urine Hyaline Casts (Auto) 0 0-5 /lpf Urine Epithelial Cells (Auto) 5-10 0-5 /lpf Urine Bacteria (Auto) NEG NEG Diagnostic Radiology CT SCAN OF THE ABDOMEN AND PELVIS WITHOUT CONTRAST CLINICAL HISTORY: Right flank pain COMPARISON STUDY: No previous studies for comparison. TECHNIQUE: CT scan of the abdomen and pelvis was performed from the lung bases to the proximal femurs. Images are reviewed in the axial, sagittal, and coronal planes. IV contrast was not administered for this examination. A dose lowering technique was utilized adhering to the principles of ALARA. CT DOSE: FINDINGS: Lower chest: There is soft tissue prominence within the right lower chest wall. Correlation with physical [id number] is recommended to evaluate for possible breast/chest wall mass. The lung bases are unremarkable. Liver: There are too numerous to count hepatic masses suspicious for metastatic disease. Gallbladder: Unremarkable. Spleen: Normal in size and attenuation. Pancreas: Unremarkable. Adrenal glands: Unremarkable. Kidneys: No renal, ureteral, or bladder calculi are visualized. Bowel: There are no transition zones indicate bowel obstruction. The appendix appears normal. There is no acute diverticulitis. Peritoneum: There is no intraperitoneal free air or abdominal ascites. Vasculature: The abdominal aorta is normal in course and caliber. Adenopathy: There is aortocaval lymphadenopathy with the largest node measuring 18 mm. Pelvic viscera: The bladder, and pelvic viscera are unremarkable. Skeletal structures: No destructive osseous lesions are seen. IMPRESSION: 1. Multiple hepatic masses. The findings should be presumed to represent metastatic disease until proven otherwise 2. No evidence of bowel obstruction. No evidence of free air. 3. Normal appendix 4. No renal, ureteral, or bladder calculi identified 5. Aortocaval lymphadenopathy 6. Right chest wall asymmetry. Correlation with physical examination is recommended to exclude a chest wall/breast mass. CT LUMBAR SPINE WITHOUT CT DOSE: 2527.97 mGy.cm CLINICAL HISTORY: Back and flank pain. TECHNIQUE: Helical images were acquired in transverse plane. Reformatted sagittal and coronal images were reviewed. A dose lowering technique was utilized adhering to the principles of ALARA. CONTRAST: No contrast was administered COMPARISON STUDY: None. FINDINGS: L1-2 level: There is no evidence of significant disc bulge or focal herniation. There is no evidence of spinal or foraminal stenosis. L2-3 level: There is no evidence of significant disc bulge or focal herniation. There is no evidence of spinal or foraminal stenosis. L3-4 level: There is a circumferential disc bulge with mild spinal stenosis. L4-5 level: There is a grade 1 spondylolisthesis of L4 on L5. There is a circumferential disc bulge. There is moderate to severe spinal stenosis. There is facet joint arthropathy. L5-S1 level: There is no evidence of significant disc bulge or focal herniation. There is no evidence of spinal or foraminal stenosis. There is moderate facet joint arthropathy. IMPRESSION: 1. No acute fractures or traumatic subluxations 2. Disc bulge with mild spinal stenosis at the L3-4 level 3. Grade 1 spondylolisthesis of L4 on L5. Circumferential disc bulge. Moderate to severe spinal stenosis. CHEST ONE VIEW PORTABLE CLINICAL HISTORY: Hepatic masses. RIGHT FLANK PAIN COMPARISON STUDY: 04/30/2017 FINDINGS: The cardiac and mediastinal contours are normal. There is no evidence of focal pulmonary consolidation. There is no evidence of failure. No pleural effusions are visualized.[ IMPRESSION: No active disease in the chest. EKG NSR @ 77 bpm Impression Assessment and Plan This is a 71 year old female with a PMH of NSTEMI in March 2017, s/p stent, insulin dependent DM2, ischemic cardiomyopathy, systolic CHF with EF around 40- 45%, CKD stage 3, HTN, HLD, hypothyroidism presents with RUQ abdominal pain Hepatic Masses CT of the abdomen shows some hepatic masses suspicious for malignancy Mammogram on 07/19/17 - negative Colonoscopy in April 2017 - tubular adenoma will likely need biopsy Morphine and Tramadol PRN for the pain consulted GI for now due to hepatic masses and anemia may need CT chest Anemia possibly of chronic disease? anemia work-up pending stool occult negative transfuse one unit H/H q6 Lasix x1 post-transfusion Hx. of NSTEMI in March 2017 s/p stent continue aspirin/Plavix cont. b-porsche trend cardiac enzymes monitor in tele Insulin Dependent DM2 start Lantus 5 units q12 sliding scale BSGs AC-HS Hypothyroidism check TSH continue Synthroid CKD stage 3 creat at 1.5, slightly elevated from baseline of 1.3, monitor and adjust accordingly after transfusion Chronic Systolic CHF Ischemic Cardiomyopathy EF is 40-45% monitor for fluid overload give Lasix 20mg x1 with transfusion DVT ppx SCDs due to anemia FULL CODE VTE Prophylaxis VTE Risk Assessment Done? Y/N: Yes Risk Level: Moderate
[2017-07-27 18:50] VITALS: BP 154/64; PULSE 78; TEMP 37; O2SAT 96; BMI 29.1
--- NOTE | 2017-07-27 19:09 | EMERGENCY ROOM VISIT NOTE ---
History Report prepared by Sindy: Adelso Moss Under the Supervision of: Dr. Lalo Rivera M.D. First contact with patient: 15:14 Stated Complaint: BACK PAIN / NONTRAUMA History of Present Illness The patient is a 71 year old female who presents to the Emergency Room with complaints of constant right flank pain that started a week ago. The patient rates her pain as an 8/10 in severity. She reports that the pain radiates into her lower abdomen.The patient states that the pain is relieved with walking and worsened with laying down. She also admits to experiencing intermittent nausea. The patient denies usually having high blood pressure, but reports her systolic blood pressure was 179 when she checked earlier today. The patient admits that the pain is currently not as severe as it was earlier today. She admits to a history of kidney stones. She denies fever, vomiting, chest pain, shortness of breath, urinary symptoms, abdominal surgery, and diarrhea. Source of History: patient Onset: a week ago Position: other (right flank) Quality: sharp Timing: constant Modifying Factors (Worsening): other (lying down) Modifying Factors (Relieving): other (walking) Associated Symptoms: No fevers, No chest pain, No SOB, No vomiting, No diarrhea, No urinary symptoms Review of Systems See HPI for pertinent positives & negatives. A total of 10 systems reviewed and were otherwise negative. Past Medical & Surgical Medical Problems: (1) CKD (chronic kidney disease), stage III (2) Coronary artery disease (3) Diverticulosis (4) DM type 2 (diabetes mellitus, type 2) (5) Dyslipidemia (6) Gastroparesis (7) Glaucoma (8) Gout (9) HTN (hypertension) (10) Hypertriglyceridemia (11) Ischemic cardiomyopathy (12) Liver masses Surgical Problems: (1) H/O thyroidectomy (2) Status post cataract extraction Family History Diabetes mellitus MOTHER BROTHER FH: breast cancer MOTHER SISTER Social History Smoking Status: Never Smoker Housing Status: assisted living Occupation Status: retired Current/Historical Medications Scheduled Allopurinol (Zyloprim), 200 MG PO DAILY Aspirin (Ecotrin Low Strength), 81 MG PO DAILY Atorvastatin (Lipitor), 40 MG PO HS Chlorthalidone (Chlorthalidone), 12.5 MG PO Q2D Cholecalciferol (D 5000), 5,000 UNITS PO QAM Clopidogrel (Plavix), 75 MG PO QAM Fenofibrate (Tricor ), 134 MG PO DAILY Insulin Aspart (Novolog Flexpen), 6 UNITS SC AC Insulin Glargine (Lantus Solostar), 15 UNITS SC DAILYBB Levothyroxine Sodium (Levothyroxine Sodium), 112 MCG PO DAILY Losartan Potassium (Cozaar), 50 MG PO DAILY Magnesium (Magnesium 250 mg), 250 MG PO BID Metoprolol Succ (Toprol Xl) (Toprol-Xl), 25 MG PO BID Multiple Vitamins W/ Minerals (Centrum Silver), 1 TAB PO DAILY Omeprazole (Prilosec), 40 MG PO DAILY Scheduled PRN Meloxicam (Mobic), 7.5 MG PO DAILY PRN for Pain Nitroglycerin (Nitrostat), 1 TAB SL UD PRN for Chest Pain Allergies Coded Allergies: Lisinopril (Verified Allergy, Unknown, UNKNOWN, 07/27/17) Physical Exam Vital Signs Date Time Temp Pulse Resp B/P (MAP) Pulse Ox O2 Delivery O2 Flow Rate FiO2 07/27/17 18:22 76 18 140/65 94 07/27/17 18:17 78 20 140/65 100 Room Air 07/27/17 18:05 81 07/27/17 16:13 74 16 140/67 98 Room Air 07/27/17 15:18 36.9 89 20 143/72 98 Room Air Physical Exam Constitutional: Vital signs reviewed. Eyes: Pupils are equal round reactive to light. Conjunctiva are noninjected. ENT: Pharynx is clear without erythema or exudate. Mucous membranes are moist. Neck supple without meningeal signs. Respiratory: Clear to auscultation bilaterally. Breath sounds are equal bilaterally. Cardiovascular: Regular rate and rhythm. No rubs or gallops. GI: Soft, nondistended and presence of suprapubic right lower quadrant tenderness. No guarding. Bowel sounds are present. Musculoskeletal: No peripheral edema. Integumentary: No cyanosis. Neurological: The patient is awake and alert. No focal deficits. Psychiatric: Normal affect. Medical Decision & Procedures ER Provider Diagnostic Interpretation: Radiology results as stated below per my review and the radiologist's interpretation: CT SCAN OF THE ABDOMEN AND PELVIS WITHOUT CONTRAST CLINICAL HISTORY: Right flank pain COMPARISON STUDY: No previous studies for comparison. TECHNIQUE: CT scan of the abdomen and pelvis was performed from the lung bases to the proximal femurs. Images are reviewed in the axial, sagittal, and coronal planes. IV contrast was not administered for this examination. A dose lowering technique was utilized adhering to the principles of ALARA. CT DOSE: FINDINGS: Lower chest: There is soft tissue prominence within the right lower chest wall. Correlation with physical [id number] is recommended to evaluate for possible breast/chest wall mass. The lung bases are unremarkable. Liver: There are too numerous to count hepatic masses suspicious for metastatic disease. Gallbladder: Unremarkable. Spleen: Normal in size and attenuation. Pancreas: Unremarkable. Adrenal glands: Unremarkable. Kidneys: No renal, ureteral, or bladder calculi are visualized. Bowel: There are no transition zones indicate bowel obstruction. The appendix appears normal. There is no acute diverticulitis. Peritoneum: There is no intraperitoneal free air or abdominal ascites. Vasculature: The abdominal aorta is normal in course and caliber. Adenopathy: There is aortocaval lymphadenopathy with the largest node measuring 18 mm. Pelvic viscera: The bladder, and pelvic viscera are unremarkable. Skeletal structures: No destructive osseous lesions are seen. IMPRESSION: 1. Multiple hepatic masses. The findings should be presumed to represent metastatic disease until proven otherwise 2. No evidence of bowel obstruction. No evidence of free air. 3. Normal appendix 4. No renal, ureteral, or bladder calculi identified 5. Aortocaval lymphadenopathy 6. Right chest wall asymmetry. Correlation with physical examination is recommended to exclude a chest wall/breast mass. Electronically signed by: Eugenio Ledbetter M.D. 07/27/2017 4:46 PM Dictated Date/Time: 07/27/2017 4:[address] LUMBAR SPINE WITHOUT CT DOSE: 2527.97 mGy.cm CLINICAL HISTORY: Back and flank pain. TECHNIQUE: Helical images were acquired in transverse plane. Reformatted sagittal and coronal images were reviewed. A dose lowering technique was utilized adhering to the principles of ALARA. CONTRAST: No contrast was administered COMPARISON STUDY: None. FINDINGS: L1-2 level: There is no evidence of significant disc bulge or focal herniation. There is no evidence of spinal or foraminal stenosis. L2-3 level: There is no evidence of significant disc bulge or focal herniation. There is no evidence of spinal or foraminal stenosis. L3-4 level: There is a circumferential disc bulge with mild spinal stenosis. L4-5 level: There is a grade 1 spondylolisthesis of L4 on L5. There is a circumferential disc bulge. There is moderate to severe spinal stenosis. There is facet joint arthropathy. L5-S1 level: There is no evidence of significant disc bulge or focal herniation. There is no evidence of spinal or foraminal stenosis. There is moderate facet joint arthropathy. IMPRESSION: 1. No acute fractures or traumatic subluxations 2. Disc bulge with mild spinal stenosis at the L3-4 level 3. Grade 1 spondylolisthesis of L4 on L5. Circumferential disc bulge. Moderate to severe spinal stenosis. Electronically signed by: Eugenio Ledbetter M.D. 07/27/2017 4:48 PM Dictated Date/Time: 07/27/2017 4:46 PM CHEST ONE VIEW PORTABLE CLINICAL HISTORY: Hepatic masses. RIGHT FLANK PAIN COMPARISON STUDY: 04/30/2017 FINDINGS: The cardiac and mediastinal contours are normal. There is no evidence of focal pulmonary consolidation. There is no evidence of failure. No pleural effusions are visualized.[ IMPRESSION: No active disease in the chest. Electronically signed by: Eugenio Ledbetter M.D. 07/27/2017 5:23 PM Dictated Date/Time: 07/27/2017 5:23 PM Laboratory Results 07/27/17 14:54 Red Blood Count 2.86, Mean Corpuscular Volume 87.4, Mean Corpuscular Hemoglobin 26.6, Mean Corpuscular Hemoglobin Concent 30.4, Mean Platelet Volume 11.2, Neutrophils (%) (Auto) 65.9, Lymphocytes (%) (Auto) 17.5, Monocytes (%) (Auto) 10.0, Eosinophils (%) (Auto) 6.0, Basophils (%) (Auto) 0.2, Neutrophils # (Auto ) 3.31, Lymphocytes # (Auto) 0.88, Monocytes # (Auto) 0.50, Eosinophils # (Auto ) 0.30, Basophils # (Auto) 0.01 07/27/17 14:54 Test 07/27/17 14:54 07/27/17 15:04 07/27/17 17:35 07/27/17 18:13 White Blood Count 5.02 K/uL (4.8-10.8) Red Blood Count 2.86 M/uL (4.2-5.4) Hemoglobin 7.6 g/dL (12.0-16.0) Hematocrit 25.0 % (37-47) Mean Corpuscular Volume 87.4 fL (80-100) Mean Corpuscular Hemoglobin 26.6 pg (25-34) Mean Corpuscular Hemoglobin Concent 30.4 g/dl (32-36) Platelet Count 313 K/uL (130-400) Mean Platelet Volume 11.2 fL (7.4-10.4) Neutrophils (%) (Auto) 65.9 % Lymphocytes (%) (Auto) 17.5 % Monocytes (%) (Auto) 10.0 % Eosinophils (%) (Auto) 6.0 % Basophils (%) (Auto) 0.2 % Neutrophils # (Auto) 3.31 K/uL (1.4-6.5) Lymphocytes # (Auto) 0.88 K/uL (1.2-3.4) Monocytes # (Auto) 0.50 K/uL (0.11-0.59) Eosinophils # (Auto) 0.30 K/uL (0-0.5) Basophils # (Auto) 0.01 K/uL (0-0.2) RDW Standard Deviation 49.3 fL (36.4-46.3) RDW Coefficient of Variation 15.3 % (11.5-14.5) Immature Granulocyte % (Auto) 0.4 % Immature Granulocyte # (Auto) 0.02 K/uL (0.00-0.02) Polychromasia 1+ Anion Gap 7.0 mmol/L (3-11) Estimated GFR () 39.6 Estimated GFR (Non- 34.2 BUN/Creatinine Ratio 18.6 (10-20) Calcium Level 9.6 mg/dl (8.5-10.1) Total Bilirubin 0.4 mg/dl (0.2-1) Direct Bilirubin 0.2 mg/dl (0-0.2) Aspartate Amino Transf (AST/SGOT) 55 U/L (15-37) Alanine Aminotransferase (ALT/SGPT) 31 U/L (12-78) Alkaline Phosphatase 86 U/L (45-117) Total Protein 7.0 gm/dl (6.4-8.2) Albumin 2.9 gm/dl (3.4-5.0) Lipase 220 U/L (73-393) Urine Color YELLOW Urine Appearance CLEAR (CLEAR) Urine pH 5.0 (4.5-7.5) Urine Specific Tucker 1.016 (1.000-1.030) Urine Protein NEG (NEG) Urine Glucose (UA) NEG (NEG) Urine Ketones NEG (NEG) Urine Occult Blood NEG (NEG) Urine Nitrite NEG (NEG) Urine Bilirubin NEG (NEG) Urine Urobilinogen NEG (NEG) Urine Leukocyte Esterase TRACE (NEG) Urine WBC (Auto) 1-5 /hpf (0-5) Urine RBC (Auto) 0-4 /hpf (0-4) Urine Hyaline Casts (Auto) 0 /lpf (0-5) Urine Epithelial Cells (Auto) 5-10 /lpf (0-5) Urine Bacteria (Auto) NEG (NEG) Troponin I < 0.015 ng/ml (0-0.045) Transferrin % Saturation % (15-50) Laboratory results as reviewed by me. ECG Indication: chest pain Rate (beats per minute): 77 Rhythm: sinus rhythm Findings: Q waves (V1 V2), no ectopy ED Course 1517: The patient was evaluated in room A02. A complete history and physical exam was performed. 1655: Nursing informed me that her sample was Guaiac negative. 1658: I reevaluated the patient and she reports no history of carcinoma. She reports that she has been getting chest pain with exertion when going up the stairs. She denies any chest pain now. Medical Decision This is a 71-year-old female presents with right-sided abdominal and flank pain. Differential diagnosis includes renal colic, hydronephrosis, colitis, diverticulitis, appendicitis, lumbar radiculopathy. I did perform a limited focused review of portions of the patient's old chart on the electronic medical record. The patient was admitted in April for syncope and GI bleed. She had an unremarkable EKG and colonoscopy. Her syncope was thought to be secondary to hypoglycemia. I did evaluate the patient as noted above. IV access was established. She is presenting with right-sided flank pain. I did order and personally review the patient's urinalysis as described above. I did order and review the patient's blood work as noted in the electronic medical record. The patient has significant anemia. I did order a CT of the abdomen and pelvis and lumbar spine. I did review the images myself as well as the radiology report as described above. She does appear to have metastatic lesions to the liver as well as possible soft tissue mass in the right breast or chest wall. I did reassess the patient. I did discuss the test results with the patient. She states that she has had chest pain with exertion also denies any chest pain at this time. I did order a twelve-lead EKG as described above. Troponin is negative. Chest x-ray was unremarkable. I did discuss case with the hospitalist and case repairer for further evaluation in the hospital. Medication Reconcilliation Current Medication List: was personally reviewed by me Blood Pressure Screening Patient's blood pressure: Elevated blood pressure Impression Primary Impression: Right flank pain Additional Impressions: Anemia Exertional chest pain Metastatic cancer to liver Scribe Attestation The scribe's documentation has been prepared under my direct and personally reviewed by me in its entirety. I confirm that the note above accurately reflects all work, treatment, procedures, and medical decision making performed by me. Departure Information Dispostion Being Evaluated By Hospitalist Referrals Venkatesh Lundy M.D. (PCP) Problem Qualifiers Additional Impressions: Anemia Anemia type: unspecified type Qualified Codes: D64.9 - Anemia, unspecified
[2017-07-27 19:58] LABS: HEMATOCRIT 23.7 % (37-47)
[2017-07-27 20:08] LABS: FERRITIN 40.8 ng/ml (8.0-388.0)
[2017-07-27] MEDS: INSULIN ASPART 100 UNITS/ML 3 ML PEN SC SCH (21:00)
[2017-07-27] MEDS ORDERED: FUROSEMIDE INJ 20 MG in SYRINGE 0 ML IV SCH (22:00)
[2017-07-27] MEDS: ATORVASTATIN 40 MG TAB PO SCH (22:30)
[2017-07-27] MEDS: METOPROLOL SUCC 25MG EXT REL TAB PO SCH (22:30)
[2017-07-27] MEDS: MAGNESIUM OXIDE 400 MG TAB PO SCH (22:31)
[2017-07-27] MEDS: INSULIN GLARGINE SOLOSTAR 100 UNITS/ML 3 ML PEN SC SCH (22:32)
[2017-07-27 22:49] VITALS: BP 147/68; PULSE 74; TEMP 36.9; O2SAT 98
[2017-07-27 23:03] VITALS: BP 127/95; PULSE 73; TEMP 36.9; O2SAT 97
[2017-07-27 23:18] VITALS: BP 119/59; PULSE 72; TEMP 36.9; O2SAT 97
[2017-07-27 23:24] LABS: BUN/CREATININE RATIO 18.4 (10-20); CALCIUM 9.7 mg/dl (8.5-10.1); CREATININE 1.3 mg/dl (0.60-1.20); MAGNESIUM 1.6 mg/dl (1.8-2.4); POTASSIUM 4.6 mmol/L (3.5-5.1)
[2017-07-27 23:49] VITALS: BP 90/50; PULSE 94; TEMP 37.1; O2SAT 92
[2017-07-27 23:53] VITALS: BP 134/60; PULSE 69; TEMP 36.7; O2SAT 98
[2017-07-28] VITALS (15 sets, daily range): BP systolic 118–162; BP diastolic 51–82; PULSE 61–105; TEMP 36.7–37.5; O2SAT 93–99
[2017-07-28] MEDS ORDERED: MAGNESIUM SULFATE 1GM / D5W 1 GM in PREMIXED IN D5W 100 ML IV ONE (01:30)
[2017-07-28] MEDS: LEVOTHYROXINE 112 MCG TAB PO SCH (06:21)
[2017-07-28] MEDS: INSULIN ASPART 100 UNITS/ML 3 ML PEN SC SCH ×4 (07:00→21:00)
[2017-07-28] MEDS: ALLOPURINOL 100 MG TAB PO SCH (07:22)
[2017-07-28] MEDS: MAGNESIUM OXIDE 400 MG TAB PO SCH ×2 (07:22→21:46)
[2017-07-28] MEDS: METOPROLOL SUCC 25MG EXT REL TAB PO SCH ×2 (07:22→21:47)
[2017-07-28] MEDS: LOSARTAN POTASSIUM 50 MG TAB PO SCH (07:22)
[2017-07-28 08:37] LABS: HEMATOCRIT 35.2 % (37-47); MEAN CELL VOLUME 87.1 fL (80-100); MEAN CORPUSCULAR HGB CONC 32.1 g/dl (32-36); PLATELET COUNT 331 K/uL (130-400); RED BLOOD COUNT 4.04 M/uL (4.2-5.4); WHITE BLOOD COUNT 5.17 K/uL (4.8-10.8)
[2017-07-28 08:53] LABS: BUN/CREATININE RATIO 16.6 (10-20); CALCIUM 10.2 mg/dl (8.5-10.1); CREATININE 1.3 mg/dl (0.60-1.20); MAGNESIUM 1.9 mg/dl (1.8-2.4); POTASSIUM 4.4 mmol/L (3.5-5.1)
[2017-07-28 08:58] LABS: CKMB/CK RATIO 2.6 (0-3.0)
[2017-07-28] MEDS ORDERED: CLOPIDOGREL BISULFATE 75 MG TAB PO SCH (09:00)
[2017-07-28] MEDS ORDERED: ASPIRIN 81 MG ECTAB PO SCH (09:00)
[2017-07-28] MEDS ORDERED: PANTOprazole SOD 40 MG TAB PO SCH (09:00)
[2017-07-28 09:03] LABS: THYROID STIMULATING HORMONE 1.57 uIu/ml (0.300-4.500)
[2017-07-28] MEDS: INSULIN GLARGINE SOLOSTAR 100 UNITS/ML 3 ML PEN SC SCH ×2 (09:32→21:50)
--- NOTE | 2017-07-28 09:57 | GASTROINTESTINAL CONSULTATION ---
DATE OF CONSULTATION: 07/28/2017 CHIEF COMPLAINT: Abdominal discomfort. HISTORY OF PRESENT ILLNESS: The patient is a 71-year-old female with a past medical history significant for atherosclerotic coronary artery disease, diabetes and an ischemic cardiomyopathy, who presented to the Emergency Room yesterday evening with right-sided abdominal discomfort. The patient notes that the symptoms had been ongoing for several days, perhaps several weeks. She underwent an imaging study, which showed evidence of multiple liver masses. Of note, the patient did have an upper endoscopy and colonoscopy about 3 months ago, which were notable for a small colonic polyp. PAST MEDICAL HISTORY: 1. Chronic renal insufficiency. 2. Atherosclerotic coronary artery disease. 3. Diverticulosis. 4. Diabetes. 5. Hypercholesterolemia. 6. Gastroparesis. 7. Glaucoma. 8. Gout. 9. Hypertension. 10. Ischemic cardiomyopathy. PAST SURGICAL HISTORY: Thyroidectomy and cataract extraction. FAMILY HISTORY: Diabetes in mother and brother. Breast cancer in mother and sister. SOCIAL HISTORY: The patient is a nonsmoker. The patient denies alcohol use. ALLERGIES: LISINOPRIL. OUTPATIENT MEDICATIONS: 1. Allopurinol 200 mg per day. 2. Aspirin 81 mg per day. 3. Atorvastatin 40 mg at bedtime. 4. Vitamin D 5000 units q.a.m. 5. Plavix 75 mg q.a.m. 6. Tricor 134 mg daily. 7. Insulin NovoLog and Lantus. 8. Levothyroxine 112 mcg daily. 9. Losartan 50 mg daily. 10. Magnesium 250 mg twice daily. 11. Metoprolol 25 mg twice daily. 12. Omeprazole 40 mg daily. 13. Multivitamin once daily. 14. P.r.n. medications, Mobic and Nitrostat. REVIEW OF SYSTEMS: CONSTITUTIONAL: No fevers and no chills. HEENT: No worsening of vision. ENT: No hearing loss. RESPIRATORY: No cough and no shortness of breath. CARDIOVASCULAR: No chest pain. GASTROINTESTINAL: Please see history of present illness. MUSCULOSKELETAL: The patient is with restless legs syndrome. GENITOURINARY: No dysuria. NEUROLOGIC: No memory loss. PSYCHIATRIC: No depression. ENDOCRINE: No fatigue. HEMATOLOGIC: No history of abnormal bleeding noted. The patient is on Plavix and aspirin. PHYSICAL EXAMINATION: VITAL SIGNS: Temperature 36.7, pulse 61, respiratory rate 16, blood pressure is 162/71, and pulse ox is 95% on room air. HEENT: No scleral icterus noted. No JVD noted. LUNGS: Clear to auscultation. CARDIOVASCULAR: Regular rhythm with no murmur today. ABDOMEN: Soft and nontender. In majority of the abdomen, mild right upper quadrant tenderness noted. EXTREMITIES: No edema noted today. NEUROLOGIC: Cranial nerves grossly intact. Motor grossly intact. SKIN: No spider nevi noted. LABORATORY DATA: White blood cell count is 5.1, hemoglobin is 11.3, hematocrit is 35.2, and platelet count is 331. Chemistry: Sodium is 137, potassium is 4.4, chloride is 106, BUN is 22, creatinine is 1.3, calcium is 10.7, and magnesium is 1.9. AST 55, ALT 31, and alkaline phosphatase 86. Total bilirubin is 0.4. IMAGING STUDIES: Please see CT dated 07/27/2017, notable for multiple hepatic masses. IMPRESSION: A 71-year-old female presents to the Emergency Room yesterday with persistent right-sided abdominal discomfort. The CT scan is concerning for metastatic disease to her liver. Given the recent upper endoscopy and colonoscopy, I doubt that this is a colonic or gastric source. I would suggest that the next evaluation be an ultrasound guided liver biopsy with radiology. If they are not comfortable with this, we are happy to provide an endoscopic ultrasound guided liver biopsy. The patient will need to be off her Plavix and aspirin for at least 3 days prior to any biopsy attempts. Please call with any questions or concerns.
[2017-07-28] MEDS: PANTOprazole SOD 40 MG TAB PO SCH (10:31)
--- NOTE | 2017-07-28 14:49 | Progress Note ---
Subjective Date of Service: Jul 28, 2017. Subjective Pt evaluation today including: conversation w/ patient, physical exam, lab review, review of studies, review of inpatient medication list Saw/examined the patient in room 237 Doing well, pain improved No chest pain/shortness of breath Problem List Medical Problems: (1) Anemia Status: Acute (2) Anemia Status: Acute (3) Elevated troponin Status: Acute (4) Exertional chest pain Status: Acute (5) Hypoglycemia Status: Acute (6) Metastatic cancer to liver Status: Acute (7) Right flank pain Status: Acute (8) Syncope Status: Acute Review of Systems Constitutional: No fever, No chills Respiratory: No shortness of breath Cardiac: No chest pain Abdomen: No pain, No nausea, No vomiting, No diarrhea Musculoskeletal: No joint pain Medications Current Inpatient Medications Medications (Trade) Dose Ordered Sig/Bay Route Start Time Stop Time Status Last Admin Dose Admin Acetaminophen (Tylenol Tab) 650 mg Q4H PRN PO 07/27/17 17:45 08/26/17 17:44 Al Hydrox/Mg Hydrox/Simethicone (Maalox Max Susp) 15 ml Q4H PRN PO 07/27/17 17:45 08/26/17 17:44 Magnesium Hydroxide (Milk Of Magnesia Susp) 30 ml Q12H PRN PO 07/27/17 17:45 08/26/17 17:44 Ondansetron HCl (Zofran Inj) 4 mg Q6H PRN IV 07/27/17 17:45 08/26/17 17:44 Polyethylene (Miralax Powder Packet) 17 gm DAILY PRN PO 07/27/17 17:45 08/26/17 17:44 Allopurinol (Zyloprim Tab) 200 mg DAILY PO 07/28/17 09:00 08/27/17 08:59 07/28/17 07:22 200 MG Atorvastatin Calcium (Lipitor Tab) 40 mg HS PO 07/27/17 21:00 08/26/17 20:59 07/27/17 22:30 40 MG Chlorthalidone (Hygroton Tab) 12.5 mg Q2D@0900 PO 07/29/17 09:00 08/28/17 08:59 Levothyroxine Sodium (Synthroid Tab) 112 mcg DAILYBB PO 07/28/17 06:00 08/27/17 06:59 07/28/17 06:21 112 MCG Losartan Potassium (coZAAR TAB) 50 mg DAILY PO 07/28/17 09:00 08/27/17 08:59 07/28/17 07:22 50 MG Meloxicam (Mobic Tab) 7.5 mg DAILY PRN PO 07/27/17 17:45 08/26/17 17:44 Metoprolol Succinate (Toprol Xl Tab) 25 mg BID PO 07/27/17 21:00 08/26/17 20:59 07/28/17 07:22 25 MG Nitroglycerin (Nitrostat Tab) 0.4 mg UD PRN SL 07/27/17 17:45 08/26/17 17:44 Magnesium Oxide (Mag-Ox Tab) 200 mg BID PO 07/27/17 21:00 08/26/17 20:59 07/28/17 07:22 200 MG Morphine Sulfate (MoRPHine SULFATE INJ) 2 mg Q4 PRN IV 07/27/17 17:45 08/10/17 17:44 Tramadol HCl (Ultram Tab) 50 mg Q4H PRN PO 07/27/17 17:45 08/26/17 17:44 Insulin Glargine (Lantus Solostar Pen) 5 units Q12 SC 07/27/17 21:00 08/26/17 20:59 07/28/17 09:32 5 UNITS Insulin Aspart (novoLOG ASPART) SLIDING SCALE If C... ACHS SC 07/27/17 21:00 08/26/17 20:59 07/28/17 12:40 4 UNITS Glucose (Glucose 40% Gel) 15-30 GRAMS 15 GRAMS... UD PRN PO 07/27/17 17:45 08/26/17 17:44 Glucose (Glucose Chew Tab) 4-8 Tablets 4 Tabl... UD PRN PO 07/27/17 17:45 08/26/17 17:44 Dextrose (Dextrose 50% 50ML Syringe) 25-50ML OF 50% DW IV FOR... UD PRN IV 07/27/17 17:45 08/26/17 17:44 Glucagon (Glucagon Inj) 1 mg UD PRN SQ 07/27/17 17:45 08/26/17 17:44 Pantoprazole Sodium (Protonix Tab) 40 mg QAM PO 07/28/17 09:00 08/27/17 08:59 07/28/17 10:31 40 MG Objective Vital Signs Date Time Temp Pulse Resp B/P (MAP) Pulse Ox O2 Delivery O2 Flow Rate FiO2 07/28/17 12:29 Room Air 07/28/17 11:08 36.8 64 20 146/77 (100) 98 Room Air 160/62 (94) 07/28/17 08:17 Room Air 07/28/17 07:55 36.7 61 16 162/71 (101) 95 Room Air 07/28/17 06:31 36.9 62 18 159/67 98 07/28/17 05:52 37.0 65 16 155/70 97 07/28/17 05:26 36.9 80 20 148/82 93 07/28/17 04:55 37.1 81 18 162/78 99 07/28/17 04:53 37.3 77 17 125/51 (75) 96 Room Air 07/28/17 04:34 36.9 77 18 146/72 96 07/28/17 04:18 36.9 78 20 156/72 97 07/28/17 04:00 Room Air 07/28/17 00:48 36.7 77 20 149/69 97 07/27/17 23:59 Room Air 07/27/17 23:53 36.7 69 18 134/60 98 07/27/17 23:18 36.9 72 18 119/59 97 07/27/17 23:03 36.9 73 18 127/95 97 07/27/17 22:49 36.9 74 20 147/68 98 07/27/17 20:00 Room Air 07/27/17 18:50 37.0 78 18 154/64 96 Room Air 07/27/17 18:22 76 18 140/65 94 07/27/17 18:17 78 20 140/65 100 Room Air 07/27/17 18:05 81 07/27/17 16:13 74 16 140/67 98 Room Air 07/27/17 15:18 36.9 89 20 143/72 98 Room Air Physical Exam General Appearance: no apparent distress Respiratory/Chest: no respiratory distress, no accessory muscle use Cardiovascular: regular rate, rhythm, no edema, no murmur Abdomen: normal bowel sounds, non tender, soft Laboratory Results Last 24 Hours Test 07/27/17 14:54 07/27/17 15:04 07/27/17 17:35 07/27/17 19:13 White Blood Count 5.02 K/uL Red Blood Count 2.86 M/uL Hemoglobin 7.6 g/dL Hematocrit 25.0 % Mean Corpuscular Volume 87.4 fL Mean Corpuscular Hemoglobin 26.6 pg Mean Corpuscular Hemoglobin Concent 30.4 g/dl Platelet Count 313 K/uL Mean Platelet Volume 11.2 fL Neutrophils (%) (Auto) 65.9 % Lymphocytes (%) (Auto) 17.5 % Monocytes (%) (Auto) 10.0 % Eosinophils (%) (Auto) 6.0 % Basophils (%) (Auto) 0.2 % Neutrophils # (Auto) 3.31 K/uL Lymphocytes # (Auto) 0.88 K/uL Monocytes # (Auto) 0.50 K/uL Eosinophils # (Auto) 0.30 K/uL Basophils # (Auto) 0.01 K/uL RDW Standard Deviation 49.3 fL RDW Coefficient of Variation 15.3 % Immature Granulocyte % (Auto) 0.4 % Immature Granulocyte # (Auto) 0.02 K/uL Polychromasia 1+ Sodium Level 138 mmol/L Potassium Level 4.9 mmol/L Chloride Level 109 mmol/L Carbon Dioxide Level 22 mmol/L Anion Gap 7.0 mmol/L Blood Urea Nitrogen 28 mg/dl Creatinine 1.50 mg/dl Estimated GFR () 39.6 Estimated GFR (Non- 34.2 BUN/Creatinine Ratio 18.6 Random Glucose 161 mg/dl Calcium Level 9.6 mg/dl Total Bilirubin 0.4 mg/dl Direct Bilirubin 0.2 mg/dl Aspartate Amino Transf (AST/SGOT) 55 U/L Alanine Aminotransferase (ALT/SGPT) 31 U/L Alkaline Phosphatase 86 U/L Total Protein 7.0 gm/dl Albumin 2.9 gm/dl Lipase 220 U/L Urine Color YELLOW Urine Appearance CLEAR Urine pH 5.0 Urine Specific [place] 1.016 Urine Protein NEG Urine Glucose (UA) NEG Urine Ketones NEG Urine Occult Blood NEG Urine Nitrite NEG Urine Bilirubin NEG Urine Urobilinogen NEG Urine Leukocyte Esterase TRACE Urine WBC (Auto) 1-5 /hpf Urine RBC (Auto) 0-4 /hpf Urine Hyaline Casts (Auto) 0 /lpf Urine Epithelial Cells (Auto) 5-10 /lpf Urine Bacteria (Auto) NEG Troponin I < 0.015 ng/ml Iron Level 19 mcg/dl Total Iron Binding Capacity 492 mcg/dl Transferrin 379 mg/dl Transferrin % Saturation 4 % Ferritin 40.8 ng/ml Vitamin B12 Level 1399 pg/mL Folate > 24.00 ng/mL Test 07/27/17 19:51 07/27/17 20:53 07/27/17 22:41 07/28/17 06:46 Hemoglobin 7.6 g/dL Hematocrit 23.7 % Bedside Glucose 84 mg/dl 82 mg/dl Sodium Level 140 mmol/L Potassium Level 4.6 mmol/L Chloride Level 109 mmol/L Carbon Dioxide Level 25 mmol/L Anion Gap 6.0 mmol/L Blood Urea Nitrogen 24 mg/dl Creatinine 1.30 mg/dl Est Creatinine Clear Calc Drug Dose 31.7 ml/min Estimated GFR () 47.1 Estimated GFR (Non- 40.7 BUN/Creatinine Ratio 18.4 Random Glucose 85 mg/dl Calcium Level 9.7 mg/dl Magnesium Level 1.6 mg/dl Test 07/28/17 08:12 07/28/17 11:42 07/28/17 12:13 White Blood Count 5.17 K/uL Red Blood Count 4.04 M/uL Hemoglobin 11.3 g/dL 11.6 g/dL Hematocrit 35.2 % 36.0 % Mean Corpuscular Volume 87.1 fL Mean Corpuscular Hemoglobin 28.0 pg Mean Corpuscular Hemoglobin Concent 32.1 g/dl RDW Standard Deviation 46.5 fL RDW Coefficient of Variation 14.8 % Platelet Count 331 K/uL Mean Platelet Volume 11.0 fL Sodium Level 137 mmol/L Potassium Level 4.4 mmol/L Chloride Level 106 mmol/L Carbon Dioxide Level 23 mmol/L Anion Gap 8.0 mmol/L Blood Urea Nitrogen 22 mg/dl Creatinine 1.30 mg/dl Est Creatinine Clear Calc Drug Dose 31.5 ml/min Estimated GFR () 47.1 Estimated GFR (Non- 40.7 BUN/Creatinine Ratio 16.6 Random Glucose 133 mg/dl Calcium Level 10.2 mg/dl Magnesium Level 1.9 mg/dl Total Creatine Kinase 90 U/L Creatine Kinase MB 2.3 ng/ml Creatine Kinase MB Ratio 2.6 Troponin I < 0.015 ng/ml Thyroid Stimulating Hormone (TSH) 1.570 uIu/ml Bedside Glucose 121 mg/dl Assessment and Plan This is a 71 year old female with a PMH of NSTEMI in March 2017, s/p stent, insulin dependent DM2, ischemic cardiomyopathy, systolic CHF with EF around 40- 45%, CKD stage 3, HTN, HLD, hypothyroidism presents with RUQ abdominal pain Hepatic Masses 07/28 appreciate GI input spoke with cardiology - can hold Plavix for potential biopsy radiology states they will need to wait five days prior to an US-guided biopsy Dr. Naik can perform an EUS biopsy on Saturday if needed; will speak with GI pain is controlled 07/27 CT of the abdomen shows some hepatic masses suspicious for malignancy Mammogram on 07/19/17 - negative Colonoscopy in April 2017 - tubular adenoma will likely need biopsy Morphine and Tramadol PRN for the pain consulted GI for now due to hepatic masses and anemia may need CT chest Anemia 07/28 Hgb up to > 11 after two units of pRBCs 07/27 possibly of chronic disease? anemia work-up pending stool occult negative transfuse one unit H/H q6 Lasix x1 post-transfusion Hx. of NSTEMI in March 2017 s/p stent holding Aspirin/Plavix cont. b-porsche trend cardiac enzymes monitor in tele Insulin Dependent DM2 start Lantus 5 units q12 sliding scale BSGs AC-HS Hypothyroidism TSH wnl continue Synthroid CKD stage 3 creat at 1.5, slightly elevated from baseline of 1.3, monitor and adjust accordingly after transfusion Chronic Systolic CHF Ischemic Cardiomyopathy EF is 40-45% monitor for fluid overload give Lasix 20mg x1 with transfusion DVT ppx SCDs due to anemia FULL CODE
[2017-07-28 16:21] LABS: HEMATOCRIT 34.3 % (37-47)
[2017-07-28] MEDS: ATORVASTATIN 40 MG TAB PO SCH (21:47)
[2017-07-29 03:42] VITALS: BP 118/77; PULSE 93; TEMP 36.9; O2SAT 94
[2017-07-29] MEDS: LEVOTHYROXINE 112 MCG TAB PO SCH (06:15)
[2017-07-29 06:58] LABS: HEMATOCRIT 36.4 % (37-47); MEAN CELL VOLUME 87.3 fL (80-100); MEAN CORPUSCULAR HEMOGLOBIN 26.6 pg (25-34); MEAN CORPUSCULAR HGB CONC 30.5 g/dl (32-36); MEAN PLATELET VOLUME 11.5 fL (7.4-10.4); PLATELET COUNT 337 K/uL (130-400); RED BLOOD COUNT 4.17 M/uL (4.2-5.4); WHITE BLOOD COUNT 5.41 K/uL (4.8-10.8)
[2017-07-29] MEDS: INSULIN ASPART 100 UNITS/ML 3 ML PEN SC SCH ×3 (07:00→16:15)
[2017-07-29] MEDS: LOSARTAN POTASSIUM 50 MG TAB PO SCH (07:25)
[2017-07-29] MEDS: MAGNESIUM OXIDE 400 MG TAB PO SCH (07:25)
[2017-07-29] MEDS: METOPROLOL SUCC 25MG EXT REL TAB PO SCH (07:25)
[2017-07-29] MEDS: PANTOprazole SOD 40 MG TAB PO SCH (07:25)
[2017-07-29] MEDS: ALLOPURINOL 100 MG TAB PO SCH (07:26)
[2017-07-29 07:33] LABS: BUN/CREATININE RATIO 19.4 (10-20); CALCIUM 10.3 mg/dl (8.5-10.1); CREATININE 1.5 mg/dl (0.60-1.20); MAGNESIUM 1.9 mg/dl (1.8-2.4); POTASSIUM 4.4 mmol/L (3.5-5.1)
[2017-07-29 08:09] VITALS: BP 108/63; PULSE 66; TEMP 36.7; O2SAT 97
[2017-07-29] MEDS: INSULIN GLARGINE SOLOSTAR 100 UNITS/ML 3 ML PEN SC SCH (08:56)
[2017-07-29] MEDS ORDERED: CHLORTHALIDONE 25 MG TAB PO SCH (09:00)
[2017-07-29 11:40] VITALS: BP 115/76; PULSE 94; TEMP 36.5; O2SAT 98
[2017-07-29 13:36] VITALS: Ht 149.9 cm; Wt 63.0 kg
[2017-07-29 15:24] VITALS: BP 128/52; PULSE 63; TEMP 36.8; O2SAT 95
--- NOTE | 2017-07-29 16:21 | Progress Note ---
Subjective Date of Service: Jul 29, 2017. Subjective Pt evaluation today including: conversation w/ patient, physical exam, lab review, review of studies, review of inpatient medication list Saw/examined the patient in room 237 She's doing well, no pain, no problems/issues to note Eager to get out of the hospital Problem List Medical Problems: (1) Anemia Status: Acute (2) Anemia Status: Acute (3) Elevated troponin Status: Acute (4) Exertional chest pain Status: Acute (5) Hypoglycemia Status: Acute (6) Metastatic cancer to liver Status: Acute (7) Right flank pain Status: Acute (8) Syncope Status: Acute Review of Systems Constitutional: No fever, No chills Respiratory: No cough, No shortness of breath Cardiac: No chest pain Abdomen: No pain, No nausea, No vomiting, No diarrhea Medications Current Inpatient Medications Medications (Trade) Dose Ordered Sig/Bay Route Start Time Stop Time Status Last Admin Dose Admin Acetaminophen (Tylenol Tab) 650 mg Q4H PRN PO 07/27/17 17:45 08/26/17 17:44 Al Hydrox/Mg Hydrox/Simethicone (Maalox Max Susp) 15 ml Q4H PRN PO 07/27/17 17:45 08/26/17 17:44 Magnesium Hydroxide (Milk Of Magnesia Susp) 30 ml Q12H PRN PO 07/27/17 17:45 08/26/17 17:44 Ondansetron HCl (Zofran Inj) 4 mg Q6H PRN IV 07/27/17 17:45 08/26/17 17:44 Polyethylene (Miralax Powder Packet) 17 gm DAILY PRN PO 07/27/17 17:45 08/26/17 17:44 Allopurinol (Zyloprim Tab) 200 mg DAILY PO 07/28/17 09:00 08/27/17 08:59 07/29/17 07:26 200 MG Atorvastatin Calcium (Lipitor Tab) 40 mg HS PO 07/27/17 21:00 08/26/17 20:59 07/28/17 21:47 40 MG Chlorthalidone (Hygroton Tab) 12.5 mg Q2D@0900 PO 07/29/17 09:00 08/28/17 08:59 07/29/17 07:25 12.5 MG Levothyroxine Sodium (Synthroid Tab) 112 mcg DAILYBB PO 07/28/17 06:00 08/27/17 06:59 07/29/17 06:15 112 MCG Losartan Potassium (coZAAR TAB) 50 mg DAILY PO 07/28/17 09:00 08/27/17 08:59 07/29/17 07:25 50 MG Meloxicam (Mobic Tab) 7.5 mg DAILY PRN PO 07/27/17 17:45 08/26/17 17:44 Metoprolol Succinate (Toprol Xl Tab) 25 mg BID PO 07/27/17 21:00 08/26/17 20:59 07/29/17 07:25 25 MG Nitroglycerin (Nitrostat Tab) 0.4 mg UD PRN SL 07/27/17 17:45 08/26/17 17:44 Magnesium Oxide (Mag-Ox Tab) 200 mg BID PO 07/27/17 21:00 08/26/17 20:59 07/29/17 07:25 200 MG Morphine Sulfate (MoRPHine SULFATE INJ) 2 mg Q4 PRN IV 07/27/17 17:45 08/10/17 17:44 Tramadol HCl (Ultram Tab) 50 mg Q4H PRN PO 07/27/17 17:45 08/26/17 17:44 Insulin Glargine (Lantus Solostar Pen) 5 units Q12 SC 07/27/17 21:00 08/26/17 20:59 07/29/17 08:56 5 UNITS Insulin Aspart (novoLOG ASPART) SLIDING SCALE If C... ACHS SC 07/27/17 21:00 08/26/17 20:59 07/29/17 13:02 2 UNITS Glucose (Glucose 40% Gel) 15-30 GRAMS 15 GRAMS... UD PRN PO 07/27/17 17:45 08/26/17 17:44 Glucose (Glucose Chew Tab) 4-8 Tablets 4 Tabl... UD PRN PO 07/27/17 17:45 08/26/17 17:44 Dextrose (Dextrose 50% 50ML Syringe) 25-50ML OF 50% DW IV FOR... UD PRN IV 07/27/17 17:45 08/26/17 17:44 Glucagon (Glucagon Inj) 1 mg UD PRN SQ 07/27/17 17:45 08/26/17 17:44 Pantoprazole Sodium (Protonix Tab) 40 mg QAM PO 07/28/17 09:00 08/27/17 08:59 07/29/17 07:25 40 MG Ferrous Sulfate (Feosol Tab) 325 mg BIDM PO 07/29/17 16:45 08/28/17 16:44 Objective Vital Signs Date Time Temp Pulse Resp B/P (MAP) Pulse Ox O2 Delivery O2 Flow Rate FiO2 07/29/17 16:03 Room Air 07/29/17 15:24 36.8 63 20 128/52 (77) 95 Room Air 07/29/17 12:22 Room Air 07/29/17 11:40 36.5 94 18 115/76 (89) 98 07/29/17 08:27 Room Air 07/29/17 08:09 36.7 66 18 108/63 (78) 97 07/29/17 04:00 Room Air 07/29/17 03:42 36.9 93 18 118/77 (91) 94 Room Air 07/28/17 23:59 Room Air 07/28/17 23:39 37.5 105 18 119/68 (85) 98 Room Air 07/28/17 21:44 68 135/74 (94) 07/28/17 20:18 95 Room Air 07/28/17 19:36 36.9 68 16 118/62 (80) 95 Room Air Physical Exam General Appearance: no apparent distress Respiratory/Chest: lungs clear, normal breath sounds, no respiratory distress, no accessory muscle use Cardiovascular: regular rate, rhythm, no edema, no murmur Abdomen: normal bowel sounds, non tender, soft Laboratory Results Last 24 Hours Test 07/28/17 16:26 07/28/17 20:07 07/29/17 06:24 Bedside Glucose 85 mg/dl 143 mg/dl White Blood Count 5.41 K/uL Red Blood Count 4.17 M/uL Hemoglobin 11.1 g/dL Hematocrit 36.4 % Mean Corpuscular Volume 87.3 fL Mean Corpuscular Hemoglobin 26.6 pg Mean Corpuscular Hemoglobin Concent 30.5 g/dl RDW Standard Deviation 48.1 fL RDW Coefficient of Variation 15.3 % Platelet Count 337 K/uL Mean Platelet Volume 11.5 fL Sodium Level 138 mmol/L Potassium Level 4.4 mmol/L Chloride Level 103 mmol/L Carbon Dioxide Level 27 mmol/L Anion Gap 8.0 mmol/L Blood Urea Nitrogen 29 mg/dl Creatinine 1.50 mg/dl Est Creatinine Clear Calc Drug Dose 27.0 ml/min Estimated GFR () 39.6 Estimated GFR (Non- 34.2 BUN/Creatinine Ratio 19.4 Random Glucose 92 mg/dl Calcium Level 10.3 mg/dl Magnesium Level 1.9 mg/dl Assessment and Plan This is a 71 year old female with a PMH of NSTEMI in March 2017, s/p stent, insulin dependent DM2, ischemic cardiomyopathy, systolic CHF with EF around 40- 45%, CKD stage 3, HTN, HLD, hypothyroidism presents with RUQ abdominal pain Hepatic Masses 07/29 appreciate GI input plan is to d/c home no Plavix on discharge for now; to return to [facility] on Saturday, August 02 for an US-guided liver biopsy (to hold aspirin one day prior) restart Plavix after the biopsy as per radiology 07/28 appreciate GI input spoke with cardiology - can hold Plavix for potential biopsy radiology states they will need to wait five days prior to an US-guided biopsy Dr. Naik can perform an EUS biopsy on Saturday if needed; will speak with GI pain is controlled 07/27 CT of the abdomen shows some hepatic masses suspicious for malignancy Mammogram on 07/19/17 - negative Colonoscopy in April 2017 - tubular adenoma will likely need biopsy Morphine and Tramadol PRN for the pain consulted GI for now due to hepatic masses and anemia may need CT chest Anemia 07/28 Hgb up to > 11 after two units of pRBCs 07/27 possibly of chronic disease? anemia work-up pending stool occult negative transfuse one unit H/H q6 Lasix x1 post-transfusion Hx. of NSTEMI in March 2017 s/p stent holding Aspirin/Plavix cont. b-porsche trend cardiac enzymes monitor in tele Insulin Dependent DM2 start Lantus 5 units q12 sliding scale BSGs AC-HS Hypothyroidism TSH wnl continue Synthroid CKD stage 3 creat at 1.5, slightly elevated from baseline of 1.3, monitor and adjust accordingly after transfusion Chronic Systolic CHF Ischemic Cardiomyopathy EF is 40-45% monitor for fluid overload give Lasix 20mg x1 with transfusion DVT ppx SCDs due to anemia FULL CODE
[2017-07-29] MEDS ORDERED: FERROUS SULFATE 325 MG TAB PO SCH (16:45)
[2017-07-29] MEDS ORDERED: ULT50X PO (17:01)
[2017-07-29] MEDS ORDERED: FRRS300 PO (17:01)
--- NOTE | 2017-07-29 17:11 | Discharge Instructions ---
Discharge Instructions Date of Service Jul 29, 2017. Admission Reason for Admission: Liver Masses Discharge Discharge Diagnosis / Problem: Liver Masses Discharge Goals Goal(s): Decrease discomfort, Improve function, Diagnostic testing, Therapeutic intervention Activity Recommendations Activity Limitations: resume your previous activity . Instructions / Follow-Up Instructions / Follow-Up Please hold Plavix for now You will be get a call for an ultrasound-guided biopsy on August 02 - you will have to return to the hospital to get this done Hold aspirin one day prior to coming to the hospital for this biopsy Restart aspirin and Plavix when it is okay by radiology You will get a phone call with a follow-up date/time with your primary care doctor Current Hospital Diet Patient's current hospital diet: AHA Diet (Heart Healthy), Diabetes Type 2 Diet Discharge Diet Recommended Diet: AHA Diet (Heart Healthy), Diabetes Type 2 Diet Pending Studies Studies pending at discharge: no Laboratory Results Hemoglobin A1c Test 06/04/17 14:21 Range/Units Estimated Average Glucose 197 mg/dl Hemoglobin A1c 8.5 H 4.5-5.6 % Lipid Panel Test 06/04/17 14:21 Range/Units Triglycerides Level 377 H 0-150 mg/dl Cholesterol Level 147 0-200 mg/dl HDL Cholesterol 30 mg/dl LDL Cholesterol Direct 82 mg/dl Cholesterol/HDL Ratio 4.9 LDL Cholesterol, Calculated mg/dl Medical Emergencies . Who to Call and When: Medical Emergencies: If at any time you feel your situation is an emergency, please call 911 immediately. . Non-Emergent Contact Non-Emergency issues call your: Primary Care Provider . . "Provider Documentation" section prepared by Chris Ibarra. . VTE Core Measure Inpt VTE Proph given/why not?: SCD's [place] Drug Monitoring Program Search Results: patient reviewed within database, no issues identified
--- NOTE | 2017-07-29 17:12 | Discharge Summary ---
Discharge Summary Date of Service Jul 29, 2017. Discharge Summary Admission Date: Jul 27, 2017 at 17:53 Discharge Date: Jul 29, 2017 Discharge Disposition: Home Principal Diagnosis: Liver Masses Hx. of NSTEMI Medication Reconciliation New Medications: Tramadol HCl (Tramadol HCl) 50 Mg Tab 50 MG PO Q8 PRN for Pain for 4 Days, #12 TABS Ferrous Sulfate (Ferrous Sulfate) 325 Mg Tab 325 MG PO BIDM for 30 Days, #60 TAB Continued Medications: Allopurinol (Zyloprim) 100 Mg Tab 200 MG PO DAILY, TAB Aspirin (Ecotrin Low Strength) 81 Mg Tab 81 MG PO DAILY, TAB Atorvastatin (Lipitor) 40 Mg Tab 40 MG PO HS, TAB Chlorthalidone (Chlorthalidone) 25 Mg Tab 12.5 MG PO Q2D take 1/2 pill daily Cholecalciferol (D 5000) 5,000 Unit Cap 5000 UNITS PO QAM Fenofibrate (Tricor ) 134 Mg Cap 134 MG PO DAILY, CAP Insulin Aspart (Novolog Flexpen) 100 Units/Ml Inj 6 UNITS SC AC Insulin Glargine (Lantus Solostar) 100 Unit/Ml Inj 15 UNITS SC DAILYBB, PEN Levothyroxine Sodium (Levothyroxine Sodium) 112 Mcg Tab 112 MCG PO DAILY, TAB Losartan Potassium (Cozaar) 50 Mg Tab 50 MG PO DAILY, TAB Magnesium (Magnesium 250 mg) 1 Tab Tab 250 MG PO BID Meloxicam (Mobic) 7.5 Mg Tab 7.5 MG PO DAILY PRN for Pain, TAB Metoprolol Succ (Toprol Xl) (Toprol-Xl) 25 Mg Tabcr 25 MG PO BID, #30 TAB Multiple Vitamins W/ Minerals (Centrum Silver) 1 Chw Chw 1 TAB PO DAILY Nitroglycerin (Nitrostat) 0.4 Mg/1 Tab Subl 1 TAB SL UD PRN for Chest Pain Dissolve under tongue. May repeat dose in 10 minutes. Call 911 if no relief. Omeprazole (Prilosec) 40 Mg Cap 40 MG PO DAILY, CAP Discontinued Medications: Clopidogrel (Plavix) 75 Mg Tab 75 MG PO QAM, TAB Admission Information HPI (per Admitting provider): This is a 71 year old female with a PMH of NSTEMI in March 2017, s/p stent, insulin dependent DM2, ischemic cardiomyopathy, systolic CHF with EF around 40- 45%, CKD stage 3, HTN, HLD, hypothyroidism presents with RUQ abdominal pain; she states that the pain has been ongoing, but earlier in the day prior to arrival, the pain became worse. She presented to the ER, and had imagining performed showing multiple hepatic masses, suspicious for malignancy. Patient was here in April of 2017 with a possible GI bleed; had colonoscopy done at that time, showing tubular adenoma. She had a mammogram on 07/19, with no malignancy seen. She has no chest pain/shortness of breath. She also has low Hgb, but negative for stool occult blood. She hasn't noticed any blood in the stool or urine. Physical Exam (per Admitting): General Appearance: no apparent distress Head: normocephalic, atraumatic Eyes: normal inspection ENT: hearing grossly normal Respiratory/Chest: lungs clear, normal breath sounds, no respiratory distress, no accessory muscle use Cardiovascular: regular rate, rhythm, no edema, no gallop, no JVD, no murmur , normal peripheral pulses Abdomen/GI: normal bowel sounds, soft, + tenderness (RUQ, midly to deep palpation) Extremities/Musculoskelatal: normal inspection, no calf tenderness, normal capillary refill, no pedal edema, normal range of motion, + pertinent finding (+ chronic deformity of R foot) Neurologic/Psych: no motor/sensory deficits, alert, normal mood/affect Skin: normal color Hospital Course This is a 71 year old female with a PMH of NSTEMI in March 2017, s/p stent, insulin dependent DM2, ischemic cardiomyopathy, systolic CHF with EF around 40- 45%, CKD stage 3, HTN, HLD, hypothyroidism presents with RUQ abdominal pain Hepatic Masses 07/29 appreciate GI input plan is to d/c home no Plavix on discharge for now; to return to [facility] on Saturday, August 02 for an US-guided liver biopsy (to hold aspirin one day prior) restart Plavix after the biopsy as per radiology 07/28 appreciate GI input spoke with cardiology - can hold Plavix for potential biopsy radiology states they will need to wait five days prior to an US-guided biopsy Dr. Naik can perform an EUS biopsy on Saturday if needed; will speak with GI pain is controlled 07/27 CT of the abdomen shows some hepatic masses suspicious for malignancy Mammogram on 07/19/17 - negative Colonoscopy in April 2017 - tubular adenoma will likely need biopsy Morphine and Tramadol PRN for the pain consulted GI for now due to hepatic masses and anemia may need CT chest Anemia 07/28 Hgb up to > 11 after two units of pRBCs 07/27 possibly of chronic disease? anemia work-up pending stool occult negative transfuse one unit H/H q6 Lasix x1 post-transfusion Hx. of NSTEMI in March 2017 s/p stent holding Aspirin/Plavix cont. b-porsche trend cardiac enzymes monitor in tele Insulin Dependent DM2 start Lantus 5 units q12 sliding scale BSGs AC-HS Hypothyroidism TSH wnl continue Synthroid CKD stage 3 creat at 1.5, slightly elevated from baseline of 1.3, monitor and adjust accordingly after transfusion Chronic Systolic CHF Ischemic Cardiomyopathy EF is 40-45% monitor for fluid overload give Lasix 20mg x1 with transfusion DVT ppx SCDs due to anemia FULL CODE Total time spent on discharge = 45 minutes This includes examination of the patient, discharge planning, medication reconciliation, and communication with other providers. Discharge Instructions Please hold Plavix for now You will be get a call for an ultrasound-guided biopsy on Saturday, August 02 - you will have to return to the hospital to get this done Hold aspirin one day prior to coming to the hospital for this biopsy Restart aspirin and Plavix when it is okay by radiology You will get a phone call with a follow-up date/time with your primary care doctor
[2017-07-29 17:14] VITALS: BP 128/52; PULSE 63; TEMP 36.8; O2SAT 95
[2017-08-11] MEDS ORDERED: CLOP1TAB15 PO (12:29)
[2017-08-11] MEDS ORDERED: MAGN1TAB19 PO (16:36)
[2017-08-15] MEDS ORDERED: METH4PAK PO (17:44)
[2017-08-20] MEDS ORDERED: BISA10SU38 PR (14:48)
[2017-08-20] MEDS ORDERED: fleets enema PR (14:48)
[2017-08-26] MEDS ORDERED: NYST80OI TOP (10:12)
== END 2017-07-29 18:10 | disposition home or self-care (01) | DRG 436 ==
LOC: EDBD 15:08 → C.EDA 15:11 → C.2T 17:53 → ENRESERV 18:04 → UNDOADMIN 18:45 → C.2T 18:45
PROVIDERS: ADMIT Family Medicine; ATTEND Family Medicine
DX: D37.6 Neoplasm of uncertain behavior of liver, gallbladder and bile ducts (principal); I13.0 Hypertensive heart and chronic kidney disease with heart failure and stage 1 through stage 4 chronic kidney disease, or unspecified chronic kidney disease; I50.22 Chronic systolic (congestive) heart failure; D63.8 Anemia in other chronic diseases classified elsewhere; E11.22 Type 2 diabetes mellitus with diabetic chronic kidney disease; N18.3 Chronic kidney disease, stage 3 (moderate); E89.0 Postprocedural hypothyroidism; I25.5 Ischemic cardiomyopathy; I25.10 Atherosclerotic heart disease of native coronary artery without angina pectoris; E78.5 Hyperlipidemia, unspecified; M10.9 Gout, unspecified; I25.2 Old myocardial infarction; Z95.5 Presence of coronary angioplasty implant and graft; Z87.19 Personal history of other diseases of the digestive system; Z79.02 Long term (current) use of antithrombotics/antiplatelets; Z79.4 Long term (current) use of insulin; Z79.82 Long term (current) use of aspirin; Z79.899 Other long term (current) drug therapy; Z83.3 Family history of diabetes mellitus; Z80.3 Family history of malignant neoplasm of breast

== ENCOUNTER → 2017-08-02 | Day surgery (SDC) | payer OTHER ==
[2017-08-02] VITALS (8 sets, daily range): BP systolic 109–152; BP diastolic 62–77; PULSE 80–96; TEMP 36.9–37; O2SAT 94–99; Ht 149.9 cm; Wt 63.5 kg
[~2017-08-02] VITALS: Ht 149.9 cm; Wt 63.5 kg
[~2017-08-02] MED LIST changes: +ACETAMINOPHEN 500 MG TAB PO PRN; +BISA10SU38 PR; -CHOL1TAB76 PO; +CHOLCAP10 PO; +CLOP1TAB15 PO; +FERR1TAB13 PO; +FRRS300 PO; +LOSA50TA6 PO; +MAGN1TAB19 PO; +MAGN400T6 PO; +METH4PAK PO; -METO1TAB31 PO; +METO25TA3 PO; +NYST80OI TOP; -PLV75 PO; +TRAM-10 PO; +ULT50X PO; +fleets enema PR
[2017-08-02 12:43] LABS: PLATELET COUNT 302 K/uL (130-400)
[2017-08-02 12:54] LABS: INR 1.1 (0.9-1.1)
--- NOTE | 2017-08-02 14:30 | Discharge Instructions ---
Discharge Instructions Procedure Procedure Date: Aug 02, 2017. Reason for visit: Liver Mass. Discharge Discharge Date: Aug 02, 2017. Discharge Diagnosis: Successful ultrasound guided directed FNA liver biopsy of left hepatic mass. Medications Restart Stopped Medication(s): Resume home meds, including Plavix and ASA starting tomorrow on 08/03 Instructions Activity Recommendations: No limitations Return to School/Work: no limitations Recommended Home Diet: No Limitations Provider Instructions: Ultrasound guided Liver FNA performed [Left] lobe liver using 2x 22g needle without complication. Allergies Coded Allergies: Lisinopril (Verified Allergy, Unknown, UNKNOWN, 08/02/17) Dakota Finderne Recommendations: Call your doctor if: * Temperature above 101 degrees * Pain not relieved by pain medicine ordered * There is increased drainage or redness from any incision * You have any unanswered questions or concerns. Your Doctors Instructions noted above were prepared by provider Alber Wetzel. Patient Signature Section: Patient Instructions Signature Page Alicia Cisneros Patient (or Guardian) Signature/Date: I have read and understand the instructions given to me by my caregivers. Caregiver/RN/Doctor Signature/Date: The above-named patient and/or guardian has received patient instructions on this date. + Original Patient Signature Page (only) stays with chart. Please make copy for patient.
--- NOTE | 2017-08-02 14:43 | DIAGNOSTIC IMAGING REPORT ---
GUIDANCE NEEDLE PLACEMENT CLINICAL HISTORY: 71 years-old Female presenting with hepatic lesion. TECHNIQUE: Real-time grayscale and limited color Doppler ultrasound imaging of the liver was performed for ultrasound-guided fine-needle aspiration. COMPARISON: Noncontrast CT of the abdomen and pelvis from 07/27/2017. PROCEDURE: The risks, benefits, and alternatives of the procedure were discussed with the patient. Written informed consent was obtained. A timeout was performed to confirm patient identity. The patient was placed supine in ultrasound, and a left hepatic lesion was localized by ultrasound and selected for fine needle aspiration. The epigastrium was prepped and draped in the usual aseptic fashion. The nodule was aspirated under ultrasound guidance with 2 passes utilizing 22-gauge needles using a subcostal approach. Specimens were reviewed by the pathologist at the time of biopsy and were deemed adequate for diagnosis. The patient tolerated the procedure well. No immediate comp occasions. The patient will be monitored per protocol. IMPRESSION: Successful fine-needle aspiration of the left hepatic lobe lesion as above. Electronically signed by: Alber Wetzel M.D. 08/02/2017 2:42 PM Dictated Date/Time: 08/02/2017 2:41 PM
== END | disposition home or self-care (01) ==
LOC: C.ACU 12:04
PROVIDERS: ATTEND Family Medicine
DX: K76.9 Liver disease, unspecified (principal); C78.7 Secondary malignant neoplasm of liver and intrahepatic bile duct

== ENCOUNTER 2017-08-11 12:05 | Inpatient (IN) | payer OTHER ==
[~2017-08-11] VITALS: Ht 139.7 cm; Wt 59.5 kg
[~2017-08-11 12:05] MED LIST changes: -ACETAMINOPHEN 500 MG TAB PO PRN; -BISA10SU38 PR; -CLOP1TAB15 PO; -FERR1TAB13 PO; -MAGN1TAB19 PO; -MAGN400T6 PO; -METH4PAK PO; -NYST80OI TOP; -TRAM-10 PO; -fleets enema PR
[2017-08-11] MEDS ORDERED: CLOP1TAB15 PO ×2 (12:29)
[2017-08-11] MEDS ORDERED: SODIUM CHLORIDE 0.9% 1000ML 1,000 ML IV STA (12:44)
--- NOTE | 2017-08-11 12:48 | EMERGENCY ROOM VISIT NOTE ---
History Report prepared by Sindy: Cassidy Carey Under the Supervision of: Dr. Olesya Marr, DMoisesO. First contact with patient: 12:20 Chief Complaint: DEHYDRATION Stated Complaint: DEHYDRATION History of Present Illness The patient is a 71 year old female who presents to the Emergency Room with complaints of worsening lower back pain beginning today. The patient states that she has this pain every day. She states that she also had fevers. Per nursing staff, the patient was hypotensive and dehydrated this morning. Per nursing staff, the patient had a liver biopsy last week. Limited HPI secondary to confusion. Pt poor historian. Source of History: patient, nursing staff History Limited By: other (confusion) Onset: today Position: back (lower) Timing: worsening Associated Symptoms: + fevers Review of Systems Limited ROS secondary to confusion. Past Medical & Surgical Medical Problems: (1) CKD (chronic kidney disease), stage III (2) Coronary artery disease (3) Diverticulosis (4) DM type 2 (diabetes mellitus, type 2) (5) Dyslipidemia (6) Gastroparesis (7) Glaucoma (8) Gout (9) HTN (hypertension) (10) Hypercalcemia (11) Hypertriglyceridemia (12) Ischemic cardiomyopathy (13) Liver masses (14) Metastasis Surgical Problems: (1) H/O thyroidectomy (2) Status post cataract extraction Family History Diabetes mellitus MOTHER BROTHER FH: breast cancer MOTHER SISTER Social History Smoking Status: Never Smoker Housing Status: assisted living Occupation Status: retired Current/Historical Medications Scheduled Allopurinol (Zyloprim), 200 MG PO DAILY Aspirin (Ecotrin Low Strength), 81 MG PO DAILY Atorvastatin (Lipitor), 40 MG PO HS Chlorthalidone (Chlorthalidone), 12.5 MG PO Q2D Cholecalciferol (D 5000), 5,000 UNITS PO QAM Clopidogrel (Plavix), 75 MG PO DAILY Fenofibrate (Tricor ), 134 MG PO DAILY Ferrous Sulfate (Ferrous Sulfate), 325 MG PO BIDM Insulin Aspart (Novolog Flexpen), 6 UNITS SC AC Insulin Glargine (Lantus Solostar), 15 UNITS SC DAILYBB Levothyroxine Sodium (Levothyroxine Sodium), 112 MCG PO DAILY Losartan Potassium (Cozaar), 50 MG PO DAILY Magnesium Oxide (Mg Supplement (Magnesium Oxide), 400 MG PO BID Metoprolol Succ (Toprol Xl) (Toprol-Xl), 25 MG PO BID Multiple Vitamins W/ Minerals (Centrum Silver), 1 TAB PO DAILY Omeprazole (Prilosec), 40 MG PO DAILY Scheduled PRN Meloxicam (Mobic), 7.5 MG PO DAILY PRN for Pain Nitroglycerin (Nitrostat), 1 TAB SL UD PRN for Chest Pain Tramadol HCl (Tramadol HCl), 50 MG PO Q8 PRN for Pain Allergies Coded Allergies: Lisinopril (Verified Allergy, Unknown, UNKNOWN, 08/11/17) Physical Exam Vital Signs Date Time Temp Pulse Resp B/P (MAP) Pulse Ox O2 Delivery O2 Flow Rate FiO2 08/11/17 15:45 96 Room Air 08/11/17 15:40 73 19 147/73 100 Room Air 08/11/17 14:58 81 18 124/102 97 Room Air 08/11/17 13:15 75 21 121/62 97 Room Air 08/11/17 12:35 36.5 77 18 148/81 99 Room Air 08/11/17 12:32 73 Physical Exam GENERAL: alert, well appearing, well nourished, no distress, non-toxic EYE EXAM: normal conjunctiva, PERRL and EOM's grossly intact OROPHARYNX: no exudate, no erythema, lips, buccal mucosa, and tongue normal and mucous membranes are dry NECK: supple, no nuchal rigidity, no adenopathy, non-tender LUNGS: Breath sounds decreased. No wheezes, rhonchi, or rales. Normal chest wall mechanics HEART: no murmurs, S1 normal and S2 normal ABDOMEN: abdomen soft, non-tender, normo-active bowel sounds, no masses, no rebound or guarding. BACK: Back is symmetrical on inspection and there is no deformity, no midline tenderness, no CVA tenderness. SKIN: no rashes and no bruising UPPER EXTREMITIES: upper extremities are grossly normal. LOWER EXTREMITIES: No pitting edema. NEURO EXAM: Normal sensorium, cranial nerves II-XII grossly intact, normal speech, no gross weakness of arms, no gross weakness of legs. Patient unable to cooperate for neuro testing due to confusion. Medical Decision & Procedures ER Provider Diagnostic Interpretation: Radiology results have been interpreted by the radiologist and reviewed by me. CHEST ONE VIEW PORTABLE HISTORY: 71 years-old Female hypotension acute hypotension. COMPARISON: Chest radiograph 07/27/2017 TECHNIQUE: Portable upright AP view of the chest FINDINGS: Cardiomediastinal and hilar silhouettes are within normal limits. No pneumothorax, pleural effusion or focal airspace consolidation. No overt pulmonary edema. There is atherosclerosis of the aorta. Degenerative changes involve the shoulders and spine. Bones are grossly intact. IMPRESSION: No acute cardiopulmonary process. The above report was generated using voice recognition software. It may contain grammatical, syntax or spelling errors. Electronically signed by: Fransisco Forman M.D. 08/11/2017 1:18 PM Dictated Date/Time: 08/11/2017 1:17 PM HEAD WITHOUT CONTRAST (CT) CLINICAL HISTORY: 71 years-old Female with confusion. Acute confusion. TECHNIQUE: Multiple axial CT images of the head were obtained without contrast. A dose lowering technique was utilized adhering to the principles of ALARA. CT DOSE: 1382.10 mGy.cm COMPARISON: CT head 04/30/2017. FINDINGS: Study is limited secondary to patient motion. A portion of the study was then repeated. There is a new large destructive lytic lesion of the right temporal/parietal calvarium measuring up to 2.3 cm in length causing erosion and fragmentation of the intertable of the skull. Outer table of the skull is markedly thinned. Complex soft tissue component of the mass measures up to 1.5 x 1.0 cm seen on image 14 of series 2. There is mild associated vasogenic edema within the temporal lobe just inferior to this finding as seen on image 13 of series 2. No significant mass effect or midline shift. There is mild humeral atrophy with background chronic microvascular ischemic changes. 8 mm lytic lesion involves the right frontal bone seen on image 14 series 3. Mild mucosal thickening of the paranasal sinuses. Mastoid air cells and middle ear cavities are clear. Soft tissues are unremarkable. There is thinning of the optic lenses bilaterally. IMPRESSION: 1. Destructive lytic lesion of the right temporal/parietal calvarium measuring up to 2.3 cm in length causes erosion and fragmentation of the intertable of the calvarium. Associated soft tissue component of the mass measures up to 1.5 cm. There is mild associated vasogenic edema within the adjacent temporal lobe without significant mass effect or midline shift. Additional subcentimeter lytic lesion involves the right frontal calvarium. Differential considerations would include metastasis or multiple myeloma. Further evaluation with contrast-enhanced MRI is recommended. 2. No territorial ischemia or hemorrhage. The above report was generated using voice recognition software. It may contain grammatical, syntax or spelling errors. Electronically signed by: Fransisco Forman M.D. 08/11/2017 2:55 PM Dictated Date/Time: 08/11/2017 2:43 PM [~ rep ct add3]] ABD/PELVIS NO IV OR ORAL CONT HISTORY: 71 years-old Female back pain, s/p biopsy acute back pain. History of recent liver mass biopsy. COMPARISON: CT abdomen and pelvis 07/27/2017 TECHNIQUE: Multiple axial CT images of the abdomen and pelvis were obtained without contrast. A dose lowering technique was used consistent with the principals of WENDY. FINDINGS: The exam is limited secondary to patient motion. Lung bases are generally clear. There is no pneumoperitoneum. The imaged inferior cardiac chambers are unremarkable. Coronary arterial calcifications are present. Innumerable ill-defined low attenuating hepatic masses are redemonstrated, most compatible with metastasis. Mild perihepatic ascites redemonstrated. No hepatic laceration or large subcapsular hematoma identified status post recent biopsy. No hemoperitoneum identified. The spleen, adrenal glands and gallbladder are unremarkable. Moderate to severe diffuse pancreatic atrophy is noted. Kidneys, ureters, urinary bladder, uterus and adnexa are unremarkable. Aortocaval adenopathy is again seen with lymph nodes measuring up to 2.1 x 1.5 cm as seen on image 182 of series 5. There is moderate atherosclerotic plaquing of the abdominal aorta. No bowel obstruction or focal bowel wall thickening. Colonic diverticulosis without diverticulitis. High attenuating material seen within the appendix tip suggesting oral contrast. No evidence of acute appendicitis. Lytic destructive lesion of the right iliac bone seen on image 295 of series 5 measures 2.3 x 2.0 cm. No definite additional suspicious lesions identified. IMPRESSION: 1. Innumerable hepatic lesions are redemonstrated suggesting metastasis. No postprocedural complication identified following recent liver biopsy. 2. Aortocaval adenopathy redemonstrated, suspicious for lymphatic metastatic disease. 3. Destructive lytic lesion of the right iliac bone, 2.3 cm is also very suspicious for metastasis. 4. Colonic diverticulosis without diverticulitis. The above report was generated using voice recognition software. It may contain grammatical, syntax or spelling errors. Electronically signed by: Fransisco Forman M.D. 08/11/2017 4:13 PM Laboratory Results Test 08/11/17 13:15 08/11/17 13:30 08/11/17 13:55 Urine Color YELLOW Urine Appearance CLEAR (CLEAR) Urine pH 5.5 (4.5-7.5) Urine Specific Welch 1.024 (1.000-1.030) Urine Protein NEG (NEG) Urine Glucose (UA) NEG (NEG) Urine Ketones TRACE (NEG) Urine Occult Blood NEG (NEG) Urine Nitrite NEG (NEG) Urine Bilirubin NEG (NEG) Urine Urobilinogen NEG (NEG) Urine Leukocyte Esterase TRACE (NEG) Urine WBC (Auto) 1-5 /hpf (0-5) Urine RBC (Auto) 0-4 /hpf (0-4) Urine Hyaline Casts (Auto) 1-5 /lpf (0-5) Urine Epithelial Cells (Auto) >30 /lpf (0-5) Urine Bacteria (Auto) 1+ (NEG) Prothrombin Time 12.7 SECONDS (9.0-12.0) Prothromb Time International Ratio 1.2 (0.9-1.1) Total Bilirubin 0.9 mg/dl (0.2-1) Aspartate Amino Transf (AST/SGOT) 90 U/L (15-37) Alanine Aminotransferase (ALT/SGPT) 37 U/L (12-78) Alkaline Phosphatase 162 U/L (45-117) Ammonia 11.0 umol/L (11-32) Troponin I 0.025 ng/ml (0-0.045) Pro-B-Type Natriuretic Peptide 1395 pg/ml (0-900) Total Protein 8.1 gm/dl (6.4-8.2) Albumin 3.3 gm/dl (3.4-5.0) Globulin 4.8 gm/dl (2.5-4.0) Albumin/Globulin Ratio 0.7 (0.9-2) Lipase 525 U/L (73-393) Lactic Acid Level 1.2 mmol/L (0.4-2.0) Date/Time Source Procedure Growth Status 08/11/17 13:15 Urine , Clean Catch Urine Culture - Final THREE TYPES OF ORGANISMS PRESENT, ALL... Complete Laboratory results per my review. Medications Administered Medications (Trade) Dose Ordered Sig/Bay Route Start Time Stop Time Status Last Admin Dose Admin Sodium Chloride 1,000 ml @ 125 mls/hr Q8H STAT IV 08/11/17 12:44 08/11/17 17:52 DC 08/11/17 13:35 125 MLS/HR Tramadol HCl (Ultram Tab) 50 mg Q8 PRN PO 08/11/17 16:15 09/10/17 16:14 08/13/17 09:09 50 MG Sodium Chloride 1,000 ml @ 150 mls/hr Q6H40M IV 08/11/17 16:15 09/10/17 16:14 08/13/17 15:58 150 MLS/HR Oxycodone HCl (Roxicodone Immediate Rel Tab) 5 mg Q4 PRN PO 08/11/17 16:15 08/25/17 16:14 08/11/17 19:56 5 MG ECG Indication: other (confusion) Rate (beats per minute): 71 Rhythm: sinus rhythm Findings: T-wave inversion (in aVL), no ectopy, other (normal axis, normal invervals ) ED Course 1238: The patient was evaluated in room C6. A complete history and physical exam was performed. 1244: Ordered Sodium Chloride 1,000 ml @ 125 mls/hr IV. 1509: Upon reevaluation, the patient is resting. I discussed the findings and the treatment plan with the patient. She expresses agreement and understanding. I spoke with Dr. Fernandes of the [facility] Hospitalist Service. She will be evaluated for further management. Medical Decision Differential diagnosis: Etiologies such as metabolic, infection, hypoglycemia, electrolyte abnormalities , cardiac sources, intracerebral event, toxicologic, neurologic, as well as others were entertained. Pt with confusion noted here, clinical dehydration, no apparent complication secondary to recent biopsy, no evidence of bacteremia/sepsis. Worsening renal failure noted. No elevated ammonia. Pt being worked up for malignancy currently. Known distant mets, unclear primary. No focal neuro deficits. Pt states pain has been ongoing. Likely pain related to mets. Discussed with hospitalist for admission. No acute gi or vascular pathology noted. Doubt cva , acs. No hx of trauma. Medication Reconcilliation Current Medication List: was personally reviewed by me Blood Pressure Screening Patient's blood pressure: Elevated blood pressure Blood pressure disposition: Elevated BP felt to be situational Consults Time Called: [id number] Consulting Physician: Dr. Fernandes-[facility] Returned Call: [phone] I reviewed the patient's case with Dr. Fernandes. He will evaluate the patient for further management. Impression Primary Impression: Acute on chronic renal failure Additional Impressions: Hypercalcemia Liver masses Confusion Scribe Attestation The scribe's documentation has been prepared under my direction and personally reviewed by me in its entirety. I confirm that the note above accurately reflects all work, treatment, procedures, and medical decision making performed by me. Departure Information Dispostion Being Evaluated By Hospitalist Prescriptions Magnesium Oxide (Mg Supplement (MAGNESIUM OXIDE) 400 Mg Tab 400 MG PO BID, #20 Prov: Abhishek Fernandes MD 08/11/17 Referrals Venkatesh Lundy M.D. (PCP) Patient Instructions My [facility] Problem Qualifiers Primary Impression: Acute on chronic renal failure Acute renal failure type: unspecified Chronic kidney disease stage: unspecified stage Qualified Codes: N17.9 - Acute kidney failure, unspecified; N18.9 - Chronic kidney disease, unspecified
--- NOTE | 2017-08-11 13:19 | DIAGNOSTIC IMAGING REPORT ---
CHEST ONE VIEW PORTABLE HISTORY: 71 years-old Female hypotension acute hypotension. COMPARISON: Chest radiograph 07/27/2017 TECHNIQUE: Portable upright AP view of the chest FINDINGS: Cardiomediastinal and hilar silhouettes are within normal limits. No pneumothorax, pleural effusion or focal airspace consolidation. No overt pulmonary edema. There is atherosclerosis of the aorta. Degenerative changes involve the shoulders and spine. Bones are grossly intact. IMPRESSION: No acute cardiopulmonary process. The above report was generated using voice recognition software. It may contain grammatical, syntax or spelling errors. Electronically signed by: Fransisco Forman M.D. 08/11/2017 1:18 PM Dictated Date/Time: 08/11/2017 1:17 PM
[2017-08-11 13:54] LABS: BASO % 0.2 %; BASO ABS # 0.01 K/uL (0-0.2); COMPLETE YES; EOS % 1.1 %; HEMATOCRIT 44.8 % (37-47); IG% 0.2 %; LYMPH % 15.3 %; LYMPH ABS # 0.73 K/uL (1.2-3.4); MEAN CELL VOLUME 87.3 fL (80-100); MEAN CORPUSCULAR HEMOGLOBIN 26.1 pg (25-34); MEAN CORPUSCULAR HGB CONC 29.9 g/dl (32-36); MEAN PLATELET VOLUME 11.8 fL (7.4-10.4); MONO % 6.5 %; NEUT % 76.7 %; PLATELET COUNT 333 K/uL (130-400); RED BLOOD COUNT 5.13 M/uL (4.2-5.4); WHITE BLOOD COUNT 4.76 K/uL (4.8-10.8)
[2017-08-11 14:06] LABS: INR 1.2 (0.9-1.1); PROTHROMBIN TIME (PATIENT) 12.7 SECONDS (9.0-12.0)
[2017-08-11 14:12] LABS: BUN/CREATININE RATIO 34.8 (10-20); CALCIUM 12.9 mg/dl (8.5-10.1); CREATININE 2.4 mg/dl (0.60-1.20); MAGNESIUM 2.7 mg/dl (1.8-2.4); POTASSIUM 5.3 mmol/L (3.5-5.1)
[2017-08-11 14:15] LABS: ALB/GLOB RATIO 0.7 (0.9-2)
[2017-08-11 14:38] LABS: URINE APPEARANCE CLEAR (CLEAR); URINE BILIRUBIN NEG (NEG); URINE COLOR YELLOW; URINE EPITHELIAL CELL AUTO >30 /lpf (0-5); URINE NITRITE NEG (NEG); URINE PH 5.5 (4.5-7.5); URINE SPECIFIC GRAVITY 1.024 (1.000-1.030); UROBILINOGEN NEG (NEG); ZZUR CULT IF INDIC CLEAN CATCH YES
[2017-08-11 14:42] LABS: MANUAL MICROSCOPIC REQUIRED? NO; REVIEW REQ? NO
--- NOTE | 2017-08-11 14:56 | DIAGNOSTIC IMAGING REPORT ---
HEAD WITHOUT CONTRAST (CT) CLINICAL HISTORY: 71 years-old Female with confusion. Acute confusion. TECHNIQUE: Multiple axial CT images of the head were obtained without contrast. A dose lowering technique was utilized adhering to the principles of ALARA. CT DOSE: 1382.10 mGy.cm COMPARISON: CT head 04/30/2017. FINDINGS: Study is limited secondary to patient motion. A portion of the study was then repeated. There is a new large destructive lytic lesion of the right temporal/parietal calvarium measuring up to 2.3 cm in length causing erosion and fragmentation of the intertable of the skull. Outer table of the skull is markedly thinned. Complex soft tissue component of the mass measures up to 1.5 x 1.0 cm seen on image 14 of series 2. There is mild associated vasogenic edema within the temporal lobe just inferior to this finding as seen on image 13 of series 2. No significant mass effect or midline shift. There is mild humeral atrophy with background chronic microvascular ischemic changes. 8 mm lytic lesion involves the right frontal bone seen on image 14 series 3. Mild mucosal thickening of the paranasal sinuses. Mastoid air cells and middle ear cavities are clear. Soft tissues are unremarkable. There is thinning of the optic lenses bilaterally. IMPRESSION: 1. Destructive lytic lesion of the right temporal/parietal calvarium measuring up to 2.3 cm in length causes erosion and fragmentation of the intertable of the calvarium. Associated soft tissue component of the mass measures up to 1.5 cm. There is mild associated vasogenic edema within the adjacent temporal lobe without significant mass effect or midline shift. Additional subcentimeter lytic lesion involves the right frontal calvarium. Differential considerations would include metastasis or multiple myeloma. Further evaluation with contrast-enhanced MRI is recommended. 2. No territorial ischemia or hemorrhage. The above report was generated using voice recognition software. It may contain grammatical, syntax or spelling errors. Electronically signed by: Fransisco Forman M.D. 08/11/2017 2:55 PM Dictated Date/Time: 08/11/2017 2:43 PM
[2017-08-11 15:45] VITALS: O2SAT 96; Ht 139.7 cm; Wt 59.5 kg
[2017-08-11] MEDS ORDERED: ACETAMINOPHEN 325 MG TAB PO PRN (16:15)
[2017-08-11] MEDS ORDERED: ONDANSETRON INJ 2 MG/ML 2 ML VIAL IV PRN (16:15)
[2017-08-11] MEDS ORDERED: POLYETHYLENE (MIRALAX) 17 GM PACK PO PRN (16:15)
[2017-08-11] MEDS ORDERED: NITROGLYCERIN 0.4 MG SL PER TAB CHARGE SL PRN (16:15)
[2017-08-11] MEDS ORDERED: MAGNESIUM HYDROXIDE SUSP 30 ML UDC PO PRN (16:15)
[2017-08-11] MEDS ORDERED: ALUMINUM/MAGNESIUM/SIMETH (MAALOX MAX) 30 ML UDC PO PRN (16:15)
--- NOTE | 2017-08-11 16:15 | DIAGNOSTIC IMAGING REPORT ---
ABD/PELVIS NO IV OR ORAL CONT HISTORY: 71 years-old Female back pain, s/p biopsy acute back pain. History of recent liver mass biopsy. COMPARISON: CT abdomen and pelvis 07/27/2017 TECHNIQUE: Multiple axial CT images of the abdomen and pelvis were obtained without contrast. A dose lowering technique was used consistent with the principals of WENDY. FINDINGS: The exam is limited secondary to patient motion. Lung bases are generally clear. There is no pneumoperitoneum. The imaged inferior cardiac chambers are unremarkable. Coronary arterial calcifications are present. Innumerable ill-defined low attenuating hepatic masses are redemonstrated, most compatible with metastasis. Mild perihepatic ascites redemonstrated. No hepatic laceration or large subcapsular hematoma identified status post recent biopsy. No hemoperitoneum identified. The spleen, adrenal glands and gallbladder are unremarkable. Moderate to severe diffuse pancreatic atrophy is noted. Kidneys, ureters, urinary bladder, uterus and adnexa are unremarkable. Aortocaval adenopathy is again seen with lymph nodes measuring up to 2.1 x 1.5 cm as seen on image 182 of series 5. There is moderate atherosclerotic plaquing of the abdominal aorta. No bowel obstruction or focal bowel wall thickening. Colonic diverticulosis without diverticulitis. High attenuating material seen within the appendix tip suggesting oral contrast. No evidence of acute appendicitis. Lytic destructive lesion of the right iliac bone seen on image 295 of series 5 measures 2.3 x 2.0 cm. No definite additional suspicious lesions identified. IMPRESSION: 1. Innumerable hepatic lesions are redemonstrated suggesting metastasis. No postprocedural complication identified following recent liver biopsy. 2. Aortocaval adenopathy redemonstrated, suspicious for lymphatic metastatic disease. 3. Destructive lytic lesion of the right iliac bone, 2.3 cm is also very suspicious for metastasis. 4. Colonic diverticulosis without diverticulitis. The above report was generated using voice recognition software. It may contain grammatical, syntax or spelling errors. Electronically signed by: Fransisco Forman M.D. 08/11/2017 4:13 PM Dictated Date/Time: 08/11/2017 4:05 PM
[2017-08-11] MEDS ORDERED: SODIUM POLYST. SULF SUSP 15G/60ML PO STA (16:30)
[2017-08-11] MEDS ORDERED: MAGN1TAB19 PO ×2 (16:36)
[2017-08-11 17:35] VITALS: BP 128/64; PULSE 65; TEMP 36.5; O2SAT 96
[2017-08-11] MEDS: SODIUM CHLORIDE 0.9% 1000ML 1,000 ML IV SCH (18:19)
[2017-08-11] MEDS: METOPROLOL SUCC 25MG EXT REL TAB PO SCH (19:51)
[2017-08-11] MEDS: MAGNESIUM OXIDE 400 MG TAB PO SCH (19:51)
[2017-08-11] MEDS: FERROUS SULFATE 325 MG TAB PO SCH (19:52)
[2017-08-11 19:54] VITALS: BP 134/71; PULSE 85
[2017-08-11] MEDS: OXYCODONE HCL IR 5 MG TAB (IMMEDIATE RELEASE) PO PRN (19:56)
[2017-08-11] MEDS: HEPARIN SOD 5000 UNIT/0.5 ML CARP SQ SCH (20:19)
--- NOTE | 2017-08-11 20:56 | HISTORY & PHYSICAL EXAMINATION ---
DATE OF ADMISSION: 08/11/2017 CHIEF COMPLAINT: Right hip pain. HISTORY OF PRESENT ILLNESS: This is a 71-year-old female with past medical history significant for hypothyroidism, Gastroparesis, type 2 diabetes, glaucoma, hyperlipidemia, hypertension, chronic kidney disease stage III, CAD, history of systolic CHF with EF of around 45%, history of tubular adenoma of colon, presents with severe pain in the right hip region. The patient was recently in the hospital with right flank pain and found to have liver masses and was discharged for outpatient biopsy,and biopsy was done on and she got a call and she was told to see a doctor regarding results. Today, her neighbor called her niece that she is having severe pain and she needs to go to hospital and her niece brought her to the hospital. The patient is currently alert and oriented except for right hip pain she denies any complaints. She denies any dizziness, no headaches, no blurred vision, no sore throat, no cold symptoms, and no runny nose. Hearing is okay. No chest pain, no shortness of breath, no cough, no fever, no chills, no nausea, no vomiting, no abdominal pain. She had some diarrhea yesterday. No blood in the stools. Normal bowel and bladder movements. Appetite is not that great, ambulating okay at home. She cooks for herself. Lives alone. Currently resting comfortably and hemodynamically stable. ALLERGIES: LISINOPRIL, SALICYLATES. PAST MEDICAL HISTORY: As mentioned above. PAST SURGICAL HISTORY: Left heart catheterization, needle biopsy of the liver, thyroidectomy, removal of nose polyps, cataract surgery. MEDICATIONS AT HOME: The patient is on Plavix 75 mg p.o. daily, Zofran 4 mg p.o. q. 6 hours p.r.n., magnesium oxide 400 mg p.o. b.i.d., tramadol 50 mg p.o. 6 hours p.r.n., Dulcolax 5 mg p.o. daily p.r.n., ferrous sulfate 325 mg p.o. b.i.d., Meloxicam 7.5 mg p.o. daily p.r.n., omeprazole 40 mg p.o. daily, levothyroxine 112 mcg p.o. daily, atorvastatin 40 mg p.o. daily, Kyara 180 mg p.o. daily p.r.n., Cozaar 50 mg p.o. daily, insulin 6 units under skin t.i.d., Lantus 15 units p.o. daily, chlorthalidone 12.5 mg p.o. every other day, allopurinol 200 mg p.o. daily, Toprol-XL 25 mg p.o. b.i.d., fenofibrate 134 mg p.o. daily, vitamin D 5000 units p.o. daily, nitroglycerin 0.4 mg sublingual p.r.n., aspirin 81 mg p.o. daily, multivitamin 1 tablet p.o. daily. FAMILY HISTORY: Significant for mother had breast cancer. Sister had breast cancer. SOCIAL HISTORY: Lives alone. No smoking history or alcohol use. No drug use. REVIEW OF SYMPTOMS: As per HPI. Rest of review of symptoms negative. PHYSICAL EXAMINATION: GENERAL: The patient is of moderate build, not in distress. VITAL SIGNS: Temperature 36.5, pulse 77, respiratory rate 21, blood pressure 141/66, oxygen 96% on room air. HEENT: No pallor, no icterus. Pupils equal, round, and reactive to light. NECK: No JVD, no neck masses, no carotid bruits. CARDIOVASCULAR: S1, S2 heard, regular rate and rhythm, no murmur, no gallop. RESPIRATORY SYSTEM: Clear to auscultation bilaterally. No wheezing, no crackles. ABDOMEN: Soft, bowel sounds present. Nontender. No distention. CENTRAL NERVOUS SYSTEM: Cranial nerves II-XII grossly intact. Nonfocal. EXTREMITIES: No edema, no erythema. LABS: WBC 4.7, hemoglobin 13.4, hematocrit 44.8, platelets 333. Sodium 136, potassium 5.3, chloride 101, bicarbonate 23, BUN 84, creatinine 2.4, serum glucose 93. Lactic acid 1.2, calcium 12.9, magnesium 2.7, total bilirubin 0.9, AST 19, ALT 37, alkaline phosphatase 162, ammonia 11. Troponin 0.025. BNP 3095, lipase 525. PT 12.7, INR 1.2. Leukocyte esterase trace. CT of the head showed destructive lesion of the right temporoparietal calvarium of 2.3 cm in length causing erosion and fragmentation of the intertable of the calvarium. Associated soft tissue component of the mass measuring up to 1.5 cm, mild associated vasogenic edema within the adjacent temporal lobe without significant mass effect or midline shift. Additional sub centimeter lesion on the right frontal calvarium . Findings consistent with metastasis or multiple myeloma. Chest x-ray: No acute cardiopulmonary process seen. CT of abdomen and pelvis, numeral hepatic lesions and adenopathy suspicious for metastatic disease. EKG: Normal sinus rhythm with rate of 71. No acute St changes seen. ASSESSMENT AND PLAN: 1. 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 Has mild vasogenic edema on CT head Discussed with oncology, start on IV Decadron 4 mg b.i.d. and pain control and monitor on medical floor. Further recommendation as per heme/onc. 2. Hypercalcemia secondary to above. To treat with aggressive fluids with Lasix. We will follow the labs. 3. Acute renal failure and chronic kidney disease stage III, baseline creatinine to 1.5, presents with creatinine 2.4. will f/u labs. If worsening will consult Nephrology 4. History of diabetes. Continue Lantus and ISS. We will closely monitor the blood sugar while the patient is on IV Decadron. 5. History of coronary artery disease. Continue home medication of aspirin, Plavix, metoprolol. Holding the statin for liver mets. Continue losartan. 6. History of congestive heart failure, EF of around 45%. Continue home medication of losartan, Toprol and chlorthalidone. The patient is getting fluids and IV lasix. Close monitor for volume overload. 6. Hypertension. Continue with metoprolol, losartan and chlorthalidone as prescribed. We will monitor blood pressure. 7. History of hyperlipidemia. Continue fenofibrate. Holding the Lipitor. 8. Gastroesophageal reflux disease. Continue PPI. 7. Deep venous thrombosis prophylaxis. Heparin subQ. DISPOSITION: Admit to medical floor. Expect discharge home and follow with Family doctor and Oncology. Code status discussed with the patient, she wanted to be full code for now. MTDD
[2017-08-11] MEDS: INSULIN ASPART 100 UNITS/ML 3 ML PEN SC SCH (21:00)
[2017-08-11] MEDS: DEXAMETHASONE INJ 4 MG in SYRINGE 0 ML IV SCH (21:45)
[2017-08-12] VITALS: BP 132/68; PULSE 71; TEMP 36.8; O2SAT 94
[2017-08-12] MEDS: HEPARIN SOD 5000 UNIT/0.5 ML CARP SQ SCH ×3 (04:00→20:47)
[2017-08-12] MEDS: SODIUM CHLORIDE 0.9% 1000ML 1,000 ML IV SCH ×4 (06:05→18:45)
[2017-08-12] MEDS: LEVOTHYROXINE 112 MCG TAB PO SCH (06:05)
[2017-08-12 07:09] LABS: COMPLETE YES; EOS % 0.3 %; HEMATOCRIT 33.9 % (37-47); IG% 0.7 %; LYMPH % 16.2 %; LYMPH ABS # 0.48 K/uL (1.2-3.4); MEAN CELL VOLUME 87.6 fL (80-100); MEAN CORPUSCULAR HEMOGLOBIN 28.4 pg (25-34); MEAN CORPUSCULAR HGB CONC 32.4 g/dl (32-36); MEAN PLATELET VOLUME 11.7 fL (7.4-10.4); MONO % 6.1 %; NEUT % 76.7 %; PLATELET COUNT 223 K/uL (130-400); RED BLOOD COUNT 3.87 M/uL (4.2-5.4); WHITE BLOOD COUNT 2.96 K/uL (4.8-10.8)
[2017-08-12 07:42] LABS: BUN/CREATININE RATIO 39.2 (10-20); CREATININE 1.6 mg/dl (0.60-1.20); POTASSIUM 4.9 mmol/L (3.5-5.1)
[2017-08-12 08:13] VITALS: BP 144/83; PULSE 68; TEMP 36.6; O2SAT 96
[2017-08-12] MEDS: LOSARTAN POTASSIUM 50 MG TAB PO SCH (09:19)
[2017-08-12] MEDS: CHLORTHALIDONE 25 MG TAB PO SCH (09:19)
[2017-08-12] MEDS: ASPIRIN 81 MG ECTAB PO SCH (09:20)
[2017-08-12] MEDS: PANTOprazole SOD 40 MG TAB PO SCH (09:20)
[2017-08-12] MEDS: MAGNESIUM OXIDE 400 MG TAB PO SCH ×2 (09:20→20:43)
[2017-08-12] MEDS: FERROUS SULFATE 325 MG TAB PO SCH ×2 (09:21→15:54)
[2017-08-12] MEDS: METOPROLOL SUCC 25MG EXT REL TAB PO SCH ×2 (09:21→20:43)
[2017-08-12] MEDS: ALLOPURINOL 100 MG TAB PO SCH (09:21)
[2017-08-12] MEDS: FENOFIBRATE 48 MG TAB PO SCH (09:22)
[2017-08-12] MEDS: CLOPIDOGREL BISULFATE 75 MG TAB PO SCH (09:22)
[2017-08-12] MEDS: CEROVITE ADV FORMULA TAB PO SCH (09:22)
[2017-08-12] MEDS: CHOLECALCIFEROL 1000 INTER.UNIT TAB PO SCH (09:23)
[2017-08-12] MEDS: DEXAMETHASONE INJ 4 MG in SYRINGE 0 ML IV SCH ×2 (09:24→20:43)
[2017-08-12] MEDS: FUROSEMIDE INJ 40 MG in SYRINGE 0 ML IV SCH (09:25)
[2017-08-12] MEDS: INSULIN ASPART 100 UNITS/ML 3 ML PEN SC SCH ×4 (09:31→20:13)
[2017-08-12] MEDS: INSULIN GLARGINE SOLOSTAR 100 UNITS/ML 3 ML PEN SC SCH (09:34)
[2017-08-12 16:06] VITALS: BP 135/74; PULSE 74; TEMP 36.6; O2SAT 97
--- NOTE | 2017-08-12 17:48 | Progress Note ---
Internal Med Progress Note Date of Service: Aug 12, 2017. Provider Documentation: SUBJECTIVE: sitting on the chair comfortably pain is controlled with pain meds afebrile no sob no nausea feeling better OBJECTIVE: Vital Signs-as noted below Exam: General-alert and awake. not in distress ENT-normal hearing Neck-no neck masses supple Lungs-cta b/l no wheezing or crackles Heart-s1 and s2 heard regular rate and rhythm no murmurs Abdomen-soft bowel sounds present non tender no distension Extremities-no erythema no edema Neuro-alert and awake moves extremities non focal Lab data as noted below. ASSESSMENT & PLAN: 1. 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 Has mild vasogenic edema on CT head Discussed with oncology, started on IV Decadron 4 mg b.i.d. and pain control and monitor on medical floor. Further recommendation as per heme/onc. Await heme/onco input. 2. Hypercalcemia secondary to above. To treat with aggressive fluids with iv Lasix. We will follow the labs.Presented with ca 12.9 and calcium today 11.0 3. Acute renal failure and chronic kidney disease stage III, baseline creatinine to 1.5, presents with creatinine 2.4. will f/u labs. If worsening will consult Nephrology Cr 1.6 today. 4. History of diabetes. Continue Lantus and ISS. We will closely monitor the blood sugar while the patient is on IV Decadron. 5. History of coronary artery disease. Continue home medication of aspirin, Plavix, metoprolol. Holding the statin for liver mets. Continue losartan.stable. 6. History of chronic systolic congestive heart failure, EF of around 45%. Continue home medication of losartan, Toprol and chlorthalidone. The patient is getting fluids and IV lasix. Close monitor for volume overload. 6. Hypertension. Continue with metoprolol, losartan and chlorthalidone as prescribed. We will monitor blood pressure. 7. History of hyperlipidemia. Continue fenofibrate. Holding the Lipitor. 8. Gastroesophageal reflux disease. Continue PPI. 7. Deep venous thrombosis prophylaxis. Heparin subQ. Disposition To be determined Code status Level 1 Vital Signs: Date Time Temp Pulse Resp B/P (MAP) Pulse Ox O2 Delivery O2 Flow Rate FiO2 08/12/17 16:06 36.6 74 18 135/74 (94) 97 Room Air 08/12/17 08:13 36.6 68 18 144/83 (103) 96 Room Air 08/12/17 08:00 Room Air 08/12/17 00:45 Room Air 08/12/17 00:00 36.8 71 20 132/68 (89) 94 Room Air 08/11/17 21:00 Room Air 08/11/17 19:54 85 134/71 (92) Lab Results: Results Past 24 Hours Test 08/11/17 20:02 08/12/17 06:00 08/12/17 07:48 08/12/17 11:34 Range/Units Bedside Glucose 82 80 112 70-90 mg/dl White Blood Count 2.96 4.8-10.8 K/uL Red Blood Count 3.87 4.2-5.4 M/uL Hemoglobin 11.0 12.0-16.0 g/dL Hematocrit 33.9 37-47 % Mean Corpuscular Volume 87.6 80-100 fL Mean Corpuscular Hemoglobin 28.4 25-34 pg Mean Corpuscular Hemoglobin Concent 32.4 32-36 g/dl Platelet Count 223 130-400 K/uL Mean Platelet Volume 11.7 7.4-10.4 fL Neutrophils (%) (Auto) 76.7 % Lymphocytes (%) (Auto) 16.2 % Monocytes (%) (Auto) 6.1 % Eosinophils (%) (Auto) 0.3 % Basophils (%) (Auto) 0.0 % Neutrophils # (Auto) 2.27 1.4-6.5 K/uL Lymphocytes # (Auto) 0.48 1.2-3.4 K/uL Monocytes # (Auto) 0.18 0.11-0.59 K/uL Eosinophils # (Auto) 0.01 0-0.5 K/uL Basophils # (Auto) 0.00 0-0.2 K/uL RDW Standard Deviation 51.2 36.4-46.3 fL RDW Coefficient of Variation 15.9 11.5-14.5 % Immature Granulocyte % (Auto) 0.7 % Immature Granulocyte # (Auto) 0.02 0.00-0.02 K/uL Sodium Level 141 136-145 mmol/L Potassium Level 4.9 3.5-5.1 mmol/L Chloride Level 108 98-107 mmol/L Carbon Dioxide Level 22 21-32 mmol/L Anion Gap 11.0 3-11 mmol/L Blood Urea Nitrogen 63 7-18 mg/dl Creatinine 1.60 0.60-1.20 mg/dl Est Creatinine Clear Calc Drug Dose 22.0 ml/min Estimated GFR () 36.7 Estimated GFR (Non- 31.6 BUN/Creatinine Ratio 39.2 10- Random Glucose 90 70-99 mg/dl Calcium Level 11.0 8.5-10.1 mg/dl Magnesium Level 2.0 1.8-2.4 mg/dl Test 08/12/17 16:58 Range/Units Bedside Glucose 89 70-90 mg/dl
[2017-08-12 18:00] VITALS: O2SAT 97
--- NOTE | 2017-08-12 19:22 | Medical Consult ---
Consultation Date of Consultation: Aug 12, 2017. Attending Physician: Abhishek Fernandes MD History of Present Illness Hematology/Oncology consult: Evaluation management of metastatic neuroendocrine carcinoma involving the liver and hypercalcemia Date of consultation: 08/12/[address] Fernandes. HPI: 71-year-old female, who complained of increasing pain in the right hip for the last several weeks duration, recently she was admitted Hospital for right flank pain and then found to have a multiple liver lesions, had further diagnostic workup including biopsy of the liver, she supposed to have an appointment with me tomorrow but now she is admitted on 08/11/2017 for increasing pain in the right hip. Workup done in her case: Imaging studies -right femur x-ray because of pain following fall--> no fracture dislocation noted (04/30/2017). -CT scan of the abdomen and pelvis done without intravenous contrast on 2016 for evaluation of right flank pain--> multiple liver lesions suspicious for metastatic disease, normal spleen, unremarkable pancreas, soft tissue prominence in the right lower chest wall. -CT scan lumbar spine done on 07/17/2017 showed no fracture or dislocation, disc bulge with mild spinal stenosis at L3-L4 level, DJD noted moderate to severe spinal stenosis noted. -CT scan of the head done on 08/11/2017 destructive lytic lesions involving the right temporal/parietal skull bone measuring 2.3 cm, associated with soft tissue component measuring up to 1.5 cm, mild subcutaneous advised genetic edema , another subcentimeter lytic lesions involving the right frontal skull bone noted. Chest x-ray--> no acute changes noted. -CT scan of the abdomen and pelvis without intravenous or oral contrast on 2016 showed once again ill-defined innumerable liver lesions, mild perihepatic ascites noted, no hematoma identified, aortocaval lymphadenopathy measuring up to 2.1 x 1.5 cm, lytic lesions involving the right iliac bone measuring up to 2.3 x 2 cm. Blood workup done on 08/11/2017: -WBC 4700, H&H of 13.4/44.8, Platelet count of 333,000. -BUN/Creat: 84/2.4, calcium 12.9, magnesium 2.7, AST 90, ALT 37, underwent phosphatase 162, Total bilirubin: 0.5 -proBNP--> 1395. -lipase--> 25 She received IV hydration, follow-up blood workup on 10/12/2017: -BUN/Creat: 63/1.6, calcium 11.0. Magnesium 2.0 pick -Biopsy of the liver lesion (08/02/2017). High-grade metastatic carcinoma with neuroendocrine features, she DX to positive suggest GI origin, suggest pancreas. I saw her at bedside, she is sitting comfortably in the bed, she complained to me on the left hip pain with some radiation to the leg, she is lying down in the right lateral position, she also complains of right upper abdominal pain, some nausea present, no vomiting, no bleeding from any sites, no fever, she lives by herself, she says that her is in the senior care. No leg edema. REVIEW OF SYSTEMS: GENERAL: Some weight loss present, feeling weak and tired, no fever or chills. SKIN: No skin rash, no bruising. HEAD: No new headache, no dizziness. EYES: No recent change in the vision, no diplopia, EARS: No earache no tinnitus, NOSE: No epistaxis, No nasal discharge or stuffiness, MOUTH: No sores, no dysphagia, no hoarseness of voice, NECK: No lumps, No swelling in thyroid area. No stiffness. PULMONARY: No cough, No shortness of breath, no hemoptysis, no chest pain, No wheezing. CARDIOVASCULAR: No anginal chest pain, no PND, no orthopnea. No palpitation, no leg edema. No syncope. GASTROINTESTINAL: Abdominal pain as described above, no nausea or vomiting. No diarrhea, No constipation. No blood in stool or black tarry stools. No abdominal distention. UROLOGIC: No burning urination. No hematuria. MUSCULOSKELETAL: No joint pain, No joint swelling, no muscle weakness. HEMATOLOGIC: No anemia, no bleeding disorder, No bruising. NEUROLOGIC: No seizures, no focal weakness, no speech difficulty, No memory disturbances. No tingling or numbness of the extremities. PSYCHIATRIC: No depression. No anxiety. No psychosis. SLEEP: No sleep disorder. Past medical and surgical history: -hypothyroidism, gastroparesis, diabetes mellitus, glaucoma, hyperlipidemia, hypertension, chronic kidney disease, coronary artery disease, CHF, ejection fraction around 45%, -S/P thyroidectomy, removal of the nasal polyps, cataract surgery, recent biopsy of the liver lesion. Social history: She lives by herself, she says that her lives in the senior care. Nonsmoker, denies any ETOH abuse. Family history: Not significant. Medications: Please review her chart for detailed list of medications. - during this hospitalization, started on Decadron 4 mg every 12 hourly, Allergies: Lisinopril. On exam: - Alert and oriented x3, well built woman, not in any distress. - HEENT: no icterus, no pallor, Throat: Normal. - Neck: No palpable cervical lymphadenopathy. - Chest: clear to auscultation. - Abdomen: soft, nontender, no hepatomegaly, no splenomegaly. - No focal neuro deficit. - Extremities: no finger clubbing, no leg edema. Lab and Imaging: as described above. 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 I would like to get bone scan for further evaluation of bony metastatic disease , also would like to get CT scan of the chest without intravenous contrast. Her hyperplasia is likely to recur in a short period of time without any further treatment, once her kidney function improves, will give her intravenous Zometa for hypercalcemia After reviewing the bone scan and CT scan of chest, will decide about any role of palliative radiation treatment. I would like to see her in the office before we decide about role of systemic chemotherapy for metastatic high-grade neuroendocrine carcinoma. Will follow up. Thanks for the consultation. Dr. Iatlo Michel Hem/Onc (This note was completed using the dictation program Fluency Direct. As such, there may be misspellings, word substitutions, or other variations that should not change the essence of the clinical content of this encounter note. If there is need for further clarification, please direct questions to the provider listed above.) Past Medical/Surgical History Medical Problems: (1) Acute on chronic renal failure Status: Acute (2) Anemia Status: Acute (3) Anemia Status: Acute (4) Elevated troponin Status: Acute (5) Exertional chest pain Status: Acute (6) Hypoglycemia Status: Acute (7) Metastatic cancer to liver Status: Acute (8) Right flank pain Status: Acute (9) Syncope Status: Acute Family History Diabetes mellitus MOTHER BROTHER FH: breast cancer MOTHER SISTER Social History Smoking Status: Never Smoker Housing Status: assisted living Occupation Status: retired Allergies Coded Allergies: Lisinopril (Verified Allergy, Unknown, UNKNOWN, 08/11/17) Current Inpatient Medications Current Inpatient Medications Medications (Trade) Dose Ordered Sig/Bay Route Start Time Stop Time Status Last Admin Dose Admin Heparin Sodium (Porcine) (Heparin Sq 5000 Unit/0.5ml) 5,000 unit Q8H SQ 08/11/17 20:00 09/10/17 19:59 08/12/17 12:32 5,000 UNIT Acetaminophen (Tylenol Tab) 650 mg Q4H PRN PO 08/11/17 16:15 09/10/17 16:14 Al Hydrox/Mg Hydrox/Simethicone (Maalox Max Susp) 15 ml Q4H PRN PO 08/11/17 16:15 09/10/17 16:14 Magnesium Hydroxide (Milk Of Magnesia Susp) 30 ml Q6H PRN PO 08/11/17 16:15 09/10/17 16:14 Polyethylene (Miralax Powder Packet) 17 gm DAILY PRN PO 08/11/17 16:15 09/10/17 16:14 Ondansetron HCl (Zofran Inj) 4 mg Q6H PRN IV 08/11/17 16:15 09/10/17 16:14 Allopurinol (Zyloprim Tab) 200 mg DAILY PO 08/12/17 08:00 09/11/17 08:59 08/12/17 09:21 200 MG Aspirin (Ecotrin Tab) 81 mg DAILY PO 08/12/17 08:00 09/11/17 08:59 08/12/17 09:20 81 MG Chlorthalidone (Hygroton Tab) 12.5 mg Q2D@0900 PO 08/12/17 09:00 09/11/17 08:59 08/12/17 09:19 12.5 MG Clopidogrel Bisulfate (plAVix TAB) 75 mg DAILY PO 08/12/17 08:00 09/11/17 08:59 08/12/17 09:22 75 MG Ferrous Sulfate (Feosol Tab) 325 mg BIDM PO 08/11/17 17:27 09/10/17 17:59 08/12/17 15:54 325 MG Insulin Glargine (Lantus Solostar Pen) 15 units DAILYBB SC 08/12/17 06:30 09/11/17 06:59 08/12/17 09:34 15 UNITS Levothyroxine Sodium (Synthroid Tab) 112 mcg DAILYBB PO 08/12/17 06:30 09/11/17 06:29 08/12/17 06:05 112 MCG Losartan Potassium (coZAAR TAB) 50 mg DAILY PO 08/12/17 08:00 09/11/17 08:59 08/12/17 09:19 50 MG Metoprolol Succinate (Toprol Xl Tab) 25 mg BID PO 08/11/17 20:00 09/10/17 20:59 08/12/17 09:21 25 MG Nitroglycerin (Nitrostat Tab) 0.4 mg UD PRN SL 08/11/17 16:15 09/10/17 16:14 Tramadol HCl (Ultram Tab) 50 mg Q8 PRN PO 08/11/17 16:15 09/10/17 16:14 Cholecalciferol (Vitamin D Tab) 5,000 inter.unit QAM PO 08/12/17 08:00 09/11/17 08:59 08/12/17 09:23 5,000 INTER.UNIT Fenofibrate (Tricor Tab) 96 mg DAILY PO 08/12/17 08:00 09/11/17 08:59 08/12/17 09:22 96 MG Multivitamins/ Minerals (Multivitamin W/ Minerals Tab) 1 tab DAILY PO 08/12/17 08:00 09/11/17 08:59 08/12/17 09:22 1 TAB Pantoprazole Sodium (Protonix Tab) 40 mg DAILY PO 08/12/17 08:00 09/11/17 08:59 08/12/17 09:20 40 MG Sodium Chloride 1,000 ml @ 150 mls/hr Q6H40M IV 08/11/17 16:15 09/10/17 16:14 08/12/17 18:45 150 MLS/HR Furosemide 40 mg/ Syringe 4 ml @ 4 mls/min DAILY IV 08/12/17 08:00 09/11/17 08:59 08/12/17 09:25 4 MLS/MIN Oxycodone HCl (Roxicodone Immediate Rel Tab) 5 mg Q4 PRN PO 08/11/17 16:15 08/25/17 16:14 08/11/17 19:56 5 MG Insulin Aspart (novoLOG ASPART) SLIDING SCALE G... ACHS SC 08/11/17 21:00 09/10/17 20:59 08/12/17 17:20 2 UNITS Dexamethasone Sodium Phosphate 4 mg/Syringe 1 ml @ 1 mls/min BID@0800,2000 IV 08/11/17 20:00 09/10/17 19:59 08/12/17 09:24 1 MLS/MIN Magnesium Oxide (Mag-Ox Tab) 400 mg BID PO 08/11/17 20:00 09/10/17 20:59 08/12/17 09:20 400 MG Physical Exam Date Time Temp Pulse Resp B/P (MAP) Pulse Ox O2 Delivery O2 Flow Rate FiO2 08/12/17 18:00 97 Room Air 08/12/17 16:06 36.6 74 18 135/74 (94) 97 Room Air 08/12/17 08:13 36.6 68 18 144/83 (103) 96 Room Air 08/12/17 08:00 Room Air 08/12/17 00:45 Room Air 08/12/17 00:00 36.8 71 20 132/68 (89) 94 Room Air 08/11/17 21:00 Room Air 08/11/17 19:54 85 134/71 (92) Laboratory Results Last 24 Hours Test 08/11/17 20:02 08/12/17 06:00 08/12/17 07:48 08/12/17 11:34 Bedside Glucose 82 mg/dl 80 mg/dl 112 mg/dl White Blood Count 2.96 K/uL Red Blood Count 3.87 M/uL Hemoglobin 11.0 g/dL Hematocrit 33.9 % Mean Corpuscular Volume 87.6 fL Mean Corpuscular Hemoglobin 28.4 pg Mean Corpuscular Hemoglobin Concent 32.4 g/dl Platelet Count 223 K/uL Mean Platelet Volume 11.7 fL Neutrophils (%) (Auto) 76.7 % Lymphocytes (%) (Auto) 16.2 % Monocytes (%) (Auto) 6.1 % Eosinophils (%) (Auto) 0.3 % Basophils (%) (Auto) 0.0 % Neutrophils # (Auto) 2.27 K/uL Lymphocytes # (Auto) 0.48 K/uL Monocytes # (Auto) 0.18 K/uL Eosinophils # (Auto) 0.01 K/uL Basophils # (Auto) 0.00 K/uL RDW Standard Deviation 51.2 fL RDW Coefficient of Variation 15.9 % Immature Granulocyte % (Auto) 0.7 % Immature Granulocyte # (Auto) 0.02 K/uL Sodium Level 141 mmol/L Potassium Level 4.9 mmol/L Chloride Level 108 mmol/L Carbon Dioxide Level 22 mmol/L Anion Gap 11.0 mmol/L Blood Urea Nitrogen 63 mg/dl Creatinine 1.60 mg/dl Est Creatinine Clear Calc Drug Dose 22.0 ml/min Estimated GFR () 36.7 Estimated GFR (Non- 31.6 BUN/Creatinine Ratio 39.2 Random Glucose 90 mg/dl Calcium Level 11.0 mg/dl Magnesium Level 2.0 mg/dl Test 08/12/17 16:58 Bedside Glucose 89 mg/dl
--- NOTE | 2017-08-12 20:31 | DIAGNOSTIC IMAGING REPORT ---
CT OF THE CHEST WITHOUT IV CONTRAST CLINICAL HISTORY: High grade metastatic neuroendocrine tumor. COMPARISON STUDY: Chest radiograph August 11, 2017. CT DOSE: 216.76 mGy.cm TECHNIQUE: Axial images of the chest were obtained without IV contrast. Images were reviewed in the axial, sagittal, and coronal planes. IV contrast was not administered for this examination. A dose lowering technique was utilized adhering to the principles of ALARA. FINDINGS: No enlarged axillary, mediastinal or hilar lymph nodes are present. The size of the heart is normal. There is no pericardial effusion. Central airways are patent. Note is made of a 5 mm right lower lobe nodule shown image 165. No consolidation to suggest pneumonia is present. Numerous lytic skeletal lesions are noted, including a 2.7 cm lytic lesion within the posterior left first rib with extension into the adjacent soft tissues. There is also a lytic lesion within the right pedicle and transverse process of T6. Additional rib lesions are noted as well as a small sternal lesion. Visualized portions of the upper abdomen demonstrate trace perihepatic ascites and innumerable bilobar hepatic masses. IMPRESSION: 1. Numerous lytic skeletal lesions consistent with metastatic disease, as described above. 2. Extensive hepatic metastases. 3. Indeterminate 5 mm right lower lobe nodule. No thoracic lymphadenopathy. Electronically signed by: Murtaza Dubois M.D. 08/12/2017 8:30 PM Dictated Date/Time: 08/12/2017 8:19 PM
[2017-08-12 20:42] VITALS: BP 124/68; PULSE 71
[2017-08-12 23:12] VITALS: BP 136/58; PULSE 62; TEMP 36.4; O2SAT 98
[2017-08-13] VITALS (7 sets, daily range): BP systolic 105–148; BP diastolic 62–74; PULSE 54–72; TEMP 36.2–36.8; O2SAT 95–98
[2017-08-13] MEDS: SODIUM CHLORIDE 0.9% 1000ML 1,000 ML IV SCH ×4 (01:46→21:36)
[2017-08-13] MEDS: HEPARIN SOD 5000 UNIT/0.5 ML CARP SQ SCH ×2 (03:54→11:27)
[2017-08-13 06:04] LABS: COMPLETE YES; HEMATOCRIT 32.6 % (37-47); IG% 0.2 %; LYMPH % 13.9 %; LYMPH ABS # 0.57 K/uL (1.2-3.4); MEAN CELL VOLUME 86.5 fL (80-100); MEAN CORPUSCULAR HEMOGLOBIN 27.9 pg (25-34); MEAN CORPUSCULAR HGB CONC 32.2 g/dl (32-36); MEAN PLATELET VOLUME 11.5 fL (7.4-10.4); MONO % 6.6 %; NEUT % 79.3 %; PLATELET COUNT 217 K/uL (130-400); RED BLOOD COUNT 3.77 M/uL (4.2-5.4); WHITE BLOOD COUNT 4.11 K/uL (4.8-10.8)
[2017-08-13] MEDS: LEVOTHYROXINE 112 MCG TAB PO SCH (06:05)
[2017-08-13 06:30] LABS: BUN/CREATININE RATIO 38.6 (10-20); CALCIUM 10.5 mg/dl (8.5-10.1); CREATININE 1.3 mg/dl (0.60-1.20); MAGNESIUM 1.5 mg/dl (1.8-2.4); POTASSIUM 4.2 mmol/L (3.5-5.1)
[2017-08-13] MEDS: TRAMADOL HCL 50 MG TAB PO PRN (09:09)
[2017-08-13] MEDS: DEXAMETHASONE INJ 4 MG in SYRINGE 0 ML IV SCH ×2 (09:13→19:32)
[2017-08-13] MEDS: FUROSEMIDE INJ 40 MG in SYRINGE 0 ML IV SCH (09:20)
[2017-08-13] MEDS: MAGNESIUM SULFATE 1GM / D5W 1 GM in PREMIXED IN D5W 100 ML IV SCH ×2 (09:29→10:33)
[2017-08-13] MEDS: LOSARTAN POTASSIUM 50 MG TAB PO SCH (09:33)
[2017-08-13] MEDS: ASPIRIN 81 MG ECTAB PO SCH (09:35)
[2017-08-13] MEDS: MAGNESIUM OXIDE 400 MG TAB PO SCH ×2 (09:36→19:33)
[2017-08-13] MEDS: FERROUS SULFATE 325 MG TAB PO SCH ×2 (09:36→17:42)
[2017-08-13] MEDS: CEROVITE ADV FORMULA TAB PO SCH (09:37)
[2017-08-13] MEDS: PANTOprazole SOD 40 MG TAB PO SCH (09:38)
[2017-08-13] MEDS: CLOPIDOGREL BISULFATE 75 MG TAB PO SCH (09:38)
[2017-08-13] MEDS: METOPROLOL SUCC 25MG EXT REL TAB PO SCH ×2 (09:39→19:34)
[2017-08-13] MEDS: FENOFIBRATE 48 MG TAB PO SCH (09:40)
[2017-08-13] MEDS: ALLOPURINOL 100 MG TAB PO SCH (09:41)
[2017-08-13] MEDS: CHOLECALCIFEROL 1000 INTER.UNIT TAB PO SCH (09:41)
[2017-08-13] MEDS: INSULIN GLARGINE SOLOSTAR 100 UNITS/ML 3 ML PEN SC SCH (10:19)
[2017-08-13] MEDS: INSULIN ASPART 100 UNITS/ML 3 ML PEN SC SCH ×4 (10:20→19:53)
[2017-08-13] MEDS ORDERED: NURSING VERBAL MED ORDER ONE (12:00)
--- NOTE | 2017-08-13 13:49 | Progress Note ---
Internal Med Progress Note Date of Service: Aug 13, 2017. Provider Documentation: patient seen and examined. has been laying in the bed comfortably and able to sit in the chair. denies acute pain. denies vomiting or problems with appetite. denies problems with using the bathroom. OBJECTIVE: Vital Signs-as noted below Exam: General-alert and awake. not in distress Eyes: EOMI ENT-normal hearing Neck-no neck masses supple Lungs - CTABLno wheezing or crackles Heart -s1 and s2 heard regular rate and rhythm Abdomen -soft bowel sounds present non tender no distension Extremities -no erythema no edema Neuro -alert and awake, moves extremities, no focal deficits ASSESSMENT & PLAN: 71-year-old female who presents with right flank pain and found to have metastatic disease with mets to liver, brain and right hip pain is mostly from metastatic disease. 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 Has mild vasogenic edema on CT head and has been on IV Decadron 4 mg b.i.d. with pain control As per hemeoncology, obtain bone scan and patient will be further re-evaluated if candidate for chemotherapy. Have discussed this plan with paient and patient' s family members and power of attorney at law Hypercalcemia secondary malignancy. presented with hypercalcemia of 12.9 and now downtrending on IV fluids with Lasix now serum calcium 10.5 Acute renal failure and chronic kidney disease stage III, baseline creatinine to 1.5, presents with creatinine 2.4 and downtrending on Iv fluids with Lasix creatinine 1.3 today History of diabetes. on IV Decadron because of malignancy. Continue Lantus and ISS. History of coronary artery disease. Continue home medication of aspirin, Plavix , metoprolol. Continue losartan. Holding the statin for liver mets. History of chronic systolic congestive heart failure, EF of around 45%. Continue home medication of losartan, Toprol and chlorthalidone. The patient is getting fluids and IV Lasix Hypertension. Continue with metoprolol, losartan and chlorthalidone History of hyperlipidemia. Continue fenofibrate. Holding the Lipitor. Gastroesophageal reflux disease. Continue PPI. Deep venous thrombosis prophylaxis. SCD Disposition will need follow up with hemoncology when patient is discharged Vital Signs: Date Time Temp Pulse Resp B/P (MAP) Pulse Ox O2 Delivery O2 Flow Rate FiO2 08/13/17 11:59 36.2 59 16 136/72 (93) 96 08/13/17 11:04 95 Room Air 08/13/17 10:00 Room Air 08/13/17 07:24 36.6 61 17 148/74 (98) 97 Room Air 08/13/17 00:46 36.8 72 17 134/70 (91) 96 Room Air 08/13/17 00:00 Room Air 08/12/17 23:12 36.4 62 18 136/58 (84) 98 Room Air 08/12/17 20:42 71 124/68 (86) 08/12/17 18:00 97 Room Air 08/12/17 16:06 36.6 74 18 135/74 (94) 97 Room Air Lab Results: Results Past 24 Hours Test 08/12/17 16:58 08/12/17 20:11 08/13/17 05:21 08/13/17 08:24 Range/Units Bedside Glucose 89 75 106 70-90 mg/dl White Blood Count 4.11 4.8-10.8 K/uL Red Blood Count 3.77 4.2-5.4 M/uL Hemoglobin 10.5 12.0-16.0 g/dL Hematocrit 32.6 37-47 % Mean Corpuscular Volume 86.5 80-100 fL Mean Corpuscular Hemoglobin 27.9 25-34 pg Mean Corpuscular Hemoglobin Concent 32.2 32-36 g/dl Platelet Count 217 130-400 K/uL Mean Platelet Volume 11.5 7.4-10.4 fL Neutrophils (%) (Auto) 79.3 % Lymphocytes (%) (Auto) 13.9 % Monocytes (%) (Auto) 6.6 % Eosinophils (%) (Auto) 0.0 % Basophils (%) (Auto) 0.0 % Neutrophils # (Auto) 3.26 1.4-6.5 K/uL Lymphocytes # (Auto) 0.57 1.2-3.4 K/uL Monocytes # (Auto) 0.27 0.11-0.59 K/uL Eosinophils # (Auto) 0.00 0-0.5 K/uL Basophils # (Auto) 0.00 0-0.2 K/uL RDW Standard Deviation 50.5 36.4-46.3 fL RDW Coefficient of Variation 15.9 11.5-14.5 % Immature Granulocyte % (Auto) 0.2 % Immature Granulocyte # (Auto) 0.01 0.00-0.02 K/uL Sodium Level 141 136-145 mmol/L Potassium Level 4.2 3.5-5.1 mmol/L Chloride Level 109 98-107 mmol/L Carbon Dioxide Level 24 21-32 mmol/L Anion Gap 8.0 3-11 mmol/L Blood Urea Nitrogen 50 7-18 mg/dl Creatinine 1.30 0.60-1.20 mg/dl Est Creatinine Clear Calc Drug Dose 27.1 ml/min Estimated GFR () 47.1 Estimated GFR (Non- 40.7 BUN/Creatinine Ratio 38.6 10-20 Random Glucose 88 70-99 mg/dl Calcium Level 10.5 8.5-10.1 mg/dl Magnesium Level 1.5 1.8-2.4 mg/dl Test 08/13/17 11:51 Range/Units Bedside Glucose 104 70-90 mg/dl
--- NOTE | 2017-08-13 15:55 | DIAGNOSTIC IMAGING REPORT ---
WHOLE-BODY NUCLEAR BONE SCAN CLINICAL HISTORY: Metastatic disease. Hypercalcemia. COMPARISON STUDY: CT scan of the chest dated 08/12/2017. Abdominal CT dated 08/11/2017. CT of the brain dated 08/11/2017. TECHNIQUE: Three hours following the IV administration of 26.9 mCi of technetium 99m MDP, whole body nuclear bone scan was performed in the anterior and posterior projections. FINDINGS: There is abnormal tracer deposition identified involving the right convexity. This corresponds to the osteolytic lesion seen on the recent CT scan. Activity identified within the right aspect of L1 and L2 also corresponds to known osteolytic lesions seen by CT. The lesion in the medial right ileum seen by CT on 08/11/2017 was not apparent on bone scan imaging. Typically degenerative uptake is identified in the shoulders, knees, ankles, feet, and wrists. Typically degenerative activity is also seen in the spine. Mild scoliosis is suggested. There is expected excreted activity within the renal collecting system and bladder. IMPRESSION: 1. Foci of abnormal tracer deposition within the right calvarium and involving the lumbar spine are consistent with metastatic disease when correlated with recent CT scan imaging. 2. The lesion in the right ilium seen by CT was not clearly identified by bone scan. The CT findings remain consistent with metastatic disease. Electronically signed by: Beni Arriaga M.D. 08/13/2017 3:54 PM Dictated Date/Time: 08/13/2017 3:48 PM
--- NOTE | 2017-08-13 18:34 | Hematology/Oncology Prog Note ---
Hematology/Onc Progress Note Date of Service Aug 13, 2017. Subjective I saw her at bedside, she is sitting comfortably in the chair, she does complain of lower back pain, she is receiving Decadron 4 mg twice a day, no headache, no focal neurological weakness, no leg edema, no fever, no new cardiac or pulmonary symptoms, gradual improvement of the calcium level as well as kidney function test noted. No new bleeding complications. I reviewed her blood workup done today, WBC increased to around 4100, (it was 2900 yesterday), hemoglobin level 10.5, platelet count [id number], serum creatinine level 1.3, calcium level 10.5, magnesium level 1.5. Bone scan done today showed abnormal uptake noted in the right calvarium, lumbar spine, right ilium lesion is not clearly identified in the bone scan. Will repeat another blood workup tomorrow and with the improvement of the kidney function test, will give her Zometa 1st dose. Would like to radiation oncology consultation for palliative radiation treatment to the symptomatic lumbar spine lesion. Skull lesion is asymptomatic at this time but we can consider for radiation treatment to that area as well. Will decide about systemic chemotherapy as an outpatient. Vital Signs Vital Signs Past 12 Hours Date Time Temp Pulse Resp B/P (MAP) Pulse Ox O2 Delivery O2 Flow Rate FiO2 08/13/17 16:00 98 Room Air 08/13/17 15:57 36.3 54 18 105/62 (76) 98 Room Air 08/13/17 11:59 36.2 59 16 136/72 (93) 96 08/13/17 11:04 95 Room Air 08/13/17 10:00 Room Air 08/13/17 07:24 36.6 61 17 148/74 (98) 97 Room Air
[2017-08-14] VITALS (8 sets, daily range): BP systolic 102–145; BP diastolic 58–70; PULSE 55–100; TEMP 36.2–36.6; O2SAT 93–100
[2017-08-14] MEDS: SODIUM CHLORIDE 0.9% 1000ML 1,000 ML IV SCH (04:13)
[2017-08-14] MEDS: LEVOTHYROXINE 112 MCG TAB PO SCH (06:07)
[2017-08-14 06:08] LABS: COMPLETE YES; EOS % 0.2 %; HEMATOCRIT 33.9 % (37-47); IG% 0.2 %; LYMPH ABS # 0.67 K/uL (1.2-3.4); MEAN CELL VOLUME 87.1 fL (80-100); MEAN CORPUSCULAR HEMOGLOBIN 26.5 pg (25-34); MEAN CORPUSCULAR HGB CONC 30.4 g/dl (32-36); MEAN PLATELET VOLUME 11.7 fL (7.4-10.4); MONO % 7.6 %; PLATELET COUNT 222 K/uL (130-400); RED BLOOD COUNT 3.89 M/uL (4.2-5.4); WHITE BLOOD COUNT 4.46 K/uL (4.8-10.8)
[2017-08-14 06:47] LABS: BUN/CREATININE RATIO 34.2 (10-20); CALCIUM 9.8 mg/dl (8.5-10.1); CREATININE 1.2 mg/dl (0.60-1.20); MAGNESIUM 1.8 mg/dl (1.8-2.4); POTASSIUM 4.1 mmol/L (3.5-5.1)
[2017-08-14 06:49] LABS: ALB/GLOB RATIO 0.7 (0.9-2)
[2017-08-14] MEDS: CHOLECALCIFEROL 1000 INTER.UNIT TAB PO SCH (09:10)
[2017-08-14] MEDS: CLOPIDOGREL BISULFATE 75 MG TAB PO SCH (09:10)
[2017-08-14] MEDS: ALLOPURINOL 100 MG TAB PO SCH (09:10)
[2017-08-14] MEDS: ASPIRIN 81 MG ECTAB PO SCH (09:10)
[2017-08-14] MEDS: PANTOprazole SOD 40 MG TAB PO SCH (09:11)
[2017-08-14] MEDS: METOPROLOL SUCC 25MG EXT REL TAB PO SCH ×2 (09:11→20:03)
[2017-08-14] MEDS: CEROVITE ADV FORMULA TAB PO SCH (09:11)
[2017-08-14] MEDS: FERROUS SULFATE 325 MG TAB PO SCH ×2 (09:12→18:31)
[2017-08-14] MEDS: FENOFIBRATE 48 MG TAB PO SCH (09:12)
[2017-08-14] MEDS: FUROSEMIDE INJ 40 MG in SYRINGE 0 ML IV SCH (09:12)
[2017-08-14] MEDS: DEXAMETHASONE INJ 4 MG in SYRINGE 0 ML IV SCH ×2 (09:13→20:03)
[2017-08-14] MEDS: MAGNESIUM OXIDE 400 MG TAB PO SCH ×2 (09:13→20:02)
[2017-08-14] MEDS: LOSARTAN POTASSIUM 50 MG TAB PO SCH (09:13)
[2017-08-14] MEDS: CHLORTHALIDONE 25 MG TAB PO SCH (09:13)
[2017-08-14] MEDS: INSULIN ASPART 100 UNITS/ML 3 ML PEN SC SCH ×4 (09:20→20:04)
[2017-08-14] MEDS: INSULIN GLARGINE SOLOSTAR 100 UNITS/ML 3 ML PEN SC SCH (09:23)
--- NOTE | 2017-08-14 10:27 | Radiation Oncology Consult ---
Radiation Oncology Consult Date / Reason Aug 14, 2017. [facility] Medical Oncologist: Dr. Italo Michel Radiation Oncologist: Dr. Nelly Michel Other Providers: Hospitalist - Dr. Castillo Diagnosis (1) Neuroendocrine carcinoma Stage: IV History of Present Illness I am seeing Ms. Cisneros in consultation the request of Dr. Italo Michel and Dr. Castillo. ECOG PS: 0 Ms. Cisneros is a 71-year-old female who recently presented with abdominal pain in July 2017. She did have a CT of the abdomen/pelvis on 07/27/2017 which revealed: "IMPRESSION: 1. Multiple hepatic masses. The findings should be presumed to represent metastatic disease until proven otherwise 2. No evidence of bowel obstruction. No evidence of free air. 3. Normal appendix 4. No renal, ureteral, or bladder calculi identified 5. Aortocaval lymphadenopathy 6. Right chest wall asymmetry. Correlation with physical examination is recommended to exclude a chest wall/breast mass." She underwent an ultrasound-guided biopsy of the liver on 08/02/2017 which confirms high-grade metastatic carcinoma with neuroendocrine features to the liver. The patient was going to be seen by medical oncology in the outpatient setting however the patient developed significant pain and was admitted to the hospital. She did have a repeat CT of the chest on 08/12/2017 which revealed: "IMPRESSION: 1. Numerous lytic skeletal lesions consistent with metastatic disease, as described above. 2. Extensive hepatic metastases. 3. Indeterminate 5 mm right lower lobe nodule. No thoracic lymphadenopathy." Additionally, she did have a CT of the abdomen/pelvis on 11/2016 which revealed: "IMPRESSION: 1. Innumerable hepatic lesions are redemonstrated suggesting metastasis. No postprocedural complication identified following recent liver biopsy. 2. Aortocaval adenopathy redemonstrated, suspicious for lymphatic metastatic disease. 3. Destructive lytic lesion of the right iliac bone, 2.3 cm is also very suspicious for metastasis. 4. Colonic diverticulosis without diverticulitis." She did have a bone scan completed in 08/13/2017 which revealed: "IMPRESSION: 1. Foci of abnormal tracer deposition within the right calvarium and involving the lumbar spine are consistent with metastatic disease when correlated with recent CT scan imaging. 2. The lesion in the right ilium seen by CT was not clearly identified by bone scan. The CT findings remain consistent with metastatic disease." We've been asked to evaluate the patient for consideration of palliative external beam radiation therapy. Past History Past Medical/Surgical History: VA, Diabetes Type 2, Angioplasty/Stent, Arthritis, ASHD, Anxiety, Reflux, Cancer, High Cholesterol, CHF, Heart Disease, Syncopal Episodes, Hypertension, Thyroid Disease, Depression Social History Smoking Status: Never Smoker Hx Tobacco Use In Past Year?: No Do You Dip or Chew Tobacco: No Hx Alcohol Use: No Hx Substance Use : No Allergies Coded Allergies: Lisinopril (Verified Allergy, Unknown, UNKNOWN, 08/11/17) Home Medications Scheduled Allopurinol (Zyloprim), 200 MG PO DAILY Aspirin (Ecotrin Low Strength), 81 MG PO DAILY Atorvastatin (Lipitor), 40 MG PO HS Chlorthalidone (Chlorthalidone), 12.5 MG PO Q2D Cholecalciferol (D 5000), 5,000 UNITS PO QAM Clopidogrel (Plavix), 75 MG PO DAILY Fenofibrate (Tricor ), 134 MG PO DAILY Ferrous Sulfate (Ferrous Sulfate), 325 MG PO BIDM Insulin Aspart (Novolog Flexpen), 6 UNITS SC AC Insulin Glargine (Lantus Solostar), 15 UNITS SC DAILYBB Levothyroxine Sodium (Levothyroxine Sodium), 112 MCG PO DAILY Losartan Potassium (Cozaar), 50 MG PO DAILY Magnesium Oxide (Mg Supplement (Magnesium Oxide), 400 MG PO BID Metoprolol Succ (Toprol Xl) (Toprol-Xl), 25 MG PO BID Multiple Vitamins W/ Minerals (Centrum Silver), 1 TAB PO DAILY Omeprazole (Prilosec), 40 MG PO DAILY Scheduled PRN Meloxicam (Mobic), 7.5 MG PO DAILY PRN for Pain Nitroglycerin (Nitrostat), 1 TAB SL UD PRN for Chest Pain Tramadol HCl (Tramadol HCl), 50 MG PO Q8 PRN for Pain Review of Systems Ear/Hearing: Ear Side: Bilateral Hearing Ability: Normal Hearing Aid: None Edema: Present?: No Pain Management Side: Right Patient Preferred Pain Scale: 0 - 10 Initial Pain Intensity: 0.0 Physical Exam Height: 4 (Feet) 7.00 (Inches) 139.7 (Centimeters) 1.3970 (Meters) Weight: 134 (Pounds) 14.7 (Ounces) 61.200 (Kilograms) 92820.000 (Grams) Date Time Temp Pulse Resp B/P (MAP) Pulse Ox O2 Delivery O2 Flow Rate FiO2 08/14/17 09:15 65 08/14/17 09:10 Room Air 08/14/17 08:55 96 Room Air 08/14/17 07:30 36.4 55 20 145/70 (95) 96 Room Air 08/14/17 03:47 36.2 58 20 136/68 (90) 96 Room Air 08/14/17 00:13 36.5 62 18 110/66 (81) 96 Room Air 08/14/17 00:00 Room Air 08/13/17 19:45 36.4 64 18 118/68 (85) 98 Room Air 08/13/17 16:00 98 Room Air 08/13/17 15:57 36.3 54 18 105/62 (76) 98 Room Air 08/13/17 11:59 36.2 59 16 136/72 (93) 96 08/13/17 11:04 95 Room Air General Appearance: WD/WN, no apparent distress Head: normocephalic, atraumatic Eyes: normal inspection ENT: normal ENT inspection Neck: supple, no adenopathy Respiratory/Chest: chest non-tender, lungs clear, normal breath sounds, no respiratory distress Cardiovascular: regular rate, rhythm, no edema, no gallop, no JVD Abdomen/GI: normal bowel sounds, non tender, soft, no organomegaly, no pulsatile mass Extremities: normal inspection Neurologic/Psych: commercial estimator II-XII nml as tested, alert, oriented x 3 Laboratory Labortaory Results: were reviewed Pathology Pathology results: were reviewed Imaging Imaging studies: were reviewed Assessment & Recommendations Ms. 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 She is currently admitted to the hospital due to pain control issues. The patient has been seen by Dr. Italo Michel from medical oncology who has recommended consideration of systemic chemotherapy in the outpatient setting. Dr. Michel has recommended consideration of palliative radiation therapy to the lumbar spine and pelvis to help with the patient's pain control. We are now seeing the patient in consultation discussed role palliative radiation therapy. Based on the patient's radiographic findings, pathology and clinical symptoms, we have recommended a course of palliative external beam radiation therapy to the lumbar spine and pelvis. We will have the patient come down today for CT simulation for treatment planning. We will plan to start radiation therapy tomorrow. We did explain the indications, alternatives, benefits, risks and side effects of external beam radiation therapy to the pelvis. We did explain the most common side effects including, but not limited to, skin erythema, skin breakdown , hyperpigmentation, telangiectasia, wound complications, perianal fistula development, bowel obstruction, bowel perforation, fistula formation, vaginal dryness, vaginal stenosis, renal failure, liver failure, spinal myelopathy, dyspareunia, dysuria, increased urinary frequency, urgency, diarrhea, constipation, melena, hematochezia, hematuria, radiation cystitis, radiation proctitis, fatigue, decreased blood counts, wound complications from surgery, rectal incontinence, secondary malignancy development. We did explain the procedures and daily process of radiation therapy. The patient understands and would be willing to consent to treatment. The patient had multiple questions which were answered to their full satisfaction. Thank you for allowing us to participate in the care of this patient. This chart was completed in part utilizing [employer] Speech Voice Recognition software. Attempts were made to minimize the grammatical errors, random word insertions, pronoun errors and incomplete sentences. Any formal questions or concerns about the content, text or information contained within the body of this dictation should be directly addressed to the provider for clarification. Nelly Michel MD Department of Radiation Oncology [facility] Arash Das [facility] Total Time In Consultation I spent 30 minutes examining and counseling the patient. I spent 15 minutes completing this note. ALIS
[2017-08-14] MEDS: OXYCODONE HCL IR 5 MG TAB (IMMEDIATE RELEASE) PO PRN (15:38)
--- NOTE | 2017-08-14 18:26 | Progress Note ---
Internal Med Progress Note Date of Service: Aug 14, 2017. Provider Documentation: patient seen and examined. had returned from CT simulation for possible radiation treatment tomorrow. patient reports some mild right hip pain. OBJECTIVE: Exam: General-alert and awake. 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 Has mild vasogenic edema on CT head and has been on IV Decadron with pain control As per hemoncology, patient will be further re-evaluated if candidate for chemotherapy. As per radiation oncology, patient had CT simulation for treatment planning on 08/14/17 and to start course of palliative external beam radiation therapy to the lumbar spine and pelvis on 08/15/17 Hypercalcemia secondary malignancy. presented with hypercalcemia of 12.9 and now downtrending on IV fluids with Lasix now serum calcium 9.8. will hold IV fluids for now Acute renal failure and chronic kidney disease stage III, baseline creatinine to 1.5, presents with creatinine 2.4 and downtrending on IV fluids with Lasix creatinine 1.2 today History of diabetes. on IV Decadron because of malignancy. Continue Lantus and ISS. History of coronary artery disease. Continue home medication of aspirin, Plavix , metoprolol. Continue losartan. Holding the statin for liver mets. History of chronic systolic congestive heart failure, EF of around 45%. Continue home medication of losartan, Toprol and chlorthalidone. The patient is getting fluids and IV Lasix Hypertension. Continue with metoprolol, losartan and chlorthalidone History of hyperlipidemia. Continue fenofibrate. Holding the Lipitor. Gastroesophageal reflux disease. Continue PPI. Deep venous thrombosis prophylaxis. SCD Disposition patient to receive radiation oncology treatment tomorrow, likely can be discharged afterwards will need follow up with hemoncology and radiation oncology and primary care follow up when patient is discharged Vital Signs: Date Time Temp Pulse Resp B/P (MAP) Pulse Ox O2 Delivery O2 Flow Rate FiO2 08/14/17 15:49 Room Air 08/14/17 15:20 36.3 67 20 126/66 (86) 98 Room Air 08/14/17 09:15 65 08/14/17 09:10 Room Air 08/14/17 08:55 96 Room Air 08/14/17 07:30 36.4 55 20 145/70 (95) 96 Room Air 08/14/17 03:47 36.2 58 20 136/68 (90) 96 Room Air 08/14/17 00:13 36.5 62 18 110/66 (81) 96 Room Air 08/14/17 00:00 Room Air 08/13/17 19:45 36.4 64 18 118/68 (85) 98 Room Air Lab Results: Results Past 24 Hours Test 08/13/17 19:41 08/14/17 05:30 08/14/17 07:17 08/14/17 11:28 Range/Units Bedside Glucose 130 72 145 70-90 mg/dl White Blood Count 4.46 4.8-10.8 K/uL Red Blood Count 3.89 4.2-5.4 M/uL Hemoglobin 10.3 12.0-16.0 g/dL Hematocrit 33.9 37-47 % Mean Corpuscular Volume 87.1 80-100 fL Mean Corpuscular Hemoglobin 26.5 25-34 pg Mean Corpuscular Hemoglobin Concent 30.4 32-36 g/dl Platelet Count 222 130-400 K/uL Mean Platelet Volume 11.7 7.4-10.4 fL Neutrophils (%) (Auto) 77.0 % Lymphocytes (%) (Auto) 15.0 % Monocytes (%) (Auto) 7.6 % Eosinophils (%) (Auto) 0.2 % Basophils (%) (Auto) 0.0 % Neutrophils # (Auto) 3.43 1.4-6.5 K/uL Lymphocytes # (Auto) 0.67 1.2-3.4 K/uL Monocytes # (Auto) 0.34 0.11-0.59 K/uL Eosinophils # (Auto) 0.01 0-0.5 K/uL Basophils # (Auto) 0.00 0-0.2 K/uL RDW Standard Deviation 51.5 36.4-46.3 fL RDW Coefficient of Variation 16.3 11.5-14.5 % Immature Granulocyte % (Auto) 0.2 % Immature Granulocyte # (Auto) 0.01 0.00-0.02 K/uL Sodium Level 140 136-145 mmol/L Potassium Level 4.1 3.5-5.1 mmol/L Chloride Level 108 98-107 mmol/L Carbon Dioxide Level 23 21-32 mmol/L Anion Gap 9.0 3-11 mmol/L Blood Urea Nitrogen 41 7-18 mg/dl Creatinine 1.20 0.60-1.20 mg/dl Est Creatinine Clear Calc Drug Dose 29.4 ml/min Estimated GFR () 51.9 Estimated GFR (Non- 44.8 BUN/Creatinine Ratio 34.2 10-20 Random Glucose 83 70-99 mg/dl Calcium Level 9.8 8.5-10.1 mg/dl Magnesium Level 1.8 1.8-2.4 mg/dl Total Bilirubin 0.6 0.2-1 mg/dl Aspartate Amino Transf (AST/SGOT) 87 15-37 U/L Alanine Aminotransferase (ALT/SGPT) 45 12-78 U/L Alkaline Phosphatase 130 45-117 U/L Total Protein 5.9 6.4-8.2 gm/dl Albumin 2.5 3.4-5.0 gm/dl Globulin 3.4 2.5-4.0 gm/dl Albumin/Globulin Ratio 0.7 0.9-2 Test 08/14/17 16:40 Range/Units Bedside Glucose 102 70-90 mg/dl
[2017-08-14] MEDS: TRAMADOL HCL 50 MG TAB PO PRN (20:02)
[2017-08-15 00:11] VITALS: BP 145/70; PULSE 60; TEMP 36.6; O2SAT 99
[2017-08-15 03:49] VITALS: BP 121/61; PULSE 62; TEMP 36.6; O2SAT 98
[2017-08-15] MEDS: LEVOTHYROXINE 112 MCG TAB PO SCH (06:24)
[2017-08-15 07:36] VITALS: BP 117/63; PULSE 55; TEMP 36.6; O2SAT 97
[2017-08-15] MEDS: METOPROLOL SUCC 25MG EXT REL TAB PO SCH (07:48)
[2017-08-15] MEDS: CEROVITE ADV FORMULA TAB PO SCH (07:48)
[2017-08-15] MEDS: DEXAMETHASONE INJ 4 MG in SYRINGE 0 ML IV SCH (07:48)
[2017-08-15] MEDS: CLOPIDOGREL BISULFATE 75 MG TAB PO SCH (07:48)
[2017-08-15] MEDS: LOSARTAN POTASSIUM 50 MG TAB PO SCH (07:48)
[2017-08-15] MEDS: PANTOprazole SOD 40 MG TAB PO SCH (07:48)
[2017-08-15] MEDS: ASPIRIN 81 MG ECTAB PO SCH (07:48)
[2017-08-15] MEDS: CHOLECALCIFEROL 1000 INTER.UNIT TAB PO SCH (07:49)
[2017-08-15] MEDS: MAGNESIUM OXIDE 400 MG TAB PO SCH (07:49)
[2017-08-15] MEDS: ALLOPURINOL 100 MG TAB PO SCH (07:49)
[2017-08-15] MEDS: FERROUS SULFATE 325 MG TAB PO SCH ×2 (07:49→18:00)
[2017-08-15] MEDS: FUROSEMIDE INJ 40 MG in SYRINGE 0 ML IV SCH (07:49)
[2017-08-15] MEDS: FENOFIBRATE 48 MG TAB PO SCH (07:49)
[2017-08-15] MEDS: INSULIN ASPART 100 UNITS/ML 3 ML PEN SC SCH ×3 (08:39→18:04)
[2017-08-15] MEDS: INSULIN GLARGINE SOLOSTAR 100 UNITS/ML 3 ML PEN SC SCH (08:39)
[2017-08-15 08:40] LABS: ALB/GLOB RATIO 0.7 (0.9-2); BUN/CREATININE RATIO 28.1 (10-20); CALCIUM 10.7 mg/dl (8.5-10.1); CREATININE 1.4 mg/dl (0.60-1.20); POTASSIUM 4.3 mmol/L (3.5-5.1)
[2017-08-15] MEDS ORDERED: SODIUM CHLORIDE 0.9% 1000ML 1,000 ML IV STA (09:22)
[2017-08-15] MEDS ORDERED: ZOLEDRONIC ACID INJ 4 MG in SODIUM CHLORIDE 0.9% 100ML 100 ML IV ONE (10:00)
[2017-08-15 14:48] LABS: BUN/CREATININE RATIO 25.6 (10-20); CALCIUM 10.5 mg/dl (8.5-10.1); CREATININE 1.6 mg/dl (0.60-1.20); POTASSIUM 4.3 mmol/L (3.5-5.1)
[2017-08-15 14:51] LABS: ALB/GLOB RATIO 0.7 (0.9-2)
[2017-08-15 15:44] VITALS: BP 109/68; PULSE 76; TEMP 36.5; O2SAT 99
--- NOTE | 2017-08-15 15:57 | Progress Note ---
Internal Med Progress Note Date of Service: Aug 15, 2017. Provider Documentation: patient seen and examined. is at her usual mental baseline. denies pain. OBJECTIVE: General-alert and awake. 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 Has mild vasogenic edema on CT head and has been on IV Decadron with pain control As per hemoncology, patient will be further re-evaluated if candidate for chemotherapy. As per radiation oncology, patient had CT simulation for treatment planning on 08/14/17 and to start course of palliative external beam radiation therapy to the lumbar spine and pelvis on 08/15/17 Hypercalcemia secondary malignancy. presented with hypercalcemia of 12.9 and now downtrending on IV fluids with Lasix, received more IV fluids and Zometa 4 mg IV x 1 on 08/15/17 Acute renal failure and chronic kidney disease stage III, baseline creatinine to 1.5 to 1.6 based on outpatient records in May and December of 2016, presented on admission with creatinine 2.4 and downtrending on IV fluids with Lasix, creatinine is back at baseline History of diabetes. on IV Decadron because of malignancy. Continue Lantus and ISS. History of coronary artery disease. Continue home medication of aspirin, Plavix , metoprolol. Continue losartan. Holding the statin for liver mets. History of chronic systolic congestive heart failure, EF of around 45%. Continue home medication of losartan, Toprol and chlorthalidone. The patient is getting fluids and IV Lasix as inpatient Hypertension. Continue with metoprolol, losartan and chlorthalidone History of hyperlipidemia. Continue fenofibrate. Holding the Lipitor. Gastroesophageal reflux disease. Continue PPI. Deep venous thrombosis prophylaxis. SCD Disposition/Instructions patient to receive radiation oncology treatment today 08/15/17, patient to be discharged to home after the initial radiation treatment follow up with primary care doctor 08/21/2017 3:00 PM Venkatesh Lundy MD Internal Medicine [facility] hypercalcemia has been downtrending on admission, not at normal references of normal but likely will remain higher than reference range given history of malignancy related hypercalcemia, did receive zometa 4 mg IV x 1 dose on will need follow up with Hemoncology and Radiation oncology as outpatient for further management of maligancy and malignancy related hypercalcemia likely will need another dose of Zometa as outpatient Encourage oral hydration when discharged Have explained to patient and her family member that hypercalcemia may lead to symptoms such as confusion, headache, abdominal discomfort, constipation If patient were to have these symptoms, she should seek emergent medical care Vital Signs: Date Time Temp Pulse Resp B/P (MAP) Pulse Ox O2 Delivery O2 Flow Rate FiO2 08/15/17 08:00 Room Air 08/15/17 07:36 36.6 55 16 117/63 (81) 97 Room Air 08/15/17 03:49 36.6 62 20 121/61 (81) 98 Room Air 08/15/17 00:11 36.6 60 18 145/70 (95) 99 Room Air 08/15/17 00:00 Room Air 08/14/17 20:00 Room Air 08/14/17 19:58 61 127/63 (84) 100 Room Air 08/14/17 19:26 36.6 100 18 102/58 (73) 93 Room Air 08/14/17 15:49 Room Air Lab Results: Results Past 24 Hours Test 08/14/17 16:40 08/14/17 20:01 08/15/17 07:49 08/15/17 08:05 Range/Units Bedside Glucose 102 86 76 70-90 mg/dl Sodium Level 137 136-145 mmol/L Potassium Level 4.3 3.5-5.1 mmol/L Chloride Level 102 98-107 mmol/L Carbon Dioxide Level 28 21-32 mmol/L Anion Gap 7.0 3-11 mmol/L Blood Urea Nitrogen 39 7-18 mg/dl Creatinine 1.40 0.60-1.20 mg/dl Est Creatinine Clear Calc Drug Dose 25.0 ml/min Estimated GFR () 43.1 Estimated GFR (Non- 37.2 BUN/Creatinine Ratio 28.1 10-20 Random Glucose 76 70-99 mg/dl Calcium Level 10.7 8.5-10.1 mg/dl Total Bilirubin 0.8 0.2-1 mg/dl Aspartate Amino Transf (AST/SGOT) 100 15-37 U/L Alanine Aminotransferase (ALT/SGPT) 55 12-78 U/L Alkaline Phosphatase 149 45-117 U/L Total Protein 7.0 6.4-8.2 gm/dl Albumin 2.9 3.4-5.0 gm/dl Globulin 4.1 2.5-4.0 gm/dl Albumin/Globulin Ratio 0.7 0.9-2 Test 08/15/17 11:34 08/15/17 13:38 Range/Units Bedside Glucose 235 70-90 mg/dl Sodium Level 133 136-145 mmol/L Potassium Level 4.3 3.5-5.1 mmol/L Chloride Level 99 98-107 mmol/L Carbon Dioxide Level 23 21-32 mmol/L Anion Gap 11.0 3-11 mmol/L Blood Urea Nitrogen 41 7-18 mg/dl Creatinine 1.60 0.60-1.20 mg/dl Est Creatinine Clear Calc Drug Dose 21.9 ml/min Estimated GFR () 36.7 Estimated GFR (Non- 31.6 BUN/Creatinine Ratio 25.6 10-20 Random Glucose 262 70-99 mg/dl Calcium Level 10.5 8.5-10.1 mg/dl Ionized Calcium 1.27 1.12-1.32 mmol/l Total Bilirubin 0.7 0.2-1 mg/dl Aspartate Amino Transf (AST/SGOT) 101 15-37 U/L Alanine Aminotransferase (ALT/SGPT) 57 12-78 U/L Alkaline Phosphatase 147 45-117 U/L Total Protein 6.8 6.4-8.2 gm/dl Albumin 2.9 3.4-5.0 gm/dl Globulin 3.9 2.5-4.0 gm/dl Albumin/Globulin Ratio 0.7 0.9-2
--- NOTE | 2017-08-15 17:41 | Discharge Instructions ---
Discharge Instructions Date of Service Aug 15, 2017. Admission Reason for Admission: Hypercalcemia, Metastasis Discharge Discharge Diagnosis / Problem: metastic cancer, hypercalcemia secondary to maligancy, acute kidney injury Discharge Goals Goal(s): Improve function Activity Recommendations Activity Limitations: per Instructions/Follow-up section Lifting Limitations: gradually increase as tolerated, until after follow-up appointment Exercise/Sports Limitations: until after follow-up appointment Driving or Machine Use: no limitations . Instructions / Follow-Up Instructions / Follow-Up Disposition/Instructions patient to receive radiation oncology treatment today 08/15/17, patient to be discharged to home after the initial radiation treatment follow up with primary care doctor 08/21/2017 3:00 PM Venkatesh Lundy MD Internal Medicine [facility] hypercalcemia has been downtrending on admission, not at normal references of normal but likely will remain higher than reference range given history of malignancy related hypercalcemia, did receive zometa 4 mg IV x 1 dose on will need follow up with Hemoncology and Radiation oncology as outpatient for further management of maligancy and malignancy related hypercalcemia likely will need another dose of Zometa as outpatient Encourage oral hydration when discharged Have explained to patient and her family member that hypercalcemia may lead to symptoms such as confusion, headache, abdominal discomfort, constipation If patient were to have these symptoms, she should seek emergent medical care Current Hospital Diet Patient's current hospital diet: AHA Diet (Heart Healthy), Diabetes Type 2 Diet Discharge Diet Recommended Diet: AHA Diet (Heart Healthy), Diabetes Type 2 Diet Pending Studies Studies pending at discharge: no Laboratory Results 08/14/17 05:30 Red Blood Count 3.89, Mean Corpuscular Volume 87.1, Mean Corpuscular Hemoglobin 26.5, Mean Corpuscular Hemoglobin Concent 30.4, Mean Platelet Volume 11.7, Neutrophils (%) (Auto) 77.0, Lymphocytes (%) (Auto) 15.0, Monocytes (%) (Auto) 7.6, Eosinophils (%) (Auto) 0.2, Basophils (%) (Auto) 0.0, Neutrophils # (Auto) 3.43, Lymphocytes # (Auto) 0.67, Monocytes # (Auto) 0.34, Eosinophils # (Auto) 0.01, Basophils # (Auto) 0.00 08/15/17 13:38 Test 08/11/17 13:15 08/11/17 13:30 08/11/17 13:55 08/14/17 05:30 Urine Color YELLOW Urine Appearance CLEAR (CLEAR) Urine pH 5.5 (4.5-7.5) Urine Specific [place] 1.024 (1.000-1.030) Urine Protein NEG (NEG) Urine Glucose (UA) NEG (NEG) Urine Ketones TRACE (NEG) Urine Occult Blood NEG (NEG) Urine Nitrite NEG (NEG) Urine Bilirubin NEG (NEG) Urine Urobilinogen NEG (NEG) Urine Leukocyte Esterase TRACE (NEG) Urine WBC (Auto) 1-5 /hpf (0-5) Urine RBC (Auto) 0-4 /hpf (0-4) Urine Hyaline Casts (Auto) 1-5 /lpf (0-5) Urine Epithelial Cells (Auto) >30 /lpf (0-5) Urine Bacteria (Auto) 1+ (NEG) Prothrombin Time 12.7 SECONDS (9.0-12.0) Prothromb Time International Ratio 1.2 (0.9-1.1) Ammonia 11.0 umol/L (11-32) Troponin I 0.025 ng/ml (0-0.045) Pro-B-Type Natriuretic Peptide 1395 pg/ml (0-900) Lipase 525 U/L (73-393) Lactic Acid Level 1.2 mmol/L (0.4-2.0) White Blood Count 4.46 K/uL (4.8-10.8) Red Blood Count 3.89 M/uL (4.2-5.4) Hemoglobin 10.3 g/dL (12.0-16.0) Hematocrit 33.9 % (37-47) Mean Corpuscular Volume 87.1 fL (80-100) Mean Corpuscular Hemoglobin 26.5 pg (25-34) Mean Corpuscular Hemoglobin Concent 30.4 g/dl (32-36) Platelet Count 222 K/uL (130-400) Mean Platelet Volume 11.7 fL (7.4-10.4) Neutrophils (%) (Auto) 77.0 % Lymphocytes (%) (Auto) 15.0 % Monocytes (%) (Auto) 7.6 % Eosinophils (%) (Auto) 0.2 % Basophils (%) (Auto) 0.0 % Neutrophils # (Auto) 3.43 K/uL (1.4-6.5) Lymphocytes # (Auto) 0.67 K/uL (1.2-3.4) Monocytes # (Auto) 0.34 K/uL (0.11-0.59) Eosinophils # (Auto) 0.01 K/uL (0-0.5) Basophils # (Auto) 0.00 K/uL (0-0.2) RDW Standard Deviation 51.5 fL (36.4-46.3) RDW Coefficient of Variation 16.3 % (11.5-14.5) Immature Granulocyte % (Auto) 0.2 % Immature Granulocyte # (Auto) 0.01 K/uL (0.00-0.02) Magnesium Level 1.8 mg/dl (1.8-2.4) Test 08/15/17 13:38 08/15/17 17:20 Anion Gap 11.0 mmol/L (3-11) Est Creatinine Clear Calc Drug Dose 21.9 ml/min Estimated GFR () 36.7 Estimated GFR (Non- 31.6 BUN/Creatinine Ratio 25.6 (10-20) Calcium Level 10.5 mg/dl (8.5-10.1) Ionized Calcium 1.27 mmol/l (1.12-1.32) Total Bilirubin 0.7 mg/dl (0.2-1) Aspartate Amino Transf (AST/SGOT) 101 U/L (15-37) Alanine Aminotransferase (ALT/SGPT) 57 U/L (12-78) Alkaline Phosphatase 147 U/L (45-117) Total Protein 6.8 gm/dl (6.4-8.2) Albumin 2.9 gm/dl (3.4-5.0) Globulin 3.9 gm/dl (2.5-4.0) Albumin/Globulin Ratio 0.7 (0.9-2) Bedside Glucose 145 mg/dl (70-90) Date/Time Source Procedure Growth Status 08/11/17 13:15 Urine , Clean Catch Urine Culture - Final THREE TYPES OF ORGANISMS PRESENT, ALL... Complete Hemoglobin A1c Test 06/04/17 14:21 Range/Units Estimated Average Glucose 197 mg/dl Hemoglobin A1c 8.5 H 4.5-5.6 % Lipid Panel Test 06/04/17 14:21 Range/Units Triglycerides Level 377 H 0-150 mg/dl Cholesterol Level 147 0-200 mg/dl HDL Cholesterol 30 mg/dl LDL Cholesterol Direct 82 mg/dl Cholesterol/HDL Ratio 4.9 LDL Cholesterol, Calculated mg/dl Medical Emergencies . Who to Call and When: Medical Emergencies: If at any time you feel your situation is an emergency, please call 911 immediately. . Non-Emergent Contact Non-Emergency issues call your: Primary Care Provider . . "Provider Documentation" section prepared by Nelson Castillo. . VTE Core Measure Inpt VTE Proph given/why not?: SCD's
[2017-08-15] MEDS ORDERED: METH4PAK PO ×2 (17:44)
--- NOTE | 2017-08-15 17:47 | Discharge Summary ---
Discharge Summary Date of Service Aug 15, 2017. Discharge Summary Admission Date: Aug 11, 2017 at 16:20 Discharge Date: Aug 15, 2017 Discharge Disposition: Home Principal Diagnosis: metastatic cancer, hypercalcemia secondary to malignancy, acute kidney injury Procedures: radiation therapy treatment x 1 Vaccinations: hemoncology, radiation oncology Medication Reconciliation New Medications: Methylprednisolone (Medrol Dosepak) 4 Mg Tony 1 PKT PO UD for 6 Days, #1 PKT Continued Medications: Allopurinol (Zyloprim) 100 Mg Tab 200 MG PO DAILY, TAB Aspirin (Ecotrin Low Strength) 81 Mg Tab 81 MG PO DAILY, TAB Atorvastatin (Lipitor) 40 Mg Tab 40 MG PO HS, TAB Chlorthalidone (Chlorthalidone) 25 Mg Tab 12.5 MG PO Q2D take 1/2 pill daily Cholecalciferol (D 5000) 5,000 Unit Cap 5000 UNITS PO QAM Clopidogrel (Plavix) 75 Mg Tab 75 MG PO DAILY, TAB Fenofibrate (Tricor ) 134 Mg Cap 134 MG PO DAILY, CAP Ferrous Sulfate (Ferrous Sulfate) 325 Mg Tab 325 MG PO BIDM for 30 Days, #60 TAB Insulin Aspart (Novolog Flexpen) 100 Units/Ml Inj 6 UNITS SC AC Insulin Glargine (Lantus Solostar) 100 Unit/Ml Inj 15 UNITS SC DAILYBB, PEN Levothyroxine Sodium (Levothyroxine Sodium) 112 Mcg Tab 112 MCG PO DAILY, TAB Losartan Potassium (Cozaar) 50 Mg Tab 50 MG PO DAILY, TAB Magnesium Oxide (Mg Supplement (Magnesium Oxide) 400 Mg Tab 400 MG PO BID, #20 Meloxicam (Mobic) 7.5 Mg Tab 7.5 MG PO DAILY PRN for Pain, TAB Metoprolol Succ (Toprol Xl) (Toprol-Xl) 25 Mg Tabcr 25 MG PO BID, #30 TAB Multiple Vitamins W/ Minerals (Centrum Silver) 1 Chw Chw 1 TAB PO DAILY Nitroglycerin (Nitrostat) 0.4 Mg/1 Tab Subl 1 TAB SL UD PRN for Chest Pain Dissolve under tongue. May repeat dose in 10 minutes. Call 911 if no relief. Omeprazole (Prilosec) 40 Mg Cap 40 MG PO DAILY, CAP Tramadol HCl (Tramadol HCl) 50 Mg Tab 50 MG PO Q8 PRN for Pain for 4 Days, #12 TABS Admission Information HPI (per Admitting provider): This is a 71-year-old female with past medical history significant for hypothyroidism, Gastroparesis, type 2 diabetes, glaucoma, hyperlipidemia, hypertension, chronic kidney disease stage III, CAD, history of systolic CHF with EF of around 45%, history of tubular adenoma of colon, presents with severe pain in the right hip region. The patient was recently in the hospital with right flank pain and found to have liver masses and was discharged for outpatient biopsy,and biopsy was done on 08/02/2017 and she got a call and she was told to see a doctor regarding results. Today, her neighbor called her niece that she is having severe pain and she needs to go to hospital and her niece brought her to the hospital. The patient is currently alert and oriented except for right hip pain she denies any complaints. She denies any dizziness, no headaches, no blurred vision, no sore throat, no cold symptoms, and no runny nose. Hearing is okay. No chest pain, no shortness of breath, no cough, no fever, no chills, no nausea, no vomiting, no abdominal pain. She had some diarrhea yesterday. No blood in the stools. Normal bowel and bladder movements. Appetite is not that great, ambulating okay at home. She cooks for herself. Lives alone. Currently resting comfortably and hemodynamically stable. ALLERGIES: LISINOPRIL, SALICYLATES. PAST MEDICAL HISTORY: As mentioned above. PAST SURGICAL HISTORY: Left heart catheterization, needle biopsy of the liver, thyroidectomy, removal of nose polyps, cataract surgery. MEDICATIONS AT HOME: The patient is on Plavix 75 mg p.o. daily, Zofran 4 mg p.o. q. 6 hours p.r.n., magnesium oxide 400 mg p.o. b.i.d., tramadol 50 mg p.o. 6 hours p.r.n., Dulcolax 5 mg p.o. daily p.r.n., ferrous sulfate 325 mg p.o. b.i.d., Meloxicam 7.5 mg p.o. daily p.r.n., omeprazole 40 mg p.o. daily, levothyroxine 112 mcg p.o. daily, atorvastatin 40 mg p.o. daily, Kyara 180 mg p.o. daily p.r.n., Cozaar 50 mg p.o. daily, insulin 6 units under skin t.i.d., Lantus 15 units p.o. daily, chlorthalidone 12.5 mg p.o. every other day , allopurinol 200 mg p.o. daily, Toprol-XL 25 mg p.o. b.i.d., fenofibrate 134 mg p.o. daily, vitamin D 5000 units p.o. daily, nitroglycerin 0.4 mg sublingual p.r.n., aspirin 81 mg p.o. daily, multivitamin 1 tablet p.o. daily. FAMILY HISTORY: Significant for mother had breast cancer. Sister had breast cancer. SOCIAL HISTORY: Lives alone. No smoking history or alcohol use. No drug use. REVIEW OF SYMPTOMS: As per HPI. Rest of review of symptoms negative. Physical Exam (per Admitting): PHYSICAL EXAMINATION: GENERAL: The patient is of moderate build, not in distress. VITAL SIGNS: Temperature 36.5, pulse 77, respiratory rate 21, blood pressure 141/66, oxygen 96% on room air. HEENT: No pallor, no icterus. Pupils equal, round, and reactive to light. NECK: No JVD, no neck masses, no carotid bruits. CARDIOVASCULAR: S1, S2 heard, regular rate and rhythm, no murmur, no gallop. RESPIRATORY SYSTEM: Clear to auscultation bilaterally. No wheezing, no crackles. ABDOMEN: Soft, bowel sounds present. Nontender. No distention. CENTRAL NERVOUS SYSTEM: Cranial nerves II-XII grossly intact. Nonfocal. EXTREMITIES: No edema, no erythema. 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 Has mild vasogenic edema on CT head and has been on IV Decadron with pain control As per hemoncology, patient will be further re-evaluated if candidate for chemotherapy. As per radiation oncology, patient had CT simulation for treatment planning on 08/14/17 and to start course of palliative external beam radiation therapy to the lumbar spine and pelvis on 08/15/17 Hypercalcemia secondary malignancy. presented with hypercalcemia of 12.9 and now downtrending on IV fluids with Lasix, received more IV fluids and Zometa 4 mg IV x 1 on 08/15/17 Acute renal failure and chronic kidney disease stage III, baseline creatinine to 1.5 to 1.6 based on outpatient records in May and December of 2016, presented on admission with creatinine 2.4 and downtrending on IV fluids with Lasix, creatinine is back at baseline History of diabetes. on IV Decadron because of malignancy. Continue Lantus and ISS. History of coronary artery disease. Continue home medication of aspirin, Plavix , metoprolol. Continue losartan. Holding the statin for liver mets. History of chronic systolic congestive heart failure, EF of around 45%. Continue home medication of losartan, Toprol and chlorthalidone. The patient is getting fluids and IV Lasix as inpatient Hypertension. Continue with metoprolol, losartan and chlorthalidone History of hyperlipidemia. Continue fenofibrate. Holding the Lipitor. Gastroesophageal reflux disease. Continue PPI. Deep venous thrombosis prophylaxis. SCD Disposition/Instructions patient to receive radiation oncology treatment today 08/15/17, patient to be discharged to home after the initial radiation treatment follow up with primary care doctor 08/21/2017 3:00 PM Venkatesh Lundy MD Internal Medicine [facility] hypercalcemia has been downtrending on admission, not at normal references of normal but likely will remain higher than reference range given history of malignancy related hypercalcemia, did receive zometa 4 mg IV x 1 dose on will need follow up with Hemoncology and Radiation oncology as outpatient for further management of maligancy and malignancy related hypercalcemia likely will need another dose of Zometa as outpatient Encourage oral hydration when discharged Have explained to patient and her family member that hypercalcemia may lead to symptoms such as confusion, headache, abdominal discomfort, constipation If patient were to have these symptoms, she should seek emergent medical care Total time spent on discharge = This includes examination of the patient, discharge planning, medication reconciliation, and communication with other providers. Discharge Instructions Disposition/Instructions patient to receive radiation oncology treatment today 08/15/17, patient to be discharged to home after the initial radiation treatment follow up with primary care doctor 08/21/2017 3:00 PM Venkatesh Lundy MD Internal Medicine [facility] hypercalcemia has been downtrending on admission, not at normal references of normal but likely will remain higher than reference range given history of malignancy related hypercalcemia, did receive zometa 4 mg IV x 1 dose on will need follow up with Hemoncology and Radiation oncology as outpatient for further management of maligancy and malignancy related hypercalcemia likely will need another dose of Zometa as outpatient Encourage oral hydration when discharged Have explained to patient and her family member that hypercalcemia may lead to symptoms such as confusion, headache, abdominal discomfort, constipation If patient were to have these symptoms, she should seek emergent medical care
[2017-08-15 18:15] VITALS: BP 109/68; PULSE 76; TEMP 36.5; O2SAT 99
--- NOTE | 2017-08-15 18:49 | Hematology/Oncology Prog Note ---
Hematology/Onc Progress Note Date of Service Aug 15, 2017. Subjective I saw her bedside at about 5:30 p. m., she is sitting comfortably in the chair, no increasing headache, back pain is under control, she is on oxycodone on p.r.n. basis, earlier she was seen by radiation oncologist, started her on palliative radiation treatment today, now she is off the IV hydration, blood workup done today showed gradual rise in the serum cancelling around 10.4-1.6, also kidney function test changed, serum creatinine level increased on 1.4 mg/dL , she received IV Zometa x1 dose of (4 mg) today. She is likely to go home soon , she will have radiation treatment as an outpatient basis. Hemodynamically she has remained stable, no fever, no increasing nausea, no vomiting, no bleeding from any sites. WBC 4400, H&H of 10.3/34, Platelet count of 222,000. -ionized calcium 1.27. -AST 101, ALT 57, alkaline phosphatase 147, Total bilirubin: 0.7 (08/15/2017). On exam: - Alert and oriented x3, well built woman, not in any distress. - HEENT: no icterus, no pallor, Throat: Normal. - Neck: No palpable cervical lymphadenopathy. - Chest: clear to auscultation. - Abdomen: soft, nontender, no hepatomegaly, no splenomegaly. - No focal neuro deficit. - Extremities: no finger clubbing, no leg edema. He her calcium is likely to go down with the Zometa injection that she received today. Encouraged her to drink plenty of water and ever dehydration. She is on Decadron 4 mg twice a day, she will go home with the Medrol pack and then will discontinue steroid therapy. I would like to see her in the office in the next 1 to 2 weeks. Would like to repeat CBCD, comprehensive metabolic panel in 1 week.. Vital Signs Vital Signs Past 12 Hours Date Time Temp Pulse Resp B/P (MAP) Pulse Ox O2 Delivery O2 Flow Rate FiO2 08/15/17 18:15 36.5 76 16 99 Room Air 08/15/17 16:00 Room Air 08/15/17 15:44 36.5 76 16 109/68 (82) 99 Room Air 08/15/17 08:00 Room Air 08/15/17 07:36 36.6 55 16 117/63 (75) 97 Room Air
[2017-08-16] MEDS ORDERED: FERR1TAB13 PO (15:30)
[2017-08-16] MEDS ORDERED: TRAM-10 PO (15:30)
[2017-08-16] MEDS ORDERED: MAGN400T6 PO (15:30)
[2017-08-20] MEDS ORDERED: fleets enema PR (14:48)
[2017-08-20] MEDS ORDERED: BISA10SU38 PR (14:48)
== END 2017-08-15 20:45 | disposition home or self-care (01) | DRG 436 ==
LOC: EDBD 12:05 → C.EDC 12:10 → C.4E 16:20 → ENRESERV 16:40
PROVIDERS: ADMIT Internal Medicine; ATTEND Hospitalist
DX: C25.9 Malignant neoplasm of pancreas, unspecified (principal); I50.22 Chronic systolic (congestive) heart failure; N17.9 Acute kidney failure, unspecified; I13.0 Hypertensive heart and chronic kidney disease with heart failure and stage 1 through stage 4 chronic kidney disease, or unspecified chronic kidney disease; C79.31 Secondary malignant neoplasm of brain; C79.51 Secondary malignant neoplasm of bone; C78.7 Secondary malignant neoplasm of liver and intrahepatic bile duct; E83.52 Hypercalcemia; E11.22 Type 2 diabetes mellitus with diabetic chronic kidney disease; G89.3 Neoplasm related pain (acute) (chronic); M54.5 Low back pain; E78.5 Hyperlipidemia, unspecified; K31.84 Gastroparesis; K21.9 Gastro-esophageal reflux disease without esophagitis; E11.43 Type 2 diabetes mellitus with diabetic autonomic (poly)neuropathy; H40.9 Unspecified glaucoma; N18.3 Chronic kidney disease, stage 3 (moderate); I25.10 Atherosclerotic heart disease of native coronary artery without angina pectoris; E89.0 Postprocedural hypothyroidism; Z85.038 Personal history of other malignant neoplasm of large intestine; Z79.82 Long term (current) use of aspirin; Z80.3 Family history of malignant neoplasm of breast; Z79.02 Long term (current) use of antithrombotics/antiplatelets; Z83.3 Family history of diabetes mellitus; Z79.4 Long term (current) use of insulin

== ENCOUNTER 2017-08-16 14:16 | Emergency (ER) | payer OTHER ==
[~2017-08-16] VITALS: Ht 139.7 cm; Wt 61.7 kg
[~2017-08-16 14:16] MED LIST changes: +CLOP1TAB15 PO; +MAGN1TAB19 PO; +METH4PAK PO
[2017-08-16 14:20] VITALS: TEMP 36.6; O2SAT 98; Ht 139.7 cm; Wt 61.7 kg
[2017-08-16] MEDS ORDERED: SODIUM CHLORIDE 0.9% 1000ML 1,000 ML IV STA (14:32)
[2017-08-16 15:03] LABS: BASO % 0.1 %; BASO ABS # 0.01 K/uL (0-0.2); COMPLETE YES; EOS % 0.3 %; HEMATOCRIT 34.4 % (37-47); IG% 0.3 %; LYMPH % 3.1 %; LYMPH ABS # 0.24 K/uL (1.2-3.4); MEAN CELL VOLUME 84.7 fL (80-100); MEAN CORPUSCULAR HEMOGLOBIN 27.6 pg (25-34); MEAN CORPUSCULAR HGB CONC 32.6 g/dl (32-36); MEAN PLATELET VOLUME 11.7 fL (7.4-10.4); MONO % 5.3 %; NEUT % 90.9 %; PLATELET COUNT 200 K/uL (130-400); RED BLOOD COUNT 4.06 M/uL (4.2-5.4)
[2017-08-16 15:22] LABS: CREATININE 1.5 mg/dl (0.60-1.20); POTASSIUM 3.8 mmol/L (3.5-5.1)
[2017-08-16] MEDS ORDERED: TRAM-10 PO (15:30)
[2017-08-16] MEDS ORDERED: MAGN400T6 PO (15:30)
[2017-08-16] MEDS ORDERED: FERR1TAB13 PO (15:30)
--- NOTE | 2017-08-16 15:45 | DIAGNOSTIC IMAGING REPORT ---
ABDOMEN 2VIEW W/PA CHEST RTN HISTORY: 71 years-old Female ABDOMINAL PAIN/GI acute generalized abdominal pain with nausea and vomiting. COMPARISON: Chest radiograph 08/11/2017 TECHNIQUE: Frontal view of the chest with erect and supine views of the abdomen FINDINGS: Cardiomediastinal and hilar silhouettes are within normal limits. There is atherosclerosis of the aorta. No pneumothorax, pleural effusion or focal airspace consolidation. No overt pulmonary edema. The bones appear grossly intact. No pneumoperitoneum on the upright projection. The bowel gas pattern is nonobstructive. No definite urolith identified. There are probable phleboliths within the pelvis. There are degenerative changes of the lumbar spine and pelvis. Vascular calcifications are noted. IMPRESSION: 1. Nonobstructive bowel gas pattern without pneumoperitoneum. 2. No acute cardiopulmonary process. The above report was generated using voice recognition software. It may contain grammatical, syntax or spelling errors. Electronically signed by: Fransisco Forman M.D. 08/16/2017 3:44 PM Dictated Date/Time: 08/16/2017 3:42 PM
--- NOTE | 2017-08-16 16:59 | EMERGENCY ROOM VISIT NOTE ---
History Report prepared by Sindy: Ramez Puga Under the Supervision of: Dr. Javier Rubin D.O. First contact with patient: 14:18 Chief Complaint: CHEST PAIN Stated Complaint: CHEST PAIN History of Present Illness The patient is a 71 year old female who presents to the Emergency Room with complaints of constant sharp chest pain that started around 0800. The patient states that she has also had vomiting which started after the pain. The patient additionally has a history of brain, liver, and stomach cancer, and she is supposed to have radiation treatment later today, and she has her first treatment yesterday. She is not currently nauseous. Source of History: patient Onset: 0800 Position: chest Quality: sharp Timing: constant Associated Symptoms: + vomiting Review of Systems See HPI for pertinent positives & negatives. A total of 10 systems reviewed and were otherwise negative. Past Medical & Surgical Medical Problems: (1) CKD (chronic kidney disease), stage III (2) Coronary artery disease (3) Diverticulosis (4) DM type 2 (diabetes mellitus, type 2) (5) Dyslipidemia (6) Gastroparesis (7) Glaucoma (8) Gout (9) HTN (hypertension) (10) Hypercalcemia (11) Hypertriglyceridemia (12) Ischemic cardiomyopathy (13) Liver masses (14) Metastasis (15) Neuroendocrine carcinoma Surgical Problems: (1) H/O thyroidectomy (2) Status post cataract extraction Family History Diabetes mellitus MOTHER BROTHER FH: breast cancer MOTHER SISTER Social History Smoking Status: Never Smoker Housing Status: assisted living Occupation Status: retired Current/Historical Medications Scheduled Allopurinol (Zyloprim), 200 MG PO DAILY Aspirin (Ecotrin Low Strength), 81 MG PO DAILY Atorvastatin (Lipitor), 40 MG PO HS Chlorthalidone (Chlorthalidone), 12.5 MG PO Q2D Cholecalciferol (D 5000), 5,000 UNITS PO QAM Clopidogrel (Plavix), 75 MG PO DAILY Fenofibrate (Tricor ), 134 MG PO DAILY Ferrous Sulfate (Kp Ferrous Sulfate), 1 TAB PO BIDM Insulin Aspart (Novolog Flexpen), 6 UNITS SC AC Insulin Glargine (Lantus Solostar), 15 UNITS SC DAILYBB Levothyroxine Sodium (Levothyroxine Sodium), 112 MCG PO DAILY Losartan Potassium (Cozaar), 50 MG PO DAILY Magnesium Oxide (Mag-Ox), 400 MG PO BID Methylprednisolone (Medrol Dosepak), 1 PKT PO UD Metoprolol Succ (Toprol Xl) (Toprol-Xl), 25 MG PO BID Multiple Vitamins W/ Minerals (Centrum Silver), 1 TAB PO DAILY Omeprazole (Prilosec), 40 MG PO DAILY Scheduled PRN Meloxicam (Mobic), 7.5 MG PO DAILY PRN for Pain Nitroglycerin (Nitrostat), 1 TAB SL UD PRN for Chest Pain Tramadol (Ultram), 50 MG PO Q8H PRN for Pain Allergies Coded Allergies: Lisinopril (Verified Allergy, Unknown, UNKNOWN, 08/16/17) Physical Exam Vital Signs Date Time Temp Pulse Resp B/P (MAP) Pulse Ox O2 Delivery O2 Flow Rate FiO2 08/16/17 16:09 78 20 132/68 95 Room Air 08/16/17 14:32 75 08/16/17 14:20 36.6 75 18 125/58 98 Room Air 08/16/17 14:20 98 Room Air 08/16/17 14:20 98 Room Air Physical Exam CONSTITUTIONAL/VITAL SIGNS: Reviewed / noted above. GENERAL: Non-toxic in appearance. INTEGUMENTARY: Warm, dry, and [place]. HEAD: Normocephalic. EYES: without scleral icterus or trauma. ENT/OROPHARYNX: clear and moist. LYMPHADENOPATHY/NECK: Is supple without lymphadenopathy or meningismus. RESPIRATORY: Lungs clear and equal. CARDIOVASCULAR: Regular rate and rhythm. GI/ABDOMEN: Soft and nontender. No organomegaly or pulsatile mass. No rebound or guarding. Normal bowel sounds. EXTREMITIES: Warm and well perfused. BACK: No CVA tenderness. NEUROLOGICAL: Intact without focal deficits. PSYCHIATRIC: normal affect. MUSCULOSKELETAL: Normally developed with good muscle tone. Medical Decision & Procedures ER Provider Diagnostic Interpretation: Radiology results as stated below per my review and radiologist interpretation: ABDOMEN 2VIEW W/PA CHEST RTN HISTORY: 71 years-old Female ABDOMINAL PAIN/GI acute generalized abdominal pain with nausea and vomiting. COMPARISON: Chest radiograph 08/11/2017 TECHNIQUE: Frontal view of the chest with erect and supine views of the abdomen FINDINGS: Cardiomediastinal and hilar silhouettes are within normal limits. There is atherosclerosis of the aorta. No pneumothorax, pleural effusion or focal airspace consolidation. No overt pulmonary edema. The bones appear grossly intact. No pneumoperitoneum on the upright projection. The bowel gas pattern is nonobstructive. No definite urolith identified. There are probable phleboliths within the pelvis. There are degenerative changes of the lumbar spine and pelvis. Vascular calcifications are noted. IMPRESSION: 1. Nonobstructive bowel gas pattern without pneumoperitoneum. 2. No acute cardiopulmonary process. The above report was generated using voice recognition software. It may contain grammatical, syntax or spelling errors. Electronically signed by: Fransisco Forman M.D. 08/16/2017 3:44 PM Dictated Date/Time: 08/16/2017 3:42 PM Laboratory Results 08/16/17 14:51 Red Blood Count 4.06, Mean Corpuscular Volume 84.7, Mean Corpuscular Hemoglobin 27.6, Mean Corpuscular Hemoglobin Concent 32.6, Mean Platelet Volume 11.7, Neutrophils (%) (Auto) 90.9, Lymphocytes (%) (Auto) 3.1, Monocytes (%) (Auto) 5.3, Eosinophils (%) (Auto) 0.3, Basophils (%) (Auto) 0.1, Neutrophils # (Auto) 7.10, Lymphocytes # (Auto) 0.24, Monocytes # (Auto) 0.41, Eosinophils # (Auto) 0.02, Basophils # (Auto) 0.01 08/16/17 14:51 Test 08/16/17 14:51 White Blood Count 7.80 K/uL (4.8-10.8) Red Blood Count 4.06 M/uL (4.2-5.4) Hemoglobin 11.2 g/dL (12.0-16.0) Hematocrit 34.4 % (37-47) Mean Corpuscular Volume 84.7 fL (80-100) Mean Corpuscular Hemoglobin 27.6 pg (25-34) Mean Corpuscular Hemoglobin Concent 32.6 g/dl (32-36) Platelet Count 200 K/uL (130-400) Mean Platelet Volume 11.7 fL (7.4-10.4) Neutrophils (%) (Auto) 90.9 % Lymphocytes (%) (Auto) 3.1 % Monocytes (%) (Auto) 5.3 % Eosinophils (%) (Auto) 0.3 % Basophils (%) (Auto) 0.1 % Neutrophils # (Auto) 7.10 K/uL (1.4-6.5) Lymphocytes # (Auto) 0.24 K/uL (1.2-3.4) Monocytes # (Auto) 0.41 K/uL (0.11-0.59) Eosinophils # (Auto) 0.02 K/uL (0-0.5) Basophils # (Auto) 0.01 K/uL (0-0.2) RDW Standard Deviation 51.0 fL (36.4-46.3) RDW Coefficient of Variation 16.5 % (11.5-14.5) Immature Granulocyte % (Auto) 0.3 % Immature Granulocyte # (Auto) 0.02 K/uL (0.00-0.02) Anion Gap 10.0 mmol/L (3-11) Est Creatinine Clear Calc Drug Dose 23.8 ml/min Estimated GFR () 39.6 Estimated GFR (Non- 34.2 BUN/Creatinine Ratio 31.0 (10-20) Calcium Level 10.0 mg/dl (8.5-10.1) Total Bilirubin 1.0 mg/dl (0.2-1) Direct Bilirubin 0.6 mg/dl (0-0.2) Aspartate Amino Transf (AST/SGOT) 91 U/L (15-37) Alanine Aminotransferase (ALT/SGPT) 51 U/L (12-78) Alkaline Phosphatase 131 U/L (45-117) Troponin I 0.021 ng/ml (0-0.045) Total Protein 6.6 gm/dl (6.4-8.2) Albumin 2.8 gm/dl (3.4-5.0) Lipase 213 U/L (73-393) Laboratory results as stated above per my review. Medications Administered Medications (Trade) Dose Ordered Sig/Bay Route Start Time Stop Time Status Last Admin Dose Admin Sodium Chloride 1,000 ml @ 200 mls/hr Q5H STAT IV 08/16/17 14:32 08/16/17 19:31 08/16/17 14:53 200 MLS/HR ECG Indication: chest pain Rate (beats per minute): 75 Rhythm: normal sinus Findings: no ectopy, other (No acute injury) ED Course 1418: Previous medical records were reviewed. The patient was evaluated in room C11. A complete history and physical examination was performed. 1432: Sodium Chloride 1000 ml @ 200 mls/hr IV 1701: On reevaluation, the patient is doing well. I discussed the results and findings with the patient. She verbalized agreement of the treatment plan. She was discharged home. Medical Decision the differential was considered includes acute myocardial infarction, acute coronary syndrome, myocarditis, pericarditis, pericardial effusions /tamponade, esophageal perforation, thoracic aortic dissection, pulmonary embolism, pneumonia, pneumothorax, pancreatitis, shingles, acute cholecystitis, perforated abdominal viscus. This is a 71-year-old female who presents to the ED with a chief complaint of chest Discomfort. The patient states that she was discharged yesterday from the hospital. She has a history of metastatic cancer and was admitted for hypercalcemia. The patient was discharged with a prescription for methylprednisolone. The patient vomited some green vomitus this morning around 8 AM. This afternoon she had some sharp chest pains and was brought to the ED by the daughter for evaluation. The patient denies any significant symptoms at this time. Her vital signs stable. Laboratory studies including a CBC, chemistry panel and troponin were unremarkable. Her BUN is 47 and a creatinine is 1.5. Chest x-ray is negative for acute disease and EKG shows a normal sinus rhythm. The patient was told results the test. She is felt to be stable for discharge and outpatient follow-up. Medication Reconcilliation Current Medication List: was personally reviewed by me Blood Pressure Screening Patient's blood pressure: Normal blood pressure Impression Primary Impression: Retrosternal chest pain Scribe Attestation The scribe's documentation has been prepared under my direction and personally reviewed by me in its entirety. I confirm that the note above accurately reflects all work, treatment, procedures, and medical decision making performed by me. Departure Information Dispostion Home / Self-Care Referrals Venkatesh Lundy M.D. (PCP) Forms Call Back Authorization, HOME CARE DOCUMENTATION FORM, IMPORTANT VISIT INFORMATION Patient Instructions My [facility] Additional Instructions Follow-up with your doctor for further care and evaluation in 1-2 days. Return to the emergency department for worsening or new symptoms or any concerns. You have been examined and treated today on an emergency basis only. This is not a substitute for, or an effort to provide, complete comprehensive medical care. It is impossible to recognize and treat all injuries or illnesses in a single emergency department visit. It is therefore important that you follow up closely with your doctor. Call as soon as possible for an appointment.
[2017-08-16 17:16] VITALS: BP 141/74; PULSE 78; O2SAT 97
[2017-08-20] MEDS ORDERED: fleets enema PR (14:48)
[2017-08-20] MEDS ORDERED: BISA10SU38 PR (14:48)
== END 2017-08-16 17:17 | disposition home or self-care (01) ==
LOC: EDBD 14:16 → C.EDC 14:18
DX: R07.9 Chest pain, unspecified (principal); N18.3 Chronic kidney disease, stage 3 (moderate); I25.10 Atherosclerotic heart disease of native coronary artery without angina pectoris; E11.9 Type 2 diabetes mellitus without complications; E78.5 Hyperlipidemia, unspecified; I10 Essential (primary) hypertension; M10.9 Gout, unspecified; K57.90 Diverticulosis of intestine, part unspecified, without perforation or abscess without bleeding; K31.84 Gastroparesis; E83.52 Hypercalcemia; E78.1 Pure hyperglyceridemia; I25.5 Ischemic cardiomyopathy; D3A.8 Other benign neuroendocrine tumors; Z83.3 Family history of diabetes mellitus; Z79.82 Long term (current) use of aspirin; Z79.4 Long term (current) use of insulin